=== PATIENT | female | born 1950 | race Caucasian/White ===

== ENCOUNTER 2019-08-20 11:17 | Outpatient (CLI) | payer MEDICARE, SELFPAY ==
[2019-08-20 12:17] LABS: Alanine Aminotransferase 57 U/L (4-35); Albumin Level 4.3 g/dL (3.5-5.1); Alkaline Phosphatase 112 U/L (38-126); Aspartate Amino Transferase 50 U/L (14-36); Bilirubin,Total 0.2 mg/dL (0.2-1.3); Blood Urea Nitrogen 16 mg/dL (7-17); Calcium 9.1 mg/dL (8.4-10.2); Carbon Dioxide 26 mmol/L (22-30); Chloride 104 mmol/L (98-107); Estimated Glomerular Filt Rate > 60; Glucose 124 mg/dL (65-105); Potassium 4.4 mmol/L (3.4-5.0); Rheumatoid Factor < 8.6 IU/ML (<12); Sodium 140 mmol/L (137-145)
== END 2019-08-20 11:18 | disposition home or self-care (01) ==
LOC: ANHLAB 11:20
PROVIDERS: PCP Family Medicine; Visit Provider Internal Medicine Critical Care Medicine
DX: R05 Cough (principal)
CPT/HCPCS: 36415; 80053; 82785; 86003; 86331; 86430; 86606; 86609

== ENCOUNTER 2019-08-25 14:37 | Outpatient (CLI) | payer MEDICARE, SELFPAY ==
--- NOTE | ~2019-08-25 | CT_ITS ---
EXAMINATION:CT chest high resolution wo [place] DATE: 08/25/2019 15:26 INDICATION: Cough. TECHNIQUE: Computed tomography (CT) of the chest was performed without intravenous contrast. Automate d exposure control and iterative reconstruction technique were employed. The dose-length product (DLP ) was 545.75 mGy-cm. COMPARISON: Chest CT 05/19/2011 FINDINGS: Lung volumes are small. There are widespread peripheral reticular opacities in the lungs as sociated with mild groundglass opacities with a lower lung predominance. No bronchiectasis or honeyco mbing. No pleural effusion. The heart size is normal. There are coronary artery calcifications. No pe ricardial effusion. There is diffuse hepatic steatosis. There are changes of cholecystectomy. There i s severe thoracic spondylosis. IMPRESSION: 1. Worsened chronic interstitial lung disease in a pattern of nonspecific interstitial pneumonia (NSI P). Reviewed, dictated and finalized at location A. IMPRESSION: 1. Worsened chronic interstitial lung disease in a pattern of nonspecific inter stitial pneumonia (NSIP).
== END 2019-08-25 14:38 | disposition home or self-care (01) ==
PROVIDERS: PCP Family Medicine; Visit Provider Internal Medicine Critical Care Medicine
DX: R05 Cough (principal); J84.9 Interstitial pulmonary disease, unspecified
CPT/HCPCS: 71250

== ENCOUNTER 2019-09-29 14:24 | Outpatient (CLI) | payer MEDICARE, SELFPAY ==
[2019-09-29 15:19] LABS: Alanine Aminotransferase 63 U/L (4-35); Albumin Level 4.3 g/dL (3.5-5.1); Alkaline Phosphatase 112 U/L (38-126); Aspartate Amino Transferase 46 U/L (14-36); Bilirubin,Total < 0.1 mg/dL (0.2-1.3)
== END 2019-09-29 14:25 | disposition home or self-care (01) ==
PROVIDERS: PCP Family Medicine; Visit Provider Internal Medicine Critical Care Medicine
DX: J84.9 Interstitial pulmonary disease, unspecified (principal)
CPT/HCPCS: 36415; 80076

== ENCOUNTER 2019-11-19 12:25 | Outpatient (CLI) | payer MEDICARE, SELFPAY ==
--- NOTE | 2019-11-26 10:20 | WPDPFTINT ---
PFT Interpretation PFT Interpretation: This PFT met all criteria for ATS standards and reproducibility FEV/FVC post bronchodilator 89% FEV1 100% or 1.92 liters FVC 80% or 2.16 liters TLC 69% or 3.16 liters RV 52% RV/TLC 30% DLCO 54% when adjusted for alveolar volume but not adjusted for hemoglobin Flow volume loops show a restrictive pattern Impression: Restrictive ventilatory defect with moderately decreased diffusion capacity. Compared to September 2018. There have been no significant changes in her lung volumes. This pattern may correspond with ILD or other restrictive lung diseases. Clinical correlation is advised.
--- NOTE | 2019-11-26 10:29 | WPDSIXMINUTE ---
Six Minute Walk Six Minute Walk: The patients O2 sats started at 98% and dropped as low as 93% Total walk distance 304.28 meters conclusion: This patient does not meet criteria for home oxygen therapy.
== END 2019-11-19 12:26 | disposition home or self-care (01) ==
PROVIDERS: PCP Family Medicine; Visit Provider Internal Medicine Critical Care Medicine
DX: J84.9 Interstitial pulmonary disease, unspecified (principal); R94.2 Abnormal results of pulmonary function studies
CPT/HCPCS: 94060; 94618; 94726; 94729

== ENCOUNTER 2019-12-16 14:40 | Outpatient (CLI) | payer MEDICARE, SELFPAY ==
[2019-12-16 15:21] LABS: Alanine Aminotransferase 50 U/L (4-35); Albumin Level 4.2 g/dL (3.5-5.1); Alkaline Phosphatase 102 U/L (38-126); Aspartate Amino Transferase 48 U/L (14-36); Bilirubin,Total 0.2 mg/dL (0.2-1.3)
== END 2019-12-16 14:41 | disposition home or self-care (01) ==
PROVIDERS: PCP Family Medicine; Visit Provider Internal Medicine Critical Care Medicine
DX: J84.112 Idiopathic pulmonary fibrosis (principal)
CPT/HCPCS: 36415; 80076

== ENCOUNTER 2020-01-09 13:41 | Outpatient (CLI) | payer MEDICARE, SELFPAY ==
[2020-01-09 14:29] LABS: Basophils Percent Auto 0.2 % (0.2-1.2); Eosinophils Absolute Auto 0.1 K/mm3 (0-0.3); Eosinophils Percent Auto 1.1 % (0-4.4); Hematocrit 38.2 % (37.0-47.0); Hemoglobin 11.3 g/dL (12.0-15.0); Immature Granulocyte Absolute 0.03 K/mm3 (0.00-0.031); Immature Granulocyte Percent A 0.3 % (0-0.5); Lymphocytes Absolute Auto 1.95 K/mm3 (0.9-3.2); Lymphocytes Percent Auto 22.2 % (18.3-44.2); Mean Corpuscular HGB Conc 29.6 g/dl (32-36); Mean Corpuscular Volume 77.8 fl (80-100); Mean Platelet Volume 10.9 fl (7.4-10.4); Monocytes Absolute Auto 0.5 K/mm3 (0.1-0.6); Monocytes Percent Auto 5.7 % (2.6-8.5); Neutrophils Absolute Auto 6.2 K/mm3 (1.3-6.7); Neutrophils Percent Auto 70.5 % (45.5-73.1); Platelet Count Result 345 k/mm3 (150-375); Red Blood Count 4.91 M/mm3 (4.2-5.4); Red Cell Distribution Width 17.8 % (11.5-14.5); White Blood Count 8.8 K/mm3 (4.5-10.0)
[2020-01-09 14:35] LABS: Alanine Aminotransferase 35 U/L (4-35); Albumin Level 3.9 g/dL (3.5-5.1); Alkaline Phosphatase 123 U/L (38-126); Anion Gap 9 mmol/L (8-16); Aspartate Amino Transferase 40 U/L (14-36); Bilirubin,Total 0.3 mg/dL (0.2-1.3); Blood Urea Nitrogen 16 mg/dL (7-17); Calcium 9.1 mg/dL (8.4-10.2); Carbon Dioxide 30 mmol/L (22-30); Chloride 101 mmol/L (98-107); Estimated Glomerular Filt Rate > 60; Glucose 154 mg/dL (65-105); Potassium 4.1 mmol/L (3.4-5.0); Sodium 140 mmol/L (137-145)
[2020-01-09 15:13] LABS: Hypochromasia 1+ (NORMAL); Platelet Estimate Adequate (Adequate)
== END 2020-01-09 13:42 | disposition home or self-care (01) ==
LOC: ANHLAB 13:42
PROVIDERS: PCP Family Medicine; Visit Provider Internal Medicine Critical Care Medicine
DX: J84.112 Idiopathic pulmonary fibrosis (principal)
CPT/HCPCS: 36415; 80053; 85025

== ENCOUNTER 2020-03-17 15:16 | Outpatient (RCR) | payer MEDICARE, SELFPAY ==
[2020-02-16 14:53] LABS: Alanine Aminotransferase 34 U/L (4-35); Albumin Level 3.8 g/dL (3.5-5.1); Alkaline Phosphatase 100 U/L (38-126); Aspartate Amino Transferase 40 U/L (14-36); Bilirubin,Total 0.3 mg/dL (0.2-1.3)
[2020-03-17 15:57] LABS: Alanine Aminotransferase 30 U/L (4-35); Albumin Level 3.7 g/dL (3.5-5.1); Alkaline Phosphatase 88 U/L (38-126); Aspartate Amino Transferase 36 U/L (14-36); Bilirubin,Total 0.3 mg/dL (0.2-1.3)
== END 2020-05-16 23:59 | disposition home or self-care (01) ==
LOC: ANHLAB 15:16
PROVIDERS: PCP Family Medicine; Visit Provider Internal Medicine Critical Care Medicine
DX: J84.112 Idiopathic pulmonary fibrosis (principal)
CPT/HCPCS: 36415; 80076

== ENCOUNTER 2020-04-13 08:57 | Outpatient (CLI) | payer MEDICARE, SELFPAY | END 2020-04-13 08:58 | disposition home or self-care (01) | LOC: ANHCOVIDVC 08:57 | PROVIDERS: PCP Family Medicine; Visit Provider Internal Medicine Critical Care Medicine | DX: Z23 Encounter for immunization (principal) | CPT/HCPCS: 0001A; 91300 ==

== ENCOUNTER 2020-05-04 08:57 | Outpatient (CLI) | payer MEDICARE, SELFPAY | END 2020-05-04 08:58 | disposition home or self-care (01) | LOC: ANHCOVIDVC 08:57 | PROVIDERS: PCP Family Medicine | DX: Z23 Encounter for immunization (principal) | CPT/HCPCS: 0002A; 91300 ==

== ENCOUNTER 2020-05-17 10:06 | Outpatient (CLI) | payer MEDICARE, SELFPAY ==
--- NOTE | 2020-05-17 16:48 | WPDPFTINT ---
PFT Interpretation This is a pulmonary function test with spirometry, plethysmography and diffusing capacity. The test was performed and results interpreted in accordance with the 2019 and 2005 ATS/ERS Task Force guidelines respectively using the Global Lung Function Initiative-2012 reference equations. Patient demonstrated good effort and cooperation. Reproducibility criteria were met. The quality of the spirometry maneuver was Grade A. Findings: Spirometry: The contour the expiratory flow tracing resembles that of a whitch's hat . The contour of the inspiratory flow tracing is normal. the FVC is 2.23 L, 85% predicted. The FEV1 is 1.95 L, 95% predicted. The FEV1: FVC ratio is 87%. plethysmography: The total lung capacity is 2.90 L, 61% predicted. The functional residual capacity is 1.21 L, 45% predicted. The residual volume is 0.41 L, 20% predicted. Diffusing capacity: The absolute diffusion capacity is 10.4, 53% predicted. The diffusing capacity corrected for alveolar volume is 3.69, 84% predicted. In comparison to previous pulmonary function test on 11/19/2019 the FVC is unchanged from 2.20 L to 2.23 L. The FEV1 is unchanged from 1.93 L to 1.95 L. The total lung capacity is unchanged from 3.16 L to 2.90 L. The functional residual capacity is decreased from 1.53 L to 1.21 L. The residual volume is decreased from 0.96 L to 0.41 L. The absolute diffusing capacity is decreased from 12.5 to 10.4. The diffusing capacity corrected for alveolar volume is decreased from 4.11 to 3.69 Impression: There is a mild restrictive ventilatory abnormality with a normal FEV1. The spirometry is normal without evidence of an obstructive abnormality. The absolute diffusing capacity is moderately decreased and normalizes when corrected for alveolar volume. in comparison to the prior pulmonary function test on 11/19/2019 there has been no significant change in the FVC, FEV1, total lung capacity and a greater than anticipated time dependent decrease in the functional residual capacity, residual volume, absolute diffusing capacity and diffusing capacity corrected for alveolar volume. Clinical correlation is recommended. PFT Procedure Performed PFT Procedure Performed Plethysmography (Lung Vol) Diffusing Cap (DLCO) Spirometry w/o Bronchodil
== END 2020-05-17 10:07 | disposition home or self-care (01) ==
PROVIDERS: PCP Family Medicine; Visit Provider Internal Medicine Critical Care Medicine
DX: J84.112 Idiopathic pulmonary fibrosis (principal)
CPT/HCPCS: 94375; 94726; 94729

== ENCOUNTER → 2020-11-09 03:36 | Outpatient (CLI) | payer MEDICARE, SELFPAY ==
[2020-11-10 01:26] LABS: SARS-CoV-2 RNA PCR Negative
== END ==
PROVIDERS: PCP Family Medicine; Visit Provider Family Medicine
DX: R68.89 Other general symptoms and signs (principal); Z20.822 Contact with and (suspected) exposure to COVID-19
CPT/HCPCS: C9803; U0003; U0005

== ENCOUNTER 2020-11-24 09:18 | Outpatient (CLI) | payer MEDICARE, SELFPAY ==
[2020-11-24 10:04] VITALS: PULSE 78; O2SAT 96
[2020-11-24 10:05] VITALS: PULSE 97; O2SAT 95
[2020-11-24 10:06] VITALS: PULSE 102; O2SAT 92
[2020-11-24 10:07] VITALS: PULSE 97; O2SAT 92
--- NOTE | 2020-11-24 10:27 | HOMEO2EVAL ---
Evaluation was performed at [facility] Home Oxygen Evaluation RC: Home Oxygen (O2) Evaluation Start: 11/24/20 10:24 Freq: Status: Active Protocol: RPE Activity Type Activity Date Activity User E-Sign Co-Sign Detail Recorded Client Recorded Date Recorded By Document 11/24/20 10:04 KRM [id number] 11/24/20 10:27 KRM Document 11/24/20 10:05 KRM [email or web address] 11/24/20 10:27 KRM Document 11/24/20 10:06 KRM [email or web address] 11/24/20 10:27 KRM Document 11/24/20 10:07 KRM [email or web address] 11/24/20 10:27 KRM 11/24/20 11/24/20 11/24/20 10:04 10:05 10:06 Home O2 Evaluation Test Phase Resting Exercise Exercise Oxygen Delivery Room Air Room Air Room Air Pulse Oximetry (90-100 %) 96 95 92 Pulse Rate (60-100 beats/min) 78 97 102 H Activity Tolerance Good Good Ambulation Distance (feet) Treatment Charges O2 Evaluation - Outpatient 11/24/20 10:07 Home O2 Evaluation Test Phase Exercise Oxygen Delivery Room Air Pulse Oximetry (90-100 %) 92 Pulse Rate (60-100 beats/min) 97 Activity Tolerance Good Ambulation Distance (feet) 250 Treatment Charges
--- NOTE | 2020-11-24 11:46 | WPDPFTINT ---
PFT Procedure Performed PFT Procedure Performed Spirometry with Pre/Post Bronchodilator Plethysmography (Lung Vol) Diffusing Cap (DLCO) Flow Vol Loop PFT Interpretation Lung volumes were measured with the body plethysmography method. The diminished lung volumes are indicative of restrictive respiratory disease. Spirometry showed normal expiratory flow rates and a normal FEV1 to FVC ratio of 87%. Following the administration of an inhaled bronchodilator, there was no significant change in the expiratory flow rates. Lung diffusion capacity is moderately reduced at 52% predicted. In comparison to previous study done in November of 2019, the vital capacity and lung diffusion capacity are essentially unchanged. The flow volume loop is consistent with a restrictive respiratory disease. Impression: Moderately severe restrictive respiratory disease. Moderately reduced lung diffusion capacity.
== END 2020-11-24 09:19 | disposition home or self-care (01) ==
PROVIDERS: PCP Family Medicine; Visit Provider Internal Medicine Pulmonary Disease
DX: J84.112 Idiopathic pulmonary fibrosis (principal); R06.00 Dyspnea, unspecified; R94.2 Abnormal results of pulmonary function studies
CPT/HCPCS: 94060; 94618; 94726; 94729

== ENCOUNTER 2021-04-01 15:12 | Outpatient (CLI) | payer MEDICARE, SELFPAY ==
[2021-04-01 15:44] LABS: Albumin Level 3.8 g/dL (3.5-5.1)
[2021-04-01 15:48] LABS: Alanine Aminotransferase 21 U/L (4-35); Alkaline Phosphatase 90 U/L (38-126); Anion Gap 7 mmol/L (8-16); Aspartate Amino Transferase 24 U/L (14-36); Bilirubin,Total 0.2 mg/dL (0.2-1.3); Blood Urea Nitrogen 18 mg/dL (7-17); Carbon Dioxide 29 mmol/L (22-30); Chloride 102 mmol/L (98-107); Estimated Glomerular Filt Rate 49; Glucose 239 mg/dL (65-110); Sodium 138 mmol/L (137-145)
== END 2021-04-01 15:13 | disposition home or self-care (01) ==
PROVIDERS: PCP Family Medicine; Visit Provider Internal Medicine Pulmonary Disease
DX: J84.112 Idiopathic pulmonary fibrosis (principal)
CPT/HCPCS: 36415; 80053

== ENCOUNTER 2021-04-28 10:56 | Emergency (ER) | payer MEDICARE, SELFPAY ==
--- NOTE | ~2021-04-28 | XR_ITS ---
EXAMINATION: XR chest 2V 04/28/2021 11:47 INDICATION: Cough and congestion PROCEDURE: 2 view chest COMPARISON: Comparison to multiple prior studies sequentially, with oldest reviewed study dated 04/07. FINDINGS: There is mild chronic interstitial lung disease of the lower lungs. No acute focal pneumoni a, edema, pleural effusion or pneumothorax. The cardiomediastinal silhouette is within normal limits. There are no pleural effusions. There is no pneumothorax suspected. IMPRESSION: 1: NO ACUTE CARDIOPULMONARY DISEASE. Reviewed, dictated and finalized at location B.
[2021-04-28 11:05] VITALS: BP 147/68; PULSE 94; RESP 18; TEMP 36.3; O2SAT 98
--- NOTE | 2021-04-28 11:47 | ED.GENADULT ---
HPI - General Adult General Chief complaint: Ear Stated complaint: Sore Throat,Rt Ear Irritation Time Seen by Provider: 04/28/21 11:48 Source: patient and RN notes reviewed Mode of arrival: ambulatory Limitations: no limitations History of Present Illness HPI narrative: 70-year-old female with history of IUP lung disease, presented with complaint of sore throat and nasal drainage for 3 days. Also endorses feeling that her ears are itchy. She has chronic shortness of breath and cough due to her lung disease. She has started Mucinex and increase fluids, gargling with warm Listerine without relief in symptoms. She denies sick contact. Endorses feeling more congested since stopping her Flovent and using her rescue inhaler more often. She has boosted for Covid and has had flu vaccine. Denies chest pain, heart racing, nausea, vomiting, diarrhea, fever or chills. Related Data Home Medications Medication Instructions Recorded Confirmed ezetimibe 10 mg tablet 10 mg PO DAILY 08/05/19 03/31/21 sitagliptin 50 mg-metformin 1,000 1 tablet PO BID 08/05/19 03/31/21 mg tablet cholecalciferol (vitamin D3) PO 09/01/19 03/31/21 vitamin B complex 1 tablet PO DAILY 09/01/19 03/31/21 insulin glargine 100 unit/mL (3 16 unit SUBCUT QAM ml 03/31/21 03/31/21 mL) subcutaneous pen insulin lispro 200 unit/mL (3 mL) 8 unit SUB-Q QACBREAK ml 03/31/21 03/31/21 subcutaneous pen Allergies Allergy/AdvReac Type Severity Reaction Status Date / Time amoxicillin Allergy Unknown Unknown Verified 03/31/21 09:38 latex Allergy Unknown unknown Verified 03/31/21 09:38 oxybutynin Allergy Unknown unknown Verified 03/31/21 09:38 clavulanic acid AdvReac Unknown Diarrhea Verified 03/31/21 09:38 OXYBUTYNIN CHLORIDE Allergy Severe HIVES Uncoded 03/31/21 09:38 Review of Systems Review of Systems: CONSTITUTIONAL:denies malaise, chills, sweats, fever EYES: Denies visual changes, redness, or discharge ENT: Reports rhinorrhea, congestion, itching ears, sore throat CARDIOVASCULAR: Denies chest pain, palpitations, edema RESPIRATORY: Reports cough, post nasal drainage. GASTROINTESTINAL: Denies abdominal pain, nausea, vomiting, diarrhea SKIN: Denies rash or itching MUSCULOSKELETAL: denies myalgia NEUROLOGIC: Denies headache [facility] Past Medical History Medical History (Updated 04/28/21 @ 12:00 by Virginia Lei APRN) Allergic rhinitis GERD without esophagitis Hyperlipidemia Hypertension Iron deficiency Moderate persistent asthma with acute exacerbation Other vitamin B12 deficiency anemias Type 2 diabetes mellitus with hyperglycemia Surgical History Surgical History Status post total left knee replacement Family History Family History Mother Diabetes mellitus Hypertension Family history of cardiovascular disease Family history of arthritis Family history of chronic obstructive pulmonary disease Grandparent Diabetes mellitus Family history of cardiovascular disease Cerebrovascular accident Family history of chronic obstructive pulmonary disease Family history of congestive heart failure Sibling Diabetes mellitus Family history of arthritis Family history of seizure disorder Other Asthma Depression Family history of alcoholism Family history of blood dyscrasia Family history of coronary artery disease Family history of glaucoma Family history of obesity Family history of premature coronary heart disease Social History Social History Smoking status: Never smoker Second hand tobacco smoke exposure: No Alcohol intake: never Substance use: never Substance use type: does not use Gender identity (if verbalized by the patient): Female Sexual Orientation (if Verbalized by the Patient): Straight or Heterosexual Spiritual care concerns: No Agree to
== END 2021-04-28 12:25 | disposition home or self-care (01) ==
PROVIDERS: Emergency Provider Nurse Practitioner Family; PCP Family Medicine
DX: J02.9 Acute pharyngitis, unspecified (principal); J30.9 Allergic rhinitis, unspecified; E78.5 Hyperlipidemia, unspecified; I10 Essential (primary) hypertension; E11.9 Type 2 diabetes mellitus without complications; Z79.4 Long term (current) use of insulin; J45.909 Unspecified asthma, uncomplicated; Z96.652 Presence of left artificial knee joint; J84.9 Interstitial pulmonary disease, unspecified
CPT/HCPCS: 71046; 87081; 87880; 99213; G0463

== ENCOUNTER 2021-06-08 09:08 | Outpatient (CLI) | payer MEDICARE, SELFPAY ==
--- NOTE | ~2021-06-08 | CT_ITS ---
EXAMINATION: CT chest high resolution wo nc DATE: 06/08/2021 09:34 INDICATION: Idiopathic pulmonary fibrosis TECHNIQUE: Computed tomography (CT) of the chest was performed without intravenous contrast. The dose -length product (DLP) was 432.66 mGy-cm. Automated exposure control and iterative reconstruction tech nique were employed. COMPARISON: 08/25/2019 FINDINGS: In general widespread subpleural reticular and groundglass opacities with a lower lung zone predominance. No honeycombing is identified. There is mild bronchiectasis in the lower lobes. There is no pleural effusion or pneumothorax. No pathologically enlarged thoracic lymph nodes are identifie d. The heart size is normal. There are scattered stable pulmonary nodules, likely old granulomatous d isease. The gallbladder is surgically absent. There is severe thoracic spondylosis. IMPRESSION: 1. Chronic interstitial lung disease in a pattern of nonspecific interstitial pneumonia (NSIP) with s light interval worsening. Reviewed, dictated and finalized at location F. IMPRESSION: 1. Chronic interstitial lung disease in a pattern of nonspecific interstitial p neumonia (NSIP) with slight interval worsening.
[2021-06-08 11:01] LABS: Basophils Absolute Auto 0.1 K/mm3 (0.0-0.1); Basophils Percent Auto 0.5 % (0.2-1.2); Eosinophils Absolute Auto 0.4 K/mm3 (0-0.3); Hematocrit 37.6 % (37.0-47.0); Hemoglobin 11.8 g/dL (12.0-15.0); Immature Granulocyte Absolute 0.05 K/mm3 (0.00-0.031); Immature Granulocyte Percent A 0.4 % (0-0.5); Lymphocytes Percent Auto 25.6 % (18.3-44.2); Mean Corpuscular HGB Conc 31.4 g/dl (32-36); Mean Corpuscular Hemoglobin 27.2 pg (26-34); Mean Corpuscular Volume 86.6 fl (80-100); Mean Platelet Volume 10.4 fl (7.4-10.4); Monocytes Absolute Auto 0.7 K/mm3 (0.1-0.6); Monocytes Percent Auto 5.3 % (2.6-8.5); Neutrophils Absolute Auto 8.4 K/mm3 (1.3-6.7); Neutrophils Percent Auto 65.2 % (45.5-73.1); Platelet Count Result 284 k/mm3 (150-375); Red Blood Count 4.34 M/mm3 (4.2-5.4); Red Cell Distribution Width 14.8 % (11.5-14.5); White Blood Count 12.9 K/mm3 (4.5-10.0)
[2021-06-08 11:13] LABS: Alanine Aminotransferase 21 U/L (4-35); Albumin Level 4.2 g/dL (3.5-5.1); Alkaline Phosphatase 83 U/L (38-126); Anion Gap 9 mmol/L (8-16); Aspartate Amino Transferase 27 U/L (14-36); Bilirubin,Total 0.2 mg/dL (0.2-1.3); Blood Urea Nitrogen 19 mg/dL (7-17); Carbon Dioxide 30 mmol/L (22-30); Chloride 99 mmol/L (98-107); Cholesterol 150 mg/dL (0-200); Estimated Glomerular Filt Rate > 60; Glucose 152 mg/dL (65-110); HDL Direct 44 mg/dL; Potassium 3.9 mmol/L (3.4-5.0); Sodium 138 mmol/L (137-145); Triglycerides 175 mg/dL (<150)
[2021-06-08 11:24] LABS: LDL Cholesterol Direct 65 mg/dL
[2021-06-08 11:37] LABS: Iron 39 ug/dL (37-170)
[2021-06-08 11:46] LABS: Percent Iron Saturation 10 % (20-50)
[2021-06-08 12:19] LABS: Folic Acid 13.8 ng/mL (2.76->20); Vitamin B12 > 1000.0 pg/mL (239-931)
--- NOTE | 2021-06-09 15:25 | WPDPFTINT ---
PFT Procedure Performed PFT Procedure Performed Spirometry with Pre/Post Bronchodilator Plethysmography (Lung Vol) Diffusing Cap (DLCO) Flow Vol Loop PFT Interpretation DOS: 06/08/2021 REQUESTING: Dr. Thomas Mccann REASON FOR TESTING: ILD PULMONARY FUNCTION TESTS Results are reliable and reproducible. Spirometry: the pre bronchodilator FEV1 is 93%, 1.95 L, normal. The pre bronchodilator FVC is 81%, 2.19 L, normal. The FEV1/FVC ratio is 89% normal. There is an insignificant response to bronchodilator administration, 2% increase in the FEV1 and a 2% decrease in the FVC. Lung volumes: The total lung capacity is decreased at 66% predicted, 3.22 L. This is consistent with mild restriction. The functional residual capacity is 68% predicted, 1.89 L, in the normal range. Residual volume is 46%, 0.99 L, this is below average. The RV/TLC is 31%, below average. Diffusion: DLCO is 53%, moderately decreased. DLCO/A 98%, normal. Flow volume loop: Restrictive pattern. IMPRESSION: This study shows normal spirometry, mild restriction and a moderate diffusion impairment. This is consistent with interstitial lung disease. Compared to a prior study on 11/24/2020, similar values are noted. The total lung capacity is 66%, previously was 61%. Diffusion capacity is 53% previously was 52%. FEV1 is 93%, previously 89%. No significant change in the values. Kendra Bravo MD
== END 2021-06-08 09:09 | disposition home or self-care (01) ==
PROVIDERS: PCP Family Medicine; Visit Provider Internal Medicine Pulmonary Disease
DX: J84.112 Idiopathic pulmonary fibrosis (principal); R06.00 Dyspnea, unspecified; E61.1 Iron deficiency; I10 Essential (primary) hypertension; E87.5 Hyperkalemia; E78.5 Hyperlipidemia, unspecified; D64.9 Anemia, unspecified
CPT/HCPCS: 36415; 71250; 80053; 80061; 82607; 82746; 83540; 83550; 84443; 85025; 94060; 94726; 94729

== ENCOUNTER 2021-10-03 16:40 | Outpatient (CLI) | payer MEDICARE, SELFPAY ==
[2021-10-03 17:20] LABS: Alanine Aminotransferase 22 U/L (6-35); Albumin Level 3.9 g/dL (3.5-5.1); Alkaline Phosphatase 79 U/L (38-126); Anion Gap 12 mmol/L (8-16); Aspartate Amino Transferase 24 U/L (14-36); Bilirubin,Total 0.2 mg/dL (0.2-1.3); Blood Urea Nitrogen 19 mg/dL (7-17); Calcium 8.5 mg/dL (8.4-10.2); Carbon Dioxide 29 mmol/L (22-30); Chloride 99 mmol/L (98-107); Estimated Glomerular Filt Rate 40; Glucose 172 mg/dL (65-110); Potassium 4.3 mmol/L (3.4-5.0); Sodium 140 mmol/L (137-145)
== END 2021-10-03 16:41 | disposition home or self-care (01) ==
LOC: ANHLAB 16:42
PROVIDERS: PCP Family Medicine; Visit Provider Internal Medicine Pulmonary Disease
DX: J84.112 Idiopathic pulmonary fibrosis (principal)
CPT/HCPCS: 36415; 80053

== ENCOUNTER 2021-12-16 10:36 | Emergency (ER) | payer MEDICARE, SELFPAY ==
--- NOTE | ~2021-12-16 | XR_ITS ---
EXAMINATION: XR chest 2V DATE: 12/16/2021 11:09 INDICATION: Shortness of breath, cough and crackles TECHNIQUE: PA and lateral views of the chest were obtained. COMPARISON: Chest radiograph dated 04/28/2021 FINDINGS: Opacities at the bilateral lower lung zones, left greater than right. No pleural effusion or pneumoth orax. The cardiomediastinal silhouette is normal. Cholecystectomy clips in the right upper quadrant. Moderate thoracic spondylosis. IMPRESSION: 1. Bibasilar opacities, left greater than right which could represent atelectasis, mild pulmonary blanca ma or pneumonia. Reviewed, dictated and finalized at location B. IMPRESSION: 1. Bibasilar opacities, left greater than right which could represent atelectas is, mild pulmonary edema or pneumonia.
[2021-12-16 10:52] VITALS: BP 145/76; PULSE 91; RESP 20; TEMP 36.4; O2SAT 98
--- NOTE | 2021-12-16 11:28 | ED.SOB ---
HPI - SOB/Dyspnea General Chief Complaint: Upper Respiratory Infection Stated Complaint: Cough,Sinus,Shortness of Breath Time Seen by Provider: 12/16/21 11:00 Source: patient Mode of arrival: ambulatory Limitations: no limitations History of Present Illness HPI Narrative: Mercedes is a 71-year-old female patient presenting to clinic today with complaints of cough, sinus congestion, and shortness of breath. She reports her symptoms have been going on for approximately 2 days. Has had possible exposure to COVID as her [id number] tested positive on the 05 of December. She reports she has taken 2 COVID test and they have opened negative the last 1 was this morning. She has a productive cough but is unable to spit it out. History of asthma and pulmonary fibrosis. She reports shortness of breath on exertion however when she is sitting she is not short of breath. SpO2 was initially 98% on room air. She denies any fever or chills currently. Related Data Home Medications Medication Instructions Recorded Confirmed ezetimibe 10 mg tablet (Zetia) 10 mg PO DAILY 08/05/19 12/16/21 sitagliptin phosphate 50 1 tablet PO BID 08/05/19 12/16/21 mg-metformin 1,000 mg tablet (Janumet) cholecalciferol (vitamin D3) 1,000 mcg PO DAILY 09/01/19 12/16/21 vitamin B complex (B 1 tablet PO DAILY 09/01/19 12/16/21 Complex-Vitamin B12 tablet) insulin glargine 100 unit/mL (3 16 unit subcut QAM 03/31/21 12/16/21 mL) subcutaneous pen (Lantus Solostar U-100 Insulin) insulin lispro 200 unit/mL (3 mL) 8 unit subcut QACBREAK 03/31/21 12/16/21 subcutaneous pen (Humalog KwikPen U-200 Insulin) albuterol sulfate 90 mcg/actuation See Rx Instructions .Route 04/28/21 12/16/21 aerosol inhaler .COMPLEX PRN Shortness Of Breath Or Wheezing Allergies Allergy/AdvReac Type Severity Reaction Status Date / Time oxybutynin Allergy Intermediate Nausea and Verified 12/16/21 11:18 Vomiting amoxicillin AdvReac Mild Itching Verified 12/16/21 11:18 clavulanic acid AdvReac Mild Itching Verified 12/16/21 11:18 latex AdvReac Mild Itching Verified 12/16/21 11:18 OXYBUTYNIN CHLORIDE Allergy Intermediate Nausea and Uncoded 12/16/21 11:18 Vomiting Review of Systems Review of Systems: Pertinent positives per HPI. Patient denies any fever, chills, rash, headache, visual changes, dizziness, chest pain, palpitations, nausea, vomiting, diarrhea, constipation, abdominal pain, or any urinary issues. [facility] Past Medical History Medical History Allergic rhinitis GERD without esophagitis Hyperlipidemia Hypertension Iron deficiency Moderate persistent asthma with acute exacerbation Other vitamin B12 deficiency anemias Type 2 diabetes mellitus with hyperglycemia Surgical History Surgical History Status post total left knee replacement Family History Family History Mother Diabetes mellitus Hypertension Family history of cardiovascular disease Family history of arthritis Family history of chronic obstructive pulmonary disease Grandparent Diabetes mellitus Family history of cardiovascular disease Cerebrovascular accident Family history of chronic obstructive pulmonary disease Family history of congestive heart failure Sibling Diabetes mellitus Family history of arthritis Family history of seizure disorder Other Asthma Depression Family history of alcoholism Family history of blood dyscrasia Family history of coronary artery disease Family history of glaucoma Family history of obesity Family history of premature coronary heart disease Social History Social History Smoking status: Never smoker Second hand tobacco smoke exposure: No Alcohol intake: never Substance use: never Sub
[2021-12-16 19:54] LABS: SARS-CoV-2 RNA PCR Negative
== END 2021-12-16 11:42 | disposition home or self-care (01) ==
PROVIDERS: Emergency Provider Nurse Practitioner Family; PCP Family Medicine
DX: J22 Unspecified acute lower respiratory infection (principal); J81.0 Acute pulmonary edema; Z20.822 Contact with and (suspected) exposure to COVID-19; K21.9 Gastro-esophageal reflux disease without esophagitis; E78.5 Hyperlipidemia, unspecified; I10 Essential (primary) hypertension; E11.9 Type 2 diabetes mellitus without complications; Z96.652 Presence of left artificial knee joint; D51.9 Vitamin B12 deficiency anemia, unspecified; Z79.4 Long term (current) use of insulin
CPT/HCPCS: 71046; 99213; G0463; U0003; U0005

== ENCOUNTER 2022-02-07 11:46 | Emergency (ER) | payer MEDICARE, SELFPAY ==
--- NOTE | ~2022-02-07 | XR_ITS ---
Clinical Indication: Shortness of breath, Covid 19 positive PA and lateral views of the chest: Comparison: 12/16/2021 Findings: The lungs are clear, without evidence of focal consolidation or pleural effusion. Cardiome diastinal silhouette is within normal limits. Bones and soft tissues are unremarkable. Impression: Normal chest. Reviewed, dictated and finalized at location . UERER Impression: Normal chest.
[2022-02-07 12:29] VITALS: BP 154/50; PULSE 79; RESP 20; TEMP 36; O2SAT 96
--- NOTE | 2022-02-07 13:30 | ED.URI ---
HPI - URI/Sore Throat General Chief Complaint: Shortness of Breath/Dyspnea Stated Complaint: Shortness of Breath Time Seen by Provider: 02/07/22 13:30 Source: patient, RN notes reviewed and old records reviewed Mode of arrival: ambulatory Limitations: no limitations History of Present Illness HPI Narrative: 71-year-old female presents to the [facility] with complaints of shortness of breath. Tested positive for COVID, last , 4 days prior and has been on a Z-Thomas, Lasix and has been using her inhaler. Patient also states that she was prescribed Paxlovid and finished that yesterday. Related Data Home Medications Medication Instructions Recorded Confirmed ezetimibe 10 mg tablet (Zetia) 10 mg PO DAILY 08/05/19 02/07/22 sitagliptin phosphate 50 1 tablet PO BID 08/05/19 02/07/22 mg-metformin 1,000 mg tablet (Janumet) cholecalciferol (vitamin D3) 1,000 mcg PO DAILY 09/01/19 02/07/22 vitamin B complex (B 1 tablet PO DAILY 09/01/19 02/07/22 Complex-Vitamin B12 tablet) insulin glargine 100 unit/mL (3 16 unit subcut QAM 03/31/21 02/07/22 mL) subcutaneous pen (Lantus Solostar U-100 Insulin) insulin lispro 200 unit/mL (3 mL) 8 unit subcut QACBREAK 03/31/21 02/07/22 subcutaneous pen (Humalog KwikPen U-200 Insulin) albuterol sulfate 90 mcg/actuation See Rx Instructions .Route 04/28/21 02/07/22 aerosol inhaler .COMPLEX PRN Shortness Of Breath Or Wheezing furosemide 20 mg tablet 20 mg DAILY 02/07/22 02/07/22 Allergies Allergy/AdvReac Type Severity Reaction Status Date / Time oxybutynin Allergy Intermediate Nausea and Verified 02/07/22 13:38 Vomiting amoxicillin AdvReac Mild Itching Verified 02/07/22 13:38 clavulanic acid AdvReac Mild Itching Verified 02/07/22 13:38 latex AdvReac Mild Itching Verified 02/07/22 13:38 OXYBUTYNIN CHLORIDE Allergy Intermediate Nausea and Uncoded 02/07/22 13:38 Vomiting Review of Systems Review of Systems: All systems reviewed & are unremarkable except as noted in HPI and below Constitutional: Constitutional: Reports no additional constitutional complaints Eyes: Eyes: Reports no additional eye complaints ENT: Reports system reviewed and no additional complaints, except as documented Cardiovascular: Cardiovascular: Reports no additional cardiovascular complaints, Denies chest pain and Denies dyspnea Respiratory: Respiratory: Reports as per HPI, Denies chest congestion, Reports cough and Reports dyspnea Gastrointestinal: Gastrointestinal: Reports no additional gastrointestinal complaints, Denies abdominal pain, Denies nausea and Denies vomiting Musculoskeletal: Musculoskeletal: Reports no additional musculoskeletal complaints Integumentary/Breasts: Skin/Breast: Reports system reviewed and no additional complaints, except as docu Neurologic: Reports system reviewed and no additional complaints, except as documented Psychiatric: Psychiatric: Reports no additional psychiatric complaints Allergic/Immunologic: Allergic/Immunologic: Reports no additional allergic/immunologic complaints PMFSH Past Medical History Medical History Allergic rhinitis Follow-up exam GERD without esophagitis Hyperlipidemia Hypertension Iron deficiency Moderate persistent asthma with acute exacerbation Other vitamin B12 deficiency anemias Pneumonia Type 2 diabetes mellitus with hyperglycemia Surgical History Surgical History Status post total left knee replacement Family History Family History Mother Diabetes mellitus Hypertension Family history of cardiovascular disease Family history of arthritis Family history of chronic obstructive pulmonary disease Grandparent Diabetes mellitus Family history of cardiovascular disease Cerebrovascular accident Family history of chronic obstructive pulmonary disease
== END 2022-02-07 14:00 | disposition home or self-care (01) ==
PROVIDERS: Emergency Provider Nurse Practitioner; PCP Physician Assistant Medical
DX: U07.1 COVID-19 (principal); R06.02 Shortness of breath; K21.9 Gastro-esophageal reflux disease without esophagitis; E78.5 Hyperlipidemia, unspecified; I10 Essential (primary) hypertension; J45.909 Unspecified asthma, uncomplicated; E11.9 Type 2 diabetes mellitus without complications; Z96.652 Presence of left artificial knee joint; Z79.4 Long term (current) use of insulin
CPT/HCPCS: 71046; 99213; G0463

== ENCOUNTER 2022-03-20 09:29 | Outpatient (CLI) | payer MEDICARE, SELFPAY ==
--- NOTE | ~2022-03-20 | CT_ITS ---
EXAMINATION: CT chest high resolution [place] DATE: 03/20/2022 09:49 INDICATION: Pulmonary fibrosis TECHNIQUE: Computed tomography (CT) of the chest was performed without intravenous contrast. The dose -length product (DLP) was 289.73 mGy-cm. Automated exposure control and iterative reconstruction tech nique were employed. COMPARISON: 06/08/2021 FINDINGS: Again seen are widespread subpleural reticular and groundglass opacities with a lower lung zone predominance there has been no significant interval change. Mild bronchiectasis is noted in the lower lobes. No pleural effusion or pneumothorax. Stable bilateral pulmonary nodules are consistent w ith old granulomatous disease. The lungs are free of acute airspace opacities. No pathologically enla rged thoracic lymph nodes are identified. The heart size is normal. There is calcified coronary arter y atherosclerosis. There is severe thoracic spondylosis. IMPRESSION: 1. Chronic interstitial lung disease in a pattern of nonspecific interstitial pneumonia (NSIP) withou t significant change. Reviewed, dictated and finalized at location B. 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 Chronic interstitial lung disease in a pattern of nonspecific interstitial p neumonia (NSIP) without significant change.
== END 2022-03-20 09:30 | disposition home or self-care (01) ==
PROVIDERS: PCP Nurse Practitioner Family; Visit Provider Internal Medicine Pulmonary Disease
DX: J84.112 Idiopathic pulmonary fibrosis (principal)
CPT/HCPCS: 71250

== ENCOUNTER 2022-04-18 08:02 | Outpatient (CLI) | payer MEDICARE, SELFPAY ==
[2022-04-18 08:30] VITALS: PULSE 89; O2SAT 96
[2022-04-18 08:35] VITALS: PULSE 121; O2SAT 93
[2022-04-18 08:45] VITALS: PULSE 93; O2SAT 97
--- NOTE | 2022-04-18 09:27 | HOMEO2EVAL ---
Evaluation was performed at [facility] Home Oxygen Evaluation RC: Home Oxygen (O2) Evaluation Start: 04/18/22 09:24 Freq: Status: Active Protocol: RPE Activity Type Activity Date Activity User E-sign Co-sign Detail Recorded Client Recorded Date Recorded By Document 04/18/22 08:30 ELISE [email or web address] 04/18/22 09:27 ELISE Document 04/18/22 08:35 ELISE [email or web address] 04/18/22 09:27 ELISE Document 04/18/22 08:45 ELISE [email or web address] 04/18/22 09:27 ELISE 04/18/22 04/18/22 04/18/22 08:30 08:35 08:45 Home O2 Evaluation [Oxygen] -Test Phase Resting Exercise Resting -Oxygen Delivery Room Air Room Air Room Air [Pulse Oximetry] -Pulse Oximetry (90-100 %) 96 93 97 [Pulse Rate] -Pulse Rate (60-100 beats/min) 89 121 H 93 [Exercise] -Ambulation Distance (feet) 900 -Ambulation Distance (meters) 274.30 [Charges] -Treatment Charges O2 Evaluation - Outpatient
--- NOTE | 2022-04-18 12:50 | WPDPFTINT ---
PFT Procedure Performed PFT Procedure Performed Spirometry with Pre/Post Bronchodilator Plethysmography (Lung Vol) Diffusing Cap (DLCO) Flow Vol Loop PFT Interpretation This is a pulmonary function test with pre and post-bronchodilator spirometry, plethysmography and diffusing capacity. The test was performed and results interpreted in accordance with the 2019 and 2005 ATS/ERS Task Force guidelines respectively using the Global Lung Function Initiative-2012 reference equations. Patient demonstrated good effort and cooperation. Reproducibility criteria were met. The quality of the pre bronchodilator spirometry maneuver was Grade A and post bronchodilator spirometry maneuver was Grade A. Findings: Spirometry:The contour the inspiratory and expiratory flow tracing are normal. The pre bronchodilator FVC is 2.38 L, 88% predicted. The pre bronchodilator FEV1 is 2.14 L, 103% predicted. The pre bronchodilator FEV1: FVC ratio is 90%. The post bronchodilator FVC is 2.29 L, representing a 4% decrease. The post bronchodilator FEV1 is 2.11 L, representing a 2% decrease. The post broncho dilator FEV1: FVC ratio is 92%. Plethysmography: The total lung capacity is 3.13 L, 64% predicted. The functional residual capacity is 1.23 L, 44% predicted. The residual volume is 0.76 L, 35% predicted. Diffusing capacity: The diffusing capacity unadjusted for hemoglobin and carboxyhemoglobin is 10.7, 54% predicted. The diffusing capacity adjusted for alveolar volume is 3.80, 88% predicted. In comparison to previous pulmonary function test on 06/08/2021 the post bronchodilator FVC is unchanged from 2.15 L to 2.29 L. The post bronchodilator FEV1 is unchanged from 1.99 L to 2.11 L. The total lung capacity is unchanged from 3.22 L to 3.13 L. The functional residual capacity is decreased from 1.89 L to 1.23 L. The residual volume is on decreased from 0.99 L to 0.76 L. The diffusing capacity unadjusted for hemoglobin and carboxyhemoglobin is unchanged at 10.6 to 10.7. The diffusing capacity adjusted for alveolar volume is unchanged from 4.24 to 3.80 Impression: There is a mild restrictive ventilatory abnormality with a normal FEV1. The spirometry is normal without evidence of an obstructive abnormality. There is no significant improvement after inhaling a single dose of albuterol. The diffusing capacity unadjusted for hemoglobin and carboxyhemoglobin is moderately decreased and normalizes when adjusted for alveolar volume. in comparison to the previous pulmonary function test on 06/08/2021 there has been a greater than anticipated time dependent decrease in the functional residual capacity, and residual volume with no significant change in the FVC, FEV1, total lung capacity or diffusing capacity. Clinical correlation is recommended.
== END 2022-04-18 08:03 | disposition home or self-care (01) ==
PROVIDERS: PCP Nurse Practitioner Family; Visit Provider Internal Medicine Pulmonary Disease
DX: J84.112 Idiopathic pulmonary fibrosis (principal); R06.00 Dyspnea, unspecified; R94.2 Abnormal results of pulmonary function studies
CPT/HCPCS: 94060; 94618; 94726; 94729

== ENCOUNTER 2022-09-26 04:21 | Day surgery (SDC) | payer MEDICARE, SELFPAY ==
[2022-09-20 14:25] VITALS: BMI 39.3
[2022-09-26 09:05] VITALS: BP 148/88; PULSE 112; RESP 18; TEMP 36.3; O2SAT 98
[2022-09-26] MEDS: LACTATED RINGERS 1,000 ML 150 ML IV CONT (09:16)
--- NOTE | 2022-09-26 09:19 | SUR.PREOP ---
Blood sugar 198 per pt's implanted glucose monitor
--- NOTE | 2022-09-26 09:21 | PM.HPGS ---
History of Present Illness History of Present Illness Consent: Risks, benefits, and alternatives have been discussed and questions answered. Patient agrees to proceed with procedure. Chief complaint: anemia,hx of colon polyps Narrative: Mercedes Garcia is a 72 year old female Presents for screening colonoscopy. Patient's current weight appetite and bowel movements are normal. Patient denies abdominal pain. She has had no bleeding. Old records reflect prior colonoscopy in [address] Silverio revealed a benign adenomatous polyp that was removed. Patient has currently been treated for idiopathic pulmonary fibrosis. Recent lab studies reveal a normochromic normocytic anemia. Patient denies any evidence of bleeding. Her family history is noncontributory. Patient presents today for screening colonoscopy. Review of Systems Review of Systems: Review of systems noncontributory. [facility] Past Medical History Medical History Allergic rhinitis Follow-up exam GERD without esophagitis Hyperlipidemia Hypertension Iron deficiency Moderate persistent asthma with acute exacerbation Other vitamin B12 deficiency anemias Pneumonia Type 2 diabetes mellitus with hyperglycemia Surgical History Surgical History Status post total left knee replacement Family History Family History Mother Diabetes mellitus Hypertension Family history of cardiovascular disease Family history of arthritis Family history of chronic obstructive pulmonary disease Grandparent Diabetes mellitus Family history of cardiovascular disease Cerebrovascular accident Family history of chronic obstructive pulmonary disease Family history of congestive heart failure Sibling Diabetes mellitus Family history of arthritis Family history of seizure disorder Other Asthma Depression Family history of alcoholism Family history of blood dyscrasia Family history of coronary artery disease Family history of glaucoma Family history of obesity Family history of premature coronary heart disease Social History Social History Smoking status: Never smoker Second hand tobacco smoke exposure: No Alcohol intake: never Substance use: never Substance use type: does not use Lack of Transportation: No Lack of Food: Never True Current Housing: I Have Housing Concerned About Future Housing: No Difficulty Paying Gas/Electric Bills: No Difficulty Paying for Meds: No Currently Unemployed: No Difficulty w/ Childcare or Family Care: No Living arrangements: with family Occupation/Education: retired Gender identity (if verbalized by the patient): Female Sexual Orientation (if Verbalized by the Patient): Straight or Heterosexual Spiritual care concerns: No Agree to blood products: Yes Meds Home Medications and Allergies Home Medications Medication Instructions Recorded Confirmed Type ezetimibe 10 mg tablet (Zetia) 10 mg PO DAILY 08/05/19 09/20/22 History sitagliptin phosphate 50 1 tablet PO BID 08/05/19 09/20/22 History mg-metformin 1,000 mg tablet (Janumet) inhalational spacing device #1 ea 08/20/19 08/30/22 Rx (Aerochamber MV spacer) cholecalciferol (vitamin D3) 1,000 mcg PO DAILY 09/01/19 09/20/22 History vitamin B complex (B 1 tablet PO DAILY 09/01/19 09/20/22 History Complex-Vitamin B12 tablet) blood-glucose meter (Interactive NetworksTouch #1 ea 02/16/20 08/30/22 Rx Ultra2 Meter) insulin glargine 100 unit/mL (3 25 unit subcut HS 03/31/21 09/20/22 History mL) subcutaneous pen (Lantus Solostar U-100 Insulin) albuterol sulfate 90 mcg/actuation See Rx Instructions .Route 04/28/21 09/20/22 History aerosol inhaler .COMPLEX PRN Shortness Of Breath Or Wheezing insuli
--- NOTE | 2022-09-26 09:46 | WPDANESEPPF ---
Anes - Initial Pre Proc Eval Procedure: Operation Date: 09/26/22 10:30 Proposed Procedures p Colonoscopy - Jalil Cordova MD Date/Time: 09/26/22 09:46 Surgeon: Jalil Cordova MD Pre Op Diagnosis: anemia,hx of colon polyps Patient Data Age: 72 Gender: F Height: 1.57 m Weight: 91.4 kg Last Vital Signs Temp 36.3 C L 09/26/22 09:05 Pulse 112 H 09/26/22 09:05 Resp 18 09/26/22 09:05 BP 148/88 H 09/26/22 09:05 Pulse Ox 98 09/26/22 09:05 O2 Del Method Room Air 09/26/22 09:05 Allergies Allergy/AdvReac Type Severity Reaction Status Date / Time oxybutynin Allergy Intermediate Nausea and Verified 09/26/22 09:04 Vomiting amoxicillin AdvReac Mild Itching Verified 09/26/22 09:04 clavulanic acid AdvReac Mild Itching Verified 09/26/22 09:04 latex AdvReac Mild Itching Verified 09/26/22 09:04 Home Medications Medication Instructions Recorded Confirmed Type ezetimibe 10 mg tablet (Zetia) 10 mg PO DAILY 08/05/19 09/20/22 History sitagliptin phosphate 50 1 tablet PO BID 08/05/19 09/20/22 History mg-metformin 1,000 mg tablet (Janumet) inhalational spacing device #1 ea 08/20/19 08/30/22 Rx (Aerochamber MV spacer) cholecalciferol (vitamin D3) 1,000 mcg PO DAILY 09/01/19 09/20/22 History vitamin B complex (B 1 tablet PO DAILY 09/01/19 09/20/22 History Complex-Vitamin B12 tablet) blood-glucose meter (OneTouch #1 ea 02/16/20 08/30/22 Rx Ultra2 Meter) insulin glargine 100 unit/mL (3 25 unit subcut HS 03/31/21 09/20/22 History mL) subcutaneous pen (Lantus Solostar U-100 Insulin) albuterol sulfate 90 mcg/actuation See Rx Instructions .Route 04/28/21 09/20/22 History aerosol inhaler .COMPLEX PRN Shortness Of Breath Or Wheezing insulin lispro 200 unit/mL (3 mL) 10 - 14 unit subcut TIDWM 02/22/22 09/20/22 History subcutaneous pen (Humalog KwikPen U-200 Insulin) ondansetron 4 mg disintegrating 4 mg PO Q8H PRN nausea and 02/22/22 09/20/22 Rx tablet vomiting #30 tabs chlorthalidone 25 mg tablet 25 mg PO DAILY #90 tabs 07/07/22 09/20/22 Rx biotin 1 mg capsule 1 mg PO DAILY 08/29/22 09/20/22 History lorazepam 1 mg tablet 1 mg PO BID PRN anxiety #60 tabs 08/29/22 09/20/22 Rx ferrous sulfate 325 mg (65 mg 325 mg PO DAILY #90 tabs 09/08/22 09/20/22 Rx iron) tablet sodium,potassium,mag sulfates 17.5 See Rx Instructions PO .COMPLEX 09/15/22 Rx gram-3.13 gram-1.6 gram oral soln #354 mL (Suprep Bowel Prep Kit) diltiazem HCl 360 mg 360 mg PO DAILY 09/20/22 09/20/22 History capsule,extended release 24 hr esomeprazole magnesium 40 mg 40 mg PO DAILY 09/20/22 09/20/22 History capsule,delayed release olmesartan 40 mg tablet 40 mg PO DAILY 09/20/22 09/20/22 History rosuvastatin 10 mg tablet 10 mg PO DAILY 09/20/22 09/20/22 History Ofev 150 mg capsule (nintedanib) See Rx Instructions .Route 09/25/22 Rx .COMPLEX #60 caps Patient hx anesthesia problems: none Family hx anesthesia problems: none Results Review: All pre-operative results and documents have been reviewed as part of the pre-operative evaluation. [facility] Past Medical History Medical History Allergic rhinitis Follow-up exam GERD without esophagitis Hyperlipidemia Hypertension Iron deficiency Moderate persistent asthma with acute exacerbation Other vitamin B12 deficiency anemias Pneumonia Type 2 diabetes mellitus with hyperglycemia Surgical History Surgical History Status post total left knee replacement Family History Family History Mother Diabetes mellitus Hypertension Family history of cardiovascular disease Family history of arthritis Family history of chronic obstructive pulmonary disease Grandparent Diabetes mellitus Family history of cardiovascular disease Cerebrovascular accident Family history of
[2022-09-26 10:28] VITALS: BP 102/47; PULSE 92; RESP 20; O2SAT 97
[2022-09-26 10:38] VITALS: BP 115/60; PULSE 85; RESP 16; O2SAT 99
--- NOTE | 2022-09-26 10:40 | SUR.PHASEII ---
per Glucose monitor, pt blood sugar is 154 postoperatively.
[2022-09-26 10:48] VITALS: BP 119/75; PULSE 94; RESP 17; O2SAT 99
== END 2022-09-26 11:05 | disposition home or self-care (01) ==
PROVIDERS: PCP Nurse Practitioner Family; Visit Provider Internal Medicine Gastroenterology
PROC: 0DJD8ZZ Inspection of Lower Intestinal Tract, Via Natural or Artificial Opening Endoscopic (ICD-10-PCS; CPT 45378; principal; 2022-09-26 10:30)
DX: Z12.11 Encounter for screening for malignant neoplasm of colon (principal); K64.8 Other hemorrhoids; K57.30 Diverticulosis of large intestine without perforation or abscess without bleeding; Z86.010 Personal history of colon polyps; D50.9 Iron deficiency anemia, unspecified; E11.9 Type 2 diabetes mellitus without complications; K21.9 Gastro-esophageal reflux disease without esophagitis; I10 Essential (primary) hypertension; J45.40 Moderate persistent asthma, uncomplicated; D51.9 Vitamin B12 deficiency anemia, unspecified; Z79.84 Long term (current) use of oral hypoglycemic drugs; Z79.4 Long term (current) use of insulin; Z79.51 Long term (current) use of inhaled steroids; E66.9 Obesity, unspecified; Z68.36 Body mass index [BMI] 36.0-36.9, adult
CPT/HCPCS: G0105; J2704; J7120

== ENCOUNTER 2023-02-21 12:03 | Outpatient (CLI) | payer MEDICARE, SELFPAY ==
[2023-02-21 12:52] LABS: Basophils Absolute Auto 0.1 K/mm3 (0.0-0.1); Basophils Percent Auto 0.5 % (0.2-1.2); Eosinophils Absolute Auto 0.3 K/mm3 (0-0.3); Eosinophils Percent Auto 2.7 % (0-4.4); Hematocrit 38.5 % (37.0-47.0); Hemoglobin 12.5 g/dL (12.0-15.0); Immature Granulocyte Absolute 0.07 K/mm3 (0.00-0.031); Immature Granulocyte Percent A 0.6 % (0-0.5); Lymphocytes Absolute Auto 3.44 K/mm3 (0.9-3.2); Lymphocytes Percent Auto 27.3 % (18.3-44.2); Mean Corpuscular HGB Conc 32.5 g/dl (32-36); Mean Corpuscular Hemoglobin 29.7 pg (26-34); Mean Corpuscular Volume 91.4 fl (80-100); Mean Platelet Volume 10.9 fl (7.4-10.4); Monocytes Absolute Auto 0.6 K/mm3 (0.1-0.6); Monocytes Percent Auto 5.1 % (2.6-8.5); Neutrophils Absolute Auto 8.1 K/mm3 (1.3-6.7); Neutrophils Percent Auto 63.8 % (45.5-73.1); Platelet Count Result 281 k/mm3 (150-375); Red Blood Count 4.21 M/mm3 (4.2-5.4); Red Cell Distribution Width 13.6 % (11.5-14.5); White Blood Count 12.6 K/mm3 (4.5-10.0)
[2023-02-21 13:09] LABS: Rheumatoid Factor < 12.0 IU/ML (<12)
[2023-02-21 13:11] LABS: Alanine Aminotransferase 23 U/L (6-35); Albumin Level 3.6 g/dL (3.5-5.1); Alkaline Phosphatase 89 U/L (38-126); Anion Gap 8 mmol/L (8-16); Aspartate Amino Transferase 25 U/L (14-36); Bilirubin,Total 0.3 mg/dL (0.2-1.3); Blood Urea Nitrogen 20 mg/dL (7-17); CRP < 0.5 mg/dL (<1.0); Calcium 8.7 mg/dL (8.4-10.2); Carbon Dioxide 27 mmol/L (22-30); Chloride 105 mmol/L (98-107); Creatine Kinase 66 U/L (30-135); Estimated Glomerular Filt Rate 44; Glucose 101 mg/dL (65-110); Potassium 4.2 mmol/L (3.4-5.0); Sodium 140 mmol/L (137-145)
[2023-02-21 13:46] LABS: Atypical Lymphocytes Present; Platelet Estimate Adequate (Adequate); Schistocytes None Seen (NORMAL)
[2023-02-21 15:51] LABS: Erythrocyte Sedimentation Rate 22 mm/hr (0-20)
[2023-02-24 11:16] LABS: ANA Cascade Screen Negative (Negative)
[2023-02-25 10:00] LABS: Anti Cyclic Citrullinated Pept <16 Units (<20)
[2023-02-27 03:46] LABS: Aldolase 4.9 U/L (<=8.1)
[2023-02-27 14:41] LABS: ANCA Screen Negative (Negative)
[2023-03-12 14:05] LABS: Aspergillus fumigatus Negative
== END 2023-02-21 12:04 | disposition home or self-care (01) ==
PROVIDERS: PCP Nurse Practitioner Family; Visit Provider Internal Medicine Pulmonary Disease
DX: J84.112 Idiopathic pulmonary fibrosis (principal); J84.9 Interstitial pulmonary disease, unspecified; J98.4 Other disorders of lung; J44.9 Chronic obstructive pulmonary disease, unspecified; R91.1 Solitary pulmonary nodule
CPT/HCPCS: 36415; 80053; 82085; 82550; 85025; 85652; 86036; 86038; 86140; 86200; 86225; 86235; 86331; 86364; 86430; 86606; 86609

== ENCOUNTER 2023-04-19 08:04 | Outpatient (CLI) | payer MEDICARE, SELFPAY ==
--- NOTE | ~2023-04-19 | CT_ITS ---
EXAMINATION: CT chest high resolution wo nd DATE: 04/19/2023 09:47 INDICATION: Idiopathic pulmonary fibrosis TECHNIQUE: Computed tomography (CT) of the chest was performed without intravenous contrast. The dose -length product (DLP) was 322.80 mGy-cm. Automated exposure control and iterative reconstruction tech nique were employed. COMPARISON: 03/20/2022 FINDINGS: Widespread subpleural reticular and groundglass opacities with a lower lung zone predominan ce are again seen which demonstrate slight interval worsening. Bronchiectasis is again noted in the l ower lobes. No pleural effusion or pneumothorax. No honeycombing is identified. Stable bilateral pulm onary nodules are consistent with old granulomatous disease. No pathologically enlarged thoracic lymp h nodes are identified. The heart size is normal. Calcified coronary artery atherosclerosis is noted. There are changes of cholecystectomy. There is severe thoracic spondylosis. IMPRESSION: 1. Chronic interstitial lung disease in a pattern of nonspecific interstitial pneumonia (NSIP) with i nterval worsening. Reviewed, dictated and finalized at location [facility] [employer] IMPRESSION: 1. Chronic interstitial lung disease in a pattern of nonspecific interstitial p neumonia (NSIP) with interval worsening.
--- NOTE | 2023-04-19 16:12 | P.PCNPFT_ITS ---
PFT Procedure Performed PFT Procedure Performed Spirometry with Pre/Post Bronchodilator Plethysmography (Lung Vol) Diffusing Cap (DLCO) Flow Vol Loop PFT Interpretation This is a pulmonary function test with pre and post-bronchodilator spirometry, plethysmography and diffusing capacity. The test was performed and results interpreted in accordance with the 2019 and 2005 ATS/ERS Task Force guidelines respectively using the Global Lung Function Initiative-2012 reference equations. Patient demonstrated good effort and cooperation. Reproducibility criteria were met. The quality of the pre bronchodilator spirometry maneuver was Grade A and post bronchodilator spirometry maneuver was Grade A. Findings: Spirometry: the contour the inspiratory and expiratory flow tracing are normal. The pre bronchodilator FVC is 2.06 L, 81% predicted. The pre bronchodilator FEV1 is 1.87 L, 95% predicted. The pre bronchodilator FEV1: FVC ratio is 91%. The post bronchodilator FVC is 2.03 L, representing 1% decrease. The post bronchodilator FEV1 is 1.87 L, representing no change. The post bronchodilator FEV1: FVC ratio is 92%. Plethysmography: The total lung capacity is 3.14 L, 66% predicted. The functional residual capacity is 1.32 L, 49% predicted. The residual volume is 1.00 L, 47% predicted. Diffusing capacity: The diffusing capacity unadjusted for hemoglobin and carboxyhemoglobin is 10.1, 52% predicted. The diffusing capacity adjusted for alveolar volume is 3.79, 87% predicted. In comparison to previous pulmonary function testing done on 04/18/2022 the post bronchodilator FVC is is unchanged from 2.29 L to 2.03 L. The post bronchodilator the FEV1 is unchanged from 2.11 L to 1.87 L. The total lung capacity is unchanged from 3.13 L to 3.14 L. The functional residual capacity is unchanged from 1.23 L to 1.32 L. The residual volume is increased from 0.76 L to 1.00 L. The diffusing capacity unadjusted for hemoglobin and carboxyhemoglobin is unchanged from 10.7 to 10.1. The diffusing capacity adjusted for alveolar volume is unchanged from 3.80 to 3.79. Impression: There is a mild restrictive ventilatory abnormality with a normal FEV1. The spirometry is normal without evidence of an obstructive abnormality. There is no significant improvement after inhaling a single dose of albuterol. The diffusing capacity unadjusted for hemoglobin and carboxyhemoglobin is moderately decreased and normalizes when adjusted for alveolar volume. In comparison to previous pulmonary function testing on 04/18/2022 there has been a greater than anticipated time dependent increase in the residual volume with no significant change in the FVC, FEV1, total lung capacity, functional res idual capacity and diffusing capacity.
--- NOTE | 2023-04-19 16:13 | WPDSIXMINUTE ---
Six Minute Walk Procedure Procedure Performed Pulmonary Stress Test (6 min walk) Six Minute Walk Six Minute Walk: 04/19/23: This is a 6 minute walk test. The test was performed and interpreted in accordance with the 2014 ERS/ATS task force guidelines. Findings: The patient's resting room air oxygen saturation measured by pulse oximetry was 91% and heart rate was 81 bpm. Patient ambulated for 335 meters and oxygen saturation remained 89 to 97%. Heart rate at the end of the study was 115 bpm. The patient did not qualify for supplemental oxygen at rest or with ambulation. Compared to 11/19/2019 the patient walking distance has improved from 304 m to 335 m and the patient's josé miguel saturation as decreased from 93% to 89%.
== END 2023-04-19 08:05 | disposition home or self-care (01) ==
PROVIDERS: PCP Nurse Practitioner Family; Visit Provider Internal Medicine Pulmonary Disease
DX: J84.112 Idiopathic pulmonary fibrosis (principal); R94.2 Abnormal results of pulmonary function studies; J84.9 Interstitial pulmonary disease, unspecified
CPT/HCPCS: 71250; 94060; 94618; 94726; 94729

== ENCOUNTER 2023-07-03 10:19 | Outpatient (CLI) | payer MEDICARE, SELFPAY ==
[2023-07-05 13:28] LABS: Angiotensin Converting Enzyme 32 U/L (9-67)
== END 2023-07-03 10:20 | disposition home or self-care (01) ==
PROVIDERS: PCP Nurse Practitioner Family; Visit Provider Internal Medicine
DX: D51.8 Other vitamin B12 deficiency anemias (principal); E11.65 Type 2 diabetes mellitus with hyperglycemia; J84.112 Idiopathic pulmonary fibrosis; K14.1 Geographic tongue; Z71.89 Other specified counseling; Z79.899 Other long term (current) drug therapy; K14.6 Glossodynia
CPT/HCPCS: 36415; 82164; 86481

== ENCOUNTER 2023-08-30 07:33 | Outpatient (CLI) | payer MEDICARE, SELFPAY ==
[2023-08-30 07:53] LABS: Basophils Percent Auto 0.4 % (0.2-1.2); Eosinophils Absolute Auto 0.4 K/mm3 (0-0.3); Eosinophils Percent Auto 4.2 % (0-4.4); Hematocrit 37.8 % (37.0-47.0); Hemoglobin 12.2 g/dL (12.0-15.0); Immature Granulocyte Absolute 0.02 K/mm3 (0.00-0.031); Immature Granulocyte Percent A 0.2 % (0-0.5); Lymphocytes Percent Auto 25.3 % (18.3-44.2); Mean Corpuscular HGB Conc 32.3 g/dl (32-36); Mean Corpuscular Hemoglobin 29.1 pg (26-34); Mean Corpuscular Volume 90.2 fl (80-100); Mean Platelet Volume 10.9 fl (7.4-10.4); Monocytes Absolute Auto 0.6 K/mm3 (0.1-0.6); Monocytes Percent Auto 5.8 % (2.6-8.5); Neutrophils Absolute Auto 6.1 K/mm3 (1.3-6.7); Neutrophils Percent Auto 64.1 % (45.5-73.1); Platelet Count Result 267 k/mm3 (150-375); Red Blood Count 4.19 M/mm3 (4.2-5.4); Red Cell Distribution Width 14.4 % (11.5-14.5); White Blood Count 9.5 K/mm3 (4.5-10.0)
[2023-08-30 08:02] LABS: Alanine Aminotransferase 16 U/L (6-35); Alkaline Phosphatase 77 U/L (38-126); Anion Gap 8 mmol/L (4-12); Aspartate Amino Transferase 20 U/L (14-36); Bilirubin,Total 0.4 mg/dL (0.2-1.3); Blood Urea Nitrogen 17 mg/dL (7-17); Calcium 9.1 mg/dL (8.4-10.2); Carbon Dioxide 29 mmol/L (22-30); Chloride 102 mmol/L (98-107); Cholesterol 126 mg/dL (0-200); Estimated Glomerular Filt Rate 54; Glucose 189 mg/dL (65-110); HDL Direct 40 mg/dL; Potassium 4.4 mmol/L (3.4-5.0); Sodium 139 mmol/L (137-145); Triglycerides 197 mg/dL (<150)
[2023-08-30 08:13] LABS: LDL Cholesterol Direct 65 mg/dL
== END 2023-08-30 07:34 | disposition home or self-care (01) ==
PROVIDERS: PCP Nurse Practitioner Family; Visit Provider Nurse Practitioner Family
DX: E78.2 Mixed hyperlipidemia (principal); E11.65 Type 2 diabetes mellitus with hyperglycemia; I10 Essential (primary) hypertension
CPT/HCPCS: 36415; 80053; 80061; 84443; 85025

== ENCOUNTER 2024-03-04 14:01 | Outpatient (CLI) | payer MEDICARE, SELFPAY ==
[2024-03-04 14:27] LABS: Basophils Absolute Auto 0.1 K/mm3 (0.0-0.1); Basophils Percent Auto 0.4 % (0.2-1.2); Eosinophils Absolute Auto 0.3 K/mm3 (0-0.3); Eosinophils Percent Auto 2.6 % (0-4.4); Hematocrit 38.3 % (37.0-47.0); Hemoglobin 11.9 g/dL (12.0-15.0); Immature Granulocyte Absolute 0.06 K/mm3 (0.00-0.031); Immature Granulocyte Percent A 0.5 % (0-0.5); Lymphocytes Absolute Auto 3.01 K/mm3 (0.9-3.2); Lymphocytes Percent Auto 24.9 % (18.3-44.2); Mean Corpuscular HGB Conc 31.1 g/dl (32-36); Mean Corpuscular Hemoglobin 28.3 pg (26-34); Mean Corpuscular Volume 91.2 fl (80-100); Mean Platelet Volume 10.6 fl (7.4-10.4); Monocytes Absolute Auto 0.8 K/mm3 (0.1-0.6); Monocytes Percent Auto 6.8 % (2.6-8.5); Neutrophils Absolute Auto 7.9 K/mm3 (1.3-6.7); Neutrophils Percent Auto 64.8 % (45.5-73.1); Platelet Count Result 298 k/mm3 (150-375); Red Cell Distribution Width 13.9 % (11.5-14.5); White Blood Count 12.1 K/mm3 (4.5-10.0)
[2024-03-04 14:39] LABS: Alanine Aminotransferase 22 U/L (6-35); Alkaline Phosphatase 79 U/L (38-126); Anion Gap 12 mmol/L (4-12); Aspartate Amino Transferase 24 U/L (14-36); Bilirubin,Total 0.3 mg/dL (0.2-1.3); Blood Urea Nitrogen 17 mg/dL (7-17); Calcium 9.4 mg/dL (8.4-10.2); Carbon Dioxide 26 mmol/L (22-30); Chloride 105 mmol/L (98-107); Estimated Glomerular Filt Rate 54; Glucose 115 mg/dL (65-110); Potassium 4.1 mmol/L (3.4-5.0); Sodium 143 mmol/L (137-145)
== END 2024-03-04 14:02 | disposition home or self-care (01) ==
LOC: ANHLAB 14:03
PROVIDERS: PCP Family Medicine; Visit Provider Internal Medicine Pulmonary Disease
DX: J84.112 Idiopathic pulmonary fibrosis (principal); J44.9 Chronic obstructive pulmonary disease, unspecified
CPT/HCPCS: 36415; 80053; 85025

== ENCOUNTER 2024-03-12 12:53 | Outpatient (CLI) | payer MEDICARE, SELFPAY ==
--- NOTE | ~2024-03-12 | XR_ITS ---
CHEST RADIOGRAPH, PA AND LATERAL CLINICAL HISTORY: R05.9 - Cough, unspecified, H/O PULM FIBROSIS, HTN . COMPARISON: 02/07/2022 TECHNIQUE: PA and lateral views of the chest. FINDINGS Interstitial thickening is identified bilaterally, with trace blunting of the left costophrenic sulcu s suggesting a small left-sided pleural effusion. The cardiomediastinal silhouette is unremarkable. The remainder of the lungs are clear. IMPRESSION: Findings suggesting a small left-sided pleural effusion with interstitial thickening, consistent with patient's known pulmonary fibrosis. Reviewed, dictated and finalized at location A. AL ASSISTANT IMPRESSION: Findings suggesting a small left-sided pleural effusion with interstitial thick ening, consistent with patient's known pulmonary fibrosis.
--- OUTSIDE RECORDS SUMMARY | 2024-03-12 13:52 | XMS_ITS | Referral Summary ---
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 Name Role Phone Salinas Bob MD Unavailable [phone] Frantz Matthews MD Primary Care Provider [phone] Encounters Date Type Department Care Team Description 03/06/2024 Orders Only [facility] Diabetes and Endocrinology [address] [place] [id number] ProviderMylene MD 02/27/2024 2:[address] LIGHT SERVICER SUPERVISOR - 02/27/2024 11:[address] LIGHT SERVICER SUPERVISOR Hospital Encounter [address] [address] Type 2 diabetes mellitus with hyperglycemia, with long-term current use of insulin (HCC) Discharge Disposition: Discharge to home or self care 02/27/2024 2:[address] LIGHT SERVICER SUPERVISOR Lab [facility] Outpatient Lab at [address] [id number] 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) (Primary Dx) 02/27/2024 2:[address] LIGHT SERVICER SUPERVISOR Office Visit [facility] Diabetes and Endocrinology [address] [place] [phone] Stephanie Ruiz, SARAH Type 2 diabetes mellitus with hyperglycemia, with long-term current use of insulin (HCC) (Primary Dx); Hypertension associated with diabetes (HCC); 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); Class 3 severe obesity due to excess calories with serious comorbidity and body mass index (BMI) of 40.0 to 44.9 in adult ([facility]) 01/18/2024 Telephone [facility] Specialists of [address] [address] Stephanie Ruiz, SARAH Medication Problem 01/18/2024 Documentation [facility] Specialists of [address] [address] Beth Molina from Last 3 Months Allergies Active Allergy Reactions Criticality Noted Date Comments Amoxicillin-Pot Clavulanate Diarrhea Low 01/01/2017 Empagliflozin Other (See comments) Low 09/15/2021 vulvovaginitis Latex Shortness of breath,Rash High 01/01/2017 Meperidine Nausea & Vomiting Low Oxybutynin Hives,Urticaria Medium 01/01/2017 Semaglutide Vomiting High 10/30/2019 Nausea and vomiting Medications esomeprazole DR (NexIUM) 40 mg capsule take 1 capsule (40MG) by oral route every day 0 012 Active Additional Information Patient taking differently:40 mgoral Daily before breakfast, Indications: Treatment of Non-Bleeding Gastric Disorder, Reported on 02/27/2024 olmesartan (BENICAR) 40 mg tablet take 1 tablet by oral route every day 0 0 014 Active Additional Information Patient taking differently:40 mgoral Every morning, Indications: hypertension, Reported on 02/27/2024 albuterol HFA (PROVENTIL HFA,VENTOLIN HFA,PROAIR HFA) 90 mcg/actuation inhaler Inhale 2 puffs every 6 (six) hours as needed for wheezing Active lancing device (LANCING DEVICE WITH LANCETS) miscIndications: Type 2 diabetes mellitus with hyperglycemia, with long-term current use of insulin ([facility]) Use device to test glucose as directed (ok to give patient whatever devise fits current lancets) 1 each 019 Active Compact Space Chamber spacer as directed Active LORazepam (ATIVAN) 1 mg tabletIndication s:ibs Take 1 tablet (1 mg total) by mouth as needed Active cholecalciferol (VITAMIN D-3) 25 mcg (1,000 unit) tablet Take 1 tablet (1,000 Units total) by mouth every morning Active Ofev 150 mg capsule Active chlorthalidone 25 mg tablet Take 1 tablet (25 mg total) by mouth daily Active diltiaZEM CD (CARDIZEM CD) 360 mg 24 hr capsule Active rosuvastatin (CRESTOR) 10 mg tablet Active flash glucose sensor (FreeStyle Kaleigh 2 Sensor) kit Change every 14 days 2 kit 11 Active flash glucose scanning reader (FreeStyle Kaleigh 2 [facility] [place] As directed 1 each Active furosemide (LASIX) 40 mg tablet TAKE 1 TABLET BY MOUTH ONCE DAILY FOR 7 DAYS Active ondansetron ODT (ZOFRAN-ODT) 4 mg disintegrating tablet DISSOLVE 1 TABLET IN MOUTH EVERY 8 HOURS NEEDED FOR NAUSEA AND VOMITING Active pen needle, diabetic 32 gauge x 5/32 needle USE 1 PEN NEEDLE THREE TIMES DAILY 300 each 2 Active clindamycin (CLEOCIN) 300 mg capsule Active promethazine (PHENERGAN) 25 mg tablet TAKE 1 TABLET BY MOUTH THREE TIMES DAILY NEEDED FOR NAUSEA AND VOMITING Active HumaLOG 100 unit/mL pen for injection Inject 12-18 Units under the skin 2 (two) times a day before breakfast and dinner Dx: E11.65 15 mL 3 Active vitamin B complex capsule Take 1 capsule by mouth daily Active Janumet 50-1,000 mg per tabletIndication s:Type 2 diabetes mellitus with hyperglycemia, with long-term current use of insulin (HCC) TAKE 1 TABLET BY MOUTH TWICE DAILY WITH MEALS 180 tablet Active ezetimibe (ZETIA) 10 mg tabletIndication s:Type 2 diabetes mellitus with hyperglycemia, with long-term current use of insulin (HCC) Take 1 tablet by mouth once daily 90 tablet Active blood glucose diagnostic ([place] Eedoo TechnologyTouch Ultra Test) stripIndications :Type 2 diabetes mellitus with hyperglycemia, with long-term current use of insulin (HCC) USE STRIP TO CHECK GLUCOSE 3 TIMES DAILY BEFORE MEAL(S) 300 each 3 Active NovoLOG 100 unit/mL (3 mL) pen for injectionIndicat ions:Type 2 diabetes mellitus with hyperglycemia, with long-term current use of insulin ([facility]) INJECT 12 TO 18 UNITS TWICE DAILY BEFORE BREAKFAST AND BEFORE SUPPER 15 mL 025 Active LANTUS 100 unit/mL (3 mL) pen for injectionIndicat ions:Type 2 diabetes mellitus with hyperglycemia, with long-term current use of insulin ([facility]) INJECT 26 UNITS SUBCUTANEOUSLY NIGHTLY 15 mL 025 Active tirzepatide (Mounjaro) 2.5 mg/0.5 mL pen injectorIndicati ons:type 2 diabetes mellitus Inject 0.5 mL (2.5 mg total) under the skin once a week 2 mL 025 2024 Active tirzepatide (Mounjaro) 5 mg/0.5 mL pen injectorIndicati ons:type 2 diabetes mellitus Inject 5 mg under the skin every 7 days 6 mL 3 025 2025 Active cyanocobalamin (Vitamin B-12) 1,000 mcg tabletIndication s:Prevention of Vitamin B12 Deficiency Take 1 tablet (1,000 mcg total) by mouth every morning 2024 Discontinued(A lternate therapy) clonazePAM (KlonoPIN) 0.5 mg tablet TAKE 1/2 (ONE-HALF) TABLET BY MOUTH THREE TIMES DAILY LET 0.25MG DISSOLVE IN YOUR MOUTH WITH SALIVA, SWISH IT AROUND FOR 3 MINUTES, THE SPIT OUT DO NOT SWALLOW, THREE TIMES PER DAY FOR ONE WEEK 023 2024 Discontinued(T herapy completed) methylPREDNISolo ne (MEDROL DOSEPACK) 4 mg Dosepack TAKE BY MOUTH DIRECTED ON INSIDE OF PACKAGE 024 2024 Discontinued(T herapy completed) LANTUS 100 unit/mL (3 mL) pen for injectionIndicat ions:Type 2 diabetes mellitus with hyperglycemia, with long-term current use of insulin ([facility]) INJECT 26 UNITS SUBCUTANEOUSLY NIGHTLY 15 mL 024 2024 Discontinued insulin aspart (NovoLOG) 100 unit/mL (3 mL) pen for injectionIndicat ions:Type 2 diabetes mellitus with hyperglycemia, with long-term current use of insulin ([facility]) INJECT 12 TO 18 UNITS TWICE DAILY BEFORE BREAKFAST AND DINNER 15 mL 024 2024 Discontinued Active Problems Patient Care Coordination No te Formatting of this note migh t be different from the original. Ms. Mercedes Garcia is a 69-year-old referred to us by Dr. Bob with interstitial lung disease. She reports symptoms of a cough and dyspnea on exertion. On 08/25/2019 the patient underwent a chest CT which showed widespread peripheral reticular opacities in the lungs associated with mild ground-glass opacities with a lower lung predominance. This had worsened since her prior CT scan. There was diffuse hepatic steatosis. On 10/10/2018 the patient underwent pulmonary function testing which showed an FEV1 of 95% of predicted and DLCO of 51% of predicted. Patient is a never smoker. Patient has a BMI of 39.5. Patient presents today for further surgical evaluation. Review of systems: General: Positive for night sweats. EENT: Positive for runny nose, postnasal drip, sinus problems and sneezing. Endocrine: Positive for diabetes. Musculoskeletal: Positive for back pain, joint stiffness/swelling, muscle aches and joint aches. Gastrointestinal: Positive for indigestion, stomach pain, nausea/vomiting and hemorrhoids. Cardiovascular: Positive for irregular heartbeat, sleeps with 2 or more pillows, and high blood pressure. Neurologic: Positive for loss of balance. Respiratory: Positive for asthma, dry cough, cough up phlegm, shortness of breath at rest shortness of breath with exertion. All other systems reviewed and are negative. Problem Noted Date Diagnosed Date Class 3 severe obesity due t o excess calories with serious comorbidity and body mass index (BMI) of 40.0 to 44.9 in adult 02/27/2024 Assessment & Plan (02/27/2024 3:[address] LIGHT SERVICER SUPERVISOR): Chronic problem. Limited activity d/t Interstitial Lung Disease. Will send in Mounjaro 2.5mg weeklyx 4 then increase to 5mg weekly to see if able to help with weight loss. Discussed healthy diet and importance of regular physical activity (20- 30min/day, 150min/wk). ILD (interstitial lung disease) (CMS/HCC) 2019 Overview (10/09/2019): Added automatically from request for surgery [id number] Lung nodule 10/09/2019 Overview (10/09/2019): Added automatically from request for surgery [id number] 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 2 diabetes mellitus 0 04/03/2019 Assessment & Plan (02/27/2024 1:[address] LIGHT SERVICER SUPERVISOR): Chronic problem. Controlled on current Rosuvastatin 10mg & zetia 10mg. Last lipid panel: 08/30/23 LDL=65, DX=711. Assessment & Plan (10/25/2023 2:05 PM CDT): Chronic problem. Controlled on current Rosuvastatin 10mg & zetia 10mg. Last lipid panel: 03/08/23 LDL=48, SX=389. Assessment & Plan (06/12/2023 3:56 PM CDT): Chronic, well-controlled. Continue statin therapy with rosuvastatin Assessment & Plan (03/08/2023 4:[address] LIGHT SERVICER SUPERVISOR): Chronic, well-controlled Continue statin therapy with rosuvastatin Assessment & Plan (12/07/2022 2:24 PM CDT): Chronic problem. Controlled on current Rosuvastatin 10mg & zetia 10mg. Last lipid panel: 03/14/22 LDL=52, MB=411. Assessment & Plan (07/05/2022 2:12 PM CDT): Chronic problem. On statin therapy, no changes. Assessment & Plan (03/09/2022 3:[address] LIGHT SERVICER SUPERVISOR): Chronic, well controlled Low fat Low cholesterol diet Exercise Continue statin therapy with Atorvastatin Assessment & Plan (05/05/2021 2:14 PM CDT): Chronic, well controlled Low fat Low cholesterol diet Exercise Continue statin therapy Assessment & Plan (08/19/2020 1:52 PM CDT): Goal of treatment , LDL cholesterol less than 100 ( less than 70 in patients with history of heart attacks and / or strokes ) NonHDL cholesterol ( total cholesterol minus HDL cholesterol ) goal less than 130 ( less than 100 in patients with history of heart attacks and / or strokes ) Low cholesterol, low fat diet was discussed and advised. Daily exercise On statin therapy with Pravachol Assessment & Plan (05/04/2020 2:47 PM CDT): Goal of treatment , LDL cholesterol less than 100 ( less than 70 in patients with history of heart attacks and / or strokes ) NonHDL cholesterol ( total cholesterol minus HDL cholesterol ) goal less than 130 ( less than 100 in patients with history of heart attacks and / or strokes ) Low cholesterol, low fat diet was discussed and advised. Daily exercise On statin therapy with Pravachol Assessment & Plan (12/25/2019 1:[address] LIGHT SERVICER SUPERVISOR): Goal of treatment , LDL cholesterol less than 100 ( less than 70 in patients with history of heart attacks and / or strokes ) NonHDL cholesterol ( total cholesterol minus HDL cholesterol ) goal less than 130 ( less than 100 in patients with history of heart attacks and / or strokes ) Low cholesterol, low fat diet was discussed and advised. Daily exercise On statin therapy with Pravachol Assessment & Plan (10/30/2019 4:30 PM CDT): Continue current medication. Will check FLP NOV Assessment & Plan (08/12/2019 1:15 PM CDT): On Zetia and Pravachol Will get report of lipids done recently Assessment & Plan (04/03/2019 11:[address] LIGHT SERVICER SUPERVISOR): Goal of treatment , LDL cholesterol less than 100 ( less than 70 in patients with history of heart attacks and / or strokes ) NonHDL cholesterol ( total cholesterol minus HDL cholesterol ) goal less than 130 ( less than 100 in patients with history of heart attacks and / or strokes ) Low cholesterol, low fat diet was discussed and advised. Daily exercise On statin therapy Will add Zetia. Morbid obesity 09/19/2018 Assessment & Plan (10/30/2019 4:30 PM CDT): Importance of following diet and exercising discussed. Assessment & Plan (09/19/2018 10:10 AM CDT): Importance of following diet and exercising discussed. Hypertension associated with diabetes 07/16/2018 Assessment & Plan (02/27/2024 1:[address] LIGHT SERVICER SUPERVISOR): Chronic problem. Controlled on current olmesartan 40mg daily, diltiazem CD 360mg daily, chlorthalidone 25mg daily Assessment & Plan (10/25/2023 2:23 PM CDT): Chronic problem. Controlled on current olmesartan 40mg daily, diltiazem CD 360mg daily, chlorthalidone 25mg daily Assessment & Plan (03/08/2023 4:[address] LIGHT SERVICER SUPERVISOR): Chronic, well-controlled Continue current regimen including ARB with olmesartan Will update GFR Assessment & Plan (12/07/2022 2:23 PM CDT): Chronic problem. Controlled on current olmesartan 40mg daily Assessment & Plan (07/05/2022 2:12 PM CDT): Controlled on diltiazem, chlorthalidone, olmesartan. No changes. Assessment & Plan (09/15/2021 4:05 PM CDT): Chronic, well controlled Continue current meds Check MA Assessment & Plan (08/19/2020 1:52 PM CDT): Goal blood pressure is less than 140/85 Low salt diet was discussed andd recommended The importance of daily aerobic exercise was also emphasized. Continue current meds, including PATRIC-I or ARB, e.g. Check microalbumin Assessment & Plan (05/04/2020 2:46 PM CDT): Goal blood pressure is less than 140/85 Low salt diet was discussed andd recommended The importance of daily aerobic exercise was also emphasized. Continue current meds, including PATRIC-I or ARB, e.g. Olmesartan Assessment & Plan (12/25/2019 1:[address] LIGHT SERVICER SUPERVISOR): Goal blood pressure is less than 140/85 Low salt diet was discussed andd recommended The importance of daily aerobic exercise was also emphasized. Continue current meds, including PATRIC-I or ARB, e.g. Olmesartan Assessment & Plan (10/30/2019 4:31 PM CDT): Controlled on current medications. Continue plan. Assessment & Plan (08/12/2019 1:15 PM CDT): Goal blood pressure is less than 140/85 Low salt diet recommended Daily aerobic exercise Continue current meds, including PATRIC-I or ARB with Olmesartan Assessment & Plan (01/28/2019 10:[address] LIGHT SERVICER SUPERVISOR): Controlled on current medications. Continue plan. Assessment & Plan (07/16/2018 3:53 PM CDT): Goal blood pressure is less than 140/85 Low salt diet recommended Daily aerobic exercise Continue current meds, including PATRIC-I or ARB Type 2 diabetes mellitus wit h hyperglycemia, with long-term current use of insulin 05/07/2018 Assessment & Plan (02/27/2024 3:[address] LIGHT SERVICER SUPERVISOR): Chronic problem. A1c worsened from 8.1% 10/25/23 to now 7.0%. PCP wanted her to look into Mounjaro. Reviewed SE & scheduling. Discussed need to monitor BG closely & may need to start decrease amount of Lantus & Novolog. Mounjaro 2.5mg weekly x 4 weeks then increase to 5mg weekly. Reviewed med SE. Current medications: Janumet 1 tab twice daily Mounjaro 2.5mg weekly x 4 weeks then increase to 5mg weekly. Lantus 26 units every evening (if BG less than 100 not taking, maybe 1-2x/wk) Novolog 10 units three times daily with meals For sugars over 160, take 12 units For sugars over 200, take 14 units. Will update CMP/alb. Does not mychart. Verified phone #/address to contact re: results. UTD on DM eye exam (12/2023 [facility]). Letter sent to get copy of report. Strive for regular exercise (30min most days) and diet (get at least 4-5 servings of fruit and veggies daily, avoid processed foods, increase lean protein intake and decrease carb portions as well as fruit juices, regular soda & desserts). Watch carbs and simple sugars. Check the blood sugar Freestyle kaleigh 2. Check the feet daily for skin breakdown and infection. Assessment & Plan (10/25/2023 2:20 PM CDT): Chronic problem. A1c worsened from 7.7% 06/12/23 to now 8.1%. started medrol dose pack 10/12/23 & slowly BG are tapering down. Will not adjust lantus yet (as overnoc is returning to baseline). To ensure that she's adequately dosing with meal time. Current medications: Janumet 1 tab twice daily Lantus 26 units every evening Humalog 10 units three times daily with meals For sugars over 160, take 12 units For sugars over 200, take 14 units. UTD on labs. DM eye exam 09/2022 [facility]. Has appt next week; will send letter to get copy. Strive for regular exercise (30min most days) and diet (get at least 4-5 servings of fruit and veggies daily, avoid processed foods, increase lean protein intake and decrease carb portions as well as fruit juices, regular soda & desserts). Watch carbs and simple sugars. Check the blood sugar Freestyle kaleigh 2. Check the feet daily for skin breakdown and infection. Assessment & Plan (06/12/2023 3:55 PM CDT): Chronic, stable per uncontrolled Importance of diet and exercise discussed Continue current regimen with Janumet twice a day, Lantus 26 units HS and he Humalog 12 to 18 units with breakfast and dinner Assessment & Plan (03/08/2023 4:[address] LIGHT SERVICER SUPERVISOR): Hba1c was Lab Results Component Value Date HGBA1C 7.3 03/08/2023 today, indicating suboptimal DM control Goal Hba1c under 7 and blood glucose level in the 120-160 range was explained Low carb diet and daily aerobic and /or resistant exercise were advised Prevention and treatment of hyypoglcyemia were discussed with the patient Blood glucose monitoring : Continue CGM with freestyle Kaleigh Adjustment to medications: Continue current regimen including Lantus, Janumet and Humalog insulin Assessment & Plan (12/07/2022 2:45 PM CDT): Chronic problem. A1c near goal at 7.2%. having issues w/overnoc lows. Will adjust humalog downward 2 units (see below). Aware to continue to monitor BS. May need to only decrease dinner dose. Current medications: Janumet 2 tabs daily Lantus 26 units every evening HL 10 units three times daily with meals For sugars over 160, take 12 units For sugars over 200, take 14 units. Will update MA/Cr today. Will update labs today. Does not mychart. Verified phone #/address to contact re: results. DM eye exam 09/2022 [facility]. Letter sent to get copy of report. Strive for regular exercise (30min most days) and diet (get at least 4-5 servings of fruit and veggies daily, avoid processed foods, increase lean protein intake and decrease carb portions as well as fruit juices, regular soda & desserts). Watch carbs and simple sugars. Check the blood sugar Freestyle kaleigh. Check the feet daily for skin breakdown and infection. Assessment & Plan (07/05/2022 2:12 PM CDT): Chronic problem, improving but not at goal. Trending low early overnight and she has to eat 3-4x/week at that time. Lower Lantus to 26 units. Continue same HL and Janumet. Assessment & Plan (03/09/2022 3:[address] LIGHT SERVICER SUPERVISOR): Hba1c was Lab Results Component Value Date HGBA1C 8.2 03/09/2022 today, indicating inadequate DM control Goal Hba1c and blood glucose explained Diet and exercise were advised Prevention and treatment of hyypoglcyemia were discussed with the patient Blood glucose monitoring : FSL Adjustment to medications: Lower Lantus, to 30 units at bedtime For sugars under 120 at bedtime , have a 15 gram carb, bedtime snack and take your Lantus Take Humalog, 10 units before meals. For sugars over 160, take 12 units For sugars over 200, take 14 units. Bring your Freestyle Kaleigh for your visits, for us to download the data [facility] Assessment & Plan (09/15/2021 4:05 PM CDT): Hba1c was Lab Results Component Value Date HGBA1C 8.0 09/15/2021 today, indicating inadequat DM control Goal Hba1c and blood glucose explained Diet and exercise were advised Prevention and treatment of hyypoglcyemia were discussed with the patient Blood glucose monitoring : Adjustment to medications: Increase Lantus to 40 units Take Humalog, 12 units before breakfast and dinner For sugars over 180, take 14 units For sugars over 220, take 18 units Continue with [facility] Assessment & Plan (05/05/2021 2:14 PM CDT): Hba1c was Lab Results Component Value Date HGBA1C 8.0 05/05/2021 today, indicating inadequate DM control Goal Hba1c and blood glucose explained Diet and exercise were advised Prevention and treatment of hyypoglcyemia were discussed with the patient Blood glucose monitoring : FSL Adjustment to medications: Take Humalog, 10 in the morning. For sugars over 200, take 12 units Take Humalog, 16 units in the evening. Assessment & Plan (08/19/2020 1:51 PM CDT): Hba1c was Lab Results Component Value Date HGBA1C 7.0 (A) 08/19/2020 today, indicating adequate DM control Goal blood sugars in the 120-150 range , with Hb1c under 7.0 % was explained 1800 calorie, consistent carb diet recommended. No more than 30-45 grams of carbs per meal recommended, as well as avoiding high concentrated sweet drinks . 25-45 min daily exercise, combining both aerobic and resistance exercise recommended. The need to monitor blood glucose before meals and bedtime was discussed. Prevention and treatment of hyypoglcyemia discussed. Continue current insulin regimen Assessment & Plan (05/04/2020 2:45 PM CDT): Hba1c was Lab Results Component Value Date HGBA1C 6.9 05/04/2020 today, indicating adequate DM control Goal blood sugars in the 120-150 range , with Hb1c under 7.0 % was explained 1800 calorie, consistent carb diet recommended. No more than 30-45 grams of carbs per meal recommended, as well as avoiding high concentrated sweet drinks . 25-45 min daily exercise, combining both aerobic and resistance exercise recommended. The need to monitor blood glucose before meals and bedtime was discussed. Prevention and treatment of hyypoglcyemia discussed. Continue current regimen Start Freestyle Kaleigh CGM Assessment & Plan (12/25/2019 1:[address] LIGHT SERVICER SUPERVISOR): Hba1c was Lab Results Component Value Date HGBA1C 7.8 12/25/2019 today, indicating suboptimal DM control Goal blood sugars in the 120-150 range , with Hb1c under 7.0 % was explained 1800 calorie, consistent carb diet recommended. No more than 30-45 grams of carbs per meal recommended, as well as avoiding high concentrated sweet drinks . 25-45 min daily exercise, combining both aerobic and resistance exercise recommended. The need to monitor blood glucose before meals and bedtime was discussed. Prevention and treatment of hyypoglcyemia discussed. Continue Lantus 40 units hs Humalog 12-16 Units bid ac janumet and Jardiance. Assessment & Plan (10/30/2019 4:32 PM CDT): A1c 8.1. Reluctant to increase Lantus back to 80 units based on current report of little change to FBG. Adivsed to increase Lantus by 2-3 units every 3-4 days unitl FBG under 150. We talked about the possibility of getting an Omnipod insulin pump to make taking insulin for variability of appetite and meals and steroids easier. Assessment & Plan (08/12/2019 1:14 PM CDT): Hba1c was Lab Results Component Value Date HGBA1C 7.6 08/12/2019 today, indicating sub-optimal DM control 1800 calorie, consistent carb diet recommended. No more than 30-45 grams of carbs per meal recommended, as well as avoiding high concentrated sweet drinks . 25-45 min daily exercise, combining both aerobic and resistance exercise recommended. The need to monitor blood glucose before meals and bedtime was discussed. Prevention and treatment of hyypoglcyemia discussed. Insulin dose: Continue current Will try Ozempic Samples provided. Assessment & Plan (04/03/2019 11:[address] LIGHT SERVICER SUPERVISOR): Hba1c was Lab Results Component Value Date HGBA1C 7.1 04/03/2019 today, indicating adequate DM control 1800 calorie, consistent carb diet recommended. No more than 30-45 grams of carbs per meal recommended, as well as avoiding high concentrated sweet drinks . 25-45 min daily exercise, combining both aerobic and resistance exercise recommended. The need to monitor blood glucose before meals and bedtime was discussed. Prevention and treatment of hyypoglcyemia discussed. 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 Advised to continue same medications however instructed to reduce Lantus if pattern of BG < 100 developers. BG goals reviewed. Assessment & Plan (09/19/2018 10:09 AM CDT): FBG at goal. Mostly at goal rest of day except hs, which are impacted by dinner and pc eating. Encouraged to monitor diet more closely. Continue regular exercise. Continue current DM medication plan and send in BG q 2-4 weeks. Can consider Ozempic at lower dose if BG pattern worsens after being off Bydureon. 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 Your goal sugars are in the 90-130 range Exercise recommendations: It is recommended that you do daily aerobic ( walking, riding a bike, swimming ) and resistance exercises ( light weight lifting, resistance band stretching ) for at least 30 minutes , most days of the week. If you can not walk, chair exercises for 10-15 min a day would help tremendously. As little as 15-20 minutes exercise , in one or two sessions a day, is still very helpful to improve your diabetes control . Diet recommendations: Eat small portion meals, trying not to consume more than 1800 calories a day . Try to eat not more than than 2 servings of carbs ( starches ) wiith your meals. Avoid soft drinks, including regular sodas , fruit juices and sweetened tea. Drink water instead. Eat plenty of green and leafy vegetables, including salads. Medications: Take your medications regularly. Setting phone alarms can help . Keep your medication on the kitchen dinner table, by the bedside table or by the sink where they are visible to you. If you are taking insulin : the insulin that you are currently using does not need to be refrigerated. Keep it where you can see it . Monitor your sugar levels with finger sticks regularly and keep a log sheet or book. Bring your sugar meter and /or a log book or log sheet to every office visit. Increase Lantus to 75 units at bedtime Increase by 3 units every 3 days until morning sugars are under 150. Start Bydureon, 2 mg once a week . 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 Your goal sugars are in the 90-130 range Daily aerobic ( walking, riding a bike, swimming ) and resistance exercises ( light weight lifting, resistance band stretching ) for at least 30 minutes is recommended If you can not walk, chair exercises for 10-15 min a day would help tremendously. As little as 15-20 minutes exercise , in one or two sessions a day, is still very helpful to improve your diabetes control . Eat small portion meals, trying not to consume no more than 1800 calories a day . Try to eat not more than than 3 servings of carbs ( starches ) wiith your meals. Avoid soft drinks, including regular sodas , fruit juices and sweetened tea. Drink water instead. Eat plenty of green and leafy vegetables, including salads. Take your medications regularly. Setting phone alarms can help . Keep your medication on the kitchen dinner table, by the bedside table or by the sink where they are visible to you. The insulin that you are currently using does not need to be refrigerated. Keep it where you can see it . Monitor your sugar levels with finger sticks regularly and keep a log sheet or book. Bring your sugar meter and /or a log book or log sheet to every office visit. Stay on Lantus, 50 units at bedtime Start Humalog, 6 units before breakfast and lunch. For sugars over 150, take 8 units For sugars over 250, take 10 units Start Farxiga, 5 mg daily Stay on Janumet Stop Glimepiride. Symptomatic PVCs 01/11/2017 Fatigue 05/06/2015 Cephalalgia 05/06/2015 Jaw pain 05/06/2015 Cough 05/06/2015 Heartburn 05/06/2015 Nausea 05/06/2015 Dizziness 05/06/2015 Anxiety 05/06/2015 Muscle pain 05/06/2015 Cervicalgia 04/26/2015 Immunizations Name Administration Dates Next Due Influenza, Trivalent, Preservative Free, Intramu scular 11/12/2014 Social History Tobacco Use Types Packs/Day Years Used Date Smoking Tobacco: Never Smokeless Tobacco: Never Alcohol Use Standard Drinks/Week Comments Yes 0 (1 standard drink = 0.6 oz pur e alcohol) rarely 1-2 drinks per year PHQ-2 Answer Date Recorded PHQ-2 Total Score (If total score is 3 or more points, staff should administer the PHQ-9) 0 09/15/2021 Comments No Sex and Gender Information Value Date Recorded Sex Assigned at Not on file Legal Sex Female 6:[address] LIGHT SERVICER SUPERVISOR Gender Identity Not on file Sexual Orientation Not on file 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 Not on file Not on file Last Filed Vital Signs Vital Sign Reading Time Taken Comments Blood Pressure 126/66 02/27/2024 1:[address] LIGHT SERVICER SUPERVISOR Pulse 71 02/27/2024 1:[address] LIGHT SERVICER SUPERVISOR Temperature 36.6 ??C (97.8 ??F) 10/18/2019 4:00 PM CD T Respiratory Rate 18 02/27/2024 1:[address] LIGHT SERVICER SUPERVISOR Oxygen Saturation 98% 12/10/2023 10:39 AM CDT Inhaled Oxygen Concentration - - Weight 96.2 kg (212 lb) 02/27/2024 1:[address] LIGHT SERVICER SUPERVISOR Height 154.9 cm (5' 0.98 ) 02/27/2024 1:48 PM CS T Body Mass Index 40.08 02/27/2024 1:[address] LIGHT SERVICER SUPERVISOR Plan of Treatment Not on file Procedures Procedure Name Priority Date/Time Associated Diagnosis Comments ALBUMIN CREATININE RATIO, URINE Routine 02/28/2024 8:[address] LIGHT SERVICER SUPERVISOR Type 2 diabetes mellitus with hyperglycemia, with long-term current use of insulin (HCC) EGFR Routine 02/27/2024 2:[address] LIGHT SERVICER SUPERVISOR Type 2 diabetes mellitus with hyperglycemia, with long-term current use of insulin ([facility]) COMPREHENSIVE METABOLIC PANEL Routine 02/27/2024 2:[address] LIGHT SERVICER SUPERVISOR Type 2 diabetes mellitus with hyperglycemia, with long-term current use of insulin ([facility]) POCT GLUCOSE Routine 02/27/2024 2:[address] LIGHT SERVICER SUPERVISOR Type 2 diabetes mellitus with hyperglycemia, with long-term current use of insulin ([facility]) POCT HEMOGLOBIN A1C Routine 02/27/2024 2 :[address] LIGHT SERVICER SUPERVISOR Type 2 diabetes mellitus with hyperglycemia, with long-term current use of insulin ([facility]) DIABETES EYE EXAM Routine 11/13/2023 8:02 AM CDT HM DIABETES FOOT EXAM Routine 11/01/2023 8:39 AM CDT LIPID PANEL Routine 08/30/2023 7:43 AM CDT from Last 3 Months or Most Recently Relevant to Health Maintenance Results * Albumin Creatinine Ratio, Urine (02/28/2024 8:[address] LIGHT SERVICER SUPERVISOR) SCRIBED Creatinine, Urine 195.8 28 - 217 EXTERNAL LAB SCRIBED Microalbumin 1.5 <2.0 - NA EXTERNAL LAB SCRIBED Microalb/Creat Ratio 7.7 <30.0 - NA EXTERNAL LAB Urine 02/28/2024 8:[address] LIGHT SERVICER SUPERVISOR us Stephanie Ruiz NP LAB URINE ORDERABLES Barbara lux Result EXTERNAL LAB * (ABNORMAL) eGFR (02/27/2024 2:[address] LIGHT SERVICER SUPERVISOR) eGFR 55(L) >=60 mL/min/1. 73 m2 Comment: Interpretive Data Reference Interval Normal ?>/= 90 mL/min/1.73m2 Mildly decreased* ? 60 - 89 mL/min/1.73m2 Mildly to moderately decreased ?45 - 59 mL/min/1.73m2 Moderately to severely decreased ??30 - 44 mL/min/1.73m2 Severely decreased ?15 - 29 mL/min/1.73m2 Kidney Failure ?< 15 ??mL/min/1.73m2 *Relative to young adult level Estimated glomerular filtration rate is determined by the 2020 CKD-EPI equation recommended by the National Kidney Foundation (A Unifying Approach to GFR Estimation: Recommendations of the NKF-ASK Task Force on Reassessing the Inclusion of Race in Diagnosing Kidney Disease, JASN 2020). The CKD-EPI equation should not be used for patients with unstable renal function and has not been validated in children and those over 70. Current interpretive data was last reviewed 2020. Blood 02/27/2024 2:[address] LIGHT SERVICER SUPERVISOR 02/27/2024 9:[address] LIGHT SERVICER SUPERVISOR us Stephanie Ruiz [employer] [employer] LAB BLOOD ORDERABLES Barbara l Result [facility] [id number] [address] Department [place] [address] * (ABNORMAL) Comprehensive metabolic panel (02/27/2024 2:[address] LIGHT SERVICER SUPERVISOR) Sodium 143 135 - 145 mmol/L Potassium, pl 4.5 3.3 - 4.9 mmol/L [facility] Chloride 104 97 - 110 mmol/L [facility] CO2 23 22 - 32 mmol/L [facility] Anion gap 16(H) 2 - 15 mmol/L [facility] BUN 17 6 - 25 mg/dL [facility] Creatinine 1.06 0.60 - 1.10 mg/dL [facility] Glucose 110 70 - 199 mg/dL [facility] Comment: Interpretive Data Fasting glucose >/= 126 mg/dl is diagnostic for diabetes. ?? Fasting is defined as no caloric intake for at least 8 hours. Fasting glucose between 100 mg/dl to 125 mg/dl is diagnostic of prediabetes. In a patient with classic symptoms of hyperglycemia or hyperglycemic crisis, a random glucose >/= 200 mg/dl is diagnostic for diabetes. In the absence of unequivocal hyperglycemia, results should be confirmed by repeat testing. The classification and Diagnosis of Diabetes Diabetes Care 202; 46: S19-S40. Current interpretive data was last revised 2022. Calcium 9.7 8.5 - 10.3 mg/dL [facility] Bilirubin, total <0.2 0.1 - 1.2 mg/dL [facility] Protein, pl 7.4 6.5 - 8.5 g/dL [facility] Albumin 4.1 3.5 - 5.0 g/dL [facility] Alk phos 94 40 - 130 Units/L [facility] ALT 22 7 - 45 Units/L [facility] AST 27 10 - 45 Units/L [facility] Blood 02/27/2024 2:[address] LIGHT SERVICER SUPERVISOR 02/27/2024 8:[address] LIGHT SERVICER SUPERVISOR us Stephanie Ruiz NP LAB BLOOD ORDERABLES Barbara l Result [facility] [id number] [address] Department [place] [address] * (ABNORMAL) POCT hemoglobin A1c (02/27/2024 2:[address] LIGHT SERVICER SUPERVISOR) Pathologist [facility] Hemoglobin A1C, POC 7.0 4.0 - 5.6 % Blood 02/27/2024 2:[address] LIGHT SERVICER SUPERVISOR us Stephanie Ruiz NP POINT OF CARE TEST ORDERA BLES Final Result * (ABNORMAL) POCT glucose (02/27/2024 2:[address] LIGHT SERVICER SUPERVISOR) Glucose Blood, POC 131 mg/dL Blood 02/27/2024 2:[address] LIGHT SERVICER SUPERVISOR Stephanie Ruiz [employer] POINT OF CARE TEST ORDERA BLES Final Result * (ABNORMAL) DIABETES EYE EXAM (11/13/2023 8:02 AM CDT) Historical Provider HEALTH MAINTENANCE Final Result * DIABETES FOOT EXAM (11/01/2023 8:39 AM CDT) Historical Provider HEALTH MAINTENANCE Final Result * (ABNORMAL) Lipid panel (08/30/2023 7:43 AM CDT) SCRIBED Cholesterol, Total 126 0 - 200 EXTERNAL LAB SCRIBED HDL 40 40 - 100 EXTERNAL LAB SCRIBED LDL 65 0 - 100 EXTERNAL LAB SCRIBED Triglycerides 197(A) 0 - 150 EXTERNAL LAB Blood 08/30/2023 7:43 AM CDT Result [facility] Historical Provider LAB BLOOD ORDERABLES Barbara l Result EXTERNAL LAB from Last 3 Months or Most Recently Relevant to Health Maintenance [place] [address] [facility] MEDICARE [employer] MEDICARE Advance Directives For more information, please contact: [phone] Documents on File Type Date Recorded 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
--- OUTSIDE RECORDS SUMMARY | 2024-03-12 13:53 | XMS_ITS | Clinical Summary ---
Author Organization [facility] [address] Address [address] [place] [address] Care Team Providers Care Client Advocate Name Role Phone Salinas Bob MD Unavailable [phone] Frantz Matthews MD Primary Care Provider [phone] Allergies Active Allergy Reactions Criticality Noted Date [...] hyperglycemia, with long-term current use of insulin ([facility]) Use device to test glucose as directed (ok to give patient whatever devise fits current lancets) 1 each Active Compact Space Chamber spacer as directed [...] flash glucose scanning reader (FreeStyle Kaleigh 2 [place]) misc As directed 1 each Active furosemide (LASIX) [...] hyperglycemia, with long-term current use of insulin ([facility]) Take 1 tablet by mouth once daily 90 tablet 024 Active blood glucose diagnostic (Change CollectiveTouch Ultra Test) stripIndications :Type 2 diabetes mellitus with hyperglycemia, with long-term current use of insulin ([facility]) USE STRIP TO CHECK GLUCOSE 3 TIMES DAILY BEFORE MEAL(S) 300 each 3 024 Active NovoLOG 100 unit/mL (3 mL) pen for injectionIndicat ions:Type 2 diabetes mellitus with hyperglycemia, with long-term current use of insulin ([facility]) INJECT 12 TO 18 UNITS TWICE DAILY BEFORE BREAKFAST AND BEFORE SUPPER 15 mL 025 Active LANTUS 100 unit/mL (3 mL) pen for injectionIndicat ions:Type 2 diabetes mellitus with hyperglycemia, with long-term current use of insulin ([facility]) INJECT 26 UNITS SUBCUTANEOUSLY NIGHTLY [...] with long-term current use of insulin (HCC) INJECT 26 UNITS SUBCUTANEOUSLY NIGHTLY 15 mL 024 2024 Discontinued insulin aspart (NovoLOG) 100 unit/mL (3 mL) pen for injectionIndicat ions:Type 2 diabetes mellitus with hyperglycemia, with long-term current use of insulin (HCC) INJECT 12 TO 18 UNITS TWICE DAILY [...] 02/27/2024 Assessment & Plan (02/27/2024 3:01 PM INFECTION CONTROL COORDINATOR): Chronic problem. Limited activity d/t Interstitial Lung Disease. Will send in Mounjaro 2.5mg weeklyx 4 then increase to 5mg weekly to see if able to help with weight loss. Discussed healthy diet and importance of regular physical activity (20- 30min/day, 150min/wk). ILD (interstitial lung disease) (CMS/HCC) 2019 Overview (10/09/2019): Added automatically from request for surgery [id number] Lung nodule 10/09/2019 Overview (10/09/2019): Added automatically from request for surgery [id number] 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 2 diabetes mellitus 0 04/03/2019 Assessment & Plan (02/27/2024 1:54 PM INFECTION CONTROL COORDINATOR): Chronic problem. Controlled on current Rosuvastatin 10mg & zetia 10mg. Last lipid panel: 08/30/23 LDL=65, FF=311. Assessment & Plan (10/25/2023 2:05 PM CDT): Chronic problem. Controlled on current Rosuvastatin 10mg & zetia 10mg. Last lipid panel: 03/08/23 LDL=48, EC=661. Assessment & Plan (06/12/2023 3:56 PM CDT): Chronic, well-controlled. Continue statin therapy with rosuvastatin Assessment & Plan (03/08/2023 4:37 PM INFECTION CONTROL COORDINATOR): Chronic, well-controlled Continue statin therapy with rosuvastatin Assessment & Plan (12/07/2022 2:24 PM CDT): Chronic problem. Controlled on current Rosuvastatin 10mg & zetia 10mg. Last lipid panel: 03/14/22 LDL=52, DW=928. Assessment & Plan (07/05/2022 2:12 PM CDT): Chronic problem. On statin therapy, no changes. Assessment & Plan (03/09/2022 3:07 PM INFECTION CONTROL COORDINATOR): Chronic, well controlled Low fat Low cholesterol [...] Pravachol Assessment & Plan (12/25/2019 1:24 PM INFECTION CONTROL COORDINATOR): Goal of treatment , LDL cholesterol less [...] recently Assessment & Plan (04/03/2019 11:15 AM INFECTION CONTROL COORDINATOR): Goal of treatment , LDL cholesterol less [...] 07/16/2018 Assessment & Plan (02/27/2024 1:54 PM INFECTION CONTROL COORDINATOR): Chronic problem. Controlled on current olmesartan 40mg daily, diltiazem CD 360mg daily, chlorthalidone 25mg daily Assessment & Plan (10/25/2023 2:23 PM CDT): Chronic problem. Controlled on current olmesartan 40mg daily, diltiazem CD 360mg daily, chlorthalidone 25mg daily Assessment & Plan (03/08/2023 4:37 PM INFECTION CONTROL COORDINATOR): Chronic, well-controlled Continue current regimen including ARB [...] Olmesartan Assessment & Plan (12/25/2019 1:23 PM INFECTION CONTROL COORDINATOR): Goal blood pressure is less than 140/85 [...] Daily aerobic exercise Continue current meds, including APTRIC-I or ARB with Olmesartan Assessment & Plan (01/28/2019 10:48 AM INFECTION CONTROL COORDINATOR): Controlled on current medications. Continue plan. Assessment & Plan (07/16/2018 3:53 PM CDT): Goal blood pressure is less than 140/85 Low salt diet recommended Daily aerobic exercise Continue current meds, including PATRIC-I or ARB Type 2 diabetes mellitus wit h hyperglycemia, with long-term current use of insulin 05/07/2018 Assessment & Plan (02/27/2024 3:00 PM INFECTION CONTROL COORDINATOR): Chronic problem. A1c worsened from 8.1% 10/25/23 [...] results. UTD on DM eye exam (12/2023 [facility]). Letter sent to get copy of report. [...] UTD on labs. DM eye exam 09/2022 [facility]. Has appt next week; will send letter [...] dinner Assessment & Plan (03/08/2023 4:37 PM INFECTION CONTROL COORDINATOR): Hba1c was Lab Results Component Value Date [...] re: results. DM eye exam 09/2022 [facility]. Letter sent to get copy of report. [...] Janumet. Assessment & Plan (03/09/2022 3:06 PM INFECTION CONTROL COORDINATOR): Hba1c was Lab Results Component Value Date [...] us to download the data [facility] Assessment & Plan (09/15/2021 4:05 PM CDT): [...] over 220, take 18 units Continue with Janumet Assessment & Plan (05/05/2021 2:14 PM CDT): [...] of hyypoglcyemia discussed. Continue current regimen Start FreeNotizzayle Kaleigh CGM Assessment & Plan (12/25/2019 1:23 PM INFECTION CONTROL COORDINATOR): Hba1c was Lab Results Component Value Date [...] provided. Assessment & Plan (04/03/2019 11:15 AM INFECTION CONTROL COORDINATOR): Hba1c was Lab Results Component Value Date [...] current Assessment & Plan (01/28/2019 10:49 AM INFECTION CONTROL COORDINATOR): A1c 6.2 without hypoglycemia. Advised to continue [...] goal hba1c is under 7.0 to prevent alf diabetes complications ( eye , kidney and [...] goal hba1c is under 7.0 to prevent watcher automat long goods diabetes complications ( eye , kidney and [...] Anxiety 05/06/2015 Muscle pain 05/06/2015 Cervicalgia 04/26/2015 Encounters Date Type Department Care Team Description 03/06/[address] [facility] Diabetes and Endocrinology [address] [place] [phone] Provider, MD Mylene 02/27/2024 2:39 PM INFECTION CONTROL COORDINATOR - 02/27/2024 11:59 PM INFECTION CONTROL COORDINATOR Hospital Encounter [address] [address] Type 2 diabetes mellitus with hyperglycemia, with long-term current use of insulin (HCC) Discharge Disposition: Discharge to home or self care 02/27/2024 2:30 PM INFECTION CONTROL COORDINATOR Lab [facility] Outpatient Lab at [address] [address] 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) (Primary Dx) 02/27/2024 2:30 PM INFECTION CONTROL COORDINATOR Office Visit [facility] Diabetes and Endocrinology [address] [place] [phone] Stephanie Ruiz, SARAH Type 2 diabetes mellitus with hyperglycemia, with long-term current use of insulin (HCC) (Primary Dx); Hypertension associated with diabetes (HCC); 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); Class 3 severe obesity due to excess calories with serious comorbidity and body mass index (BMI) of 40.0 to 44.9 in adult (HCC) 01/18/2024 Telephone [facility] of [address] [address] Stephanie Ruiz NP Medication Problem 01/18/2024 Documentation [facility] [address] [address] Beth Molina from Last 3 Months Immunizations Name Administration Dates Next Due Influenza, Trivalent, Preservative Free, Intramu scular 11/12/2014 Surgical History Surgery Date Site/Laterality Comments HYSTERECTOMY CHOLECYSTECTOMY HAND SURGERY KNEE SURGERY Medical History Medical History Date Comments Adiposity Obesity Hx Other Medical DJD Primary fibromyalgia syndrome Fi bromyalgia History of total left knee replacement (TKR) 03/2018 Arthritis Asthma Bronchitis DM (diabetes mellitus) (HCC) HTN (hypertension) HLD (hyperlipidemia) Pneumonia Anemia GERD (gastroesophageal reflux disease) Hiatal hernia Fibromyalgia Family History Medical History Relation Name Comments Valvular heart disease Brother No Known Problems Father Cardiomyopathy Mother Diabetes Mother Valvular heart disease Mother Valvu lar Heart Disease; Relation Name Status Comments Brother Father Mother Social History Tobacco Use Types Packs/Day Years [...] on file Legal Sex Female 6:58 PM INFECTION CONTROL COORDINATOR Gender Identity Not on file Sexual Orientation Not on file 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 Not on file Not on file Obstetrics History Last Filed Vital Signs Vital Sign Reading Time Taken Comments Blood Pressure 126/66 02/27/2024 1:48 PM INFECTION CONTROL COORDINATOR Pulse 71 02/27/2024 1:48 PM INFECTION CONTROL COORDINATOR Temperature 36.6 ??C (97.8 ??F) 10/18/2019 4:00 PM CD T Respiratory Rate 18 02/27/2024 1:48 PM INFECTION CONTROL COORDINATOR Oxygen Saturation 98% 12/10/2023 10:39 AM CDT Inhaled Oxygen Concentration - - Weight 96.2 kg (212 lb) 02/27/2024 1:48 PM INFECTION CONTROL COORDINATOR Height 154.9 cm (5' 0.98 ) 02/27/2024 1:48 PM CS T Body Mass Index 40.08 02/27/2024 1:48 PM INFECTION CONTROL COORDINATOR Plan of Treatment Health Maintenance Due Date Last Done Comments Colon Cancer Screening-Colonoscopy 1950 Hepatitis C Screening 1950 Hepatitis B Screening 09/19/1967 Zoster Vaccine (2 of 3) 01/30/2013 12/05/2012 Well Visit 65+ 2014 Fall Risk Assessment 10/17/2020 10/18/2019 DTaP/Tdap/Td Vaccine (2 - Td or Tdap) 09/03/2022 09/03/2012 Depression Screening 09/15/2022 09/15/2021, 05/05/2021, 05/04/2020, Additional history exists Osteoporosis Screening-Bone Density Scan 09/14/2023 09/13/2021 Influenza Vaccine (#1) 2023 9, 11/19/2017, 11/15/2016, Additional history exists Breast Cancer Screening-Mammogram 10/26/2023 10/25/2022, 10/25/2022, 09/13/2021, Additional history exists Hemoglobin A1C 08/26/2024 02/27/2024, 10/13, 06/12/2023, Additional history exists Lipid Panel 08/29/2024 08/30/2023, 02/13, 03/14/2022, Additional history exists Foot Exam 10/31/2024 11/01/2023, 10/13, 02/19/2023, Additional history exists Dilated Eye Exam 11/12/2024 11/13/2023, 02/2022, 10/07/2021, Additional history exists eGFR 02/26/2025 02/27/2024, 02/13, 02/15/2022, Additional history exists Albumin Creatinine Ratio, Urine 02/27/2025 02/28/2024, 12/07/2022, 09/16/2021, Additional history exists Pneumococcal vaccine 65+ Completed 11/19/2017, 05/2016 Procedures Procedure Name Priority Date/Time Associated Diagnosis Comments ALBUMIN CREATININE RATIO, URINE Routine 02/28/2024 8:00 AM INFECTION CONTROL COORDINATOR Type 2 diabetes mellitus with hyperglycemia, with long-term current use of insulin ([facility]) EGFR Routine 02/27/2024 2:39 PM INFECTION CONTROL COORDINATOR Type 2 diabetes mellitus with hyperglycemia, with long-term current use of insulin ([facility]) COMPREHENSIVE METABOLIC PANEL Routine 02/27/2024 2:39 PM INFECTION CONTROL COORDINATOR Type 2 diabetes mellitus with hyperglycemia, with long-term current use of insulin ([facility]) POCT GLUCOSE Routine 02/27/2024 2:04 PM INFECTION CONTROL COORDINATOR Type 2 diabetes mellitus with hyperglycemia, with long-term current use of insulin ([facility]) POCT HEMOGLOBIN A1C Routine 02/27/2024 2 :04 PM INFECTION CONTROL COORDINATOR Type 2 diabetes mellitus with hyperglycemia, with long-term current use of insulin ([facility]) DIABETES EYE EXAM Routine 11/13/2023 8:02 AM CDT DIABETES FOOT EXAM Routine 11/01/2023 8:39 AM CDT LIPID PANEL Routine 08/30/2023 7:43 AM CDT from Last 3 Months or Most Recently Relevant to Health Maintenance Results * Albumin Creatinine Ratio, Urine (02/28/2024 8:00 AM INFECTION CONTROL COORDINATOR) SCRIBED Creatinine, Urine 195.8 28 - 217 EXTERNAL LAB SCRIBED Microalbumin 1.5 <2.0 - NA EXTERNAL LAB SCRIBED Microalb/Creat Ratio 7.7 <30.0 - NA EXTERNAL LAB Urine 02/28/2024 8:00 AM INFECTION CONTROL COORDINATOR us Stephanierito Ruiz ADDING MACHINE OPERATOR LAB URINE ORDERABLES Barbara l Result EXTERNAL LAB * (ABNORMAL) eGFR (02/27/2024 2:39 PM INFECTION CONTROL COORDINATOR) eGFR 55(L) >=60 mL/min/1. 73 m2 Comment: [...] last reviewed 2020. Blood 02/27/2024 2:39 PM INFECTION CONTROL COORDINATOR 02/27/2024 9:48 PM INFECTION CONTROL COORDINATOR us Stephanie Ruiz ADDING MACHINE OPERATOR LAB BLOOD ORDERABLES Barbara l Result [facility]ISS [id number] Department [place] [address] * (ABNORMAL) Comprehensive metabolic panel (02/27/2024 2:39 PM INFECTION CONTROL COORDINATOR) Sodium 143 135 - 145 mmol/L Potassium, [...] classification and Diagnosis of Diabetes Diabetes Care 2021; 46: S19-S40. Current interpretive data was last revised 2022. Calcium 9.7 8.5 - 10.3 mg/dL [facility] Bilirubin, total <0.2 0.1 - 1.2 mg/dL [facility] Protein, pl 7.4 6.5 - 8.5 g/dL [facility] Albumin 4.1 3.5 - 5.0 g/dL [facility] Alk phos 94 40 - 130 Units/L [facility] ALT 22 7 - 45 Units/L [facility] AST 27 10 - 45 Units/L [facility] Blood 02/27/2024 2:39 PM INFECTION CONTROL COORDINATOR 02/27/2024 8:00 PM INFECTION CONTROL COORDINATOR us Stephanie Ruiz NP LAB BLOOD ORDERABLES Barbara lux Result MELISSA KAHN [id number] Department [place] [address] * (ABNORMAL) POCT hemoglobin A1c (02/27/2024 2:04 PM INFECTION CONTROL COORDINATOR) Pathologist [facility] Hemoglobin A1C, POC 7.0 4.0 - 5.6 % Blood 02/27/2024 2:04 PM INFECTION CONTROL COORDINATOR Result [facility] Stephanie Ruiz ADDING MACHINE OPERATOR POINT OF CARE TEST ORDERA BLES Final Result * (ABNORMAL) POCT glucose (02/27/2024 2:04 PM INFECTION CONTROL COORDINATOR) Glucose Blood, POC 131 mg/dL Blood 02/27/2024 2:04 PM INFECTION CONTROL COORDINATOR Result [facility] Stephanie Ruiz ADDING MACHINE OPERATOR POINT OF CARE TEST ORDERA BLES Final Result * (ABNORMAL) DIABETES EYE EXAM (11/13/2023 8:02 AM CDT) Result [facility] Historical Provider HEALTH MAINTENANCE Final Result * DIABETES FOOT EXAM (11/01/2023 8:39 AM CDT) Result [facility] Historical Provider HEALTH MAINTENANCE Final Result * (ABNORMAL) Lipid panel (08/30/2023 7:43 AM CDT) SCRIBED Cholesterol, Total 126 0 - 200 EXTERNAL LAB SCRIBED HDL 40 40 - 100 EXTERNAL LAB SCRIBED LDL 65 0 - 100 EXTERNAL LAB SCRIBED Triglycerides 197(A) 0 - 150 EXTERNAL LAB Blood 08/30/2023 7:43 AM CDT Result [facility] Historical Provider LAB BLOOD ORDERABLES Barbara l Result EXTERNAL LAB from Last 3 Months or Most Recently Relevant to Health Maintenance Insurance [employer] [facility] Address: [address] [address] [place] [address] [facility] MEDICARE [facility] MEDICARE Advance Directives For more information, please contact: [phone] Documents on File Type Date Recorded Patient Soil Conservation Aide Expl anation ADVANCE DIRECTIVE 10/10/2019 10:36 AM [facility] * Full Code (Latest Code Status on File) Date Activated Date Inactivated Comments 10/17/2019 7:55 PM 10/18/2019 10:54 PM Care Teams Client Advocate Relationship Specialty Start Date End Date Frantz Matthews MD PCP - General Family Practice 12/10/23 Salinas Bob MD Referring Physician Pulmonary Disease 10/06/19
--- OUTSIDE RECORDS SUMMARY | 2024-03-12 13:53 | XMS_ITS | Patient Health Summary ---
Author Organization [facility] Address [address] [place] [address] Care Team Providers Care Woodwind Instrument Repairer Name Role Phone BobottoVanesa Primary Care Provider [phone] Note from [facility],non-owned Affiliates and Associated Physician Practices is amultiple site organization consisting of ambulatory clinics and hospital sitesin [place], [place], [place] and [place]. This disclosure is being madepursuant to the Care Everywhere program and may not contain all information available regarding this patient. Last updated 17.[facility] Allergies * Amoxicillin-Pot Clavulanate(Diarrhea) -Low Criticality * Augmentin(Diarrhea) * Oxybutynin(Urticaria) -Medium Criticality * Latex(Rash) -Medium Criticality * Meperidine(Unknown) Medications * Be aware that medications may not be up to date on this document. Alwaysverify current medications with the patient. * sotalol, AF, 120 MG tablet Take 120 mg by mouth 2 times daily * olmesartan (BENICAR) 40 MG tablet Take 40 mg by mouth once daily * esomeprazole (NEXIUM) 40 MG capsule Take 40 mg by mouth daily before breakfast * KRILL OIL PO * Cholecalciferol (VITAMIN D3) 1000 UNITS * cyanocobalamin (VITAMIN B-12) 1000 MCG tablet Take 1,000 mcg by mouth once daily * pravastatin (PRAVACHOL) 40 MG tablet Take 40 mg by mouth at bedtime * albuterol HFA (PROVENTIL;VENTOLIN;PROAIR) 108 (90 BASE) MCG/ACT inhaler Inhale 2 puffs by mouth every 6 hours as needed * aspirin EC (ECOTRIN) 81 MG tablet Take 81 mg by mouth once daily * LORazepam (ATIVAN) 1 MG tablet Take 1 mg by mouth every 8 hours as needed for Anxiety * empagliflozin (JARDIANCE) 10 MG tablet(Started 12/13/2018) Take 1 tablet by mouth once daily Active Problems Problem Noted Date Diagnosed Date Presence of left artificial knee joint 0 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 2 diabetes mellitus 0 04/03/2019 Morbid obesity 09/19/2018 Hypertension associated with diabetes 07/16/2018 Social History Tobacco Use Types Packs/Day Years Used Date Smoking Tobacco: Never Smokeless Tobacco: Never Alcohol Use Standard Drinks/Week Comments No 0 (1 standard drink = 0.6 oz pur e alcohol) Sex and Gender Information Value Date Recorded Sex Assigned at Not on file Gender Identity Not on file Sexual Orientation Not on file Last Filed Vital Signs Vital Sign Reading Time Taken Comments Blood Pressure - - Pulse - - Temperature - - Respiratory Rate - - Oxygen Saturation - - Inhaled Oxygen Concentration - - Weight 100.7 kg (222 lb) 04/15/2019 2:52 PM ENVIRONMENTAL PERMITTING SPECIALIST Height 157.5 cm (5' 2 ) 04/15/2019 2:52 PM ENVIRONMENTAL PERMITTING SPECIALIST Body Mass Index 40.6 04/15/2019 2:52 PM ENVIRONMENTAL PERMITTING SPECIALIST Procedures * DERMATOPATHOLOGY(Performed 11/14/2023) * DERMATOPATHOLOGY(Performed 11/06/2022) * DERMATOPATHOLOGY(Performed 10/07/2020) * DERMATOPATHOLOGY(Performed 06/26/2018) * ENDOSCOPY DRUG INDUCED SLEEP EVALUATION(Performed 01/01/2017) Performed for Iron deficiency anemia, unspecified iron deficiency anemia type * DERMATOPATHOLOGY(Performed 05/03/2015) Results * DERMATOPATHOLOGY (11/14/2023 9:50 AM CDT) Only the most recent of5 resultswithin the time period is included. Case Report Dermatopathology Report ? Case: [id number] ? Authorizing Provider: ??Virginia Romero, DO ?? Collected: ? 11/14/2023 09:50 AM ? Ordering Location: ? [facility] - ??Received: ?11/14/2023 04:50 PM ? DermPath Lab ? Pathologist: ? Jovanna Green MD ? Specimens: ?? A) - Skin, left upper back ? B) - Skin, right lower back ? 4 1:53 PM CDT DERMATOPATHOLOGY LABORATORY Final Diagnosis Specimen A. SKIN, left upper back: LENTIGINOUS MELANOCYTIC NEVUS, COMPOUND TYPE, IRRITATED (D22.5) APPROXIMATES MARGIN CHRONIC PERIFOLLICULITIS (L73.8) Specimen B. SKIN, right lower back: COMPOUND MELANOCYTIC NEVUS, IRRITATED (D22.5) 4 1:53 PM CDT DERMATOPATHOLOGY LABORATORY Clinical History Nevus r/o atypia 4 1:53 PM CDT DERMATOPATHOLOGY LABORATORY Gross Description Specimen A: Received is one formalin filled container labeled with the patient's name and designated left upper back. The specimen consists of a shave biopsy measuring 6x5x1 mm. Jar 0. Specimen B: Received is one formalin filled container labeled with the patient's name and designated right lower back. The specimen consists of a shave biopsy measuring 8x7x2 mm. Jar 0. 1:53 PM T DERMATOPATHOLOGY LABORATORY Microscopic Description Specimen A. SKIN, left upper back: This is a compound nevus. There is melanin pigment in the stratum corneum. There is a lentiginous proliferation of melanocytes between nevus nests of cells along the dermal epidermal junction. There is underlying fibroplasia of the papillary dermis. The intradermal component is bland in appearance and matures with depth, and there is a perifollicular lymphohistiocytic infiltrate. This lesion approximates the margin of the specimen. Specimen B. SKIN, right lower back: There is melanin pigment in the stratum corneum. There are nests of melanocytes at the dermal-epidermal junction and within the dermis. 1:53 PM T DERMATOPATHOLOGY LABORATORY Disclaimer An external and internal positive and negative controls are appropriate for the histochemical, immunohistochemical and immunofluorescence stain(s) in this case (if any), except where stated explicitly. The performance characteristics of the stain(s) cited in this report were developed and its performance characteristic determined by the Dermatopathology Laboratory at [facility], directed by Dr. Bruce Costa. These tests need not be, and therefore are not, approved by the [place] Food and Drug Administration. The tests are used for clinical purposes. Billing Codes Specimen Charges Stain Charges 07514 99416 1 1 1:53 PM CDT DERMATOPATHOLOGY LABORATORY Embedded Images 1:53 PM CDT DERMATOPATHOLOGY LABORATORY Pathology/Cytology TISSUE SPECIMEN FROM SKIN / Unknown 11/14/2023 9:50 AM CDT 11/14/2023 4:50 PM CDT Miscellaneous samples (specimen) TISSUE SPECIMEN FROM SKIN / Unknown 11/14/2023 9:50 AM CDT 11/14/2023 4:50 PM CDT Virginia Romero DO LAB - PATHOLOGY/C YTOLOGY ORDERABLES DERMATOPATHOLOGY LABORATORY [facility] - Department of Dermatology [facility] Specialized Medicine [address] [place] [address], [address] [phone] Care Teams Woodwind Instrument Repairer Relationship Specialty Start Date End Date Vanesa Horan DO [address] [place] [address] [phone] PCP - General Family Medicine 12/28/16
--- OUTSIDE RECORDS SUMMARY | 2024-03-12 13:53 | XMS_ITS | Clinical Summary ---
Author Organization [facility] Address [address] [place] [address] Care Team Providers Care Music Cataloguer Name Role Phone BobottoVanesa Primary Care Provider [phone] Source Comments [facility] [employer],non-owned Affiliates and Associated Physician Practices is amultiple site organization consisting of ambulatory clinics and hospital sitesin [place], [place], [place] and [place]. This disclosure is being madepursuant to the Care Everywhere program and may not contain all information available regarding this patient. Last updated 17.[facility] Allergies Active Allergy Reactions Criticality Noted Date Comments Amoxicillin-Pot Clavulanate Diarrhea Low 01/02/20 17 Augmentin Diarrhea 01/01/2017 Oxybutynin Urticaria Medium 01/01/2017 Latex Rash Medium 01/01/2017 Meperidine Unknown 04/15/2019 Medications * Be aware that medications may not be up to date on this document. Alwaysverify current medications with the patient. Medication Sig Dispensed Refills Start Date End Date Status sotalol, AF, 120 MG tablet Take 120 mg by mouth 2 times daily Active olmesartan (BENICAR) 40 MG tablet Take 40 mg by mouth once daily Active esomeprazole (NEXIUM) 40 MG capsule Take 40 mg by mouth daily before breakfast Active KRILL OIL PO Active Cholecalciferol (VITAMIN D3) 1000 UNITS Active cyanocobalamin (VITAMIN B-12) 1000 MCG tablet Take 1,000 mcg by mouth once daily Active pravastatin (PRAVACHOL) 40 MG tablet Take 40 mg by mouth at bedtime Active albuterol HFA (PROVENTIL;VENTOLIN;P ROAIR) 108 (90 BASE) MCG/ACT inhaler Inhale 2 puffs by mouth every 6 hours as needed Active aspirin EC (ECOTRIN) 81 MG tablet Take 81 mg by mouth once daily Active LORazepam (ATIVAN) 1 MG tablet Take 1 mg by mouth every 8 hours as needed for Anxiety Active empagliflozin (JARDIANCE) 10 MG tablet Take 1 tablet by mouth once daily 12/13/2018 Active Active Problems Problem Noted Date Diagnosed Date Presence of left artificial knee joint 0 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 2 diabetes mellitus 0 04/03/2019 Overview (04/16/2019): Last Assessment & Plan: Goal of treatment , LDL cholesterol less [...] therapy Will add Zetia. Morbid obesity 09/19/2018 Overview (04/16/2019): Last Assessment & Plan: Importance of following diet and exercising discussed. Hypertension associated with diabetes 07/16/2018 Overview (04/16/2019): Last Assessment & Plan: Controlled on current medications. Continue plan. Family History Medical History Relation Name Comments CVA Maternal Grandfather Arthritis - Osteo Mother CVA Mother Diabetes - Type 1 Mother Hypertension Mother Relation Name Status Comments Maternal Grandfather Mother Social History Tobacco Use Types Packs/Day [...] 100.7 kg (222 lb) 04/15/2019 2:52 PM SALES AND MARKETING REPRESENTATIVE Height 157.5 cm (5' 2 ) 04/15/2019 2:52 PM SALES AND MARKETING REPRESENTATIVE Body Mass Index 40.6 04/15/2019 2:52 PM SALES AND MARKETING REPRESENTATIVE Plan of Treatment Health Maintenance Due Date Last Done Comments BONE DENSITY TESTING 1950 COLOGUARD (AGES 45-75) - COL ON CA SCREENING 1950 COLON MONITORING 1950 COLONOSCOPY - COLON CA SCREENING 1949 CT COLONOGRAPHY - COLON CA SCREENING 1950 Colorectal Cancer Screening 1950 FIT - COLON CA SCREENING 1949 FLEX SIG - COLON CA SCREENING 1950 MAMMOGRAM 1950 HEPATITIS C SCREENING 09/14/1967 DIABETES-SERUM CREATININE 09/19/1967 DTAP/TDAP/TD VACCINES (1 - Tdap) 1968 PNEUMOCOCCAL VACCINE 50+ (1 of 2 - PCV) 1968 ZOSTER VACCINE (1 of 2) 09/19/1999 Respiratory Syncytial Virus (RSV) Vaccine Pt: or over 60 yrs (1 - Risk 60-74 years 1-dose series) 2009 DIABETES RETINOPATHY SCREENING 04/16/2019 DIABETES-FOOT EXAM WITH MONOFILAMENT 04/16/2019 DIABETES-HGB A1C 10/02/2019 04/03/2019 COVID-19 VACCINE ( - 2023-2 5 season) 2023 INFLUENZA VACCINE (#1) 2023 11/12/2014 DEPRESSION SCREENING 02/13/2024 DIABETES - URINE PROTEIN SCREENING 02/13/2024 MEDICARE AWV ? CALENDAR YEAR 2024 HEPATITIS B VACCINE Aged Out No longe r eligible based on patient's age to complete this topic HIB VACCINE Aged Out No longer eligi ble based on patient's age to complete this topic HPV VACCINE Aged Out No longer eligi ble based on patient's age to complete this topic MENINGOCOCCAL (Group B) VACCINE Aged Out No longer eligible based on patient's age to complete this topic MENINGOCOCCAL VACCINE Aged Out No emgan kristina eligible based on patient's age to complete this topic Care Teams Music Cataloguer Relationship Specialty Start Date End Date Vanesa Horan DO [address] [place] [phone] PCP - General Family Medicine 12/28/16
--- OUTSIDE RECORDS SUMMARY | 2024-03-12 13:53 | XMS_ITS | Encounter Summary ---
Author Organization [facility] Address [address] [facility] [place] [address] Care Team Providers Care Title Curator Name Role Phone Vanesa Horan DO Primary Care Provider [phone] Encounter Details Date Type Department Care Team (Late st Contact Info) Description 06/27/2018 Lab Requisition [facility] [address] [place] [address] Chrissy Cobian MD [address] [facility] [address] [place] [address] Social History Tobacco Use Types Packs/Day Years Used Date Smoking Tobacco: Never Smokeless Tobacco: Never Alcohol Use Standard Drinks/Week Comments No 0 (1 standard drink = 0.6 oz pur e alcohol) Sex and Gender Information Value Date Recorded Sex Assigned at Not on file Gender Identity Not on file Sexual Orientation Not on file documented as of this encounter Plan of Treatment Not on file documented as of this encounter Procedures Procedure Name Priority Date/Time Associated Diagnosis Comments DERMATOPATHOLOGY Routine 06/26/2018 12:0 0 AM CDT documented in this encounter Results * DERMATOPATHOLOGY (06/26/2018 12:00 AM CDT) Case Report Dermatopathology Report ? Case: [id number] ? Authorizing Provider: ??Chrissy Cobian MD ?Collected: ? 06/26/2018 12:00 AM ? Pathologist: ? Nelsy Costa MD ? Received: ?06/27/2018 12:07 PM ? Specimen: ?Skin, mid back ? 9 2:39 PM CDT DERMATOPATHOLOGY LABORATORY Final Diagnosis Specimen A. SKIN, mid back: SEBORRHEIC KERATOSIS (L82.1) PRESENT AT MARGIN 9 2:39 PM CDT DERMATOPATHOLOGY LABORATORY Clinical History Crusted black plaque ISK Nevus MM 9 2:39 PM CDT DERMATOPATHOLOGY LABORATORY Gross Description Specimen A: Received is one formalin filled container labeled with the patient's name and designated mid back. The specimen consists of a shave biopsy measuring [id number] mm, inked and bisected. Jar 0. 9 2:39 PM CDT DERMATOPATHOLOGY LABORATORY Microscopic Description Specimen A. SKIN, mid back: Sections show an acanthotic lesion composed of relatively uniform keratinocytes. There is hyperkeratosis and pseudo horn cysts formation. This lesion is present at the margin of the specimen. 9 2:39 PM CDT DERMATOPATHOLOGY LABORATORY Disclaimer An external and internal positive and negative controls are appropriate for the histochemical, immunohistochemical and immunofluorescence stain(s) in this case (if any), except where stated explicitly. The performance characteristics of the stain(s) cited in this report were developed and its performance characteristic determined by the Dermatopathology Laboratory at [facility], directed by Dr. Bruce Costa. These tests need not be, and therefore are not, approved by the [place] Food and Drug Administration. The tests are used for clinical purposes. Billing Codes Specimen Charges Stain Charges 04265 1 9 2:39 PM CDT DERMATOPATHOLOGY LABORATORY Embedded Images 9 2:39 PM CDT DERMATOPATHOLOGY LABORATORY Pathology/Cytolog y TISSUE SPECIMEN FROM SKIN / Unknown 06/26/2018 06/27/2018 12:07 PM CDT Chrissy Cobian MD LAB - PATHOLOGY/CYTO LOGY ORDERABLES DERMATOPATHOLOGY LABORATORY [facility] - Department of Dermatology [address] [place] [address], 5th Floor Lab B [address] [phone] documented in this encounter Visit Diagnoses Not on filedocumented in this encounter Care Teams Title Curator Relationship Specialty Start Date End Date Vanesa Horan DO [address] [place] [phone] PCP - General Family Medicine 12/28/16 documented as of this encounter
--- OUTSIDE RECORDS SUMMARY | 2024-03-12 13:53 | XMS_ITS | Clinical Summary ---
Author Organization [facility] Address [address] [place] [address]. [place] [address] [place] [address] Care Team Providers Care Tinware Lithograph Press Operator Name Role Phone Marco Fabian MD Primary Care Provider [phone] Medications No known medications Active Problems Problem Noted Date Diagnosed Date S/P TKR (total knee replacement), left 9 Encounters Date Type Department Care Team Description 02/28/2024 11:04 AM SUPERVISOR FURNACE ROOM - 02/28/2024 11:59 PM SUPERVISOR FURNACE ROOM Hospital Encounter [facility] [address] [place] [address] Stephanie Ruiz COIN MACHINE SERVICER REPAIRER Discharge Disposition: Home or Self Care (Routine Discharge) 02/28/2024 Orders Only [facility] [address] [place] [address] Stephanie Ruiz COIN MACHINE SERVICER REPAIRER from Last 3 Months Social History Tobacco Use Types Packs/Day Years Used Date Smoking Tobacco: Never Assessed Comments Unknown Sex and Gender Information Value Date Recorded Sex Assigned at Female 02/28/2024 1:10 PM SUPERVISOR FURNACE ROOM Legal Sex Female 7:27 PM CDT Gender Identity Not on file Sexual Orientation Not on file Plan of Treatment Upcoming Encounters Date Type Department Care Team (Late st Contact Info) Description 04/18/2024 12:30 PM SUPERVISOR FURNACE ROOM Appointment [facility] [address] [place] [address] Frantz Matthews MD [address] [place] [address] Health Maintenance Due Date Last Done Comments Colorectal Cancer Screening Colonoscopy (10 Years) 1950 Kidney Health Evaluation 1950 Diabetes: Retinopathy Eye Exam 09/19/1967 Hepatitis C 09/19/1967 DTaP, Tdap and Td Vaccines (1 - Tdap) 1968 Zoster Vaccines (2 of 3) 01/30/2013 12/05/2012 Annual Medicare Wellness Visit 2014 Pneumococcal Vaccine: 65+ Years (2 of 2 - PPSV23 or PCV20) 01/10/2017 11/15/2016 Hemoglobin A1C 03/27/2019 09/24/2018, 08/02/2016 Lipid Panel 03/14/2023 03/14/2022, 10/13, 08/23/2018 COVID-19 Vaccine ( season) 2023 Influenza Adult (#1) 2023 11/19/2017, 11/15/2016, 11/23/2015, Additional history exists RSV Immunization or 60+ Years (1 - 1-dose 75+ series) 2024 Mammogram Screening 10/25/2024 10/25/2022, 09/13/2021, 08/20/2020, Additional history exists Dexa Scan (General) Completed 09/13/2021 Meningococcal B Vaccine Aged Out No l onger eligible based on patient's age to complete this topic Meningococcal Vaccine Aged Out No megan kristina eligible based on patient's age to complete this topic RSV Immunizations Under 20 Months Aged Out No longer eligible based on patient's age to complete this topic Procedures Procedure Name Priority Date/Time Associated Diagnosis Comments ALBUMIN URINE RANDOM W/CREATININE Routine 02/28/2024 8:00 AM SUPERVISOR FURNACE ROOM Inadequately controlled diabetes mellitus (CMS/HCC HHS/HCC) Encounter for long-term (current) use of insulin (CMS/HCC HHS/HCC) MG SCREENING W R[place]AN [place] DIGI Routine 10/25/2022 1:17 PM CDT Encounter for screening mammogram for malignant neoplasm of breast LIPID PANEL Routine 03/14/2022 8:17 AM SUPERVISOR FURNACE ROOM Type II diabetes mellitus with hyperosmolarity, uncontrolled (CMS/HCC HHS/HCC) Encounter for long-term (current) use of insulin ([facility]) BONE DENSITY/DEXA Routine 09/13/2021 1:1 7 PM CDT Postmenopause HEMOGLOBIN, GLYCOSYLATED Routine 09/24/2018 11:12 AM CDT Type 2 diabetes, diet controlled ([facility]) from Last 3 Months or Most Recently Relevant to Health Maintenance Results * MICROALBUMIN CREATININE RATIO (MICROALBUMIN/ALBUMIN) (02/28/2024 8:00 AM SUPERVISOR FURNACE ROOM) CREATININE (U) 195.7 28 - 217 MG/DL 02/28/2024 11:57 AM SUPERVISOR FURNACE ROOM [facility] MICROALBUMIN (U) 1.5 <2.0 mg/dL 02/27/19 11:57 AM SUPERVISOR FURNACE ROOM [facility] ALBUMIN/CREAT RATIO 7.7 <30.0 MG/G 02/28/2024 11:57 AM SUPERVISOR FURNACE ROOM [facility] URINE SPECIMEN / Unknown 02/28/2024 8:00 AM SUPERVISOR FURNACE ROOM us Stephanie Ruiz COIN MACHINE SERVICER REPAIRER URINE ORDERABLES Final Res ult Performing Organization Address City/State/[facility] Co de Phone Number [facility] [address] [place] [address], * MG SCREENING W R[place] DIGI (10/25/2022 1:17 PM CDT) Anatomical Region Laterality Modality Breast Bilateral Mammography 10/25/2022 1:24 PM CDT Narrative 10/25/2022 1:25 PM CDT Examination: Digital bilateral screening mammogram with 3D Tomosynthesis Exam Date/Time: 10/25/2022 1:08 PM Reason For Exam: ??annual ? No prior breast procedures. No personal or family history of breast cancer. No current complaints. Comparison: Mammograms from 09/13/2021 08/20/2020 08/18/2019 Technique: Digital screening mammography of both breasts was performed in addition to 3-D Tomosynthesis technique. This study was read with the assistance of a computer-aided detection system. Tissue density: There are scattered areas of fibroglandular density. Findings: Benign vascular and secretory calcifications again seen bilaterally. Overall parenchymal pattern unchanged from prior studies. There is no new focal asymmetry, dominant mass lesion, area of skin thickening, or cluster of suspicious appearing calcifications in either breast to suggest malignancy. ===== IMPRESSION: ===== 1. ??Stable mammographic appearance with no new findings to suggest malignancy in either breast. Assessment: ACR BI-RADS 2 - BENIGN FINDING(S) Recommendation: 1:Routine Screening Bilateral Comments: The final report for your radiology exam was delayed due to a prolonged systemwide outage of the hospital information technology infrastructure. The necessary components to render a final report utilizing a secure and persistent connection to the hospital information technology infrastructure within the usual parameters as guided by current standards of care were significantly limited or unavailable. These components include but are not limited to: all images for the exam, medical grade display monitor, medical grade display software, image post-processing software, prior examinations, prior reports, access to your medical records, dictation software, and a DICOM signature to ensure validity. Ordered By: MYLA MCLAUGHLIN Interpreted By: Jonathon Berrios MD, 10/25/2022 1:24 PM Myla Mclaughlin DIRECTOR OF ANALYTICAL DEVELOPMENT MAMMO Final Resul t * LIPID PANEL (03/14/2022 8:17 AM SUPERVISOR FURNACE ROOM) CHOLESTEROL 120 <200.0 MG/DL 03/14/2022 8:45 AM SUPERVISOR FURNACE ROOM [facility] TRIGLYCERIDES 130 <150 MG/DL 03/14/2022 8:45 AM SUPERVISOR FURNACE ROOM [facility] HDL 42 >40.0 MG/DL 03/14/2022 8:45 AM [facility] LDL (CALCULATED) 52 <100 MG/DL 03/14/19 8:45 AM [facility] NON HDL CHOLESTEROL 78 <130 MG/DL 03/14 8:45 AM [facility] CHOL/HDL RATIO 2.9 0.0 - 4.5 03/14/2022 8:45 AM [facility] VLDL CALCULATION 26 5 - 55 MG/DL 03/14/2022 8:45 AM [facility] LIPID INTERPRETATION 03/14/2022 8:45 AM [facility] Comment: NIH CONCENSUS REPORT RECOMMENDATIONS: ?ADULT ?CHILD ??LOW RISK: ?CHOLESTEROL ? <200 ? <170 ?TRIGLYCERIDE ?<150 ?--- ?HDL ? >=60 ?--- ?LDL ? <100 ? <110 ??BORDERLINE: ?CHOLESTEROL ? 200-239 ?? 170-199 ?TRIGLYCERIDE ?150-199 ? --- ?HDL ?40-59 ?--- ?LDL ? 100-159 ?? 110-129 ??HIGH RISK: ?CHOLESTEROL ? >=240 ?>=200 ?TRIGLYCERIDE ?>=200 ? --- ?HDL ?<40 ?--- ?LDL ? >=160 ?>=130 03/14/2022 8:17 AM SUPERVISOR FURNACE ROOM us Octavia Paul MD LABORATORY Final Result Performing Organization Address City/State/[facility] Co de Phone Number [facility] [address] [place] [address], * BONE DENSITY/DEXA (09/13/2021 1:17 PM CDT) Anatomical Region Laterality Modality Bone Bone Density 09/13/2021 1:53 PM CDT Impressions 09/13/2021 1:55 PM CDT Impression: BMD measured at AP lumbar spine, both total hips and both femoral necks at WHO category level of normal. Ordered By: ROSHNI HORAN Interpreted By: Fredi Manrique MD, 09/13/2021 1:53 PM Narrative 09/13/2021 1:55 PM CDT Examination: DEXA Bone densitometry EXAM DATE: ??09/13/2021 1:03 PM Clinical history: Postmenopausal. Vitamin D use. Prior hysterectomy. Screening for osteoporosis. Technique: DEXA bone minimal density evaluation was performed in the AP projection over the lumbar spine and over both hips in the AP projection utilizing standard imaging techniques. Assessment: The BMD measured at the AP spine L1-L4 is 1.248 g/cm? with a T-score of 1.8 and a Z-Score of ??4.1. ?? Bone density is up to 10% below young normal. This patient is considered normal according to the World Health Organization (WHO) criteria. Fracture risk is low. The BMD measured at the femur total left is 1.084 g/cm? with a T-score of 1.2 and a Z-Score of 2.8. ?Bone density is up to 10% below young normal. This patient is considered normal according to the World Health Organization (WHO) criteria. Fracture risk is low. The BMD measured at the left femoral neck is 0.781 g/sq cm resulting in a T score of -0.6 and a Z score of 1.3, values at the WHO category level of normal. The BMD measured at the femur total right is 1.152 g/cm? with a T-score of 1.7 and aZ-Score of ??3.3. ?? Bone density is up to 10% below young normal. This patient is considered normal according to the World Health Organization (WHO) criteria. Fracture risk is low. The BMD measured at the right femoral neck is 0.818 g/sq cm resulting in a T score of -0.3 and a Z score of 1.6, values at the WHO category level of normal. Recommendations: All patients should ensure an adequate intake of dietary calcium and vitamin D. The NOF recommend adults under the age of 50 need 1000 mg of calcium and 400-800 IU of vitamin D daily. Effective therapy for the prevention and treatment of osteoporosis include biphosphonates. Follow-up: People with diagnosed cases of osteoporosis or at high risk for fracture should have regular bone mineral density test. For patients eligible for Medicare, routine testing is allowed once every 2 years. Testing frequency can be increased to one year for patients who have rapidly progressing disease, those who are receiving or discontinuing medical therapy to restore bone mass, or have additional risk factors. Based on these results, a followup exam is recommended in no earlier than 2 years. Procedure Note Fredi Manrique MD - 09/13/2021 Examination: DEXA Bone densitometry EXAM DATE: 09/13/2021 1:03 PM Clinical history: Postmenopausal. Vitamin D use. Prior hysterectomy.Screening for osteoporosis. Technique: DEXA bone minimal density evaluation was performed in the APprojection over the lumbar spine and over both hips in the AP projectionutilizing standard imaging techniques. Assessment: The BMD measured at the AP spine L1-L4 is 1.248 g/cm? with a T-score of1.8 and a Z-Score of 4.1. Bone density is up to 10% below young normal.This patient is considered normal according to the World HealthOrganization (WHO) criteria. Fracture risk is low. The BMD measured at the femur total left is 1.084 g/cm? with a T-score of1.2 and a Z-Score of 2.8. Bone density is up to 10% below young normal.This patient is considered normal according to the World HealthOrganization (WHO) criteria. Fracture risk is low. The BMD measured at the left femoral neck is 0.781 g/sq cm resulting in aT score of -0.6 and a Z score of 1.3, values at the WHO category level ofnormal. The BMD measured at the femur total right is 1.152 g/cm? with a T-score of1.7 and aZ-Score of 3.3. Bone density is up to 10% below young normal.This patient is considered normal according to the World HealthOrganization (WHO) criteria. Fracture risk is low. The BMD measured at the right femoral neck is 0.818 g/sq cm resulting in aT score of -0.3 and a Z score of 1.6, values at the WHO category level ofnormal. Recommendations: All patients should ensure an adequate intake of dietary calcium andvitamin D. The NOF recommend adults under the age of 50 need 1000 mg ofcalcium and 400-800 IU of vitamin D daily. Effective therapy for theprevention and treatment of osteoporosis include biphosphonates. Follow-up: People with diagnosed cases of osteoporosis or at high risk for fractureshould have regular bone mineral density test. For patients eligible forMedicare, routine testing is allowed once every 2 years. Testing frequencycan be increased to one year for patients who have rapidly progressingdisease, those who are receiving or discontinuing medical therapy torestore bone mass, or have additional risk factors. Based on these results, a followup exam is recommended in no earlier than2 years. Impression: BMD measured at AP lumbar spine, both total hips and both femoral necks atWHO category level of normal. Ordered By: ROSHNI HORAN Interpreted By: Fredi Manrique MD, 09/13/2021 1:53 PM us Roshni Horan DO DEXA Final Resul t * (ABNORMAL) HEMOGLOBIN, GLYCOSYLATED (09/24/2018 11:12 AM CDT) HGB A1C 7.8(H) <5.7 % 09/24/2018 1:06 PM CDT [facility] Comment: INCREASED RISK OF DIABETES <5.7% ?NON-DIABETES 5.7-6.4% INCREASED RISK FOR FUTURE DIABETES > OR = 6.5 CONSISTENT WITH DIABETES STANDARDS OF MEDICAL CARE IN DIABETES-2010 DIABETES CARE, 33(SUPP 1): S1-S61,2009 09/24/2018 11:1 2 AM CDT us David Greco MD LABORATORY Final Result [facility] [address] [place] [address], from Last 3 Months or Most Recently Relevant to Health Maintenance Insurance [employer] Care Teams Tinware Lithograph Press Operator Relationship Specialty Start Date End Date Marco Fabian MD [address] [place] [address] PCP - General FAMILY PRACTICE 03/14/22
--- OUTSIDE RECORDS SUMMARY | 2024-03-12 13:53 | XMS_ITS | Referral Summary ---
Author Organization [facility] Address [address] [place] [address] Care Team Providers Care Railcar Foreman Name Role Phone BobottoVanesa Primary Care Provider [phone] Source Comments [facility],non-owned Affiliates and Associated Physician Practices is amultiple site organization consisting of ambulatory clinics and hospital sitesin [place], [place], [place] and [place]. This disclosure is being madepursuant to the Care Everywhere program and may not contain all information available regarding this patient. Last updated 17.[facility] Allergies Active Allergy Reactions Criticality Noted Date [...] Plan: Controlled on current medications. Continue plan. Social History Tobacco Use Types Packs/Day Years [...] 100.7 kg (222 lb) 04/15/2019 2:52 PM EDITORIAL ASSISTANT Height 157.5 cm (5' 2 ) 04/15/2019 2:52 PM EDITORIAL ASSISTANT Body Mass Index 40.6 04/15/2019 2:52 PM EDITORIAL ASSISTANT Plan of Treatment Not on file Care Teams Railcar Foreman Relationship Specialty Start Date End Date Vanesa Horan DO [address] [place] [phone] PCP - General Family Medicine 12/28/16
--- OUTSIDE RECORDS SUMMARY | 2024-03-12 13:53 | XMS_ITS | Encounter Summary ---
Author Organization [facility] Address [address] [place] [address] Care Team Providers Care Salon Stylist Name Role Phone Vanesa Horan Primary Care Provider [phone] Encounter Details Date Type Department Care Team (Late st Contact Info) Description 11/14/2023 Lab Requisition [facility] - DermPath Lab [address] [facility], [place] [address] Virginia Romero DO [address] [facility] [address] [place] [address] Social History Tobacco Use Types Packs/Day Years [...] Priority Date/Time Associated Diagnosis Comments DERMATOPATHOLOGY Routine 11/14/2023 9:50 AM CDT documented in this encounter Results * DERMATOPATHOLOGY (11/14/2023 9:50 AM CDT) Case Report Dermatopathology Report ? Case: [id number] ? Authorizing Provider: ??Virginia Romero, DO ?? Collected: ? 11/14/2023 09:50 AM ? Ordering Location: ? [facility] - ??Received: ?11/14/2023 04:50 PM [...] DERMATOPATHOLOGY LABORATORY Clinical History Nevus r/o atypia 1:53 PM T DERMATOPATHOLOGY LABORATORY Gross Description Specimen A: Received [...] characteristic determined by the Dermatopathology Laboratory at [facility], directed by Dr. Bruce Costa. These tests need not be, and therefore are not, approved by the [place] Food and Drug Administration. The tests are used for clinical purposes. Billing Codes Specimen Charges Stain Charges 66147 55960 1 1 1:53 PM CDT DERMATOPATHOLOGY LABORATORY Embedded Images 1:53 PM CDT DERMATOPATHOLOGY LABORATORY Pathology/Cytology TISSUE SPECIMEN FROM SKIN / Unknown 11/14/2023 9:50 AM CDT 11/14/2023 4:50 PM CDT Miscellaneous samples (specimen) TISSUE SPECIMEN FROM SKIN / Unknown 11/14/2023 9:50 AM CDT 11/14/2023 4:50 PM CDT Virginia Romero DO LAB - PATHOLOGY/C YTOLOGY ORDERABLES DERMATOPATHOLOGY LABORATORY [facility] - Department of Dermatology [facility] [address] [place] [address], [address] [phone] documented in this encounter Visit Diagnoses Not on filedocumented in this encounter Care Teams Salon Stylist Relationship Specialty Start Date End Date Vanesa Horan DO [address] [place] [phone] PCP - General Family Medicine 12/28/16 documented as of this encounter
--- OUTSIDE RECORDS SUMMARY | 2024-03-12 13:53 | XMS_ITS | Encounter Summary ---
Author Organization [facility] Address [address] [facility] [place] [address] Care Team Providers Care Tumbler Drier Operator Name Role Phone Vanesa Horan Primary Care Provider [phone] Encounter Details Date Type Department Care Team (Late st Contact Info) Description 11/06/2022 Lab Requisition [facility] - DermPath Lab [address] [facility], [place] [address] Virginia Romero DO [address] [facility] 3 [place] [address] Social History Tobacco Use Types Packs/Day Years [...] Priority Date/Time Associated Diagnosis Comments DERMATOPATHOLOGY Routine 11/06/2022 4:01 PM CDT documented in this encounter Results * DERMATOPATHOLOGY (11/06/2022 4:01 PM CDT) Case Report Dermatopathology Report ? Case: [id number] ? Authorizing Provider: ??Virginia Romero, DO ?? Collected: ? 11/06/2022 04:01 PM ? Ordering Location: ? [facility] DermPath Lab ? Received: ?11/07/2022 02:30 PM ? Pathologist: ? Shama Saleh MD ? Specimens: ?? A) - Skin, left mid back ? B) - Skin, right lower back ? 3 3:12 PM CDT DERMATOPATHOLOGY LABORATORY Final Diagnosis Specimen A. SKIN, left mid back: LENTIGINOUS MELANOCYTIC NEVUS, COMPOUND TYPE, IRRITATED (D22.5) Specimen B. SKIN, right lower back: COMPOUND MELANOCYTIC NEVUS, IRRITATED (D22.5) 3 3:12 PM CDT DERMATOPATHOLOGY LABORATORY Clinical History A-B: R/O Melanoma, Nevus 3 3:12 PM CDT DERMATOPATHOLOGY LABORATORY Gross Description Specimen A: Received is one formalin filled container labeled with the patient's name and designated left mid back. The specimen consists of a shave biopsy measuring 5x5x1 mm. Jar 0. Specimen B: Received is one formalin filled container labeled with the patient's name and designated right lower back. The specimen consists of a shave biopsy measuring 5x4x1 mm. Jar 0. 3 3:12 PM T DERMATOPATHOLOGY LABORATORY Microscopic Description Specimen A. SKIN, left mid back: This is a compound nevus. There is melanin pigment in the stratum corneum. There is a lentiginous proliferation of melanocytes between nevus nests of cells along the dermal epidermal junction. There is underlying fibroplasia of the papillary dermis. The intradermal component is bland in appearance and matures with depth. (Compound Luis Alberto's Nevus) Specimen B. SKIN, right lower back: There is melanin pigment in the stratum corneum. There are nests of melanocytes at the dermal-epidermal junction and within the dermis. 3 3:12 PM CDT DERMATOPATHOLOGY LABORATORY Disclaimer An external and internal positive and negative controls are appropriate for the histochemical, immunohistochemical and immunofluorescence stain(s) in this case (if any), except where stated explicitly. The performance characteristics of the stain(s) cited in this report were developed and its performance characteristic determined by the Dermatopathology Laboratory at [facility], directed by Dr. Bruce Costa. These tests need not be, and therefore are not, approved by the [place] Food and Drug Administration. The tests are used for clinical purposes. Billing Codes Specimen Charges Stain Charges 73481 41112 1 1 3 3:12 PM CDT DERMATOPATHOLOGY LABORATORY Embedded Images 3 3:12 PM CDT DERMATOPATHOLOGY LABORATORY Pathology/Cytology TISSUE SPECIMEN FROM SKIN / Unknown 11/06/2022 4:01 PM CDT 11/07/2022 2:30 PM CDT Miscellaneous samples (specimen) TISSUE SPECIMEN FROM SKIN / Unknown 11/06/2022 4:01 PM CDT 11/07/2022 2:30 PM CDT Virginia Romero DO LAB - PATHOLOGY/C YTOLOGY ORDERABLES DERMATOPATHOLOGY LABORATORY [facility] - Department of Dermatology [address], [address] [phone] documented in this encounter Visit Diagnoses Not on filedocumented in this encounter Care Teams Tumbler Drier Operator Relationship Specialty Start Date End Date Vanesa Horan DO [address] [place] [phone] PCP - General Family Medicine 12/28/16 documented as of this encounter
--- OUTSIDE RECORDS SUMMARY | 2024-03-12 13:53 | XMS_ITS | Encounter Summary ---
Author Organization [facility] Address [address] [place] [address]. [place], [place] [address] [place] [id number] Care Team Providers Care Hybrid Tester Name Role Phone Vanesa Horan DO Primary Care Provider [phone] Marco Fabian MD Primary Care Provider + [phone] Encounter Details Date Type Department Care Team (Late st Contact Info) Description 05/04/2016 Abstract [facility] CONVERSION [address] [place] [address] , Generic ConversionMD Social History Tobacco Use Types Packs/Day Years Used Date Smoking Tobacco: Never Assessed Comments Unknown Sex and Gender Information Value Date Recorded Sex Assigned at Female 02/28/2024 1:10 PM PYTHON CONSULTANT Legal Sex Female 7:27 PM CDT Gender Identity Not on file Sexual Orientation Not on file documented as of this encounter Plan of Treatment Upcoming Encounters Date Type Department Care Team (Late st Contact Info) Description 04/18/2024 12:30 PM PYTHON CONSULTANT Appointment [facility] Mammography [address] [place] [address] Frantz Matthews MD [address] [place] [address] documented as of this encounter Visit Diagnoses Not on filedocumented in this encounter Care Teams Hybrid Tester Relationship Specialty Start Date End Date Vanesa Horan DO PCP - General FAMILY PRACTICE 08/23/18 03/13/22 Marco Fabian MD [address] [place] [phone] PCP - General FAMILY PRACTICE 03/14/22 documented as of this encounter
[2024-03-12 14:55] LABS: Influenza A QL RT-PCR Positive (Negative); Influenza B QL RT-PCR Negative (Negative); RSV RNA, RT-PCR Negative (Negative); SARS-CoV-2 RNA PCR Negative (Negative)
== END 2024-03-12 12:54 | disposition home or self-care (01) ==
PROVIDERS: PCP Nurse Practitioner Family; Visit Provider Nurse Practitioner Family
DX: R05.9 Cough, unspecified (principal); R06.02 Shortness of breath; Z20.822 Contact with and (suspected) exposure to COVID-19
CPT/HCPCS: 71046; 87637

== ENCOUNTER 2024-04-18 08:04 | Outpatient (CLI) | payer MEDICARE, SELFPAY ==
--- NOTE | ~2024-04-18 | CT_ITS ---
EXAMINATION:CT chest high resolution [facility] DATE: 04/18/2024 09:33 INDICATION: Idiopathic pulmonary fibrosis. TECHNIQUE: Computed tomography (CT) of the chest was performed without intravenous contrast. Automate d exposure control and iterative reconstruction technique were employed. The dose-length product (DLP ) was 257.99 mGy-cm. COMPARISON: Chest CT 04/19/2023 FINDINGS: The lung volumes are small. There is widespread septal thickening in the lungs associated w ith groundglass opacities with a peripheral predominance. There is mild bronchiectasis in the inferio r lungs. No honeycombing. There is a 5 mm nodule in left upper lobe without change, likely benign. No pleural effusion. The heart size is normal. There are coronary artery calcifications. No pericardial effusion. There is severe cervical spondylosis. IMPRESSION: 1. Stable chronic interstitial lung disease in a pattern of nonspecific interstitial pneumonia (NSIP) versus usual interstitial pneumonia (UIP). Reviewed, dictated and finalized at location A. REPAIRER HELPER IMPRESSION: 1. Stable chronic interstitial lung disease in a pattern of nonspecific interst itial pneumonia (NSIP) versus usual interstitial pneumonia (UIP).
--- OUTSIDE RECORDS SUMMARY | 2024-04-18 08:11 | XMS_ITS | Clinical Summary ---
Author Organization [facility] [place] [address] Address [address] [place] [address] Care Team Providers Care Toolroom Helper Name Role Phone Frantz Matthews MD Primary Care Provider [phone] Allergies Active Allergy Reactions Criticality Noted Date [...] with long-term current use of insulin (HCC) Use device to test glucose as directed [...] (CARDIZEM CD) 360 mg 24 hr capsule 021 Active rosuvastatin (CRESTOR) 10 mg tablet Active flash glucose sensor (FreeStyle Kaleigh 2 Sensor) kit Change every 14 days 2 kit 11 Active flash glucose scanning reader (FreeStyle Kaleigh 2 Rosebud) misc As directed 1 each Active furosemide (LASIX) 40 mg tablet TAKE 1 TABLET BY MOUTH ONCE DAILY FOR 7 DAYS 022 Active ondansetron ODT (ZOFRAN-ODT) 4 mg disintegrating tablet DISSOLVE 1 TABLET IN MOUTH EVERY 8 HOURS NEEDED FOR NAUSEA AND VOMITING 023 Active clindamycin (CLEOCIN) 300 mg capsule 023 Active promethazine (PHENERGAN) 25 mg tablet TAKE 1 TABLET BY MOUTH THREE TIMES DAILY NEEDED FOR NAUSEA AND VOMITING 024 Active HumaLOG 100 unit/mL pen for injection Inject 12-18 Units under the skin 2 (two) times a day before breakfast and dinner Dx: E11.65 15 mL 3 024 Active vitamin B complex capsule Take 1 capsule by mouth daily Active blood glucose diagnostic (OneTouch Ultra Test) stripIndications :Type 2 diabetes mellitus with hyperglycemia, with long-term current use of insulin ([facility]) USE STRIP TO CHECK GLUCOSE 3 TIMES DAILY BEFORE MEAL(S) 300 each 3 024 Active LANTUS 100 unit/mL (3 mL) pen for injectionIndicat ions:Type 2 diabetes mellitus with hyperglycemia, with long-term current use of insulin ([facility]) INJECT 26 UNITS SUBCUTANEOUSLY NIGHTLY 15 mL 025 Active tirzepatide (Mounjaro) 5 mg/0.5 mL pen injectorIndicati ons:type 2 diabetes mellitus Inject 5 mg under the skin every 7 days 6 mL 3 025 2025 Active pen needle, diabetic 32 gauge x 5/32 needle USE 1 PEN NEEDLE THREE TIMES DAILY Dx.E11.65 300 each 2 025 Active SITagliptin phos-metformin (Janumet) 50-1,000 mg per tabletIndication s:Type 2 diabetes mellitus with hyperglycemia, with long-term current use of insulin ([facility]) Take 1 tablet by mouth 2 (two) times a day with meals 180 tablet 1 025 Active ezetimibe (ZETIA) 10 mg tabletIndication s:Type 2 diabetes mellitus with hyperglycemia, with long-term current use of insulin ([facility]) Take 1 tablet by mouth once daily 90 tablet 025 Active NovoLOG 100 unit/mL (3 mL) pen for injectionIndicat ions:Type 2 diabetes mellitus with hyperglycemia, with long-term current use of insulin ([facility]) INJECT 12 TO 18 UNITS SUBCUTANEOUSLY TWICE DAILY BEFORE BREAKFAST AND BEFORE SUPPER 15 mL 025 Active pen needle, diabetic 32 gauge x 5/32 needle USE 1 PEN NEEDLE THREE TIMES DAILY 300 each 2 024 2024 Discontinued(R eorder) Janumet 50-1,000 mg per tabletIndication s:Type 2 diabetes mellitus with hyperglycemia, with long-term current use of insulin ([facility]) TAKE 1 TABLET BY MOUTH TWICE DAILY WITH MEALS 180 tablet 024 2024 Discontinued ezetimibe (ZETIA) 10 mg tabletIndication s:Type 2 diabetes mellitus with hyperglycemia, with long-term current use of insulin ([facility]) Take 1 tablet by mouth once daily 90 tablet 024 2024 Discontinued NovoLOG 100 unit/mL (3 mL) pen for injectionIndicat ions:Type 2 diabetes mellitus with hyperglycemia, with long-term current use of insulin ([facility]) INJECT 12 TO 18 UNITS TWICE DAILY BEFORE BREAKFAST AND BEFORE SUPPER 15 mL 025 2024 Discontinued tirzepatide (Mounjaro) 2.5 mg/0.5 mL pen injectorIndicati ons:type 2 diabetes mellitus Inject 0.5 mL (2.5 mg total) under the skin once a week 2 mL 025 2024 SITagliptin phos-metformin (Janumet) 50-1,000 mg per tabletIndication s:Type 2 diabetes mellitus with hyperglycemia, with long-term current use of insulin (HCC) TAKE 1 TABLET BY MOUTH TWICE DAILY WITH MEALS 180 tablet 1 025 2024 Discontinued(R eorder) Active Problems Patient Care Coordination No te [...] 02/27/2024 Assessment & Plan (02/27/2024 3:01 PM HAND OUTSIDE CUTTER): Chronic problem. Limited activity d/t Interstitial Lung Disease. Will send in Mounjaro 2.5mg weeklyx 4 then increase to 5mg weekly to see if able to help with weight loss. Discussed healthy diet and importance of regular physical activity (20- 30min/day, 150min/wk). ILD (interstitial lung disease) 10/09/2019 Overview (10/09/2019): Added automatically from request for surgery [id number] Lung nodule 10/09/2019 Overview (10/09/2019): Added automatically from request for surgery [id number] 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 2 diabetes mellitus 0 04/03/2019 Assessment & Plan (02/27/2024 1:54 PM HAND OUTSIDE CUTTER): Chronic problem. Controlled on current Rosuvastatin 10mg & zetia 10mg. Last lipid panel: 08/30/23 LDL=65, CV=151. Assessment & Plan (10/25/2023 2:05 PM CDT): Chronic problem. Controlled on current Rosuvastatin 10mg & zetia 10mg. Last lipid panel: 03/08/23 LDL=48, EI=185. Assessment & Plan (06/12/2023 3:56 PM CDT): Chronic, well-controlled. Continue statin therapy with rosuvastatin Assessment & Plan (03/08/2023 4:37 PM HAND OUTSIDE CUTTER): Chronic, well-controlled Continue statin therapy with rosuvastatin Assessment & Plan (12/07/2022 2:24 PM CDT): Chronic problem. Controlled on current Rosuvastatin 10mg & zetia 10mg. Last lipid panel: 03/14/22 LDL=52, QP=788. Assessment & Plan (07/05/2022 2:12 PM CDT): Chronic problem. On statin therapy, no changes. Assessment & Plan (03/09/2022 3:07 PM HAND OUTSIDE CUTTER): Chronic, well controlled Low fat Low cholesterol [...] Pravachol Assessment & Plan (12/25/2019 1:24 PM HAND OUTSIDE CUTTER): Goal of treatment , LDL cholesterol less [...] recently Assessment & Plan (04/03/2019 11:15 AM HAND OUTSIDE CUTTER): Goal of treatment , LDL cholesterol less [...] 07/16/2018 Assessment & Plan (02/27/2024 1:54 PM HAND OUTSIDE CUTTER): Chronic problem. Controlled on current olmesartan 40mg daily, diltiazem CD 360mg daily, chlorthalidone 25mg daily Assessment & Plan (10/25/2023 2:23 PM CDT): Chronic problem. Controlled on current olmesartan 40mg daily, diltiazem CD 360mg daily, chlorthalidone 25mg daily Assessment & Plan (03/08/2023 4:37 PM HAND OUTSIDE CUTTER): Chronic, well-controlled Continue current regimen including ARB [...] Olmesartan Assessment & Plan (12/25/2019 1:23 PM HAND OUTSIDE CUTTER): Goal blood pressure is less than 140/85 [...] Daily aerobic exercise Continue current meds, including PATRCI-I or ARB with Olmesartan Assessment & Plan (01/28/2019 10:48 AM HAND OUTSIDE CUTTER): Controlled on current medications. Continue plan. Assessment & Plan (07/16/2018 3:53 PM CDT): Goal blood pressure is less than 140/85 Low salt diet recommended Daily aerobic exercise Continue current meds, including PATRIC-I or ARB Type 2 diabetes mellitus wit h hyperglycemia, with long-term current use of insulin 05/07/2018 Assessment & Plan (02/27/2024 3:00 PM HAND OUTSIDE CUTTER): Chronic problem. A1c worsened from 8.1% 10/25/23 [...] results. UTD on DM eye exam (12/2023 [facility]). Letter sent to get copy of report. [...] UTD on labs. DM eye exam 09/2022 [facility]. Has appt next week; will send letter [...] dinner Assessment & Plan (03/08/2023 4:37 PM HAND OUTSIDE CUTTER): Hba1c was Lab Results Component Value Date [...] contact re: results. DM eye exam 09/2022 [facility]. Letter sent to get copy of [...] Janumet. Assessment & Plan (03/09/2022 3:06 PM HAND OUTSIDE CUTTER): Hba1c was Lab Results Component Value Date [...] us to download the data [facility] Assessment & Plan (09/15/2021 4:05 PM [...] over 220, take 18 units Continue with [facility] Assessment & Plan (05/05/2021 2:14 PM CDT): [...] CGM Assessment & Plan (12/25/2019 1:23 PM HAND OUTSIDE CUTTER): Hba1c was Lab Results Component Value Date [...] units hs Humalog 12-16 Units bid ac kemal and Nan. Assessment & Plan (10/30/2019 4:32 PM CDT): [...] provided. Assessment & Plan (04/03/2019 11:15 AM HAND OUTSIDE CUTTER): Hba1c was Lab Results Component Value Date [...] current Assessment & Plan (01/28/2019 10:49 AM HAND OUTSIDE CUTTER): A1c 6.2 without hypoglycemia. Advised to continue [...] goal hba1c is under 7.0 to prevent regional intermodal truck driver diabetes complications ( eye , kidney and [...] goal hba1c is under 7.0 to prevent regional intermodal truck driver diabetes complications ( eye , kidney and [...] Encounters Date Type Department Care Team Description 03/20/[address] [facility] Diabetes and Endocrinology [address] [place] [address] [phone] Stephanie Ruiz NP 03/13/2024 Telephone [facility] Diabetes and Endocrinology [address] [place] [address] [phone] Stephanie Ruiz, HEALTHCARE ECONOMICS CONSULTANT Med Management 03/06/[address] [facility] Diabetes and Endocrinology [address] [place] [phone] Provider, MD Mylene 02/27/2024 2:39 PM HAND OUTSIDE CUTTER - 02/27/2024 11:59 PM HAND OUTSIDE CUTTER Hospital Encounter [address] [address] Type 2 diabetes mellitus with hyperglycemia, with long-term current use of insulin (HCC) Discharge Disposition: Discharge to home or self care 02/27/2024 2:30 PM HAND OUTSIDE CUTTER Lab [facility] Outpatient Lab at [address] [place] [address] 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) (Primary Dx) 02/27/2024 2:30 PM HAND OUTSIDE CUTTER Office Visit [facility] Diabetes and Endocrinology [address] [place], [place] [phone] Stephanie Ruiz, SARAH Type 2 diabetes mellitus with hyperglycemia, with long-term current use of insulin (HCC) (Primary Dx); Hypertension associated with diabetes (HCC); 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); Class 3 severe obesity due to excess calories with serious comorbidity and body mass index (BMI) of 40.0 to 44.9 in adult ([facility]) from Last 3 Months Immunizations Immunization Administration Dates Next Due Influenza, Trivalent, Preservative [...] on file Legal Sex Female 6:58 PM HAND OUTSIDE CUTTER Gender Identity Not on file Sexual Orientation Not on file 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 Not on file Not on file Not on file Obstetrics History Last Filed Vital Signs Vital Sign Reading Time Taken Comments Blood Pressure 126/66 02/27/2024 1:48 PM HAND OUTSIDE CUTTER Pulse 71 02/27/2024 1:48 PM HAND OUTSIDE CUTTER Temperature 36.6 C (97.8 F) 10/18/2019 4:00 PM CDT Respiratory Rate 18 02/27/2024 1:48 PM HAND OUTSIDE CUTTER Oxygen Saturation 98% 12/10/2023 10:39 AM CDT Inhaled Oxygen Concentration - - Weight 96.2 kg (212 lb) 02/27/2024 1:48 PM HAND OUTSIDE CUTTER Height 154.9 cm (5' 0.98 ) 02/27/2024 1:48 PM CS T Body Mass Index 40.08 02/27/2024 1:48 PM HAND OUTSIDE CUTTER Plan of Treatment Health Maintenance Due Date [...] CREATININE RATIO, URINE Routine 02/28/2024 8:00 AM HAND OUTSIDE CUTTER Type 2 diabetes mellitus with hyperglycemia, with long-term current use of insulin (HCC) EGFR Routine 02/27/2024 2:39 PM HAND OUTSIDE CUTTER Type 2 diabetes mellitus with hyperglycemia, with long-term current use of insulin (HCC) COMPREHENSIVE METABOLIC PANEL Routine 02/27/2024 2:39 PM HAND OUTSIDE CUTTER Type 2 diabetes mellitus with hyperglycemia, with long-term current use of insulin (HCC) POCT GLUCOSE Routine 02/27/2024 2:04 PM HAND OUTSIDE CUTTER Type 2 diabetes mellitus with hyperglycemia, with long-term current use of insulin ([facility]) POCT HEMOGLOBIN A1C Routine 02/27/2024 2 :04 PM HAND OUTSIDE CUTTER Type 2 diabetes mellitus with hyperglycemia, with long-term current use of insulin (HCC) DIABETES EYE EXAM Routine 11/13/2023 8:02 AM CDT DIABETES FOOT EXAM Routine 11/01/2023 8:39 AM CDT LIPID PANEL Routine 08/30/2023 7:43 AM CDT from Last 3 Months or Most Recently Relevant to Health Maintenance Results * Albumin Creatinine Ratio, Urine (02/28/2024 8:00 AM HAND OUTSIDE CUTTER) SCRIBED Creatinine, Urine 195.8 28 - 217 EXTERNAL LAB SCRIBED Microalbumin 1.5 <2.0 - NA EXTERNAL LAB SCRIBED Microalb/Creat Ratio 7.7 <30.0 - NA EXTERNAL LAB Urine 02/28/2024 8:00 AM HAND OUTSIDE CUTTER us Stephanie Ruiz HEALTHCARE ECONOMICS CONSULTANT LAB URINE ORDERABLES Barbara l Result EXTERNAL LAB * (ABNORMAL) eGFR (02/27/2024 2:39 PM HAND OUTSIDE CUTTER) eGFR 55(L) >=60 mL/min/1. 73 m2 Comment: Interpretive Data Reference Interval Normal >/= 90 mL/min/1.73m2 Mildly decreased* 60 - 89 mL/min/1.73m2 Mildly to moderately decreased 45 - 59 mL/min/1.73m2 Moderately to severely decreased 30 - 44 mL/min/1.73m2 Severely decreased 15 - 29 mL/min/1.73m2 Kidney Failure < 15 mL/min/1.73m2 *Relative to young adult level Estimated glomerular [...] last reviewed 2020. Blood 02/27/2024 2:39 PM HAND OUTSIDE CUTTER 02/27/2024 9:48 PM HAND OUTSIDE CUTTER us Stephanie Ruiz HEALTHCARE ECONOMICS CONSULTANT LAB BLOOD ORDERABLES Barbara l Result Performing Organization Address [facility] Co de Phone Number [facility] [id number] Department [place] [address] * (ABNORMAL) Comprehensive metabolic panel (02/27/2024 2:39 PM HAND OUTSIDE CUTTER) Sodium 143 135 - 145 mmol/L Potassium, pl 4.5 3.3 - 4.9 mmol/L [facility] Chloride 104 97 - 110 mmol/L [facility] CH CO2 23 22 - 32 mmol/L [facility] Anion gap 16(H) 2 - 15 mmol/L [facility] BUN 17 6 - 25 mg/dL [facility] Creatinine 1.06 0.60 - 1.10 mg/dL [facility] Glucose 110 70 - 199 mg/dL [facility] Comment: Interpretive Data Fasting glucose >/= 126 mg/dl is diagnostic for diabetes. Fasting is defined as no caloric intake [...] Units/L CERNER CH Blood 02/27/2024 2:39 PM HAND OUTSIDE CUTTER 02/27/2024 8:00 PM HAND OUTSIDE CUTTER Stephanie Ruiz NP LAB BLOOD ORDERABLES Barbara l Result MELISSA [id number] Department [place] [address] * (ABNORMAL) POCT hemoglobin A1c (02/27/2024 2:04 PM HAND OUTSIDE CUTTER) Hemoglobin A1C, POC 7.0 4.0 - 5.6 % Blood 02/27/2024 2:04 PM HAND OUTSIDE CUTTER us Stephanie Ruiz NP POINT OF CARE TEST ORDERA BLES Final Result * (ABNORMAL) POCT glucose (02/27/2024 2:04 PM HAND OUTSIDE CUTTER) Glucose Blood, POC 131 mg/dL Blood 02/27/2024 2:04 PM HAND OUTSIDE CUTTER Stephanie Ruiz HEALTHCARE ECONOMICS CONSULTANT POINT OF CARE TEST ORDERA BLES Final [...] EXTERNAL LAB Blood 08/30/2023 7:43 AM CDT Historical Provider LAB BLOOD ORDERABLES Barbara l Result EXTERNAL LAB from Last 3 Months or Most Recently Relevant to Health Maintenance Insurance MEDICARE SOLUTIONS [employer] MEDICARE AET[employer] MEDICARE [facility] Address: [facility] [id number] [place] [phone] Advance Directives For more information, please contact: [phone] Documents on File Type Date Recorded Patient Recovery Rn Expl anation ADVANCE DIRECTIVE 10/10/2019 10:36 AM Pratibha r of [employer]red[employer] Operator-Medical * Full Code (Latest Code Status on File) Date Activated Date Inactivated Comments 10/17/2019 7:55 PM 10/18/2019 10:54 PM Care Teams Toolroom Helper Relationship Specialty Start Date End Date Frantz Matthews MD PCP - General Family Practice 12/10/23
--- OUTSIDE RECORDS SUMMARY | 2024-04-18 08:11 | XMS_ITS | Clinical Summary ---
Author Organization [facility] Address [address] [place] [address] Care Team Providers Care It Security Analyst Name Role Phone BobottoVanesa Primary Care Provider [phone] Source Comments [facility] [employer],non-owned Affiliates and Associated Physician Practices is amultiple site organization consisting of ambulatory clinics and hospital sitesin [place], [place], [place] and [place]. This disclosure is being madepursuant to the Care Everywhere program and may not contain all information available regarding this patient. Last updated 17.[facility] Allergies Active Allergy Reactions Criticality Noted Date [...] 100.7 kg (222 lb) 04/15/2019 2:52 PM BUSINESS MANAGEMENT ANALYST Height 157.5 cm (5' 2 ) 04/15/2019 2:52 PM BUSINESS MANAGEMENT ANALYST Body Mass Index 40.6 04/15/2019 2:52 PM BUSINESS MANAGEMENT ANALYST Plan of Treatment Health Maintenance Due Date [...] - URINE PROTEIN SCREENING 02/13/2024 MEDICARE AWV CALENDAR YEAR 2024 HEPATITIS B VACCINE Aged [...] this topic MENINGOCOCCAL VACCINE Aged Out No meagn kristina eligible based on patient's age to complete this topic Care Teams It Security Analyst Relationship Specialty Start Date End Date Vanesa Horan DO [address] [place] [phone] PCP - General Family Medicine 12/28/16
--- OUTSIDE RECORDS SUMMARY | 2024-04-18 08:11 | XMS_ITS | Referral Summary ---
Author Organization [facility] [address] Address [address] [place] [address] Care Team Providers Care Rn Home Health Name Role Phone Frantz Matthews MD Primary Care Provider [phone] Encounters Date Type Department Care Team Description 03/20/2024 Telephone [facility] Diabetes and Endocrinology [address] [place] [phone] Stephanie Ruiz NP 03/13/2024 Telephone [facility] Diabetes and Endocrinology [address] [place] [phone] Stephanie Ruiz NP Med Management 03/06/2024 Orders Only [facility] Diabetes and Endocrinology [address] [place] [phone] ProviderMylene MD 02/27/2024 2:39 PM DIRECTOR OF ACCOUNTING - 02/27/2024 11:59 PM DIRECTOR OF ACCOUNTING Hospital Encounter [address] [address] Type 2 diabetes mellitus with hyperglycemia, with long-term current use of insulin (HCC) Discharge Disposition: Discharge to home or self care 02/27/2024 2:30 PM DIRECTOR OF ACCOUNTING Lab [facility] Outpatient Lab at [address] [phone] 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) (Primary Dx) 02/27/2024 2:30 PM DIRECTOR OF ACCOUNTING Office Visit [facility] Diabetes and Endocrinology [address] [place] [phone] Stephanie Ruiz NP Type 2 diabetes mellitus with hyperglycemia, with long-term current use of insulin ([facility]) (Primary Dx); Hypertension associated with diabetes ([facility]); 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 2 diabetes mellitus ([facility]); Class 3 severe obesity due to excess calories with serious comorbidity and body mass index (BMI) of 40.0 to 44.9 in adult ([facility]) from Last 3 Months Allergies Active Allergy [...] hyperglycemia, with long-term current use of insulin ([facility]) Use device to test glucose as directed [...] flash glucose scanning reader (FreeStyle [place] [address] [place]) [facility] As directed 1 each Active furosemide (LASIX) 40 mg tablet TAKE 1 TABLET BY MOUTH ONCE DAILY FOR 7 DAYS Active ondansetron ODT (ZOFRAN-ODT) 4 mg disintegrating tablet DISSOLVE 1 TABLET IN MOUTH EVERY 8 HOURS NEEDED FOR NAUSEA AND VOMITING Active clindamycin (CLEOCIN) 300 mg capsule 023 [...] hyperglycemia, with long-term current use of insulin ([facility]) USE STRIP TO CHECK GLUCOSE 3 TIMES DAILY BEFORE MEAL(S) 300 each 3 024 Active LANTUS 100 unit/mL (3 mL) pen for injectionIndicat ions:Type 2 diabetes mellitus with hyperglycemia, with long-term current use of insulin ([facility]) INJECT 26 UNITS SUBCUTANEOUSLY NIGHTLY 15 mL [...] insulin (HCC) Take 1 tablet by mouth 2 (two) [...] insulin (HCC) INJECT 12 TO 18 UNITS SUBCUTANEOUSLY TWICE DAILY BEFORE BREAKFAST AND BEFORE SUPPER 15 mL 025 Active pen needle, diabetic 32 gauge x 5/32 needle USE 1 PEN NEEDLE THREE TIMES DAILY 300 each 2 024 2024 Discontinued(R eorder) Janumet 50-1,000 mg per tabletIndication s:Type 2 diabetes mellitus with hyperglycemia, with long-term current use of insulin ([facility]) TAKE 1 TABLET BY MOUTH TWICE DAILY WITH MEALS 180 tablet 024 2024 Discontinued ezetimibe (ZETIA) 10 mg tabletIndication s:Type 2 diabetes mellitus with hyperglycemia, with long-term current use of insulin ([facility]) Take 1 tablet by mouth once daily 90 tablet 024 2024 Discontinued NovoLOG 100 unit/mL (3 mL) pen for injectionIndicat ions:Type 2 diabetes mellitus with hyperglycemia, with long-term current use of insulin ([facility]) INJECT 12 TO 18 UNITS TWICE DAILY BEFORE BREAKFAST AND BEFORE SUPPER 15 mL 025 2024 Discontinued tirzepatide (Mounjaro) 2.5 mg/0.5 mL pen injectorIndicati ons:type 2 diabetes mellitus Inject 0.5 mL (2.5 mg total) under the skin once a week 2 mL 025 2024 SITagliptin phos-metformin (Janumet) 50-1,000 mg per tabletIndication s:Type 2 diabetes mellitus with hyperglycemia, with long-term current use of insulin ([facility]) TAKE 1 TABLET BY MOUTH TWICE DAILY [...] 02/27/2024 Assessment & Plan (02/27/2024 3:01 PM DIRECTOR OF ACCOUNTING): Chronic problem. Limited activity d/t Interstitial Lung Disease. Will send in Mounjaro 2.5mg weeklyx 4 then increase to 5mg weekly to see if able to help with weight loss. Discussed healthy diet and importance of regular physical activity (20- 30min/day, 150min/wk). ILD (interstitial lung disease) 10/09/2019 Overview (10/09/2019): Added automatically from request for surgery [id number] Lung nodule 10/09/2019 Overview (10/09/2019): Added automatically from request for surgery [id number] 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 2 diabetes mellitus 0 04/03/2019 Assessment & Plan (02/27/2024 1:54 PM DIRECTOR OF ACCOUNTING): Chronic problem. Controlled on current Rosuvastatin 10mg & zetia 10mg. Last lipid panel: 08/30/23 LDL=65, BE=652. Assessment & Plan (10/25/2023 2:05 PM CDT): Chronic problem. Controlled on current Rosuvastatin 10mg & zetia 10mg. Last lipid panel: 03/08/23 LDL=48, DX=735. Assessment & Plan (06/12/2023 3:56 PM CDT): Chronic, well-controlled. Continue statin therapy with rosuvastatin Assessment & Plan (03/08/2023 4:37 PM DIRECTOR OF ACCOUNTING): Chronic, well-controlled Continue statin therapy with rosuvastatin Assessment & Plan (12/07/2022 2:24 PM CDT): Chronic problem. Controlled on current Rosuvastatin 10mg & zetia 10mg. Last lipid panel: 03/14/22 LDL=52, OC=226. Assessment & Plan (07/05/2022 2:12 PM CDT): Chronic problem. On statin therapy, no changes. Assessment & Plan (03/09/2022 3:07 PM DIRECTOR OF ACCOUNTING): Chronic, well controlled Low fat Low cholesterol [...] Pravachol Assessment & Plan (12/25/2019 1:24 PM DIRECTOR OF ACCOUNTING): Goal of treatment , LDL cholesterol less [...] recently Assessment & Plan (04/03/2019 11:15 AM DIRECTOR OF ACCOUNTING): Goal of treatment , LDL cholesterol less [...] 07/16/2018 Assessment & Plan (02/27/2024 1:54 PM DIRECTOR OF ACCOUNTING): Chronic problem. Controlled on current olmesartan 40mg daily, diltiazem CD 360mg daily, chlorthalidone 25mg daily Assessment & Plan (10/25/2023 2:23 PM CDT): Chronic problem. Controlled on current olmesartan 40mg daily, diltiazem CD 360mg daily, chlorthalidone 25mg daily Assessment & Plan (03/08/2023 4:37 PM DIRECTOR OF ACCOUNTING): Chronic, well-controlled Continue current regimen including ARB [...] Olmesartan Assessment & Plan (12/25/2019 1:23 PM DIRECTOR OF ACCOUNTING): Goal blood pressure is less than 140/85 [...] Olmesartan Assessment & Plan (01/28/2019 10:48 AM DIRECTOR OF ACCOUNTING): Controlled on current medications. Continue plan. Assessment & Plan (07/16/2018 3:53 PM CDT): Goal blood pressure is less than 140/85 Low salt diet recommended Daily aerobic exercise Continue current meds, including PATRIC-I or ARB Type 2 diabetes mellitus wit h hyperglycemia, with long-term current use of insulin 05/07/2018 Assessment & Plan (02/27/2024 3:00 PM DIRECTOR OF ACCOUNTING): Chronic problem. A1c worsened from 8.1% 10/25/23 [...] results. UTD on DM eye exam (12/2023 [facility]). Letter sent to get copy of report. [...] on labs. DM eye exam 09/2022 Maciel Torres. Has appt next week; will send letter [...] dinner Assessment & Plan (03/08/2023 4:37 PM DIRECTOR OF ACCOUNTING): Hba1c was Lab Results Component Value Date [...] Janumet. Assessment & Plan (03/09/2022 3:06 PM DIRECTOR OF ACCOUNTING): Hba1c was Lab Results Component Value Date [...] us to download the data [facility] Assessment & Plan (09/15/2021 4:05 [...] over 220, take 18 units [facility] Assessment & Plan (05/05/2021 2:14 PM CDT): [...] CGM Assessment & Plan (12/25/2019 1:23 PM DIRECTOR OF ACCOUNTING): Hba1c was Lab Results Component Value Date [...] provided. Assessment & Plan (04/03/2019 11:15 AM DIRECTOR OF ACCOUNTING): Hba1c was Lab Results Component Value Date [...] current Assessment & Plan (01/28/2019 10:49 AM DIRECTOR OF ACCOUNTING): A1c 6.2 without hypoglycemia. 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 Not on file Not on file Last Filed Vital Signs Vital Sign Reading Time Taken Comments Blood Pressure 126/66 02/27/2024 1:48 PM DIRECTOR OF ACCOUNTING Pulse 71 02/27/2024 1:48 PM DIRECTOR OF ACCOUNTING Temperature 36.6 C (97.8 F) 10/18/2019 4:00 PM CDT Respiratory Rate 18 02/27/2024 1:48 PM DIRECTOR OF ACCOUNTING Oxygen Saturation 98% 12/10/2023 10:39 AM CDT Inhaled Oxygen Concentration - - Weight 96.2 kg (212 lb) 02/27/2024 1:48 PM DIRECTOR OF ACCOUNTING Height 154.9 cm (5' 0.98 ) 02/27/2024 1:48 PM CS T Body Mass Index 40.08 02/27/2024 1:48 PM DIRECTOR OF ACCOUNTING Plan of Treatment Not on file Procedures Procedure Name Priority Date/Time Associated Diagnosis Comments ALBUMIN CREATININE RATIO, URINE Routine 02/28/2024 8:00 AM DIRECTOR OF ACCOUNTING Type 2 diabetes mellitus with hyperglycemia, with long-term current use of insulin ([facility]) EGFR Routine 02/27/2024 2:39 PM DIRECTOR OF ACCOUNTING Type 2 diabetes mellitus with hyperglycemia, with long-term current use of insulin ([facility]) COMPREHENSIVE METABOLIC PANEL Routine 02/27/2024 2:39 PM DIRECTOR OF ACCOUNTING Type 2 diabetes mellitus with hyperglycemia, with long-term current use of insulin ([facility]) POCT GLUCOSE Routine 02/27/2024 2:04 PM DIRECTOR OF ACCOUNTING Type 2 diabetes mellitus with hyperglycemia, with long-term current use of insulin ([facility]) POCT HEMOGLOBIN A1C Routine 02/27/2024 2 :04 PM DIRECTOR OF ACCOUNTING Type 2 diabetes mellitus with hyperglycemia, with long-term current use of insulin ([facility]) DIABETES EYE EXAM Routine 11/13/2023 8:02 AM CDT DIABETES FOOT EXAM Routine 11/01/2023 8:39 AM CDT LIPID PANEL Routine 08/30/2023 7:43 AM CDT from Last 3 Months or Most Recently Relevant to Health Maintenance Results * Albumin Creatinine Ratio, Urine (02/28/2024 8:00 AM DIRECTOR OF ACCOUNTING) SCRIBED Creatinine, Urine 195.8 28 - 217 EXTERNAL LAB SCRIBED Microalbumin 1.5 <2.0 - NA EXTERNAL LAB SCRIBED Microalb/Creat Ratio 7.7 <30.0 - NA EXTERNAL LAB Urine 02/28/2024 8:00 AM DIRECTOR OF ACCOUNTING us Stephanie Ruiz ARTIFICIAL LIMB MAKER LAB URINE ORDERABLES Barbara l Result EXTERNAL LAB * (ABNORMAL) eGFR (02/27/2024 2:39 PM DIRECTOR OF ACCOUNTING) eGFR 55(L) >=60 mL/min/1. 73 m2 Comment: [...] last reviewed 2020. Blood 02/27/2024 2:39 PM DIRECTOR OF ACCOUNTING 02/27/2024 9:48 PM DIRECTOR OF ACCOUNTING us Stephanie Ruiz ARTIFICIAL [employer] LAB BLOOD ORDERABLES Barbara l Result [facility] [address] [place] [address] * (ABNORMAL) Comprehensive metabolic panel (02/27/2024 2:39 PM DIRECTOR OF ACCOUNTING) Sodium 143 135 - 145 mmol/L Potassium, pl 4.5 3.3 - 4.9 mmol/L [facility] Chloride 104 97 - 110 mmol/L [facility] CO2 23 22 - 32 mmol/L [facility] Anion gap 16(H) 2 - 15 mmol/L [facility] BUN 17 6 - 25 mg/dL [facility] Creatinine 1.06 0.60 - 1.10 mg/dL [facility] Glucose 110 70 - 199 mg/dL [facility] Comment: Interpretive Data Fasting glucose >/= 126 [...] Units/L [facility] Blood 02/27/2024 2:39 PM DIRECTOR OF ACCOUNTING 02/27/2024 8:00 PM DIRECTOR OF ACCOUNTING us Stephanie Ruiz NP LAB BLOOD ORDERABLES Barbara l Result [facility] [id number] Department of Laboratories [place] [id number] * (ABNORMAL) POCT hemoglobin A1c (02/27/2024 2:04 PM DIRECTOR OF ACCOUNTING) Hemoglobin A1C, POC 7.0 4.0 - 5.6 % Blood 02/27/2024 2:04 PM DIRECTOR OF ACCOUNTING us Stephanie Ruiz NP POINT OF CARE TEST ORDERA BLES Final Result * (ABNORMAL) POCT glucose (02/27/2024 2:04 PM DIRECTOR OF ACCOUNTING) Glucose Blood, POC 131 mg/dL Blood 02/27/2024 2:04 PM DIRECTOR OF ACCOUNTING us Stephanie Ruiz NP POINT OF CARE TEST ORDERA BLES Final Result * (ABNORMAL) DIABETES EYE EXAM (11/13/2023 8:02 AM CDT) Historical Provider HEALTH MAINTENANCE Final Result * HM DIABETES FOOT EXAM (11/01/2023 8:39 AM CDT) [...] Health Maintenance Insurance [employer] MEDICARE Advance Directives For more information, please contact: [phone] Documents on File Type Date Recorded Patient Sourcing Manager Expl anation ADVANCE DIRECTIVE 10/10/2019 10:36 AM Pratibha r of Demand Inspector-Medical * Full Code (Latest Code Status on File) Date Activated Date Inactivated Comments 10/17/2019 7:55 PM 10/18/2019 10:54 PM Care Teams Rn Home Health Relationship Specialty Start Date End Date Frantz Matthews MD PCP - General Family Practice 12/10/23
--- OUTSIDE RECORDS SUMMARY | 2024-04-18 08:11 | XMS_ITS | Encounter Summary ---
Author Organization [facility] Address [address] [place] [address] Care Team Providers Care Geriatric Physician Name Role Phone Vanesa Horan DO Primary Care Provider [phone] Encounter Details Date Type Department Care Team (Late st Contact Info) Description 11/14/2023 Lab Requisition [facility] - DermPath Lab [address] [facility] [place] [address] [place] Romero DO [address] [facility] [address] [place] [address] Social History Tobacco Use Types Packs/Day Years [...] 9:50 AM CDT) Case Report Dermatopathology Report Case: [id number] Authorizing Provider: [place] Romero DO Collected: 11/14/2023 09:50 AM Ordering Location: [facility] - Received: 11/14/2023 04:50 PM DermPath Lab Pathologist: Jovanna Green MD Specimens: A) - Skin, left upper back B) - Skin, right lower back 1:53 PM T DERMATOPATHOLOGY LABORATORY Final Diagnosis Specimen A. SKIN, left upper back: LENTIGINOUS MELANOCYTIC NEVUS, COMPOUND TYPE, IRRITATED (D22.5) APPROXIMATES MARGIN CHRONIC PERIFOLLICULITIS (L73.8) Specimen B. SKIN, right lower back: COMPOUND MELANOCYTIC NEVUS, IRRITATED (D22.5) 1:53 PM T DERMATOPATHOLOGY LABORATORY Clinical History Nevus r/o atypia [...] measuring 8x7x2 mm. Jar 0. 1:53 PM [facility] DERMATOPATHOLOGY LABORATORY Microscopic Description Specimen A. SKIN, [...] characteristic determined by the Dermatopathology Laboratory at [facility], directed by Dr. Bruce Costa. These tests need not be, and therefore are not, approved by the [place] Food and Drug Administration. The tests are used for clinical purposes. Billing Codes Specimen Charges Stain Charges 55850 70798 1 1 4 1:53 PM CDT DERMATOPATHOLOGY LABORATORY Embedded Images 1:53 PM CDT DERMATOPATHOLOGY LABORATORY Pathology/Cytology TISSUE SPECIMEN FROM SKIN / Unknown 11/14/2023 9:50 AM CDT 11/14/2023 4:50 PM CDT Miscellaneous samples (specimen) TISSUE SPECIMEN FROM SKIN / Unknown 11/14/2023 9:50 AM CDT 11/14/2023 4:50 PM CDT [place] Romero DO LAB - PATHOLOGY/C YTOLOGY ORDERABLES DERMATOPATHOLOGY LABORATORY [facility] - Department of Dermatology [facility] Medicine [address] [place] [address], [address] [phone] documented in this encounter Visit Diagnoses Not on filedocumented in this encounter Care Teams Geriatric Physician Relationship Specialty Start Date End Date Vanesa Horan DO [address] [place] [phone] PCP - General Family Medicine 12/28/16 documented as of this encounter
--- OUTSIDE RECORDS SUMMARY | 2024-04-18 08:11 | XMS_ITS | Patient Health Summary ---
Author Organization [facility] Address [address] [facility] [place] [address] Care Team Providers Care Decorating Kiln Operator Name Role Phone BobottoVanesa Primary Care Provider [phone] Note from [facility],non-owned Affiliates and Associated Physician Practices is amultiple site organization consisting of ambulatory clinics and hospital sitesin [place], [place], [place] and [place]. This disclosure is being madepursuant to the Care Everywhere program and may not contain all information available regarding this patient. Last updated 17.[facility] Allergies * Amoxicillin-Pot Clavulanate(Diarrhea) -Low Criticality * [...] 100.7 kg (222 lb) 04/15/2019 2:52 PM COMMERCIAL GREEN RETROFIT ARCHITECT Height 157.5 cm (5' 2 ) 04/15/2019 2:52 PM COMMERCIAL GREEN RETROFIT ARCHITECT Body Mass Index 40.6 04/15/2019 2:52 PM COMMERCIAL GREEN RETROFIT ARCHITECT Procedures * DERMATOPATHOLOGY(Performed 11/14/2023) * DERMATOPATHOLOGY(Performed 11/06/2022) * DERMATOPATHOLOGY(Performed 10/07/2020) * DERMATOPATHOLOGY(Performed 06/26/2018) * ENDOSCOPY DRUG INDUCED SLEEP EVALUATION(Performed 01/01/2017) Performed for Iron deficiency anemia, unspecified iron deficiency anemia type * DERMATOPATHOLOGY(Performed 05/03/2015) Results * DERMATOPATHOLOGY (11/14/2023 9:50 AM CDT) Only the most recent of5 resultswithin the time period is included. Case Report Dermatopathology Report Case: [id number] Authorizing Provider: [place] Romero DO Collected: 11/14/2023 09:50 AM Ordering Location: [facility] - Received: 11/14/2023 04:50 PM DermPath Lab Pathologist: Jovanna Grene MD Specimens: A) - Skin, left upper back B) - Skin, right lower back 4 1:53 PM CDT DERMATOPATHOLOGY LABORATORY Final Diagnosis Specimen A. SKIN, left upper back: LENTIGINOUS MELANOCYTIC NEVUS, COMPOUND TYPE, IRRITATED (D22.5) APPROXIMATES MARGIN CHRONIC PERIFOLLICULITIS (L73.8) Specimen B. SKIN, right lower back: COMPOUND MELANOCYTIC NEVUS, IRRITATED (D22.5) 1:53 PM [facility] DERMATOPATHOLOGY LABORATORY Clinical History Nevus r/o atypia [...] measuring 8x7x2 mm. Jar 0. 1:53 PM [facility] DERMATOPATHOLOGY LABORATORY Microscopic Description Specimen A. SKIN, [...] characteristic determined by the Dermatopathology Laboratory at [facility], directed by Dr. Bruce Costa. These tests need not be, and therefore are not, approved by the [place] Food and Drug Administration. The tests are used for clinical purposes. Billing Codes Specimen Charges Stain Charges 64846 48085 1 1 1:53 PM T DERMATOPATHOLOGY LABORATORY Embedded Images 1:53 PM CDT DERMATOPATHOLOGY LABORATORY Pathology/Cytology TISSUE SPECIMEN FROM SKIN / Unknown 11/14/2023 9:50 AM CDT 11/14/2023 4:50 PM CDT Miscellaneous samples (specimen) TISSUE SPECIMEN FROM SKIN / Unknown 11/14/2023 9:50 AM CDT 11/14/2023 4:50 PM CDT [place] Romero DO LAB - PATHOLOGY/C YTOLOGY ORDERABLES DERMATOPATHOLOGY LABORATORY [facility] - Department of Dermatology [facility] [address] [place] [address], [address] [phone] Care Teams Decorating Kiln Operator Relationship Specialty Start Date End Date Vanesa Horan DO [address] [place] [phone] PCP - General Family Medicine 12/28/16
--- OUTSIDE RECORDS SUMMARY | 2024-04-18 08:11 | XMS_ITS | Clinical Summary ---
Author Organization [facility] Address [facility] [place] [address] Care Team Providers Care Commercial Credit Lead Name Role Phone Marco Fabian MD Primary Care Provider [phone] Medications No known medications Active Problems Problem Noted Date Diagnosed Date S/P TKR (total knee replacement), left 9 Encounters Date Type Department Care Team Description 02/28/2024 11:04 AM CR[employer]ERS - 02/28/2024 11:59 PM [facility] Hospital Encounter [facility] [address] [place] [address] Stephanie Ruiz BELLOWS ASSEMBLER Discharge Disposition: Home or Self Care (Routine Discharge) 02/28/2024 Orders Only [facility] [address] [place] [address] Stephanie Ruiz BELLOWS ASSEMBLER from Last 3 Months Social History Tobacco Use Types Packs/Day Years Used Date Smoking Tobacco: Never Assessed Comments Unknown Sex and Gender Information Value Date Recorded Sex Assigned at Female 02/28/2024 1:10 PM [employer]ERS Legal Sex Female 7:27 PM CDT Gender Identity Not on file Sexual Orientation Not on file Plan of Treatment Upcoming Encounters Date Type Department Care Team (Late st Contact Info) Description 04/30/2024 7:30 AM CDT Appointment [facility] [address] [place] [address] Frantz Matthews MD [address] [employer] [place] [address] Health Maintenance Due Date Last [...] URINE RANDOM W/CREATININE Routine 02/28/2024 8:00 AM [employer] Inadequately controlled diabetes mellitus ([facility] HHS/HCC) Encounter for long-term (current) use of insulin ([facility] HHS/[facility]) MG SCREENING W R[place] DIGI Routine 10/25/2022 1:17 PM CDT Encounter for screening mammogram for malignant neoplasm of breast LIPID PANEL Routine 03/14/2022 8:17 AM [employer] Type II diabetes mellitus with hyperosmolarity, uncontrolled ([facility] HHS/HCC) Encounter for long-term (current) use of insulin ([facility]) BONE DENSITY/DEXA Routine 09/13/2021 1:1 7 PM CDT Postmenopause HEMOGLOBIN, GLYCOSYLATED Routine 09/24/2018 11:12 AM CDT Type 2 diabetes, diet controlled ([facility]) from Last 3 Months or Most Recently Relevant to Health Maintenance Results * MICROALBUMIN CREATININE RATIO (MICROALBUMIN/ALBUMIN) (02/28/2024 8:00 AM [employer]) CREATININE (U) 195.7 28 - 217 MG/DL 02/28/2024 11:57 AM [employer] [facility] MICROALBUMIN (U) 1.5 <2.0 mg/dL 02/27/19 25 11:57 AM [employer] [facility] ALBUMIN/CREAT RATIO 7.7 <30.0 MG/G 02/28/2024 11:57 AM [employer] [facility] URINE SPECIMEN / Unknown 02/28/2024 8:00 AM [employer] us Stephanie Ruiz BELLOWS ASSEMBLER URINE ORDERABLES Final Res ult [facility] [address] [place] [address], * MG SCREENING W R[place] DIGI (10/25/2022 1:17 PM CDT) Anatomical Region Laterality Modality Breast Bilateral Mammography 10/25/2022 1:24 PM CDT Narrative 10/25/2022 1:25 PM CDT Examination: Digital bilateral screening mammogram with 3D Tomosynthesis Exam Date/Time: 10/25/2022 1:08 PM Reason For Exam: annual No prior breast procedures. No personal or [...] to suggest malignancy. ===== IMPRESSION: ===== 1. Stable mammographic appearance with no new findings to [...] Berrios MD, 10/25/2022 1:24 PM Myla Mclaughlin PATTERN WHEEL MAKER MAMMO Final Resul t * LIPID PANEL (03/14/2022 8:17 AM [employer]) CHOLESTEROL 120 <200.0 MG/DL 03/14/2022 8:45 AM [facility] TRIGLYCERIDES 130 <150 MG/DL 03/14/2022 8:45 AM [facility] HDL 42 >40.0 MG/DL 03/14/2022 8:45 AM [facility] LDL (CALCULATED) 52 <100 MG/DL 03/14/19 8:45 AM [employer] [facility] NON HDL CHOLESTEROL 78 <130 MG/DL 03/14 8:45 AM [facility] CHOL/HDL RATIO 2.9 0.0 - 4.5 03/14/2022 8:45 AM [facility] VLDL CALCULATION 26 5 - 55 MG/DL 03/14/2022 8:45 AM [facility] LIPID INTERPRETATION 03/14/2022 8:45 AM [facility] Comment: NIH CONCENSUS REPORT RECOMMENDATIONS: ADULT CHILD LOW RISK: CHOLESTEROL <200 <170 TRIGLYCERIDE <150 --- HDL >=60 --- LDL <100 <110 BORDERLINE: CHOLESTEROL 200-239 170-199 TRIGLYCERIDE 150-199 --- HDL 40-59 --- LDL 100-159 110-129 HIGH RISK: CHOLESTEROL >=240 >=200 TRIGLYCERIDE >=200 --- HDL <40 --- LDL >=160 >=130 03/14/2022 8:17 AM [employer] us Octavia Paul MD LABORATORY Final Result [facility] [address] [place] [address], * BONE DENSITY/DEXA (09/13/2021 1:17 PM CDT) [...] CDT Examination: DEXA Bone densitometry EXAM DATE: 09/13/2021 [...] T-score of 1.8 and a Z-Score of 4.1. Bone density is up to 10% below young normal. This patient is considered normal according to the World Health Organization (WHO) criteria. Fracture risk is low. The BMD measured at the femur total left is 1.084 g/cm? with a T-score of 1.2 and a Z-Score of 2.8. Bone density [...] a T-score of 1.7 and aZ-Score of 3.3. Bone density is [...] By: Fredi Manrique MD, 09/13/2021 1:53 PM Roshni Horan DO DEXA Final Resul t * (ABNORMAL) HEMOGLOBIN, GLYCOSYLATED (09/24/2018 11:12 AM CDT) HGB A1C 7.8(H) <5.7 % 09/24/2018 1:06 PM CDT [facility] Comment: INCREASED RISK OF DIABETES <5.7% NON-DIABETES 5.7-6.4% INCREASED RISK FOR FUTURE DIABETES > OR = 6.5 CONSISTENT WITH DIABETES STANDARDS OF MEDICAL CARE IN DIABETES-2010 DIABETES CARE, 33(SUPP 1): S1-S61,2009 09/24/2018 11:1 2 AM CDT Dvaid Greco MD LABORATORY Final Result [facility] [address] [place] [id number], from Last 3 Months or Most Recently Relevant to Health Maintenance Insurance [employer] Care Teams Commercial Credit Lead Relationship Specialty Start Date End Date Marco Fabian MD [address] [place] [phone] PCP - General FAMILY PRACTICE 03/14/22
--- OUTSIDE RECORDS SUMMARY | 2024-04-18 08:11 | XMS_ITS | Encounter Summary ---
Author Organization [facility] Address [address] [place] [address] Care Team Providers Care Herb Counselor Name Role Phone Vanesa Hroan Primary Care Provider [phone] Encounter Details Date Type Department Care Team (Late st Contact Info) Description 11/06/2022 Lab Requisition [facility] - DermPath Lab [address] [facility] [place] [address] Virginia Romero DO [address] [facility] 3 [place] [address] Social History Tobacco Use Types Packs/Day Years [...] 4:01 PM CDT) Case Report Dermatopathology Report Case: [id number] Authorizing Provider: Virginia Romero DO Collected: 11/06/2022 04:01 PM Ordering Location: [facility] DermPath Lab Received: 11/07/2022 02:30 PM Pathologist: Shama Saleh MD Specimens: A) - Skin, left mid back B) - Skin, right lower back 3 3:12 PM [facility] DERMATOPATHOLOGY LABORATORY Final Diagnosis Specimen A. SKIN, left mid back: LENTIGINOUS MELANOCYTIC NEVUS, COMPOUND TYPE, IRRITATED (D22.5) Specimen B. SKIN, right lower back: COMPOUND MELANOCYTIC NEVUS, IRRITATED (D22.5) 3 3:12 PM [facility] DERMATOPATHOLOGY LABORATORY Clinical History A-B: R/O Melanoma, Nevus 3 3:12 PM [facility] DERMATOPATHOLOGY LABORATORY Gross Description Specimen A: Received [...] 5x4x1 mm. Jar 0. 3 3:12 PM [facility] DERMATOPATHOLOGY LABORATORY Microscopic Description Specimen A. SKIN, [...] and within the dermis. 3 3:12 PM [facility] DERMATOPATHOLOGY LABORATORY Disclaimer An external and internal positive and negative controls are appropriate for the histochemical, immunohistochemical and immunofluorescence stain(s) in this case (if any), except where stated explicitly. The performance characteristics of the stain(s) cited in this report were developed and its performance characteristic determined by the Dermatopathology Laboratory at [facility], directed by Dr. Bruce Costa. These tests need not be, and therefore are not, approved by the [place] Food and Drug Administration. The tests are used for clinical purposes. Billing Codes Specimen Charges Stain Charges 59173 63705 1 1 3 3:12 PM T DERMATOPATHOLOGY LABORATORY Embedded Images 3:12 PM CDT DERMATOPATHOLOGY LABORATORY Pathology/Cytology TISSUE SPECIMEN FROM SKIN / Unknown 11/06/2022 4:01 PM CDT 11/07/2022 2:30 PM CDT Miscellaneous samples (specimen) TISSUE SPECIMEN FROM SKIN / Unknown 11/06/2022 4:01 PM CDT 11/07/2022 2:30 PM CDT Virginia Romero DO LAB - PATHOLOGY/C YTOLOGY ORDERABLES DERMATOPATHOLOGY LABORATORY [facility] - Department of Dermatology [facility] Specialized Medicine [address] [place] [address], [address] [phone] documented in this encounter Visit Diagnoses Not on filedocumented in this encounter Care Teams Herb Counselor Relationship Specialty Start Date End Date Vanesa Horan DO [address] [place] [phone] PCP - General Family Medicine 12/28/16 documented as of this encounter
--- OUTSIDE RECORDS SUMMARY | 2024-04-18 08:11 | XMS_ITS | Encounter Summary ---
Author Organization [facility] Address [address] [place] [address] Care Team Providers Care Tax Compliance Agent Name Role Phone Vanesa Horan DO Primary Care Provider [phone] Encounter Details Date Type Department Care Team (Late st Contact Info) Description 06/27/2018 Lab Requisition [facility] DermPath Lab [address] [facility] [place] [place] [address] Chrissy Cobian MD [address] [facility] 3 [place] [address] Social History Tobacco Use Types Packs/Day Years [...] 12:00 AM CDT) Case Report Dermatopathology Report Case: [id number] Authorizing Provider: Chrissy Cobian MD Collected: 06/26/2018 12:00 AM Pathologist: Nelsy Costa MD Received: 06/27/2018 12:07 PM Specimen: Skin, mid back 9 2:39 PM CDT DERMATOPATHOLOGY LABORATORY Final [...] specimen consists of a shave biopsy measuring 91u55n2 mm, inked and bisected. Jar 0. 2:39 PM CDT DERMATOPATHOLOGY LABORATORY Microscopic Description Specimen A. SKIN, mid back: Sections show an acanthotic lesion composed of relatively uniform keratinocytes. There is hyperkeratosis and pseudo horn cysts formation. This lesion is present at the margin of the specimen. 2:39 PM CDT DERMATOPATHOLOGY LABORATORY Disclaimer An external and internal positive and negative controls are appropriate for the histochemical, immunohistochemical and immunofluorescence stain(s) in this case (if any), except where stated explicitly. The performance characteristics of the stain(s) cited in this report were developed and its performance characteristic determined by the Dermatopathology Laboratory at [facility], directed by Dr. Bruce Costa. These tests need not be, and therefore are not, approved by the [place] Food and Drug Administration. The tests are used for clinical purposes. Billing Codes Specimen Charges Stain Charges 48355 1 2:39 PM CDT DERMATOPATHOLOGY LABORATORY Embedded Images 2:39 PM CDT DERMATOPATHOLOGY LABORATORY Pathology/Cytolog y TISSUE SPECIMEN FROM SKIN / Unknown 06/26/2018 06/27/2018 12:07 PM CDT Chrissy Cobian MD LAB - PATHOLOGY/CYTO LOGY ORDERABLES DERMATOPATHOLOGY LABORATORY [facility] - Department of Dermatology [address] [facility] [address], [place] 5th Floor Lab [address] [place], [place] [address] [place] [address] documented in this encounter Visit Diagnoses Not on filedocumented in this encounter Care Teams Tax Compliance Agent Relationship Specialty Start Date End Date Vanesa Horan DO [address] [place], [place] [phone] PCP - General Family Medicine 12/28/16 documented as of this encounter
--- OUTSIDE RECORDS SUMMARY | 2024-04-18 08:11 | XMS_ITS | Encounter Summary ---
Author Organization [facility] Address [facility], [address] [place] [address] Care Team Providers Care Laser Print Operator Name Role Phone Vanesa Horan DO Primary Care Provider [phone] Marco Fabian MD Primary Care Provider [phone] Encounter Details Date Type Department Care Team (Late st Contact Info) Description 05/04/2016 Abstract [facility] CONVERSION [address] [place] [address] , Generic MD Zachary Social History Tobacco Use Types Packs/Day Years Used Date Smoking Tobacco: Never Assessed Comments Unknown Sex and Gender Information Value Date Recorded Sex Assigned at Female 02/28/2024 1:10 PM 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 Legal Sex Female 7:27 PM CDT Gender Identity Not on file Sexual Orientation Not on file documented as of this encounter Plan of Treatment Upcoming Encounters Date Type Department Care Team (Late st Contact Info) Description 04/30/2024 7:30 AM CDT Appointment [facility] [address] [place] [address] Frantz Matthews MD [address] [place] [address] documented as of this encounter Visit Diagnoses Not on filedocumented in this encounter Care Teams Laser Print Operator Relationship Specialty Start Date End Date Vanesa Horan DO PCP - General FAMILY PRACTICE 08/23/18 03/13/22 Marco Fabian MD [address] [place] [id number] PCP - General FAMILY PRACTICE 03/14/22 documented as of this encounter
--- OUTSIDE RECORDS SUMMARY | 2024-04-18 08:11 | XMS_ITS | Referral Summary ---
Author Organization [facility] Address [address] [place] [address] Care Team Providers Care Environmental Auditor Name Role Phone BobottoVanesa Primary Care Provider [phone] Source Comments [facility],non-owned Affiliates and Associated Physician Practices is amultiple site organization consisting of ambulatory clinics and hospital sitesin [place], [place], [place] and [place]. This disclosure is being madepursuant to the Care Everywhere program and may not contain all information available regarding this patient. Last updated 17.[facility] Allergies Active Allergy Reactions Criticality Noted [...] 100.7 kg (222 lb) 04/15/2019 2:52 PM FISH CUTTING MACHINE OPERATOR Height 157.5 cm (5' 2 ) 04/15/2019 2:52 PM FISH CUTTING MACHINE OPERATOR Body Mass Index 40.6 04/15/2019 2:52 PM FISH CUTTING MACHINE OPERATOR Plan of Treatment Not on file Care Teams Environmental Auditor Relationship Specialty Start Date End Date Vanesa Horan DO [address] [place] [phone] PCP - General Family Medicine 12/28/16
[2024-04-18 10:46] LABS: Hematocrit 38.7 % (37.0-47.0); Hemoglobin 11.9 g/dL (12.0-15.0); Mean Corpuscular HGB Conc 30.7 g/dl (32-36); Mean Corpuscular Hemoglobin 27.9 pg (26-34); Mean Corpuscular Volume 90.8 fl (80-100); Mean Platelet Volume 11.6 fl (7.4-10.4); Platelet Count Result 318 k/mm3 (150-375); Red Blood Count 4.26 M/mm3 (4.2-5.4); Red Cell Distribution Width 15.1 % (11.5-14.5); White Blood Count 15.1 K/mm3 (4.5-10.0)
[2024-04-18 11:19] LABS: Alanine Aminotransferase 21 U/L (6-35); Albumin Level 4.1 g/dL (3.5-5.1); Alkaline Phosphatase 87 U/L (38-126); Anion Gap 12 mmol/L (4-12); Aspartate Amino Transferase 21 U/L (14-36); Bilirubin,Total 0.3 mg/dL (0.2-1.3); Blood Urea Nitrogen 25 mg/dL (7-17); Calcium 9.2 mg/dL (8.4-10.2); Carbon Dioxide 21 mmol/L (22-30); Chloride 107 mmol/L (98-107); Cholesterol 114 mg/dL (0-200); Estimated Glomerular Filt Rate 40; Glucose 128 mg/dL (65-110); HDL Direct 39 mg/dL; Potassium 4.1 mmol/L (3.4-5.0); Sodium 140 mmol/L (137-145)
[2024-04-18 11:20] LABS: LDL Cholesterol Direct 40 mg/dL
[2024-04-18 11:29] LABS: Triglycerides 198 mg/dL (<150)
--- NOTE | 2024-04-18 14:24 | WPDPFTINT ---
PFT Procedure Performed PFT Procedure Performed Spirometry with Pre/Post Bronchodilator Plethysmography (Lung Vol) Diffusing Cap (DLCO) Flow Vol Loop PFT Interpretation Lung volumes were measured with the body plethysmography method. The diminished lung volumes are indicative of restrictive respiratory disease. Spirometry showed normal expiratory flow rates and a normal FEV1 to FVC ratio of 87%. Following administration of a bronchodilator there was no significant increase in expiratory flow rates. Lung diffusion capacity is severely reduced at 39% predicted. This diminished lung diffusion capacity coupled with a low alveolar volume and a normal DLCO/VA ratio indicates loss of alveolar capillary structure with loss of lung volume as seen in interstitial lung disease. The flow volume loop is consistent with restrictive respiratory disease. In comparison to previous study in 2023, the post bronchodilator FVC and FEV1 and the total lung capacity are little changed. The lung diffusion capacity is further reduced by an approximately 10% of predicted value. Impression: Moderate restrictive respiratory disease. Severely reduced lung diffusion capacity.
--- NOTE | 2024-04-18 14:28 | WPDSIXMINUTE ---
Six Minute Walk Procedure Procedure Performed Pulmonary Stress Test (6 min walk) Six Minute Walk Six Minute Walk: This 6 minute walk test was carried out with the patient breathing ambient air. The pre-walk baseline oxyhemoglobin saturation was 96%. The patient walked 244 meters with 2 stops each lasting about 10 seconds due to shortness of breath and leg pain. During the walk, the oxyhemoglobin saturation remained in the range of 91% to 93%. Of note during the walk the patient used a wheeled walker. Impression: No evidence of oxyhemoglobin desaturation on this testing.
== END 2024-04-18 08:05 | disposition home or self-care (01) ==
PROVIDERS: PCP Family Medicine; Visit Provider Internal Medicine Pulmonary Disease
DX: J84.112 Idiopathic pulmonary fibrosis (principal); J84.9 Interstitial pulmonary disease, unspecified; J45.42 Moderate persistent asthma with status asthmaticus; I10 Essential (primary) hypertension; E78.5 Hyperlipidemia, unspecified; E11.65 Type 2 diabetes mellitus with hyperglycemia; D64.9 Anemia, unspecified; M15.9 Polyosteoarthritis, unspecified; K14.1 Geographic tongue; F41.9 Anxiety disorder, unspecified; G47.30 Sleep apnea, unspecified; E61.1 Iron deficiency; Z79.4 Long term (current) use of insulin; Z78.0 Asymptomatic menopausal state
CPT/HCPCS: 36415; 71250; 80053; 80061; 82607; 85027; 94060; 94618; 94726; 94729

== ENCOUNTER 2024-06-02 08:52 | Outpatient (CLI) | payer MEDICARE, SELFPAY ==
[2024-06-02 09:37] LABS: Basophils Absolute Auto 0.1 K/mm3 (0.0-0.1); Basophils Percent Auto 0.5 % (0.2-1.2); Eosinophils Absolute Auto 0.3 K/mm3 (0-0.3); Eosinophils Percent Auto 2.5 % (0-4.4); Immature Granulocyte Absolute 0.04 K/mm3 (0.00-0.031); Immature Granulocyte Percent A 0.4 % (0-0.5); Lymphocytes Percent Auto 25.6 % (18.3-44.2); Mean Corpuscular HGB Conc 31.6 g/dl (32-36); Mean Corpuscular Hemoglobin 28.8 pg (26-34); Mean Corpuscular Volume 91.1 fl (80-100); Mean Platelet Volume 11.7 fl (7.4-10.4); Monocytes Absolute Auto 0.6 K/mm3 (0.1-0.6); Monocytes Percent Auto 5.8 % (2.6-8.5); Neutrophils Absolute Auto 7.1 K/mm3 (1.3-6.7); Neutrophils Percent Auto 65.2 % (45.5-73.1); Platelet Count Result 285 k/mm3 (150-375); Red Blood Count 4.17 M/mm3 (4.2-5.4); Red Cell Distribution Width 15.1 % (11.5-14.5); White Blood Count 10.9 K/mm3 (4.5-10.0)
--- OUTSIDE RECORDS SUMMARY | 2024-06-02 09:37 | XMS_ITS | Encounter Summary ---
Author Organization [facility] Address [address] [facility] [place] [address] Care Team Providers Care Transformation Analyst Name Role Phone Vanesa Horan DO Primary Care Provider [phone] Encounter Details Date Type Department Care Team (Late st Contact Info) Description 11/06/2022 Lab Requisition [facility] - DermPath Lab [address] [facility] [place] [address] Virginia Romero DO [address] [facility] 3 [place] [address] Social History Tobacco Use Types Packs/Day Years Used Date Smoking Tobacco: Never Smokeless Tobacco: Never Alcohol Use Standard Drinks/Week Comments No 0 (1 standard drink = 0.6 oz pur e alcohol) Comments Unknown Sex and Gender Information Value Date Recorded Sex Assigned at Not on file Legal Sex Female 10:32 AM CDT Gender Identity Not on file Sexual Orientation Not on file documented as of this encounter Plan of Treatment Not on file documented as of this encounter Procedures Procedure Name Priority Date/Time Associated Diagnosis Comments DERMATOPATHOLOGY Routine 11/06/2022 4:01 PM CDT documented in this encounter Results * DERMATOPATHOLOGY (11/06/2022 4:01 PM CDT) Case Report Dermatopathology Report Case: [id number] Authorizing Provider: Virginia Romero DO Collected: 11/06/2022 04:01 PM Ordering Location: [facility] Derm[facility] Lab Received: 11/07/2022 02:30 PM Pathologist: Shama aSleh MD Specimens: A) - Skin, left mid back B) - Skin, right lower back 3 3:[address] [facility] DERMATOPATHOLOGY LABORATORY Final Diagnosis Specimen A. SKIN, left mid back: LENTIGINOUS MELANOCYTIC NEVUS, COMPOUND TYPE, IRRITATED (D22.5) Specimen B. SKIN, right lower back: COMPOUND MELANOCYTIC NEVUS, IRRITATED (D22.5) 3 3:[address] [facility] DERMATOPATHOLOGY LABORATORY Clinical History A-B: R/O Melanoma, Nevus 3 3:[address] [facility] DERMATOPATHOLOGY LABORATORY Gross Description Specimen A: Received [...] 5x4x1 mm. Jar 0. 3 3:[address] [facility] DERMATOPATHOLOGY LABORATORY Microscopic Description Specimen A. SKIN, [...] and within the dermis. 3 3:[address] [facility] DERMATOPATHOLOGY LABORATORY Disclaimer An external and internal positive and negative controls are appropriate for the histochemical, immunohistochemical and immunofluorescence stain(s) in this case (if any), except where stated explicitly. The performance characteristics of the stain(s) cited in this report were developed and its performance characteristic determined by the Dermatopathology Laboratory at [facility], directed by Dr. Bruce Costa. These tests need not be, and therefore are not, approved by the [place] Food and Drug Administration. The tests are used for clinical purposes. Billing Codes Specimen Charges Stain Charges 28423 60982 1 1 3 3:12 PM CDT DERMATOPATHOLOGY LABORATORY Embedded Images 3 3:12 PM CDT DERMATOPATHOLOGY LABORATORY Pathology/Cytology TISSUE SPECIMEN FROM SKIN / Unknown 11/06/2022 4:01 PM CDT 11/07/2022 2:30 PM CDT Miscellaneous samples (specimen) TISSUE SPECIMEN FROM SKIN / Unknown 11/06/2022 4:01 PM CDT 11/07/2022 2:30 PM CDT us Virginia Romero DO LAB - PATHOLOGY/CYTOLOGY ORDERABLES Final Result [facility]OLOGY LAB[facility] Specialized Medicine [address] [place] [address], [address] [phone] documented in this encounter Visit Diagnoses Not on filedocumented in this encounter Care Teams Transformation Analyst Relationship Specialty Start Date End Date Vanesa Horan DO [address] [place] [phone] PCP - General Family Medicine 12/28/16 documented as of this encounter
--- OUTSIDE RECORDS SUMMARY | 2024-06-02 09:37 | XMS_ITS | Clinical Summary ---
Author Organization [facility] Address [address] [facility] [place] [address] Care Team Providers Care Naval Designer Name Role Phone BobottoVanesa Primary Care Provider [phone] Source Comments [facility],non-owned Affiliates and Associated Physician Practices is amultiple site organization consisting of ambulatory clinics and hospital sitesin [place], [place], [place] and [place]. This disclosure is being madepursuant to the Care Everywhere program and may not contain all information available regarding this patient. Last updated 17.[facility] Allergies Active Allergy Reactions Criticality Noted Date Comments Amoxicillin-Pot Clavulanate Diarrhea Low 01/02/20 17 Augmentin Diarrhea 01/01/2017 Oxybutynin Urticaria Medium 01/01/2017 Latex Rash Medium 01/01/2017 Meperidine Unknown 04/15/2019 Medications * Be aware that medications may not be up to date on this document. Alwaysverify current medications with the patient. sotalol, AF, 120 MG tablet Take 120 [...] by mouth at bedtime Active albuterol HFA (PROVENTIL;VENT LISBETH;PROAIR) 108 (90 BASE) MCG/ACT inhaler Inhale 2 puffs by mouth every 6 hours as needed Active aspirin EC (ECOTRIN) 81 MG tablet Take 81 mg by mouth once daily Active LORazepam (ATIVAN) 1 MG tablet Take 1 mg by mouth every 8 hours as needed for Anxiety Active empagliflozin (JARDIANCE) 10 MG tablet Take 1 tablet by mouth once daily 9 Active Active Problems Problem Noted Date Diagnosed [...] 100.7 kg (222 lb) 04/15/2019 2:52 PM HORTICULTURAL SPECIALTY GROWER Height 157.5 cm (5' 2 ) 04/15/2019 2:52 PM [facility] Body Mass Index 40.6 04/15/2019 2:52 PM [facility] Plan of Treatment Health Maintenance Due Date [...] 04/16/2019 DIABETES-HGB A1C 10/02/2019 04/03/2019 COVID-19 VACCINE (1 - 2023-2 5 season) 2023 DEPRESSION SCREENING 02/13/2024 DIABETES - URINE PROTEIN SCREENING 02/13/2024 MEDICARE AWV CALENDAR YEAR 2024 INFLUENZA VACCINE (Season Ended) 2024 11/13/19 15 HEPATITIS B VACCINE Aged Out No longe r eligible based on patient's age to complete this topic HIB VACCINE Aged Out No longer eligi ble based on patient's age to complete this topic HPV VACCINE Aged Out No longer eligi ble based on patient's age to complete this topic MENINGOCOCCAL (Group B) VACC INE SHARED DECISION-MAKING Aged Out No longer eligibl e based on patient's age to complete this topic MENINGOCOCCAL GROUPS A/C/Y/W VACCINE Aged Out No longer eligible b ased on patient's age to complete this topic Insurance [employer] MEDICARE ADV [facility] MANAGED MEDICARE ADV Care Teams Naval Designer Relationship Specialty Start Date End Date Vanesa Horan DO [address] [place] [phone] PCP - General Family Medicine 12/28/16
--- OUTSIDE RECORDS SUMMARY | 2024-06-02 09:37 | XMS_ITS | Encounter Summary ---
Author Organization [facility] Address [facility] access hospital[address] [place] [address] Care Team Providers Care Save All Operator Name Role Phone Vanesa Horan DO Primary Care Provider [phone] Marco Fabian MD Primary Care Provider [phone] Encounter Details Date Type Department Care Team (Late st Contact Info) Description 05/04/2016 Abstract [facility] CONVERSION [address] [place] [address] , Generic Conversion, Social History Tobacco Use Types Packs/Day Years Used Date Smoking Tobacco: Never Assessed Comments Unknown Sex and Gender Information Value Date Recorded Sex Assigned at Female 02/28/2024 1:10 PM MANAGER 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
--- OUTSIDE RECORDS SUMMARY | 2024-06-02 09:37 | XMS_ITS | Encounter Summary ---
Author Organization [facility] Address [address] [facility] [place] [address] Care Team Providers Care Recruitment Consultant Name Role Phone Vanesa Horan DO Primary Care Provider [phone] Encounter Details Date Type Department Care Team (Late st Contact Info) Description 11/14/2023 Lab Requisition [facility] - DermPath Lab [address] [facility] [place] [address] Virginia Romero DO [address] [facility] [address] [place] [address] Social History Tobacco Use Types Packs/Day Years [...] AM CDT) Case Report Dermatopathology Report Case: [id number] Authorizing Provider: Virginia Romero DO Collected: 11/14/2023 09:50 AM Ordering Location: [facility] - Received: 11/14/2023 04:50 PM [...] characteristic determined by the Dermatopathology Laboratory at [facility], directed by Dr. Bruce Costa. These tests need not be, and therefore are not, approved by the [place] Food and Drug Administration. The tests are used for clinical purposes. Billing Codes Specimen Charges Stain Charges 21189 11782 1 1 4 1:53 PM CDT DERMATOPATHOLOGY LABORATORY Embedded Images 1:53 PM CDT DERMATOPATHOLOGY LABORATORY Pathology/Cytology TISSUE SPECIMEN FROM SKIN / Unknown 11/14/2023 9:50 AM CDT 11/14/2023 4:50 PM CDT Miscellaneous samples (specimen) TISSUE SPECIMEN FROM SKIN / Unknown 11/14/2023 9:50 AM CDT 11/14/2023 4:50 PM CDT us Virginia Romero DO LAB - PATHOLOGY/CYTOLOGY ORDERABLES Final Result DERMATOPATHOLOGY LABORATORY [facility] - Department of Dermatology [address], [address] [phone] documented in this encounter Visit Diagnoses Not on filedocumented in this encounter Care Teams Recruitment Consultant Relationship Specialty Start Date End Date Vanesa Horan DO [address] [place] [phone] PCP - General Family Medicine 12/28/16 documented as of this encounter
--- OUTSIDE RECORDS SUMMARY | 2024-06-02 09:37 | XMS_ITS | Encounter Summary ---
Author Organization [facility] Address [address] [place] [address] Care Team Providers Care Metal Fabricator Apprentice Name Role Phone Vanesa Horan DO Primary Care Provider [phone] Encounter Details Date Type Department Care Team (Late st Contact Info) Description 06/27/2018 Lab Requisition [facility] Care DermPath Lab [address] [facility] [place] [phone] Chrissy Cobian MD [address] [facility] [address] [place] [address] Social History Tobacco Use Types Packs/Day Years [...] AM CDT) Case Report Dermatopathology Report Case: [id number] Authorizing Provider: Chrissy Cobian MD Collected: 06/26/2018 [...] specimen consists of a shave biopsy measuring 37t71y0 mm, inked and bisected. Jar 0. 2:39 [...] characteristic determined by the Dermatopathology Laboratory at [facility], directed by Dr. Bruce Costa. These tests need not be, and therefore are not, approved by the [place] Food and Drug Administration. The tests are used for clinical purposes. Billing Codes Specimen Charges Stain Charges 79173 1 9 2:39 PM CDT DERMATOPATHOLOGY LABORATORY Embedded Images 2:39 PM CDT DERMATOPATHOLOGY LABORATORY Pathology/Cytolog y TISSUE SPECIMEN FROM SKIN / Unknown 06/26/2018 06/27/2018 12:07 PM CDT us Chrissy Cobian MD LAB - PATHOLOGY/CYTOLOGY ORD ERABLES Final Result DERMATOPATHOLOGY LABORATORY [facility] - Department of Dermatology [address] [facility], 5th [place] [address], [facility] [phone] documented in this encounter Visit Diagnoses Not on filedocumented in this encounter Care Teams Metal Fabricator Apprentice Relationship Specialty Start Date End Date Vanesa Horan DO [address] [place] [phone] PCP - General Family Medicine 12/28/16 documented as of this encounter
--- OUTSIDE RECORDS SUMMARY | 2024-06-02 09:37 | XMS_ITS | Clinical Summary ---
Author Organization [facility] Address [facility] [place] [address] Care Team Providers Care Wire Web Worker Name Role Phone Marco Fabian MD Primary Care Provider [phone] Medications No known medications Active Problems Problem Noted Date Diagnosed Date S/P TKR (total knee replacement), left 9 Encounters Date Type Department Care Team Description 04/30/2024 7:01 AM CDT - 04/30/2024 11:59 PM CDT Hospital Encounter [facility]ammography [address] [place] [address] Derrick Adair MD Discharge Disposition: Home or Self Care (Routine Discharge) 04/30/2024 Travel from Last 3 Months Social History Tobacco Use Types Packs/Day Years Used Date Smoking Tobacco: Never Assessed Comments Unknown Sex and Gender Information Value Date Recorded Sex Assigned at Female 02/28/2024 1:10 PM 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 Legal Sex Female 7:27 PM CDT Gender Identity Female 04/29/2024 7:44 AM CDT Sexual Orientation Not on file Plan of Treatment Health Maintenance Due Date Last Done Comments Colorectal Cancer Screening Colonoscopy (10 Years) 1950 Kidney Health Evaluation 1950 Diabetes: Retinopathy Eye Exam 09/19/1967 Hepatitis C 09/19/1967 DTaP, Tdap and Td Vaccines (1 - Tdap) 1968 Zoster Vaccines (2 of 3) 01/30/2013 12/05/2012 Annual Medicare Wellness Visit 2014 Pneumococcal Vaccine: 50+ Years (2 of 2 - PPSV23) 01/10/2017 11/15/2016 Hemoglobin A1C 03/27/2019 09/24/2018, 08/02/2016 Lipid Panel 03/14/2023 03/14/2022, 10/13, 08/23/2018 COVID-19 Vaccine ( season) 2023 RSV Immunization or 60+ Years (1 - 1-dose 75+ series) 2024 Mammogram Screening 04/30/2026 04/30/2024, 10/25/2022, 09/13/2021, Additional history exists Dexa Scan (General) Completed [...] Procedure Name Priority Date/Time Associated Diagnosis Comments MG SCREENING W ROWAN MONTSERRAT DIGI Routine 04/30/2024 7:44 AM CDT Encounter for screening mammogram for malignant neoplasm of breast LIPID PANEL Routine 03/14/2022 8:17 AM 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 Type II diabetes mellitus with hyperosmolarity, uncontrolled Encounter for long-term (current) use of insulin BONE DENSITY/DEXA Routine 09/13/2021 1:1 7 PM CDT Postmenopause HEMOGLOBIN, GLYCOSYLATED Routine 09/24/2018 11:12 AM CDT Type 2 diabetes, diet controlled from Last 3 Months or Most Recently Relevant to Health Maintenance Results * MG SCREENING W ROWAN MONTSERRAT DIGI (04/30/2024 7:44 AM CDT) Anatomical Region Laterality Modality Breast Bilateral Mammography 04/30/2024 2:41 PM CDT Impressions 04/30/2024 2:47 PM CDT IMPRESSION: No significant interval change. No mammographic evidence of malignancy. RECOMMENDATION: Routine ScreeningBilateral OVERALL IMAGING ASSESSMENT: ACR BI-RADS 2 - BENIGN FINDING(S). Ordered By: DERRICK ADARI Interpreted By: Miles Shaw, 04/30/2024 2:41 PM Narrative 04/30/2024 2:47 PM CDT [facility] [address] [place] [address] EXAMINATION: MG SCREENING W ROWAN MONTSERRAT DIGI INDICATIONS: Screening TECHNIQUE: Digital full field CC and MLO screening mammography bilaterally to include 3-D Tomosynthesis technique. This study was read with the assistance of a computer-aided detection system. HISTORY: No reported breast complaint. No documented personal or first degree family history of breast cancer. No documented prior breast procedure. COMPARISON: Multiple prior examinations available for comparison dating back to 01/03/2006, the most recent of 10/25/2022, 09/13/2021, and 08/20/2020. TISSUE DENSITY: There are scattered areas of fibroglandular density. FINDINGS: Scattered typically benign round, rodlike, and vascular calcifications bilaterally without suspicious interval change. No suspicious microcalcification or mass. No developing asymmetry or architectural distortion. No axillary adenopathy. us Derrick Adair MD MAMMO Final Result * LIPID PANEL (03/14/2022 8:17 AM 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) CHOLESTEROL 120 <200.0 MG/DL 03/14/2022 8:45 AM [facility] TRIGLYCERIDES 130 <150 MG/DL 03/14/2022 8:45 AM [facility] HDL 42 >40.0 MG/DL 03/14/2022 8:45 AM [facility] LDL (CALCULATED) 52 <100 MG/DL 03/14/19 8:45 AM [facility] NON HDL CHOLESTEROL 78 <130 MG/DL 03/14 8:45 AM [facility] CHOL/HDL RATIO 2.9 0.0 - 4.5 03/14/2022 8:45 AM [facility] VLDL CALCULATION 26 5 - 55 MG/DL 03/14/2022 8:45 AM 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 [facility] LIPID INTERPRETATION 03/14/2022 8:45 AM 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 [facility] Comment: NIH CONCENSUS REPORT RECOMMENDATIONS: ADULT CHILD LOW RISK: CHOLESTEROL <200 <170 TRIGLYCERIDE <150 --- HDL >=60 --- LDL <100 <110 BORDERLINE: CHOLESTEROL 200-239 170-199 TRIGLYCERIDE 150-199 --- HDL 40-59 --- LDL 100-159 110-129 HIGH RISK: CHOLESTEROL >=240 >=200 TRIGLYCERIDE >=200 --- HDL <40 --- LDL >=160 >=130 03/14/2022 8:17 AM 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 us Octavia Paul MD LABORATORY Final Result [facility] [address] [place] [address], * BONE DENSITY/DEXA (09/13/2021 1:17 PM CDT) [...] 7.8(H) <5.7 % 09/24/2018 1:06 PM CDT [facility] Comment: INCREASED RISK OF DIABETES <5.7% NON-DIABETES 5.7-6.4% INCREASED RISK FOR FUTURE DIABETES > OR = 6.5 CONSISTENT WITH DIABETES STANDARDS OF MEDICAL CARE IN DIABETES-2010 DIABETES CARE, 33(SUPP 1): S1-S61,2010 09/24/2018 11:1 2 AM CDT David Greco MD LABORATORY Final Result [facility] [address] [place] [address], from Last 3 Months or Most Recently Relevant to Health Maintenance Insurance [employer] Care Teams Wire Web Worker Relationship Specialty Start Date End Date Marco Fabian MD [address] [place] [address] PCP - General FAMILY PRACTICE 1/31/23
--- OUTSIDE RECORDS SUMMARY | 2024-06-02 09:37 | XMS_ITS | Referral Summary ---
Author Organization [facility] [place], [place] [address] [place] [address] Care Team Providers Care Certified Respiratory Therapist Name Role Phone Frantz Matthews MD Primary Care Provider [phone] Encounters Date Type Department Care Team Description 03/20/[address] [facility] Medical [facility] Diabetes and Endocrinology [address] [place] [phone] Stephanie Ruiz, BENEFIT DIRECTOR 03/13/2024 Telephone [facility] Diabetes and Endocrinology [address] [place] [phone] Stephanie Ruiz, BENEFIT DIRECTOR Med Management 03/06/2024 Orders Only [facility] Diabetes and Endocrinology [address] [place] [phone] Provider, MD Mylene from Last 3 Months Allergies Active Allergy Reactions Criticality Noted Date Comments Amoxicillin-Pot Clavulanate Diarrhea Low 01/01/2017 Empagliflozin Other (See comments) Low 09/15/2021 vulvovaginitis Latex Shortness of breath,Rash High 01/01/2017 Meperidine Nausea & Vomiting Low Oxybutynin Hives,Urticaria Medium 01/01/2017 Semaglutide Vomiting High 10/30/2019 Nausea and vomiting Medications esomeprazole DR (NexIUM) 40 mg capsule take 1 capsule (40MG) by oral route every day 0 01/25/20 12 Active Additional Information Patient taking differently:40 mgoral Daily before breakfast, Indications: Treatment of Non-Bleeding Gastric Disorder, Reported on 02/27/2024 olmesartan (BENICAR) 40 mg tablet take 1 tablet by oral route every day 0 0 12/06/19 14 Active Additional Information Patient taking differently:40 mgoral Every morning, Indications: hypertension, Reported on 02/27/2024 albuterol HFA (PROVENTIL HFA,VENTOLIN HFA,PROAIR HFA) 90 mcg/actuation inhaler Inhale 2 puffs every 6 (six) hours as needed for wheezing Active lancing device (LANCING DEVICE WITH LANCETS) miscIndications:Ty pe 2 diabetes mellitus with hyperglycemia, with long-term current use of insulin (HCC) Use device to test glucose as directed (ok to give patient whatever devise fits current lancets) 1 each 11/13/19 19 Active Compact Space Chamber spacer as directed 08/20/19 20 Active LORazepam (ATIVAN) 1 mg tabletIndications: ibs Take 1 tablet (1 mg total) by mouth as needed 09/01/19 20 Active cholecalciferol (VITAMIN D-3) 25 mcg (1,000 unit) tablet Take 1 tablet (1,000 Units total) by mouth every morning Active Ofev 150 mg capsule 12/16/19 20 Active chlorthalidone 25 mg tablet Take 1 tablet (25 mg total) by mouth daily Active diltiaZEM CD (CARDIZEM CD) 360 mg 24 hr capsule 05/07/19 21 Active rosuvastatin (CRESTOR) 10 mg tablet 04/13/19 22 Active flash glucose sensor (FreeStyle Kaleigh 2 Sensor) kit Change every 14 days 2 kit 11 11/26/19 22 Active flash glucose scanning reader (FreeStyle Kaleigh 2 [place]) misc As directed 1 each 11/26/19 22 Active furosemide (LASIX) 40 mg tablet TAKE 1 TABLET BY MOUTH ONCE DAILY FOR 7 DAYS 12/17/19 22 Active ondansetron ODT (ZOFRAN-ODT) 4 mg disintegrating tablet DISSOLVE 1 TABLET IN MOUTH EVERY 8 HOURS NEEDED FOR NAUSEA AND VOMITING 02/22/19 23 Active clindamycin (CLEOCIN) 300 mg capsule 01/07/20 23 Active promethazine (PHENERGAN) 25 mg tablet TAKE 1 TABLET BY MOUTH THREE TIMES DAILY NEEDED FOR NAUSEA AND VOMITING 02/27/19 24 Active HumaLOG 100 unit/mL pen for injection Inject 12-18 Units under the skin 2 (two) times a day before breakfast and dinner Dx: E11.65 15 mL 3 05/10/19 24 Active vitamin B complex capsule Take 1 capsule by mouth daily Active blood glucose diagnostic (OneTouch Ultra Test) stripIndications:T ype 2 diabetes mellitus with hyperglycemia, with long-term current use of insulin ([facility]) USE STRIP TO CHECK GLUCOSE 3 TIMES DAILY BEFORE MEAL(S) 300 each 3 01/23/20 24 Active LANTUS 100 unit/mL (3 mL) pen for injectionIndicatio ns:Type 2 diabetes mellitus with hyperglycemia, with long-term current use of insulin ([facility]) INJECT 26 UNITS SUBCUTANEOUSLY NIGHTLY 15 mL 02/19/19 25 Active tirzepatide (Mounjaro) 5 mg/0.5 mL pen injectorIndication s:type 2 diabetes mellitus Inject 5 mg under the skin every 7 days 6 mL 3 02/26/19 25 026 Active pen needle, diabetic 32 gauge x 5/32 needle USE 1 PEN NEEDLE THREE TIMES DAILY Dx.E11.65 300 each 2 03/20/19 25 Active SITagliptin phos-metformin (Janumet) 50-1,000 mg per tabletIndications: Type 2 diabetes mellitus with hyperglycemia, with long-term current use of insulin ([facility]) Take 1 tablet by mouth 2 (two) times a day with meals 180 tablet 1 04/02/19 25 Active ezetimibe (ZETIA) 10 mg tabletIndications: Type 2 diabetes mellitus with hyperglycemia, with long-term current use of insulin ([facility]) Take 1 tablet by mouth once daily 90 tablet 04/08/19 25 Active NovoLOG 100 unit/mL (3 mL) pen for injectionIndicatio ns:Type 2 diabetes mellitus with hyperglycemia, with long-term current use of insulin ([facility]) INJECT 12 TO 18 UNITS SUBCUTANEOUSLY TWICE DAILY BEFORE BREAKFAST AND BEFORE SUPPER 15 mL 04/10/19 25 Active Active Problems Patient Care Coordination No te [...] 02/27/2024 Assessment & Plan (02/27/2024 3:01 PM ICING MIXER): Chronic problem. Limited activity d/t Interstitial Lung Disease. Will send in Mounjaro 2.5mg weeklyx 4 then increase to 5mg weekly to see if able to help with weight loss. Discussed healthy diet and importance of regular physical activity (20- 30min/day, 150min/wk). ILD (interstitial lung disease) 10/09/2019 Overview (10/09/2019): Added automatically from request for surgery [id number] Lung nodule 10/09/2019 Overview (10/09/2019): Added automatically from request for surgery [id number] 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 2 diabetes mellitus 0 04/03/2019 Assessment & Plan (02/27/2024 1:54 PM ICING MIXER): Chronic problem. Controlled on current Rosuvastatin 10mg & zetia 10mg. Last lipid panel: 08/30/23 LDL=65, ZF=603. Assessment & Plan (10/25/2023 2:05 PM CDT): Chronic problem. Controlled on current Rosuvastatin 10mg & zetia 10mg. Last lipid panel: 03/08/23 LDL=48, QN=245. Assessment & Plan (06/12/2023 3:56 PM CDT): Chronic, well-controlled. Continue statin therapy with rosuvastatin Assessment & Plan (03/08/2023 4:37 PM ICING MIXER): Chronic, well-controlled Continue statin therapy with rosuvastatin Assessment & Plan (12/07/2022 2:24 PM CDT): Chronic problem. Controlled on current Rosuvastatin 10mg & zetia 10mg. Last lipid panel: 03/14/22 LDL=52, VM=677. Assessment & Plan (07/05/2022 2:12 PM CDT): Chronic problem. On statin therapy, no changes. Assessment & Plan (03/09/2022 3:07 PM ICING MIXER): Chronic, well controlled Low fat Low cholesterol [...] Pravachol Assessment & Plan (12/25/2019 1:24 PM ICING MIXER): Goal of treatment , LDL cholesterol less [...] recently Assessment & Plan (04/03/2019 11:15 AM ICING MIXER): Goal of treatment , LDL cholesterol less [...] 07/16/2018 Assessment & Plan (02/27/2024 1:54 PM ICING MIXER): Chronic problem. Controlled on current olmesartan 40mg daily, diltiazem CD 360mg daily, chlorthalidone 25mg daily Assessment & Plan (10/25/2023 2:23 PM CDT): Chronic problem. Controlled on current olmesartan 40mg daily, diltiazem CD 360mg daily, chlorthalidone 25mg daily Assessment & Plan (03/08/2023 4:37 PM ICING MIXER): Chronic, well-controlled Continue current regimen including ARB [...] Olmesartan Assessment & Plan (12/25/2019 1:23 PM ICING MIXER): Goal blood pressure is less than 140/85 [...] Olmesartan Assessment & Plan (01/28/2019 10:48 AM ICING MIXER): Controlled on current medications. Continue plan. Assessment & Plan (07/16/2018 3:53 PM CDT): Goal blood pressure is less than 140/85 Low salt diet recommended Daily aerobic exercise Continue current meds, including PATRIC-I or ARB Type 2 diabetes mellitus wit h hyperglycemia, with long-term current use of insulin 05/07/2018 Assessment & Plan (02/27/2024 3:00 PM ICING MIXER): Chronic problem. A1c worsened from 8.1% 10/25/23 [...] results. UTD on DM eye exam (12/2023 [facility]). Letter sent to get copy of report. [...] UTD on labs. DM eye exam 09/2022 [facility]. Has appt next week; will send letter [...] dinner Assessment & Plan (03/08/2023 4:37 PM ICING MIXER): Hba1c was Lab Results Component Value Date [...] re: results. DM eye exam 09/2022 [facility]. Letter sent to get copy of report. [...] Janumet. Assessment & Plan (03/09/2022 3:06 PM ICING MIXER): Hba1c was Lab Results Component Value Date [...] us to download the data Stay on Janumet Assessment & Plan (09/15/2021 4:05 PM CDT): [...] CGM Assessment & Plan (12/25/2019 1:23 PM ICING MIXER): Hba1c was Lab Results Component Value Date [...] provided. Assessment & Plan (04/03/2019 11:15 AM ICING MIXER): Hba1c was Lab Results Component Value Date [...] current Assessment & Plan (01/28/2019 10:49 AM ICING MIXER): A1c 6.2 without hypoglycemia. 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 Not on file Not on file Not on file Last Filed Vital Signs Vital Sign Reading Time Taken Comments Blood Pressure 126/66 02/27/2024 1:48 PM ICING MIXER Pulse 71 02/27/2024 1:48 PM ICING MIXER Temperature 36.6 C (97.8 F) 10/18/2019 4:00 PM CDT Respiratory Rate 18 02/27/2024 1:48 PM ICING MIXER Oxygen Saturation 98% 12/10/2023 10:39 AM CDT Inhaled Oxygen Concentration - - Weight 96.2 kg (212 lb) 02/27/2024 1:48 PM ICING MIXER Height 154.9 cm (5' 0.98 ) 02/27/2024 1:48 PM CS T Body Mass Index 40.08 02/27/2024 1:48 PM ICING MIXER Plan of Treatment Not on file Procedures Procedure Name Priority Date/Time Associated Diagnosis Comments ALBUMIN CREATININE RATIO, URINE Routine 02/28/2024 8:00 AM ICING MIXER Type 2 diabetes mellitus with hyperglycemia, with long-term current use of insulin (HCC) EGFR Routine 02/27/2024 2:39 PM ICING MIXER Type 2 diabetes mellitus with hyperglycemia, with long-term current use of insulin (HCC) POCT HEMOGLOBIN A1C Routine 02/27/2024 2 :04 PM ICING MIXER Type 2 diabetes mellitus with hyperglycemia, with long-term current use of insulin (HCC) DIABETES EYE EXAM Routine 11/13/2023 8:02 AM CDT DIABETES FOOT EXAM Routine 11/01/2023 8:39 AM CDT LIPID PANEL Routine 08/30/2023 7:43 AM CDT from Last 3 Months or Most Recently Relevant to Health Maintenance Results * Albumin Creatinine Ratio, Urine (02/28/2024 8:00 AM ICING MIXER) SCRIBED Creatinine, Urine 195.8 28 - 217 EXTERNAL LAB SCRIBED Microalbumin 1.5 <2.0 - NA EXTERNAL LAB SCRIBED Microalb/Creat Ratio 7.7 <30.0 - NA EXTERNAL LAB Urine 02/28/2024 8:00 AM ICING MIXER us Stephanie Ruiz BENEFIT DIRECTOR LAB URINE ORDERABLES Barbara l Result EXTERNAL LAB * (ABNORMAL) eGFR (02/27/2024 2:39 PM ICING MIXER) eGFR 55(L) >=60 mL/min/1. 73 m2 Comment: [...] last reviewed 2020. Blood 02/27/2024 2:39 PM ICING MIXER 02/27/2024 9:48 PM ICING MIXER Stephanie Ruiz BENEFIT DIRECTOR LAB BLOOD ORDERABLES Barbara l Result [id number] Department [place] [address] * (ABNORMAL) POCT hemoglobin A1c (02/27/2024 2:04 PM ICING MIXER) Hemoglobin A1C, POC 7.0 4.0 - 5.6 % Blood 02/27/2024 2:04 PM ICING MIXER Result [facility] Stephanie Ruiz BENEFIT DIRECTOR POINT OF CARE TEST ORDERA BLES Final Result * (ABNORMAL) DIABETES EYE EXAM (11/13/2023 8:02 AM CDT) Result [facility] Historical Provider MD HEALTH MAINTENANCE Final Result * DIABETES FOOT EXAM (11/01/2023 8:39 AM CDT) Result [facility] Historical Provider MD HEALTH MAINTENANCE Final Result * (ABNORMAL) Lipid panel (08/30/2023 7:43 AM CDT) SCRIBED Cholesterol, Total 126 0 - 200 EXTERNAL LAB SCRIBED HDL 40 40 - 100 EXTERNAL LAB SCRIBED LDL 65 0 - 100 EXTERNAL LAB SCRIBED Triglycerides 197(A) 0 - 150 EXTERNAL LAB Blood 08/30/2023 7:43 AM CDT Result [facility] Historical Provider MD LAB BLOOD ORDERABLES Barbara l Result EXTERNAL LAB from Last 3 Months or Most Recently Relevant to Health Maintenance Insurance UHC MEDICARE ADVANTAGE [facility] Address: [address] [address] [place] [address] [facility]LY [facility] MEDICARE Advance Directives For more information, please contact: [phone] Documents on File Type Date Recorded Patient Information Security Director Expl anation ADVANCE DIRECTIVE 10/10/2019 10:36 AM Pratibha francis of Integrity Analyst-Medical * Full Code (Latest Code Status on File) Date Activated Date Inactivated Comments 10/17/2019 7:55 PM 10/18/2019 10:54 PM Care Teams Certified Respiratory Therapist Relationship Specialty Start Date End Date Frantz Matthews MD PCP - General Family Practice 12/10/23
--- OUTSIDE RECORDS SUMMARY | 2024-06-02 09:37 | XMS_ITS | Clinical Summary ---
Author Organization [facility] [place] [address] Address [address] [place] [address] Care Team Providers Care Green Prize Packer Name Role Phone Frantz Matthews MD Primary Care Provider [phone] Allergies Active Allergy Reactions Criticality Noted Date [...] flash glucose scanning reader (FreeStyle Kaleigh 2 [place]) misc As directed 1 each 11/26/19 22 [...] hyperglycemia, with long-term current use of insulin ([facility]) USE STRIP TO CHECK GLUCOSE 3 TIMES DAILY BEFORE MEAL(S) 300 each 3 01/23/20 24 Active LANTUS 100 unit/mL (3 mL) pen for injectionIndicatio ns:Type 2 diabetes mellitus with hyperglycemia, with long-term current use of insulin ([facility]) INJECT 26 UNITS SUBCUTANEOUSLY NIGHTLY 15 mL 02/19/19 25 Active tirzepatide (Mounjaro) 5 mg/0.5 mL pen injectorIndication s:type 2 diabetes mellitus Inject 5 mg under the skin every 7 days 6 mL 3 02/26/19 25 026 Active pen needle, diabetic 32 gauge x needle USE 1 PEN NEEDLE THREE TIMES [...] hyperglycemia, with long-term current use of insulin ([facility]) INJECT 12 TO 18 UNITS SUBCUTANEOUSLY TWICE [...] 02/27/2024 Assessment & Plan (02/27/2024 3:01 PM BAKELITE MOLDER): Chronic problem. Limited activity d/t Interstitial Lung Disease. Will send in Mounjaro 2.5mg weeklyx 4 then increase to 5mg weekly to see if able to help with weight loss. Discussed healthy diet and importance of regular physical activity (20- 30min/day, 150min/wk). ILD (interstitial lung disease) 10/09/2019 Overview (10/09/2019): Added automatically from request for surgery [id number] Lung nodule 10/09/2019 Overview (10/09/2019): Added automatically from request for surgery [id number] 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 2 diabetes mellitus 0 04/03/2019 Assessment & Plan (02/27/2024 1:54 PM BAKELITE MOLDER): Chronic problem. Controlled on current Rosuvastatin 10mg & zetia 10mg. Last lipid panel: 08/30/23 LDL=65, QG=562. Assessment & Plan (10/25/2023 2:05 PM CDT): Chronic problem. Controlled on current Rosuvastatin 10mg & zetia 10mg. Last lipid panel: 03/08/23 LDL=48, PE=587. Assessment & Plan (06/12/2023 3:56 PM CDT): Chronic, well-controlled. Continue statin therapy with rosuvastatin Assessment & Plan (03/08/2023 4:37 PM BAKELITE MOLDER): Chronic, well-controlled Continue statin therapy with rosuvastatin Assessment & Plan (12/07/2022 2:24 PM CDT): Chronic problem. Controlled on current Rosuvastatin 10mg & zetia 10mg. Last lipid panel: 03/14/22 LDL=52, RX=698. Assessment & Plan (07/05/2022 2:12 PM CDT): Chronic problem. On statin therapy, no changes. Assessment & Plan (03/09/2022 3:07 PM BAKELITE MOLDER): Chronic, well controlled Low fat Low cholesterol [...] Pravachol Assessment & Plan (12/25/2019 1:24 PM BAKELITE MOLDER): Goal of treatment , LDL cholesterol less [...] recently Assessment & Plan (04/03/2019 11:15 AM BAKELITE MOLDER): Goal of treatment , LDL cholesterol less [...] 07/16/2018 Assessment & Plan (02/27/2024 1:54 PM BAKELITE MOLDER): Chronic problem. Controlled on current olmesartan 40mg daily, diltiazem CD 360mg daily, chlorthalidone 25mg daily Assessment & Plan (10/25/2023 2:23 PM CDT): Chronic problem. Controlled on current olmesartan 40mg daily, diltiazem CD 360mg daily, chlorthalidone 25mg daily Assessment & Plan (03/08/2023 4:37 PM BAKELITE MOLDER): Chronic, well-controlled Continue current regimen including ARB [...] Olmesartan Assessment & Plan (12/25/2019 1:23 PM BAKELITE MOLDER): Goal blood pressure is less than 140/85 [...] Olmesartan Assessment & Plan (01/28/2019 10:48 AM BAKELITE MOLDER): Controlled on current medications. Continue plan. Assessment & Plan (07/16/2018 3:53 PM CDT): Goal blood pressure is less than 140/85 Low salt diet recommended Daily aerobic exercise Continue current meds, including PATRIC-I or ARB Type 2 diabetes mellitus wit h hyperglycemia, with long-term current use of insulin 05/07/2018 Assessment & Plan (02/27/2024 3:00 PM BAKELITE MOLDER): Chronic problem. A1c worsened from 8.1% 10/25/23 [...] dinner Assessment & Plan (03/08/2023 4:37 PM BAKELITE MOLDER): Hba1c was Lab Results Component Value Date [...] re: results. DM eye exam 09/2022 [facility]. Letter sent to get copy of report. [...] Janumet. Assessment & Plan (03/09/2022 3:06 PM BAKELITE MOLDER): Hba1c was Lab Results Component Value Date [...] us to download the data Stay on Febumet Assessment & Plan (09/15/2021 4:05 PM CDT): [...] CGM Assessment & Plan (12/25/2019 1:23 PM BAKELITE MOLDER): Hba1c was Lab Results Component Value Date [...] provided. Assessment & Plan (04/03/2019 11:15 AM BAKELITE MOLDER): Hba1c was Lab Results Component Value Date [...] current Assessment & Plan (01/28/2019 10:49 AM BAKELITE MOLDER): A1c 6.2 without hypoglycemia. Advised to continue [...] goal hba1c is under 7.0 to prevent fci diabetes complications ( eye , kidney and [...] goal hba1c is under 7.0 to prevent fci diabetes complications ( eye , kidney and [...] Type Department Care Team Description 03/20/2024 Telephone [facility] Diabetes and Endocrinology [address] [place] [phone] Stephanie Ruiz NP 03/13/2024 Telephone [facility] Diabetes and Endocrinology [address] [place] [phone] Stephanie Ruiz, [employer] Med Management 03/06/2024 Orders Only [facility] Diabetes and Endocrinology [address] [place] [phone] Provider, MD Mylene from Last 3 Months Immunizations Immunization Administration [...] on file Legal Sex Female 6:58 PM BAKELITE MOLDER Gender Identity Not on file Sexual Orientation Not on file 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 Not on file Not on file Obstetrics History Last Filed Vital Signs Vital Sign Reading Time Taken Comments Blood Pressure 126/66 02/27/2024 1:48 PM BAKELITE MOLDER Pulse 71 02/27/2024 1:48 PM BAKELITE MOLDER Temperature 36.6 C (97.8 F) 10/18/2019 4:00 PM CDT Respiratory Rate 18 02/27/2024 1:48 PM BAKELITE MOLDER Oxygen Saturation 98% 12/10/2023 10:39 AM CDT Inhaled Oxygen Concentration - - Weight 96.2 kg (212 lb) 02/27/2024 1:48 PM BAKELITE MOLDER Height 154.9 cm (5' 0.98 ) 02/27/2024 1:48 PM CS T Body Mass Index 40.08 02/27/2024 1:48 PM BAKELITE MOLDER Plan of Treatment Health Maintenance Due Date Last Done Comments Colon Cancer Screening-Colonoscopy 1950 Hepatitis C Screening 1950 Hepatitis B Screening 09/19/1967 Zoster Vaccine (2 of 3) 01/30/2013 12/05/2012 Well Visit 65+ 2014 Fall Risk Assessment 10/17/2020 10/18/2019 DTaP/Tdap/Td Vaccine (2 - Td or Tdap) 09/03/2022 09/03/2012 Depression Screening 09/15/2022 09/15/2021, 05/05/2021, 05/04/2020, Additional history exists Osteoporosis Screening-Bone Density Scan 09/14/2023 09/13/2021 Breast Cancer Screening-Mammogram 10/26/2023 10/25/2022, 10/25/2022, 09/13/2021, Additional history exists Hemoglobin A1C 08/26/2024 02/27/2024, 10/13, 06/12/2023, Additional history exists Lipid Panel 08/29/2024 08/30/2023, 02/13, 03/14/2022, Additional history exists Influenza Vaccine (Season Ended) 2024 10/28/2018, 11/19/2017, 11/15/2016, Additional history exists Foot Exam 10/31/2024 11/01/2023, 10/13, 02/19/2023, Additional history exists Dilated Eye Exam 11/12/2024 11/13/2023, 02/2022, 10/07/2021, Additional history exists eGFR 02/26/2025 02/27/2024, 02/13, 02/15/2022, Additional history exists Albumin Creatinine Ratio, Urine 02/27/2025 02/28/2024, 12/07/2022, 09/16/2021, Additional history exists Pneumococcal vaccine 65+ Completed 11/19/2017, 05/2016 Procedures Procedure Name Priority Date/Time Associated Diagnosis Comments ALBUMIN CREATININE RATIO, URINE Routine 02/28/2024 8:00 AM BAKELITE MOLDER Type 2 diabetes mellitus with hyperglycemia, with long-term current use of insulin (HCC) EGFR Routine 02/27/2024 2:39 PM BAKELITE MOLDER Type 2 diabetes mellitus with hyperglycemia, with long-term current use of insulin (HCC) POCT HEMOGLOBIN A1C Routine 02/27/2024 2 :04 PM BAKELITE MOLDER Type 2 diabetes mellitus with hyperglycemia, with long-term current use of insulin (HCC) DIABETES EYE EXAM Routine 11/13/2023 8:02 AM CDT HM DIABETES FOOT EXAM Routine 11/01/2023 8:39 AM CDT LIPID PANEL Routine 08/30/2023 7:43 AM CDT from Last 3 Months or Most Recently Relevant to Health Maintenance Results * Albumin Creatinine Ratio, Urine (02/28/2024 8:00 AM BAKELITE MOLDER) SCRIBED Creatinine, Urine 195.8 28 - 217 EXTERNAL LAB SCRIBED Microalbumin 1.5 <2.0 - NA EXTERNAL LAB SCRIBED Microalb/Creat Ratio 7.7 <30.0 - NA EXTERNAL LAB Urine 02/28/2024 8:00 AM BAKELITE MOLDER us Stephanie Ruiz [employer] LAB URINE ORDERABLES Barbara l Result EXTERNAL LAB * (ABNORMAL) eGFR (02/27/2024 2:39 PM BAKELITE MOLDER) eGFR 55(L) >=60 mL/min/1. 73 m2 Comment: [...] last reviewed 2020. Blood 02/27/2024 2:39 PM BAKELITE MOLDER 02/27/2024 9:48 PM BAKELITE MOLDER Result [facility] Stephanie Ruiz [employer] LAB BLOOD ORDERABLES Barbara l Result [id number] [place] [address] * (ABNORMAL) POCT hemoglobin A1c (02/27/2024 2:04 PM BAKELITE MOLDER) Hemoglobin A1C, POC 7.0 4.0 - 5.6 % Blood 02/27/2024 2:04 PM BAKELITE MOLDER Result [facility] Stephanie Ruiz [employer] POINT OF CARE TEST ORDERA BLES Final Result * (ABNORMAL) DIABETES EYE EXAM (11/13/2023 8:02 AM CDT) Result [facility] Historical Provider HEALTH MAINTENANCE Final Result * DIABETES FOOT EXAM (11/01/2023 8:39 AM CDT) Result [facility] Historical Provider HEALTH MAINTENANCE Final Result * (ABNORMAL) Lipid panel (08/30/2023 7:43 AM CDT) SCRIBED Cholesterol, Total 126 0 - 200 EXTERNAL LAB SCRIBED HDL 40 40 - 100 EXTERNAL LAB SCRIBED LDL 65 0 - 100 EXTERNAL LAB SCRIBED Triglycerides 197(A) 0 - 150 EXTERNAL LAB Blood 08/30/2023 7:43 AM CDT Result [facility] Historical Provider MD LAB BLOOD ORDERABLES Barbara l Result EXTERNAL LAB from Last 3 Months or Most Recently Relevant to Health Maintenance Insurance UHC MEDICARE ADVANTAGE [facility] MEDICARE Address: [facility] [address] [place] [address] [facility] MED[facility] Advance Directives For more information, please contact: [phone] Documents on File Type Date Recorded Patient Flight Kitchen Manager Expl anation ADVANCE DIRECTIVE 10/10/2019 10:36 AM Pratibha r of Clinic Supervisor-Medical * Full Code (Latest Code Status on File) Date Activated Date Inactivated Comments 10/17/2019 7:55 PM 10/18/2019 10:54 PM Care Teams Green Prize Packer Relationship Specialty Start Date End Date Frantz Matthews MD PCP - General Family Practice 12/10/23
[2024-06-02 10:32] LABS: Vitamin D 25 Hydroxy 47.3 ng/mL
== END 2024-06-02 08:53 | disposition home or self-care (01) ==
LOC: ANHLAB 08:53
PROVIDERS: PCP Family Medicine; Visit Provider Family Medicine
DX: D72.829 Elevated white blood cell count, unspecified (principal); E55.9 Vitamin D deficiency, unspecified
CPT/HCPCS: 36415; 82306; 85025

== ENCOUNTER 2024-08-19 11:44 | Outpatient (CLI) | payer MEDICARE, SELFPAY ==
--- OUTSIDE RECORDS SUMMARY | 2024-08-19 11:48 | XMS_ITS | Clinical Summary ---
Author Organization [facility] Address [address] [place] [address] Care Team Providers Care Engine Repair Supervisor Name Role Phone BobottoVanesa Primary Care Provider [phone] Source Comments [facility],non-owned Affiliates and Associated Physician Practices is amultiple site organization consisting of ambulatory clinics and hospital sitesin [place] and [place]. This disclosure is being madepursuant to the Care Everywhere program and may not contain all information available regarding this patient. Last updated 17.[facility] Allergies Active Allergy Reactions Criticality Noted Date [...] 100.7 kg (222 lb) 04/15/2019 2:52 PM PRODUCT SPECIALIST Height 157.5 cm (5' 2) 04/15/2019 2:52 PM PRODUCT SPECIALIST Body Mass Index 40.6 04/15/2019 2:52 PM PRODUCT SPECIALIST Plan of Treatment Health Maintenance Due Date [...] complete this topic Insurance [employer] MEDICARE [facility] MANAGED MEDICARE ADV Care Teams Engine Repair Supervisor Relationship Specialty Start Date End Date Vanesa Horan DO [address] [place] [phone] PCP - General Family Medicine 12/28/16
--- OUTSIDE RECORDS SUMMARY | 2024-08-19 11:48 | XMS_ITS | Encounter Summary ---
Author Organization [facility] Address [address] [place] [address] Care Team Providers Care Direct Support Staff Member Name Role Phone Vanesa Horan DO Primary Care Provider [phone] Encounter Details Date Type Department Care Team (Late st Contact Info) Description 11/14/2023 Lab Requisition [facility] - DermPath Lab [address] [facility] [place] [address] Virginia Romero DO [address] [facility] [place] [address] Social History Tobacco Use Types Packs/Day Years [...] AM CDT) Case Report Dermatopathology Report Case: [id number] Authorizing Provider: Virginia Romero DO Collected: 11/14/2023 09:50 AM Ordering Location: [facility] - Received: 11/14/2023 04:50 PM DermPath Lab Pathologist: Jovanna Green MD Specimens: A) - Skin, left upper back B) - Skin, right lower back 1:53 PM CDT DERMATOPATHOLOGY LABORATORY Final Diagnosis Specimen A. SKIN, left upper back: LENTIGINOUS MELANOCYTIC NEVUS, COMPOUND TYPE, IRRITATED (D22.5) APPROXIMATES MARGIN CHRONIC PERIFOLLICULITIS (L73.8) Specimen B. SKIN, right lower back: COMPOUND MELANOCYTIC NEVUS, IRRITATED (D22.5) 1:53 PM CDT DERMATOPATHOLOGY LABORATORY at 1353 CDT Clinical History Nevus r/o atypia 1:53 PM CDT DERMATOPATHOLOGY LABORATORY Gross Description [...] measuring 8x7x2 mm. Jar 0. 1:53 PM CDT DERMATOPATHOLOGY LABORATORY Microscopic Description Specimen [...] junction and within the dermis. 1:53 PM CDT DERMATOPATHOLOGY LABORATORY Disclaimer An external and internal positive and negative controls are appropriate for the histochemical, immunohistochemical and immunofluorescence stain(s) in this case (if any), except where stated explicitly. The performance characteristics of the stain(s) cited in this report were developed and its performance characteristic determined by the Dermatopathology Laboratory at [facility], directed by Dr. Bruce Costa. These tests need not be, and therefore are not, approved by the [place] Food and Drug Administration. The tests are used for clinical purposes. Billing Codes Specimen Charges Stain Charges 91532 [id number] 1 1 4 1:53 PM CDT DERMATOPATHOLOGY LABORATORY Embedded Images 1:53 PM CDT DERMATOPATHOLOGY LABORATORY Pathology/Cytology TISSUE SPECIMEN FROM SKIN / Unknown 11/14/2023 9:50 AM CDT 11/14/2023 4:50 PM CDT Miscellaneous samples (specimen) TISSUE SPECIMEN FROM SKIN / Unknown 11/14/2023 9:50 AM CDT 11/14/2023 4:50 PM CDT us Virginia Romero DO LAB - PATHOLOGY/CYTOLOGY ORDERABLES Final Result DERMATOPATHOLOGY LABORATORY [facility] - Department of Dermatology [address] [phone] documented in this encounter Visit Diagnoses Not on filedocumented in this encounter Care Teams Direct Support Staff Member Relationship Specialty Start Date End Date Vanesa Horan DO [address] [place] [phone] PCP - General Family Medicine 12/28/16 documented as of this encounter
--- OUTSIDE RECORDS SUMMARY | 2024-08-19 11:48 | XMS_ITS | Clinical Summary ---
Author Organization [facility] [place] [address] Address [address] [place] [address] Care Team Providers Care Staff Field Engineer Name Role Phone Frantz Matthews MD Primary Care Provider [phone] Allergies Active Allergy Reactions Criticality Noted Date Comments Amoxicillin-Pot Clavulanate Diarrhea Low 01/01/2017 Empagliflozin Other (See comments) Low 09/15/2021 vulvovaginitis Latex Shortness of breath,Rash High 01/01/2017 Meperidine Nausea & Vomiting Low Oxybutynin Hives,Urticaria Medium 01/01/2017 Semaglutide Vomiting High 10/30/2019 Nausea and vomiting Medications esomeprazole DR (NexIUM) 40 mg capsule take 1 capsule (40MG) by oral route every day 0 01/25/20 12 Active olmesartan (BENICAR) 40 mg tablet take 1 tablet by oral route every day 0 0 12/06/19 14 Active albuterol HFA (PROVENTIL HFA,VENTOLIN HFA,PROAIR HFA) 90 [...] mg total) by mouth as needed 09/01/19 Active cholecalciferol (VITAMIN D-3) 25 mcg (1,000 unit) tablet Take 1 tablet (1,000 Units total) by mouth every morning Active Ofev 150 mg capsule 12/16/19 Active chlorthalidone 25 mg tablet Take 1 tablet (25 mg total) by mouth daily Active diltiaZEM CD (CARDIZEM CD) 360 mg 24 hr capsule 05/07/19 21 Active rosuvastatin (CRESTOR) 10 mg tablet 04/13/19 22 Active flash glucose sensor (FreeStyle Kaleigh 2 Sensor) kit Change every 14 days 2 kit 11 11/26/19 22 Active flash glucose scanning reader (FreeStyle Kaleigh 2 [place]) [facility] [place] As directed 1 each 11/26/19 22 Active [...] hyperglycemia, with long-term current use of insulin ([facility]) USE STRIP TO CHECK GLUCOSE 3 TIMES DAILY BEFORE MEAL(S) 300 each 3 01/23/20 24 Active pen needle, diabetic 32 gauge x 5/32 needle USE 1 PEN NEEDLE THREE TIMES DAILY Dx.E11.65 300 each 2 03/20/19 25 Active SITagliptin phos-metformin (Janumet) 50-1,000 mg per tabletIndications: Type 2 diabetes mellitus with hyperglycemia, with long-term current use of insulin (HCC) Take 1 tablet by mouth 2 (two) times a day with meals 180 tablet 1 04/02/19 25 Active LANTUS 100 unit/mL (3 mL) pen for injectionIndicatio ns:Type 2 diabetes mellitus with hyperglycemia, with long-term current use of insulin ([facility]) INJECT 26 UNITS SUBCUTANEOUSLY NIGHTLY 15 mL 06/11/19 25 Active Additional Information Patient taking differently: 20 Units subcutaneous Nightly, Reported on 06/27/2024 FreeStyle Kaleigh 3 [place] misc 03/21/19 25 Active albuterol 2.5 mg /3 mL (0.083 %) nebulizer solution USE 2 VIAL IN NEBULIZER EVERY 4 TO 6 HOURS NEEDED FOR SHORTNESS OF BREATH AND FOR WHEEZING 03/12/19 25 Active Ofev 100 mg capsule 05/16/19 25 Active tirzepatide (Mounjaro) 5 mg/0.5 mL pen injector injectionIndicatio ns:type 2 diabetes mellitus Inject 0.5 mL (5 mg total) under the skin every 7 days 6 mL 3 06/20/19 25 026 Active ezetimibe (ZETIA) 10 mg tabletIndications: Type 2 diabetes mellitus with hyperglycemia, with long-term current use of insulin ([facility]) Take 1 tablet by mouth once daily 90 tablet 07/03/19 25 Active NovoLOG 100 unit/mL (3 mL) pen for injectionIndicatio ns:Type 2 diabetes mellitus with hyperglycemia, with long-term current use of insulin ([facility]) INJECT 12 TO 18 UNITS SUBCUTANEOUSLY TWICE DAILY BEFORE BREAKFAST AND BEFORE SUPPER 15 mL 07/18/19 25 Active Active Problems Patient Care Coordination [...] 02/27/2024 Assessment & Plan (02/27/2024 3:01 PM RESIDENTIAL SOLAR CONSULTANT): Chronic problem. Limited activity d/t Interstitial Lung Disease. Will send in Mounjaro 2.5mg weeklyx 4 then increase to 5mg weekly to see if able to help with weight loss. Discussed healthy diet and importance of regular physical activity (20- 30min/day, 150min/wk). ILD (interstitial lung disease) 10/09/2019 Overview (10/09/2019): Added automatically from request for surgery [id number] Lung nodule 10/09/2019 Overview (10/09/2019): Added automatically from request for surgery [id number] 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 2 diabetes mellitus 0 04/03/2019 Assessment & Plan (06/19/2024 2:17 PM CDT): Chronic problem. Controlled on current Rosuvastatin 10mg & zetia 10mg. Last lipid panel: 08/30/23 LDL=65, TV=517. Assessment & Plan (02/27/2024 1:54 PM RESIDENTIAL SOLAR CONSULTANT): Chronic problem. Controlled on current Rosuvastatin 10mg & zetia 10mg. Last lipid panel: 08/30/23 LDL=65, PA=909. Assessment & Plan (10/25/2023 2:05 PM CDT): Chronic problem. Controlled on current Rosuvastatin 10mg & zetia 10mg. Last lipid panel: 03/08/23 LDL=48, GV=989. Assessment & Plan (06/12/2023 3:56 PM CDT): Chronic, well-controlled. Continue statin therapy with rosuvastatin Assessment & Plan (03/08/2023 4:37 PM RESIDENTIAL SOLAR CONSULTANT): Chronic, well-controlled Continue statin therapy with rosuvastatin Assessment & Plan (12/07/2022 2:24 PM CDT): Chronic problem. Controlled on current Rosuvastatin 10mg & zetia 10mg. Last lipid panel: 03/14/22 LDL=52, EK=893. Assessment & Plan (07/05/2022 2:12 PM CDT): Chronic problem. On statin therapy, no changes. Assessment & Plan (03/09/2022 3:07 PM RESIDENTIAL SOLAR CONSULTANT): Chronic, well controlled Low fat Low cholesterol [...] Pravachol Assessment & Plan (12/25/2019 1:24 PM RESIDENTIAL SOLAR CONSULTANT): Goal of treatment , LDL cholesterol less [...] recently Assessment & Plan (04/03/2019 11:15 AM RESIDENTIAL SOLAR CONSULTANT): Goal of treatment , LDL cholesterol less [...] associated with diabetes 07/16/2018 Assessment & Plan (06/19/2024 2:17 PM CDT): Chronic problem. Controlled on current olmesartan 40mg daily, diltiazem CD 360mg daily, chlorthalidone 25mg daily Assessment & Plan (02/27/2024 1:54 PM RESIDENTIAL SOLAR CONSULTANT): Chronic problem. Controlled on current olmesartan 40mg daily, diltiazem CD 360mg daily, chlorthalidone 25mg daily Assessment & Plan (10/25/2023 2:23 PM CDT): Chronic problem. Controlled on current olmesartan 40mg daily, diltiazem CD 360mg daily, chlorthalidone 25mg daily Assessment & Plan (03/08/2023 4:37 PM RESIDENTIAL SOLAR CONSULTANT): Chronic, well-controlled Continue current regimen including ARB [...] Olmesartan Assessment & Plan (12/25/2019 1:23 PM RESIDENTIAL SOLAR CONSULTANT): Goal blood pressure is less than 140/85 [...] Olmesartan Assessment & Plan (01/28/2019 10:48 AM RESIDENTIAL SOLAR CONSULTANT): Controlled on current medications. Continue plan. Assessment & Plan (07/16/2018 3:53 PM CDT): Goal blood pressure is less than 140/85 Low salt diet recommended Daily aerobic exercise Continue current meds, including PATRIC-I or ARB Type 2 diabetes mellitus wit h hyperglycemia, with long-term current use of insulin 05/07/2018 Assessment & Plan (06/19/2024 3:03 PM CDT): Chronic problem. A1c at goal & improved from 7.0% 02/26/23 to now 6.3%. We want to avoid lows at this point. May need to start to lowering the Novolog. If blood sugar less than 100 & not eating much at the meal--hold the Novolog. As weight lowers--may require less & less insulin. May need to start dropping both meal time & long acting insulins. Current medications: Janumet 1 tab twice daily Mounjaro 5mg weekly. Lantus 18 units every evening Novolog 8 units three times daily with meals For sugars over 160, take 10 units For sugars over 200, take 12 unit UTD on labs. UTD on DM eye exam (11/13/23 mild NPDR wo [facility]) Strive for regular exercise (30min most days) and diet (get at least 4-5 servings of fruit and veggies daily, avoid processed foods, increase lean protein intake and decrease carb portions as well as fruit juices, regular soda & desserts). Watch carbs and simple sugars. Check the blood sugar Freestyle kaleigh 2. Check the feet daily for skin breakdown and infection. Assessment & Plan (02/27/2024 3:00 PM RESIDENTIAL SOLAR CONSULTANT): Chronic problem. A1c worsened from 8.1% 10/25/23 [...] results. UTD on DM eye exam (12/2023 [facility]). Letter sent to get copy of [...] UTD on labs. DM eye exam 09/2022 [facility]. Has appt next week; will send letter [...] dinner Assessment & Plan (03/08/2023 4:37 PM RESIDENTIAL SOLAR CONSULTANT): Hba1c was Lab Results Component Value Date [...] Janumet. Assessment & Plan (03/09/2022 3:06 PM RESIDENTIAL SOLAR CONSULTANT): Hba1c was Lab Results Component Value Date [...] CGM Assessment & Plan (12/25/2019 1:23 PM RESIDENTIAL SOLAR CONSULTANT): Hba1c was Lab Results Component Value Date [...] provided. Assessment & Plan (04/03/2019 11:15 AM RESIDENTIAL SOLAR CONSULTANT): Hba1c was Lab Results Component Value Date [...] current Assessment & Plan (01/28/2019 10:49 AM RESIDENTIAL SOLAR CONSULTANT): A1c 6.2 without hypoglycemia. Advised to continue [...] goal hba1c is under 7.0 to prevent mcfp diabetes complications ( eye , kidney and [...] goal hba1c is under 7.0 to prevent press tender long goods diabetes complications ( eye , [...] Encounters Date Type Department Care Team Description 08/07/2024 10:15 AM CDT Ancillary Procedure [facility] Cardiology at [address] [place] [address] Aortic valve sclerosis 08/07/2024 Results Follow-Up [facility] Cardiology [address] [facility] [address] [place] [phone] Jeanna Hines NP Transthoracic Echo (TTE) Complete W Doppler/CF 06/27/2024 1:00 PM CDT Office Visit [facility] Cardiology [address] [place] [phone] Jeanna Hines NP Aortic valve sclerosis (Primary Dx); Mild mitral valve regurgitation 06/19/2024 2:00 PM CDT Office Visit [facility] Diabetes and Endocrinology [address] [place] [phone] Stephanie Ruiz NP Type 2 diabetes mellitus with hyperglycemia, with long-term current use of insulin (HCC) (Primary Dx); Hypertension associated with diabetes (HCC); 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) 06/19/2024 Telephone [facility] Diabetes and Endocrinology [address] [place] [phone] Stephanie Ruiz NP Dexcom from Last 3 Months Immunizations Immunization Administration [...] Date Smoking Tobacco: Never Smokeless Tobacco: Never Tobacco Cessation:Counseling Given: Not Answered Alcohol Use Standard Drinks/Week Comments Yes 0 (1 standard drink = 0.6 oz pur e alcohol) rarely 1-2 drinks per year PHQ-2 Answer Date Recorded PHQ-2 Total Score (If total score is 3 or more points, staff should administer the PHQ-9) 0 09/15/2021 Comments No Sex and Gender Information Value Date Recorded Sex Assigned at Not on file Legal Sex Female 6:58 PM RESIDENTIAL SOLAR CONSULTANT Gender Identity Not on file Sexual Orientation Not on file 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 on file Not on file Not on file Obstetrics History Last Filed Vital Signs Vital Sign Reading Time Taken Comments Blood Pressure 110/54 06/27/2024 1:00 PM CDT Pulse 68 06/27/2024 1:00 PM CDT Temperature 36.6 C (97.8 F) 10/18/2019 4:00 PM CDT Respiratory Rate 18 06/19/2024 1:51 PM CDT Oxygen Saturation 98% 06/27/2024 1:00 PM CDT Inhaled Oxygen Concentration - - Weight 89.8 kg (198 lb) 06/27/2024 1:00 PM CDT Height 154.9 cm (5' 1) 06/27/2024 1:00 PM CDT Body Mass Index 37.41 06/27/2024 1:00 PM CDT Plan of Treatment Health Maintenance Due Date Last Done Comments Colon Cancer Screening-Colonoscopy 1950 Hepatitis C Screening 1950 Hepatitis B Screening 09/19/1967 Zoster Vaccine (2 of 3) 01/30/2013 12/05/2012 Well Visit 65+ 2014 Fall Risk Assessment 10/17/2020 10/18/2019 DTaP/Tdap/Td Vaccine (2 - Td or Tdap) 09/03/2022 09/03/2012 Depression Screening 09/15/2022 09/15/2021, 05/05/2021, 05/04/2020, Additional history exists Osteoporosis Screening-Bone Density Scan 09/14/2023 09/13/2021 Lipid Panel 08/29/2024 08/30/2023, 02/13, 03/14/2022, Additional history exists Influenza Vaccine (#1) 2024 9, 11/19/2017, 11/15/2016, Additional history exists Dilated Eye Exam 11/12/2024 11/13/2023, 02/2022, 10/07/2021, Additional history exists Hemoglobin A1C 12/20/2024 06/19/2024, 02/12, 10/25/2023, Additional history exists eGFR 02/26/2025 02/27/2024, 02/13, 02/15/2022, Additional history exists Albumin Creatinine Ratio, Urine 02/27/2025 02/28/2024, 12/07/2022, 09/16/2021, Additional history exists Breast Cancer Screening-Mammogram 04/30/2025 04/30/2024, 04/30/2024, 10/25/2022, Additional history exists Foot Exam 06/19/2025 06/19/2024, 10/13, 10/25/2023, Additional history exists Pneumococcal vaccine 65+ Completed 11/19/2017, 05/2016 Procedures Procedure Name Priority Date/Time Associated Diagnosis Comments TRANSTHORACIC ECHO (TTE) COMPLETE W DOPPLER/CF WO CONTRAST Routine 08/07/2024 12:13 PM CDT Aortic valve sclerosis POCT GLUCOSE Routine 06/19/2024 2:01 PM CDT Type 2 diabetes mellitus with hyperglycemia, with long-term current use of insulin (HCC) POCT HEMOGLOBIN A1C Routine 06/19/2024 2 :01 PM CDT Type 2 diabetes mellitus with hyperglycemia, with long-term current use of insulin (HCC) ALBUMIN CREATININE RATIO, URINE Routine 02/28/2024 8:00 AM RESIDENTIAL SOLAR CONSULTANT Type 2 diabetes mellitus with hyperglycemia, with long-term current use of insulin (HCC) EGFR Routine 02/27/2024 2:39 PM RESIDENTIAL SOLAR CONSULTANT Type 2 diabetes mellitus with hyperglycemia, with long-term current use of insulin (HCC) DIABETES EYE EXAM Routine 11/13/2023 8:02 AM CDT HM DIABETES FOOT EXAM Routine 11/01/2023 8:39 AM CDT LIPID PANEL Routine 08/30/2023 7:43 AM CDT from Last 3 Months or Most Recently Relevant to Health Maintenance Results * TRANSTHORACIC ECHO (TTE) COMPLETE W DOPPLER/CF WO CONTRAST (08/07/2024 12:13 PM CDT) Estimated EF 65-70 % CONS SCIMAGE EF Mod BP 58 % CONS SCIMAGE Anatomical Region Laterality Modality Ultrasound 08/07/2024 10:1 6 AM CDT Narrative 08/07/2024 12:38 PM CDT [facility] Cardiology [address], [address], [place] [address] P:[phone] P:[phone] Echocardiographic Report Patient Name: MERCEDES GARCIA : 1950 Study Date: 08/07/2024 10:16:04 AM Gender: F Forester Aide: GERMAIN Location: [facility] Ref Provider: JEANNA HINES Height(Cm): 155 BSA: 1.97 Weight(Kg): 89.8 Heart Rate: 64 BP: 110 / 54 Quality: Good Order Provider: JEANNA HINES PROCEDURES: Echocardiographic Report: Transthoracic echocardiogram with complete 2D, M-Mode, and color Doppler examination. With Strain Analysis. INDICATIONS: Aortic Valve Sclerosis. MEASUREMENTS: 2D/MM Value Range Doppler Value Range EF Mod BP 58 % [ 54 - 74 ] NICO Vmax 1.40 cm2 [ 2.00 - 4.00 ] EF Teich MM 60 % [ 54 - 74 ] AV Mean PG 10 mmHg Estimated EF 65-70 % AV Peak Galindo 2.21 m/s [ 1.00 - 1.70 ] LVIDd 2D 4.10 cm [ 3.80 - 5.20 ] AV Peak PG 20 mmHg LVIDd MM 5.31 cm [ 3.80 - 5.20 ] AV VTI 44.82 cm LVIDs 2D 2.76 cm [ 2.20 - 3.50 ] LVOT Diam 2.01 cm [ 1.70 - 2.10 ] LVIDs MM 3.60 cm [ 2.20 - 3.50 ] LVOT Peak Galindo 0.98 m/s [ 0.70 - 1.10 ] LVPWd 2D 1.07 cm [ 0.60 - 0.90 ] LVOT VTI 22.82 cm LVPWd MM 1.15 cm [ 0.60 - 0.90 ] MV E Peak Galindo 0.83 m/s [ 0.60 - 1.30 ] IVSd 2D 1.10 cm [ 0.60 - 0.90 ] MV A Peak Galindo 1.09 m/s [ 1.00 - 1.20 ] IVSd MM 1.21 cm [ 0.60 - 0.90 ] MV Decel Time 224 msec [ 104 - 258 ] LA Dimension MM 4.18 cm [ 2.70 - 3.80 ] PV Peak Galindo 1.09 m/s [ 0.40 - 0.80 ] AoR Diam MM 3.17 cm [ 2.70 - 3.70 ] TR Peak Galindo 2.87 m/s [ 1.00 - 2.80 ] LA Volume Index 22 cc/m2 [ 16 - 34 ] TR Peak PG 33 mmHg ACS MM 1.67 cm RVSP 41.00 mmHg [ 10.00 - 36.00 ] Lateral E` 0.08 m/s [ 0.10 - 0.15 ] E/E` 10 2D/MM Value Range Doppler Value Range - FINDINGS: Interpretation Site: Exam was interpreted at [facility]. Left Ventricle: Normal left ventricular systolic function. No focal wall motion abnormalities. Normal left ventricular size. Mild concentric left ventricular hypertrophy. Impaired diastolic relaxation Grade I. Ejection Fraction is visually estimated to be 65-70 %. Global Longitudinal Strain is -17 %. GLS is borderline. Right Ventricle: Normal right ventricular size. Normal right ventricular systolic function. Left Atrium: There is mild enlargement of left atrium. Right Atrium: The right atrium is normal in size. Atrial Septum: Normal atrial septum. Mitral Valve: Mitral valve leaflets appear mildly thickened and moderate size calcified nodule on the anterior leaflet. Mild mitral valve regurgitation. There is no hemodynamically significant mitral stenosis by Doppler. Aortic Valve: Mild aortic stenosis. Peak Velocity of 2.21 m/s. Peak gradient of 20.0 mmHg. Mean gradient of 10.0 mmHg. Valve area of 1.4 cm2. Aortic cusps appear moderately calcified. Trileaflet aortic valve. Trace aortic valve regurgitation. Tricuspid Valve: Normal appearance of the tricuspid valve. Mild pulmonary hypertension based on right ventricular systolic pressure. Estimated peak RVSP is 41 mmHg. Mild tricuspid regurgitation. Pulmonic Valve: Normal appearance of the pulmonic valve. No pulmonic stenosis. Mild pulmonic regurgitation. Pericardium: Normal pericardium with no significant pericardial effusion. Aorta: No aortic root dilation. IVC: Normal size and normal respiratory collapse consistent with normal right atrial pressure (<5 mmHg). CONCLUSIONS: Normal left ventricular systolic function. No focal wall motion abnormalities. Normal left ventricular size. Mild concentric left ventricular hypertrophy. Impaired diastolic relaxation Grade I. Ejection Fraction is visually estimated to be 65-70 %. Global Longitudinal Strain is -17 %. GLS is borderline. There is mild enlargement of left atrium. Mitral valve leaflets appear mildly thickened and moderate size calcified nodule on the anterior leaflet. Mild mitral valve regurgitation. Mild aortic stenosis. Peak Velocity of 2.21 m/s. Peak gradient of 20.0 mmHg. Mean gradient of 10.0 mmHg. Valve area of 1.4 cm2. Aortic cusps appear moderately calcified. Trileaflet aortic valve. Trace aortic valve regurgitation. Mild pulmonary hypertension based on right ventricular systolic pressure. Estimated peak RVSP is 41 mmHg. Mild tricuspid regurgitation. Mild pulmonic regurgitation. Normal sinus rhythm. Electronically Signed By: Parker Reynaga MD 08/07/2024 12:38:18 PM CDT Procedure Note Parker Reynaga MD - 08/07/2024 [facility] Cardiology [address], [address], [place] [address] P:[phone] P:[phone] Echocardiographic Report Patient Name: MERCEDES GARCIA : 1950 Study Date: 08/07/2024 10:16:04 AM Gender: F Forester Aide: Location: [facility] Ref Provider: JEANNA HINES Height(Cm): 155 BSA: 1.97 Weight(Kg): 89.8 Heart Rate: 64 BP: 110 / 54 Quality: Good Order Provider: JEANNA HINES PROCEDURES: Echocardiographic Report: Transthoracic echocardiogram with complete 2D, M-Mode, and color Dopplerexamination. With Strain Analysis. INDICATIONS: Aortic Valve Sclerosis. MEASUREMENTS: 2D/MM Value Range Doppler ValueRange EF Mod BP 58 % [ 54 - 74 ] NICO Vmax 1.40cm2 [ 2.00 - 4.00 ] EF Teich MM 60 % [ 54 - 74 ] AV Mean PG 10mmHg Estimated EF 65-70 % AV Peak Galindo 2.21m/s [ 1.00 - 1.70 ] LVIDd 2D 4.10 cm [ 3.80 - 5.20 ] AV Peak PG 20mmHg LVIDd MM 5.31 cm [ 3.80 - 5.20 ] AV VTI 44.82cm LVIDs 2D 2.76 cm [ 2.20 - 3.50 ] LVOT Diam 2.01 cm[ 1.70 - 2.10 ] LVIDs MM 3.60 cm [ 2.20 - 3.50 ] LVOT Peak Galindo 0.98m/s [ 0.70 - 1.10 ] LVPWd 2D 1.07 cm [ 0.60 - 0.90 ] LVOT VTI 22.82cm LVPWd MM 1.15 cm [ 0.60 - 0.90 ] MV E Peak Galindo 0.83m/s [ 0.60 - 1.30 ] IVSd 2D 1.10 cm [ 0.60 - 0.90 ] MV A Peak Galindo 1.09m/s [ 1.00 - 1.20 ] IVSd MM 1.21 cm [ 0.60 - 0.90 ] MV Decel Time 224msec [ 104 - 258 ] LA Dimension MM 4.18 cm [ 2.70 - 3.80 ] PV Peak Galindo 1.09m/s [ 0.40 - 0.80 ] AoR Diam MM 3.17 cm [ 2.70 - 3.70 ] TR Peak Galindo 2.87m/s [ 1.00 - 2.80 ] LA Volume Index 22 cc/m2 [ 16 - 34 ] TR Peak PG 33mmHg ACS MM 1.67 cm RVSP 41.00mmHg [ 10.00 - 36.00 ] Lateral E` 0.08 m/s [ 0.10 - 0.15 ] E/E` 10 2D/MM Value Range Doppler ValueRange - FINDINGS: Interpretation Site: Exam was interpreted at [facility]. Left Ventricle: Normal left ventricular systolic function. No focal wall motionabnormalities. Normal left ventricular size. Mild concentric left ventricular hypertrophy.Impaired diastolic relaxation Grade I. Ejection Fraction is visually estimated to be 65-70 %.Global Longitudinal Strain is -17 %. GLS is borderline. Right Ventricle: Normal right ventricular size. Normal right ventricular systolicfunction. Left Atrium: There is mild enlargement of left atrium. Right Atrium: The right atrium is normal in size. Atrial Septum: Normal atrial septum. Mitral Valve: Mitral valve leaflets appear mildly thickened and moderate size calcifiednodule on the anterior leaflet. Mild mitral valve regurgitation. There is nohemodynamically significant mitral stenosis by Doppler. Aortic Valve: Mild aortic stenosis. Peak Velocity of 2.21 m/s. Peak gradient of 20.0mmHg. Mean gradient of 10.0 mmHg. Valve area of 1.4 cm2. Aortic cusps appearmoderately calcified. Trileaflet aortic valve. Trace aortic valve regurgitation. Tricuspid Valve: Normal appearance of the tricuspid valve. Mild pulmonary hypertensionbased on right ventricular systolic pressure. Estimated peak RVSP is 41 mmHg. Mildtricuspid regurgitation. Pulmonic Valve: Normal appearance of the pulmonic valve. No pulmonic stenosis. Mildpulmonic regurgitation. Pericardium: Normal pericardium with no significant pericardial effusion. Aorta: No aortic root dilation. IVC: Normal size and normal respiratory collapse consistent with normal rightatrial pressure (<5 mmHg). CONCLUSIONS: Normal left ventricular systolic function. No focal wall motionabnormalities. Normal left ventricular size. Mild concentric left ventricular hypertrophy.Impaired diastolic relaxation Grade I. Ejection Fraction is visually estimated to be 65-70 %.Global Longitudinal Strain is -17 %. GLS is borderline. There is mild enlargement of left atrium. Mitral valve leaflets appear mildly thickened and moderate size calcifiednodule on the anterior leaflet. Mild mitral valve regurgitation. Mild aortic stenosis. Peak Velocity of 2.21 m/s. Peak gradient of 20.0mmHg. Mean gradient of 10.0 mmHg. Valve area of 1.4 cm2. Aortic cusps appearmoderately calcified. Trileaflet aortic valve. Trace aortic valve regurgitation. Mild pulmonary hypertension based on right ventricular systolic pressure.Estimated peak RVSP is 41 mmHg. Mild tricuspid regurgitation. Mild pulmonic regurgitation. Normal sinus rhythm. Electronically Signed By: Parker Reynaga MD 08/07/2024 12:38:18 PM CDT us Jeanna Hines NP CV ECHO PROCEDURES Final Result * (ABNORMAL) POCT hemoglobin A1c (06/19/2024 2:01 PM CDT) [facility] Hemoglobin A1C, POC 6.3(A) 4.0 - 5.6 % Blood 06/19/2024 2:01 PM CDT us Stephanierito Ruiz NP POINT OF CARE TEST ORDERA BLES Final Result * POCT glucose (06/19/2024 2:01 PM CDT) [facility] Glucose Blood, POC 94 Normal Fasting 70 - 100, Random <200 mg/dL Blood 06/19/2024 2:01 PM CDT us Stephanierito Ruiz NP POINT OF CARE TEST ORDERA BLES Final Result * Albumin Creatinine Ratio, Urine (02/28/2024 8:00 AM RESIDENTIAL SOLAR CONSULTANT) [facility] SCRIBED Creatinine, Urine 195.8 28 - 217 EXTERNAL LAB SCRIBED Microalbumin 1.5 <2.0 - NA EXTERNAL LAB SCRIBED Microalb/Creat Ratio 7.7 <30.0 - NA EXTERNAL LAB Urine 02/28/2024 8:00 AM RESIDENTIAL SOLAR CONSULTANT us Stephanie Ruiz [facility] LAB URINE ORDERABLES Barbara l Result EXTERNAL LAB * (ABNORMAL) eGFR (02/27/2024 2:39 PM RESIDENTIAL SOLAR CONSULTANT) [facility] eGFR 55(L) >=60 mL/min/1. 73 m2 Comment: [...] last reviewed 2020. Blood 02/27/2024 2:39 PM RESIDENTIAL SOLAR CONSULTANT 02/27/2024 9:48 PM RESIDENTIAL SOLAR CONSULTANT Stephanie Ruiz [address] [employer] LAB BLOOD ORDERABLES Barbara l Result [facility] [id number] [place] [address] * (ABNORMAL) DIABETES EYE EXAM (11/13/2023 8:02 [...] EXTERNAL LAB Blood 08/30/2023 7:43 AM CDT us Historical Provider LAB BLOOD ORDERABLES Barbara jose j Result EXTERNAL LAB from Last 3 Months or Most Recently Relevant to Health Maintenance Insurance [facility] MEDICARE ADVANTAGE [facility] MEDICARE [facility] MEDICARE Advance Directives For more information, please contact: [phone] Documents on File Type Date Recorded 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
--- OUTSIDE RECORDS SUMMARY | 2024-08-19 11:48 | XMS_ITS | Encounter Summary ---
Author Organization [facility] Healthcare Address [address] [place] [address] Care Team Providers Care Decision Support Manager Name Role Phone Frantz Matthews MD Primary Care Provider [phone] Encounter Details Date Type Department Care Team (Late st Contact Info) Description 08/07/2024 Results Follow-Up [facility] Medical Group Cardiology [address] [place] [phone] Jeanna Hines NP [address] [place], [place] [id number] Transthoracic Echo (TTE) Complete W Doppler/CF Social History Tobacco Use Types Packs/Day Years [...] on file 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
--- OUTSIDE RECORDS SUMMARY | 2024-08-19 11:48 | XMS_ITS | Referral Summary ---
Author Organization [place] [address] Address [address] [place] [address] [address] [place] [address] Care Team Providers Care Waterfront Director Name Role Phone Frantz Matthews MD Primary Care Provider [phone] Encounters Date Type Department Care Team Description 08/07/2024 Results Follow-Up [facility] Cardiology [address] [place] [address] [address] [place] [address] Jeanna Hidalgo NP Transthoracic Echo (TTE) Complete W Doppler/CF 08/07/2024 10:15 AM CDT [address]illary Procedure [facility] Medical [facility] Cardiology at [address] [place] [address] Aortic valve sclerosis 06/27/2024 1:00 PM CDT Office Visit [facility] Cardiology [address] [place] [address] [address] [place] [address] Jeanna Hidalgo NP Aortic valve sclerosis (Primary Dx); Mild mitral valve regurgitation 06/19/2024 Telephone [facility] Diabetes and Endocrinology [address] [place] [phone] Stephanie Ruiz NP Dexcom 06/19/2024 2:00 PM CDT Office Visit [facility] Diabetes and Endocrinology [address] [place] [phone] Stephanie Ruiz NP Type 2 diabetes mellitus with hyperglycemia, with long-term current use of insulin (HCC) (Primary Dx); Hypertension associated with diabetes (HCC); 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) from Last 3 Months Allergies Active Allergy [...] flash glucose scanning reader (FreeStyle Kaleigh 2 [place]) misc As directed 1 each 11/26/19 22 [...] by mouth daily Active blood glucose diagnostic (Barcheyacht Ultra Test) stripIndications:T ype 2 diabetes mellitus with hyperglycemia, with long-term current use of insulin ([facility]) USE STRIP TO CHECK GLUCOSE 3 TIMES DAILY BEFORE MEAL(S) 300 each 3 01/23/20 24 Active pen needle, diabetic 32 gauge x 5/32 needle USE 1 PEN NEEDLE THREE TIMES DAILY Dx.E11.65 300 each 2 03/20/19 25 Active SITagliptin phos-metformin (Janumet) 50-1,000 mg per tabletIndications: Type 2 diabetes mellitus with hyperglycemia, with long-term current use of insulin ([facility]) Take 1 tablet by mouth 2 (two) times a day with meals 180 tablet 1 04/02/19 25 Active LANTUS 100 unit/mL (3 mL) pen for injectionIndicatio ns:Type 2 diabetes mellitus with hyperglycemia, with long-term current use of insulin ([facility]) INJECT 26 UNITS SUBCUTANEOUSLY NIGHTLY 15 mL 06/11/19 25 Active Additional Information Patient taking differently: 20 Units subcutaneous Nightly, Reported on 06/27/2024 FreeStyle Kaleigh 3 [place] misc 03/21/19 25 Active albuterol 2.5 mg [...] long-term current use of insulin ([facility]) INJECT 12 TO 18 UNITS SUBCUTANEOUSLY TWICE [...] 02/27/2024 Assessment & Plan (02/27/2024 3:01 PM EDUCATION AND TRAINING COORDINATOR): Chronic problem. Limited activity d/t Interstitial Lung Disease. Will send in Mounjaro 2.5mg weeklyx 4 then increase to 5mg weekly to see if able to help with weight loss. Discussed healthy diet and importance of regular physical activity (20- 30min/day, 150min/wk). ILD (interstitial lung disease) 10/09/2019 Overview (10/09/2019): Added automatically from request for surgery [id number] Lung nodule 10/09/2019 Overview (10/09/2019): Added automatically from request for surgery [id number] 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 2 diabetes mellitus 0 04/03/2019 Assessment & Plan (06/19/2024 2:17 PM CDT): Chronic problem. Controlled on current Rosuvastatin 10mg & zetia 10mg. Last lipid panel: 08/30/23 LDL=65, RZ=110. Assessment & Plan (02/27/2024 1:54 PM EDUCATION AND TRAINING COORDINATOR): Chronic problem. Controlled on current Rosuvastatin 10mg & zetia 10mg. Last lipid panel: 08/30/23 LDL=65, JM=774. Assessment & Plan (10/25/2023 2:05 PM CDT): Chronic problem. Controlled on current Rosuvastatin 10mg & zetia 10mg. Last lipid panel: 03/08/23 LDL=48, EO=647. Assessment & Plan (06/12/2023 3:56 PM CDT): Chronic, well-controlled. Continue statin therapy with rosuvastatin Assessment & Plan (03/08/2023 4:37 PM EDUCATION AND TRAINING COORDINATOR): Chronic, well-controlled Continue statin therapy with rosuvastatin Assessment & Plan (12/07/2022 2:24 PM CDT): Chronic problem. Controlled on current Rosuvastatin 10mg & zetia 10mg. Last lipid panel: 03/14/22 LDL=52, [place]=265. Assessment & Plan (07/05/2022 2:12 PM CDT): Chronic problem. On statin therapy, no changes. Assessment & Plan (03/09/2022 3:07 PM EDUCATION AND TRAINING COORDINATOR): Chronic, well controlled Low fat Low [...] Pravachol Assessment & Plan (12/25/2019 1:24 PM EDUCATION AND TRAINING COORDINATOR): Goal of treatment , LDL cholesterol [...] recently Assessment & Plan (04/03/2019 11:15 AM EDUCATION AND TRAINING COORDINATOR): Goal of treatment , LDL cholesterol [...] daily Assessment & Plan (02/27/2024 1:54 PM EDUCATION AND TRAINING COORDINATOR): Chronic problem. Controlled on current olmesartan 40mg daily, diltiazem CD 360mg daily, chlorthalidone 25mg daily Assessment & Plan (10/25/2023 2:23 PM CDT): Chronic problem. Controlled on current olmesartan 40mg daily, diltiazem CD 360mg daily, chlorthalidone 25mg daily Assessment & Plan (03/08/2023 4:37 PM EDUCATION AND TRAINING COORDINATOR): Chronic, well-controlled Continue current regimen including [...] Olmesartan Assessment & Plan (12/25/2019 1:23 PM EDUCATION AND TRAINING COORDINATOR): Goal blood pressure is less than [...] Olmesartan Assessment & Plan (01/28/2019 10:48 AM EDUCATION AND TRAINING COORDINATOR): Controlled on current medications. Continue plan. [...] eye exam (11/13/23 mild NPDR wo DME [facility]) Strive for regular exercise (30min most [...] infection. Assessment & Plan (02/27/2024 3:00 PM EDUCATION AND TRAINING COORDINATOR): Chronic problem. A1c worsened from 8.1% [...] results. UTD on DM eye exam (12/2023 [facility]). Letter sent to get copy of report. Strive for regular exercise (30min most days) and diet (get at least 4-5 servings of fruit and veggies daily, avoid processed foods, increase lean protein intake and decrease carb portions as well as fruit juices, regular soda & desserts). Watch carbs and simple sugars. Check the blood sugar Freestyle kaliegh 2. Check the feet daily for skin [...] UTD on labs. DM eye exam 09/2022 [facility]. Has appt next week; will send [...] dinner Assessment & Plan (03/08/2023 4:37 PM EDUCATION AND TRAINING COORDINATOR): Hba1c was Lab Results Component Value [...] re: results. DM eye exam 09/2022 [facility]. Letter sent to get copy of report. [...] Janumet. Assessment & Plan (03/09/2022 3:06 PM EDUCATION AND TRAINING COORDINATOR): Hba1c was Lab Results Component Value [...] us to download the data Stay on [facility] Assessment & Plan (09/15/2021 4:05 PM CDT): [...] over 220, take 18 units Continue with [facility] Assessment & Plan (05/05/2021 2:14 PM CDT): [...] CGM Assessment & Plan (12/25/2019 1:23 PM EDUCATION AND TRAINING COORDINATOR): Hba1c was Lab Results Component Value [...] provided. Assessment & Plan (04/03/2019 11:15 AM EDUCATION AND TRAINING COORDINATOR): Hba1c was Lab Results Component Value [...] current Assessment & Plan (01/28/2019 10:49 AM EDUCATION AND TRAINING COORDINATOR): A1c 6.2 without hypoglycemia. 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 Medical Group Cardiology [address], [address], [place] [address] P:[phone] P:[phone] Echocardiographic Report Patient Name: MERCEDES GARCIA : 1950 Study Date: 08/07/2024 10:16:04 AM Gender: F Monitor Tech: GERMAIN Location: [facility] Ref Provider: JEANNA HIDALGO Height(Cm): 155 BSA: 1.97 Weight(Kg): 89.8 Heart Rate: 64 BP: 110 / 54 Quality: Good Order Provider: JEANNA HIDALGO PROCEDURES: Echocardiographic Report: Transthoracic echocardiogram with complete [...] FINDINGS: Interpretation Site: Exam was interpreted at [facility]. Left Ventricle: Normal left ventricular systolic function. [...] Procedure Note Parker Reynaga MD - 08/07/2024 [facility] Medical Group Cardiology [address], [address], [place] [address] P:[phone] P:[phone] Echocardiographic Report Patient Name: MERCEDES GARCIA : 1950 Study Date: 08/07/2024 10:16:04 AM Gender: F Monitor Tech: Location: [facility] Ref Provider: JEANNA HIDALGO Height(Cm): 155 BSA: 1.97 Weight(Kg): 89.8 Heart Rate: 64 BP: 110 / 54 Quality: Good Order Provider: JEANNA HIDALGO PROCEDURES: Echocardiographic Report: Transthoracic echocardiogram with complete [...] FINDINGS: Interpretation Site: Exam was interpreted at [facility]. Left Ventricle: Normal left ventricular systolic function. [...] Parker Reynaga MD 08/07/2024 12:38:18 PM CDT Jeanna Hidalgo NP CV ECHO PROCEDURES Final Result * (ABNORMAL) POCT hemoglobin A1c (06/19/2024 2:01 PM CDT) [facility] Hemoglobin A1C, POC 6.3(A) 4.0 - 5.6 % Blood 06/19/2024 2:01 PM CDT Stephanie Ruiz NP POINT OF CARE TEST ORDERA BLES Final Result * POCT glucose (06/19/2024 2:01 PM CDT) [facility] Glucose Blood, POC 94 Normal Fasting 70 - 100, Random <200 mg/dL Blood 06/19/2024 2:01 PM CDT Stephanie Ruiz NP POINT OF CARE TEST ORDERA BLES Final Result * Albumin Creatinine Ratio, Urine (02/28/2024 8:00 AM EDUCATION AND TRAINING COORDINATOR) [facility] SCRIBED Creatinine, Urine 195.8 28 - 217 EXTERNAL LAB SCRIBED Microalbumin 1.5 <2.0 - NA EXTERNAL LAB SCRIBED Microalb/Creat Ratio 7.7 <30.0 - NA EXTERNAL LAB Urine 02/28/2024 8:00 AM EDUCATION AND TRAINING COORDINATOR Stephanie Ruiz NP LAB URINE ORDERABLES Barbara l Result EXTERNAL LAB * (ABNORMAL) eGFR (02/27/2024 2:39 PM EDUCATION AND TRAINING COORDINATOR) [facility] eGFR 55(L) >=60 mL/min/1. 73 m2 Comment: [...] last reviewed 2020. Blood 02/27/2024 2:39 PM EDUCATION AND TRAINING COORDINATOR 02/27/2024 9:48 PM EDUCATION AND TRAINING COORDINATOR Stephanie Ruiz BUTTON DECORATING MACHINE OPERATOR LAB BLOOD ORDERABLES Barbara l Result Performing Organization Address City/[facility] Co de Phone Number MELISSA [phone] [address] Department [place] [address] * (ABNORMAL) DIABETES EYE EXAM (11/13/2023 8:02 [...] Most Recently Relevant to Health Maintenance Insurance [facility] MEDICARE ADVANTAGE [facility] MEDICARE [facility] MEDICARE Advance Directives For more information, please contact: [phone] Documents on File Type Date Recorded Patient Special 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
--- OUTSIDE RECORDS SUMMARY | 2024-08-19 11:48 | XMS_ITS | Encounter Summary ---
Author Organization [facility] Address [address] [place] [address] Care Team Providers Care Continuity Reader Name Role Phone Vanesa Horan DO Primary Care Provider [phone] Encounter Details Date Type Department Care Team (Late st Contact Info) Description 06/27/2018 Lab Requisition [facility] Care DermPath Lab [address] [place] [address] Chrissy Cobian MD [address] [facility] [address] [place] [address] Social History Tobacco Use Types Packs/Day Years [...] AM CDT) Case Report Dermatopathology Report Case: [id number] Authorizing Provider: Chrissy Cobian MD Collected: 06/26/2018 12:00 AM Pathologist: Nelsy Costa MD Received: 06/27/2018 12:07 PM Specimen: Skin, mid back 9 2:39 PM CDT DERMATOPATHOLOGY LABORATORY Final Diagnosis Specimen A. SKIN, mid back: SEBORRHEIC KERATOSIS (L82.1) PRESENT AT MARGIN 9 2:39 PM CDT DERMATOPATHOLOGY LABORATORY at 1439 CDT Clinical History Crusted black plaque ISK Nevus MM 9 2:39 PM CDT DERMATOPATHOLOGY LABORATORY Gross Description Specimen A: Received is one formalin filled container labeled with the patient's name and designated mid back. The specimen consists of a shave biopsy measuring 40r64m5 mm, inked and bisected. Jar 0. 2:39 [...] characteristic determined by the Dermatopathology Laboratory at [facility], directed by Dr. Bruce Costa. These tests need not be, and therefore are not, approved by the [place] Food and Drug Administration. The tests are used for clinical purposes. Billing Codes Specimen Charges Stain Charges 65700 1 9 2:39 PM CDT DERMATOPATHOLOGY LABORATORY Embedded Images 9 2:39 PM CDT DERMATOPATHOLOGY LABORATORY Pathology/Cytolog y TISSUE SPECIMEN FROM SKIN / Unknown 06/26/2018 06/27/2018 12:07 PM CDT us Chrissy Cobian MD LAB - PATHOLOGY/CYTOLOGY ORD ERABLES Final Result DERMATOPATHOLOGY LABORATORY [facility] - Department of Dermatology [address] [place] [address], [facility] [phone] documented in this encounter Visit Diagnoses Not on filedocumented in this encounter Care Teams Continuity Reader Relationship Specialty Start Date End Date Vanesa Horan DO [address] [place] [phone] PCP - General Family Medicine 12/28/16 documented as of this encounter
--- OUTSIDE RECORDS SUMMARY | 2024-08-19 11:48 | XMS_ITS | Encounter Summary ---
Author Organization [facility] Address [address] [place] [address] Care Team Providers Care Bookkeeping Teacher Name Role Phone Vanesa Horan DO Primary Care Provider [phone] Encounter Details Date Type Department Care Team (Late st Contact Info) Description 11/06/2022 Lab Requisition [facility] - DermPath Lab [address] [facility] [place] [address] Virginia Romero DO [address] [facility] [address] [place] [address] Social History Tobacco Use Types Packs/Day Years [...] PM CDT) Case Report Dermatopathology Report Case: [id number] Authorizing Provider: Virginia Romero DO Collected: 11/06/2022 04:01 PM Ordering Location: [facility] DermPath Lab Received: 11/07/2022 02:30 PM Pathologist: Shama Saleh MD Specimens: A) - Skin, left mid back B) - Skin, right lower back 3 3:12 PM CDT DERMATOPATHOLOGY LABORATORY Final Diagnosis Specimen A. SKIN, left mid back: LENTIGINOUS MELANOCYTIC NEVUS, COMPOUND TYPE, IRRITATED (D22.5) Specimen B. SKIN, right lower back: COMPOUND MELANOCYTIC NEVUS, IRRITATED (D22.5) 3 3:12 PM CDT DERMATOPATHOLOGY LABORATORY at 1512 CDT Clinical History A-B: R/O Melanoma, Nevus 3 [...] 5x4x1 mm. Jar 0. 3 3:12 PM CDT DERMATOPATHOLOGY LABORATORY Microscopic Description Specimen [...] characteristic determined by the Dermatopathology Laboratory at [facility], directed by Dr. Bruce Costa. These tests need not be, and therefore are not, approved by the [place] Food and Drug Administration. The tests are used for clinical purposes. Billing Codes Specimen Charges Stain Charges 56555 66251 1 1 3 3:12 PM CDT DERMATOPATHOLOGY LABORATORY Embedded Images 3 3:12 PM CDT DERMATOPATHOLOGY LABORATORY Pathology/Cytology TISSUE SPECIMEN FROM SKIN / Unknown 11/06/2022 4:01 PM CDT 11/07/2022 2:30 PM CDT Miscellaneous samples (specimen) TISSUE SPECIMEN FROM SKIN / Unknown 11/06/2022 4:01 PM CDT 11/07/2022 2:30 PM CDT us Virginia Romero DO LAB - PATHOLOGY/CYTOLOGY ORDERABLES Final Result [facility]Y LABORATORY [facility] Derm[facility] Specialized Medicine [address] [place] [address], [address] [phone] documented in this encounter Visit Diagnoses Not on filedocumented in this encounter Care Teams Bookkeeping Teacher Relationship Specialty Start Date End Date Vanesa Horan DO [address] [place] [phone] PCP - General Family Medicine 12/28/16 documented as of this encounter
[2024-08-19 12:51] LABS: Alanine Aminotransferase 20 U/L (6-35); Albumin Level 4.3 g/dL (3.5-5.1); Alkaline Phosphatase 70 U/L (38-126); Anion Gap 13 mmol/L (4-12); Aspartate Amino Transferase 27 U/L (14-36); Bilirubin,Total 0.2 mg/dL (0.2-1.3); Blood Urea Nitrogen 20 mg/dL (7-17); Calcium 9.5 mg/dL (8.4-10.2); Carbon Dioxide 24 mmol/L (22-30); Chloride 106 mmol/L (98-107); Estimated Glomerular Filt Rate 48; Glucose 119 mg/dL (65-110); Potassium 4.2 mmol/L (3.4-5.0); Sodium 143 mmol/L (137-145); Total Protein 7.9 g/dL (6.3-8.2)
== END 2024-08-19 11:45 | disposition home or self-care (01) ==
LOC: ANHLAB 11:45
PROVIDERS: PCP Family Medicine; Referring Provider Internal Medicine Pulmonary Disease; Visit Provider Family Medicine
DX: N18.9 Chronic kidney disease, unspecified (principal)
CPT/HCPCS: 36415; 80053

== ENCOUNTER 2024-11-11 12:37 | Outpatient (CLI) | payer MEDICARE, SELFPAY ==
--- NOTE | ~2024-11-11 | MR_ITS ---
EXAMINATION: MR brain/brain stem wo con DATE: 11/11/2024 13:08 INDICATION: Other abnormalities of gait and immobility. Migraine headache. TECHNIQUE: Magnetic resonance imaging (MRI) of the brain and brainstem was performed without intravenous contrast. COMPARISON: Brain MRI 10/11/2009 FINDINGS: There are scattered areas of nonspecific increased T2-weighted signal intensity in the cerebral white matter. There is no intracranial hemorrhage, acute infarction, or abnormal intracranial mass lesion. The ventricles are normal in size. The orbits are normal. The paranasal sinuses are clear. There is a trace left mastoid effusion. IMPRESSION: 1. Worsened moderate nonspecific cerebral white matter disease, which likely represents chronic small vessel ischemic disease. Reviewed, dictated and finalized at location E. IMPRESSION: 1. Worsened moderate nonspecific cerebral white matter disease, which likely re presents chronic small vessel ischemic disease.
== END 2024-11-11 12:38 | disposition home or self-care (01) ==
LOC: MICIMG 12:38
PROVIDERS: PCP Family Medicine; Visit Provider Family Medicine
DX: R26.89 Other abnormalities of gait and mobility (principal); R29.6 Repeated falls
CPT/HCPCS: 70551

== ENCOUNTER 2024-11-12 14:01 | Outpatient (CLI) | payer MEDICARE, SELFPAY ==
--- OUTSIDE RECORDS SUMMARY | 2024-11-12 14:12 | XMS_ITS | Clinical Summary ---
Author Organization [facility] [address] Address [address] [place] [address] Care Team Providers Care Immersion Metalcleaner Name Role Phone Frantz Matthews MD Primary Care Provider [phone] Allergies Active Allergy Reactions Criticality Noted Date Comments Amoxicillin-Pot Clavulanate Diarrhea Low 01/01/2017 Clavulanic Acid Itching Low 08/30/2022 Empagliflozin Other (See comments) Low 09/15/2021 vulvovaginitis Latex Shortness of breath,Rash High 01/01/2017 Meperidine Nausea & Vomiting Low Oxybutynin Hives,Urticaria Medium 01/01/2017 Semaglutide Vomiting High 10/30/2019 Nausea and vomiting Medications esomeprazole DR (NexIUM) 40 mg capsule take 1 capsule (40MG) by oral route every day 0 012 Active olmesartan (BENICAR) 40 mg tablet take 1 tablet by oral route every day 0 0 014 Active albuterol HFA (PROVENTIL HFA,VENTOLIN HFA,PROAIR HFA) 90 mcg/actuation inhaler Inhale 2 puffs every 6 (six) hours as needed for wheezing Active lancing device (LANCING DEVICE WITH LANCETS) miscIndications:T ype 2 diabetes mellitus with hyperglycemia, with long-term current use of insulin (HCC) Use device to test glucose as directed (ok to give patient whatever devise fits current lancets) 1 each 019 Active Compact Space Chamber spacer as directed 020 Active LORazepam (ATIVAN) 1 mg tabletIndications :ibs Take 1 tablet (1 mg total) by [...] Active rosuvastatin (CRESTOR) 10 mg tablet Active furosemide (LASIX) 40 mg tablet TAKE 1 TABLET BY MOUTH ONCE DAILY FOR 7 DAYS Active ondansetron ODT (ZOFRAN-ODT) 4 mg disintegrating tablet DISSOLVE 1 TABLET IN MOUTH EVERY 8 HOURS NEEDED FOR NAUSEA AND VOMITING Active clindamycin (CLEOCIN) 300 mg capsule Active promethazine (PHENERGAN) 25 mg tablet TAKE 1 TABLET BY MOUTH THREE TIMES DAILY NEEDED FOR NAUSEA AND VOMITING Active vitamin B complex capsule Take 1 capsule by mouth daily Active blood glucose diagnostic (Daylight Studiosuch Ultra Test) stripIndications: Type 2 diabetes mellitus with hyperglycemia, with long-term current use of insulin ([facility]) USE STRIP TO CHECK GLUCOSE 3 TIMES DAILY BEFORE MEAL(S) 300 each 3 024 Active pen needle, diabetic 32 gauge x /32 needle USE 1 PEN NEEDLE THREE TIMES DAILY Dx.E11.65 300 each 2 025 Active LANTUS 100 unit/mL (3 mL) pen for injectionIndicati ons:Type 2 diabetes mellitus with hyperglycemia, with long-term current use of insulin ([facility]) INJECT 26 UNITS SUBCUTANEOUSLY NIGHTLY 15 mL 025 Active Additional Information Patient taking differently: 18 Units subcutaneous Nightly, Reported on 11/06/2024 albuterol 2.5 mg /3 mL (0.083 %) nebulizer solution USE 2 VIAL IN NEBULIZER EVERY 4 TO 6 HOURS NEEDED FOR SHORTNESS OF BREATH AND FOR WHEEZING Active SITagliptin phos-metformin (Janumet) 50-1,000 mg per tabletIndications :Type 2 diabetes mellitus with hyperglycemia, with long-term current use of insulin (HCC) TAKE 1 TABLET BY MOUTH TWICE DAILY WITH MEALS 180 tablet 1 025 Active ezetimibe (ZETIA) 10 mg tabletIndications :Type 2 diabetes mellitus with hyperglycemia, with long-term current use of insulin (HCC) Take 1 tablet by mouth once daily 90 tablet 025 Active NovoLOG 100 unit/mL (3 mL) pen for injectionIndicati ons:Type 2 diabetes mellitus with hyperglycemia, with long-term current use of insulin ([facility]) INJECT 12 TO 18 UNITS SUBCUTANEOUSLY TWICE DAILY BEFORE BREAKFAST AND BEFORE SUPPER 15 mL 025 Active folic acid-vitamin B6-vit B12 1,000 mcg-10 mg -400 mcg tablet daily 020 Active olmesartan-amLODI Pin-hcthiazid 20-5-12.5 mg tablet .COMPLEX 023 Active bunk-FQ-iqr-epa-F SN-WAKB-sv-mv 1.5 mg iron- 8.73 mg capsule,IR & delay rel,biphase .COMPLEX 023 Active blood-glucose meter [facility] .MEDSUPPLY 021 Active blood-glucose sensor (Dexcom G7 Sensor) device Activ e tirzepatide (MOUNJARO) 7.5 mg/0.5 mL pen injector injectionIndicati ons:Type 2 diabetes mellitus with hyperglycemia, with long-term current use of insulin ([facility]) Inject 0.5 mL (7.5 mg total) under the skin every 7 days 6 mL 3 025 2025 Active flash glucose sensor (FreeStyle Kaleigh 2 Sensor) kit Change every 14 days 2 kit 11 022 2024 Discontinued( No longer taking - Do not display on AVS) flash glucose scanning reader (FreeStyle [place] 2 [place]) [facility] As directed 1 each 022 2024 Discontinued( No longer taking - Do not display on AVS) HumaLOG 100 unit/mL pen for injection Inject 12-18 Units under the skin 2 (two) times a day before breakfast and dinner Dx: E11.65 15 mL 3 024 2024 Discontinued( Alternate therapy) FreeStyle [place]aleigh 3 [place] [facility] 025 2024 Discontinued( No longer taking - Do not display on AVS) Ofev 100 mg capsule 025 2024 Discontinued( Patient Reported) tirzepatide (Mounjaro) 5 mg/0.5 mL pen injector injectionIndicati ons:type 2 diabetes mellitus Inject 0.5 mL (5 mg total) under the skin every 7 days 6 mL 3 025 2024 Discontinued NovoLOG 100 unit/mL (3 mL) pen for injectionIndicati ons:Type 2 diabetes mellitus with hyperglycemia, with long-term current use of insulin (HCC) INJECT 12 TO 18 UNITS SUBCUTANEOUSLY TWICE DAILY BEFORE BREAKFAST AND BEFORE SUPPER 15 mL 2024 Discontinued doxepin (SINEquan) 25 mg capsule TAKE 1 CAPSULE BY MOUTH EVERY DAY AT BEDTIME 2024 Discontinued( No longer taking - Do not display on AVS) sodium, potassium & mag sulfates (SUPREP BOWEL KIT) 17.5-3.13-1.6 gram recon soln .COMPLEX 023 2024 Discontinued( No longer taking - Do not display on AVS) ondansetron in dextrose 5% solution 4 mL (4 mg total) 023 2024 Discontinued( No longer taking - Do not display on AVS) al mag oxide-diphenhydra mine-nystatin (MAGIC MOUTHWASH) suspension .COMPLEX 023 2024 Discontinued( No longer taking - Do not display on AVS) sodium chloride 0.9% parenteral solution 42 mL with LORazepam 2 mg/mL solution 8 mg, diphenhydrAMINE 50 mg/mL solution 200 mg 2 (two) times a day 023 2024 Discontinued( No longer taking - Do not display on AVS) biotin 1 mg capsule daily 023 2024 Discontinued( No longer taking - Do not display on AVS) dexAMETHasone 0.4 mg insert daily 022 2024 Discontinued( No longer taking - Do not display on AVS) ferrous sulfate 3.75 mg iron/0.25 mL syringe daily 023 2024 Discontinued( No longer taking - Do not display on AVS) Active Problems Patient Care Coordination No te [...] 02/27/2024 Assessment & Plan (02/27/2024 3:01 PM JAVA DEVELOPER): Chronic problem. Limited activity d/t Interstitial Lung Disease. Will send in Mounjaro 2.5mg weeklyx 4 then increase to 5mg weekly to see if able to help with weight loss. Discussed healthy diet and importance of regular physical activity (20- 30min/day, 150min/wk). ILD (interstitial lung disease) 10/09/2019 Overview (10/09/2019): Added automatically from request for surgery [id number] Lung nodule 10/09/2019 Overview (10/09/2019): Added automatically from request for surgery [id number] 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 2 diabetes mellitus 0 04/03/2019 Assessment & Plan (11/06/2024 12:32 PM CDT): Chronic problem. Controlled on current Rosuvastatin 10mg & zetia 10mg. Last lipid panel: 08/30/23 LDL=65, LK=650. Will update lipid panel. Verified that she uses [employer]. Aware to check results/results letter in [employer]. Will contact by phone if needed. Assessment & Plan (06/19/2024 2:17 PM CDT): Chronic problem. Controlled on current Rosuvastatin 10mg & zetia 10mg. Last lipid panel: 08/30/23 LDL=65, HW=875. Assessment & Plan (02/27/2024 1:54 PM JAVA DEVELOPER): Chronic problem. Controlled on current Rosuvastatin 10mg & zetia 10mg. Last lipid panel: 08/30/23 LDL=65, AQ=094. Assessment & Plan (10/25/2023 2:05 PM CDT): Chronic problem. Controlled on current Rosuvastatin 10mg & zetia 10mg. Last lipid panel: 03/08/23 LDL=48, KN=439. Assessment & Plan (06/12/2023 3:56 PM CDT): Chronic, well-controlled. Continue statin therapy with rosuvastatin Assessment & Plan (03/08/2023 4:37 PM JAVA DEVELOPER): Chronic, well-controlled Continue statin therapy with rosuvastatin Assessment & Plan (12/07/2022 2:24 PM CDT): Chronic problem. Controlled on current Rosuvastatin 10mg & zetia 10mg. Last lipid panel: 03/14/22 LDL=52, SX=067. Assessment & Plan (07/05/2022 2:12 PM CDT): Chronic problem. On statin therapy, no changes. Assessment & Plan (03/09/2022 3:07 PM JAVA DEVELOPER): Chronic, well controlled Low fat Low cholesterol [...] Pravachol Assessment & Plan (12/25/2019 1:24 PM JAVA DEVELOPER): Goal of treatment , LDL cholesterol less [...] recently Assessment & Plan (04/03/2019 11:15 AM JAVA DEVELOPER): Goal of treatment , LDL cholesterol less [...] associated with diabetes 07/16/2018 Assessment & Plan (11/06/2024 12:33 PM CDT): Chronic problem. Controlled on current olmesartan 40mg daily, diltiazem CD 360mg daily, chlorthalidone 25mg daily Assessment & Plan (06/19/2024 2:17 PM CDT): Chronic problem. Controlled on current olmesartan 40mg daily, diltiazem CD 360mg daily, chlorthalidone 25mg daily Assessment & Plan (02/27/2024 1:54 PM JAVA DEVELOPER): Chronic problem. Controlled on current olmesartan 40mg daily, diltiazem CD 360mg daily, chlorthalidone 25mg daily Assessment & Plan (10/25/2023 2:23 PM CDT): Chronic problem. Controlled on current olmesartan 40mg daily, diltiazem CD 360mg daily, chlorthalidone 25mg daily Assessment & Plan (03/08/2023 4:37 PM JAVA DEVELOPER): Chronic, well-controlled Continue current regimen including ARB [...] Olmesartan Assessment & Plan (12/25/2019 1:23 PM JAVA DEVELOPER): Goal blood pressure is less than 140/85 [...] Olmesartan Assessment & Plan (01/28/2019 10:48 AM JAVA DEVELOPER): Controlled on current medications. Continue plan. Assessment & Plan (07/16/2018 3:53 PM CDT): Goal blood pressure is less than 140/85 Low salt diet recommended Daily aerobic exercise Continue current meds, including PATRIC-I or ARB Type 2 diabetes mellitus wit h hyperglycemia, with long-term current use of insulin 05/07/2018 Assessment & Plan (11/06/2024 1:22 PM CDT): Chronic problem. A1c at goal & stable at 6.3%. We will increase your Mounjaro from 5mg to 7.5mg weekly. -pay attention to sugars; will most likely need to again decrease Lantus & Novolog doses. Current medications: Janumet 1 tab twice daily Mounjaro 7.5 mg weekly. Lantus 14-16 units every evening Novolog 4 units three times daily with meals For sugars over 160, take 6 units For sugars over 200, take 8 unit Will update lipid. Verified that she uses [employer]. Aware to check results/results letter in [employer]. Will contact by phone if needed. UTD on DM eye exam (11/13/23 mild NPDR wo DME [facility]) Strive for regular exercise (30min most days) and diet (get at least 4-5 servings of fruit and veggies daily, avoid processed foods, increase lean protein intake and decrease carb portions as well as fruit juices, regular soda & desserts). Watch carbs and simple sugars. Check the blood sugar: Dexcom G7. Check the feet daily for skin breakdown and infection. 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) Strive for regular exercise (30min most [...] infection. Assessment & Plan (02/27/2024 3:00 PM JAVA DEVELOPER): Chronic problem. A1c worsened from 8.1% 10/25/23 [...] results. UTD on DM eye exam (12/2023 [facility]). Letter sent to get copy of [...] dinner Assessment & Plan (03/08/2023 4:37 PM JAVA DEVELOPER): Hba1c was Lab Results Component Value Date [...] Janumet. Assessment & Plan (03/09/2022 3:06 PM JAVA DEVELOPER): Hba1c was Lab Results Component Value Date [...] CGM Assessment & Plan (12/25/2019 1:23 PM JAVA DEVELOPER): Hba1c was Lab Results Component Value Date [...] provided. Assessment & Plan (04/03/2019 11:15 AM JAVA DEVELOPER): Hba1c was Lab Results Component Value Date [...] current Assessment & Plan (01/28/2019 10:49 AM JAVA DEVELOPER): A1c 6.2 without hypoglycemia. 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) 11/06/2024 1:00 PM CDT Office Visit [facility]ocr[facility] [address] [place] [address] [phone] Stephanie Ruiz NP Type 2 diabetes mellitus with hyperglycemia, with long-term current use of insulin (HCC) (Primary Dx); Hypertension associated with diabetes (HCC); 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) 09/23/2024 Telephone [facility] [address] [address] Stephanie Ruiz NP Med Refill from Last 3 Months Immunizations Immunization Administration Dates Next Due Influenza, Trivalent, Preservative Free, Intramu scular 11/12/2014 Surgical History Surgery Date Site/Laterality Comments HYSTERECTOMY CHOLECYSTECTOMY HAND SURGERY KNEE SURGERY Medical History Medical History Date Comments Adiposity Obesity Hx Other Medical DJD Primary fibromyalgia syndrome Fi bromyalgia History of total left knee replacement (TKR) 03/2018 Arthritis Asthma Bronchitis DM (diabetes mellitus) HTN (hypertension) HLD (hyperlipidemia) Pneumonia Anemia GERD [...] on file Legal Sex Female 6:58 PM JAVA DEVELOPER Gender Identity Not on file Sexual Orientation Not on file 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 Not on file Not on file Not on file Obstetrics History Last Filed Vital Signs Vital Sign Reading Time Taken Comments Blood Pressure 112/56 11/06/2024 12:38 PM CDT Pulse 63 11/06/2024 12:38 PM CDT Temperature 36.6 C (97.8 F) 10/18/2019 4:00 PM CDT Respiratory Rate 18 11/06/2024 12:38 PM CDT Oxygen Saturation 98% 06/27/2024 1:00 PM CDT Inhaled Oxygen Concentration - - Weight 85.4 kg (188 lb 4.8 oz) 11/06/2024 12:38 PM CDT Height 154.9 cm (5' 0.98) 11/06/2024 12:38 PM C DT Body Mass Index 35.6 11/06/2024 12:38 PM CDT Plan of Treatment Health Maintenance [...] exists Osteoporosis Screening-Bone Density Scan 09/14/2023 09/13/2021 Covid-19 Vaccine ( - 2024-2 6 season) 2024 07/18/2021, 11/18/2020, 05/04/2020, Additional history exists Influenza Vaccine (#1) 2024 , 11/15/2019, 11/14/2019, Additional history exists Dilated Eye Exam 11/12/2024 11/13/2023, 02/2022, 10/07/2021, Additional history exists eGFR 02/26/2025 02/27/2024, 02/13, 02/15/2022, Additional history exists Albumin Creatinine Ratio, Urine 02/27/2025 02/28/2024, 12/07/2022, 09/16/2021, Additional history exists Hemoglobin A1C 05/06/2025 11/06/2024, 05/0 09/2024, 02/27/2024, Additional history exists Foot Exam 06/19/2025 06/19/2024, 10/13, 10/25/2023, Additional history exists Lipid Panel 11/06/2025 11/06/2024, 08/12, 03/08/2023, Additional history exists Pneumococcal vaccine 65+ Completed 018, 11/19/2017, 11/15/2016 Breast Cancer Screening-Mammogram Discontinued 04/30/2024, 04/30/2024, 10/25/2022, Additional history exists Procedures Procedure Name Priority Date/Time Associated Diagnosis Comments LIPID PANEL Routine 11/06/2024 1:49 PM CDT Type 2 diabetes mellitus with hyperglycemia, with long-term current use of insulin (HCC) 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) POCT HEMOGLOBIN A1C Routine 11/06/2024 1 2:58 PM CDT Type 2 diabetes mellitus with hyperglycemia, with long-term current use of insulin (HCC) POCT GLUCOSE Routine 11/06/2024 12:47 PM CDT Type 2 diabetes mellitus with hyperglycemia, with long-term current use of insulin (HCC) ALBUMIN CREATININE RATIO, URINE Routine 02/28/2024 8:00 AM JAVA DEVELOPER Type 2 diabetes mellitus with hyperglycemia, with long-term current use of insulin (HCC) EGFR Routine 02/27/2024 2:39 PM JAVA DEVELOPER Type 2 diabetes mellitus with hyperglycemia, with long-term current use of insulin (HCC) HM DIABETES EYE EXAM Routine 11/13/2023 DIABETES FOOT EXAM Routine 11/01/2023 8:39 AM CDT from Last 3 Months or Most Recently Relevant to Health Maintenance Results * Lipid panel (11/06/2024 1:49 PM CDT) Cholesterol 128 30 - 199 mg/dL Comment: Interpretive Data Ages < or = 19 years Acceptable: <170 mg/dL Borderline high: 170-199 mg/dL High: >or= 200 mg/dL Ages > or = 20 years Desirable: <200 mg/dL Borderline high: 200-239 mg/dL High: >or= 240 mg/dL Literature References: 1. Expert Panel on Integrated Guidelines for Cardiovascular Health and Risk Reduction in Children and Adolescents. Pediatrics 2011;128:S213 2. NCEP Expert Panel. Circulation 2004;110:227 Current Interpretive Data was last revised on 2017. Triglycerides 100 <=149 mg/dL MELISSA Comment: Interpretive Data Ages < or = 9 years Acceptable: <75 mg/dL Borderline high: 75-99 mg/dL High: >or= 100 mg/dL Ages 10 to 20 years Acceptable: <90 mg/dL Borderline high: 90-129 mg/dL High: >or= 130 mg/dL Ages > or = 20 years Desirable: <150 mg/dL Borderline high: 150-199 mg/dL High: 200-499 mg/dL Very high: >or= 499 mg/dL Literature References: 1. Expert Panel on Integrated Guidelines for Cardiovascular Health and Risk Reduction in Children and Adolescents. Pediatrics 2011;128:S213 2. NCEP Expert Panel. Circulation 2004;110:227 Current Interpretive Data was last revised on 2017. HDL 50 >=40 mg/dL MELISSA Comment: Interpretive Data Ages < or = 19 years Acceptable: >45 mg/dL Borderline low: 40-45 mg/dL Low: <40 mg/dL Ages > or = 20 years Desirable: >or= 60 mg/dL Low: <40 mg/dL Literature References: 1. Expert Panel on Integrated Guidelines for Cardiovascular Health and Risk Reduction in Children and Adolescents. Pediatrics 2011;128:S213 2. NCEP Expert Panel. Circulation 2004;110:227 Current Interpretive Data was last revised on 2017. LDL, calculated 59 <=129 mg/dL MELISSA Comment: Interpretive Data Ages < or = 19 years Acceptable: <110 mg/dL Borderline high: 110-129 mg/dL High: >or= 130 mg/dL Ages > or = 20 years Optimal: <100 mg/dL Near optimal: 100-129 mg/dL Borderline high: 130-159 mg/dL High: >160 mg/dL Calculated using the Baljinder LDL-C estimating equation. This equation was implemented on 2023. Prior to this date LDL-C was estimated using the Friedewald equation. Literature References: 1. Expert Panel on Integrated Guidelines for Cardiovascular Health and Risk Reduction in Children and Adolescents. Pediatrics 2011;128:S213 2. NCEP Expert Panel. Circulation 2004;110:227 3. Baljinder Whittington et al. ANTWAN Cardiol. 2019June 12;5(5):540-548. doi: 10.1001/jamacardio.2020.0013 Current Interpretive Data was last revised on 2023. Non-HDL Cholesterol 78 mg/dL MELISSA Comment: Interpretive Data Ages < or = 19 years Acceptable: <120 mg/dL Borderline high: 120-144 mg/dL High: >145 mg/dL Ages > or = 20 years When triglycerides are >200 mg/dL, Non-HDL cholesterol is a secondary target of therapy with treatment goals that are 30 mg/dL greater than the LDL cholesterol target. Literature References: 1. Expert Panel on Integrated Guidelines for Cardiovascular Health and Risk Reduction in Children and Adolescents. Pediatrics 2011;128:S213 2. NCEP Expert Panel. Circulation 2004;110:227 Current Interpretive Data was last revised on 2017. Chol/HDL ratio 3 MELISSA Blood 11/06/2024 1:49 PM CDT 11/06/2024 6:17 PM CDT us Stephanie Ruiz NP LAB BLOOD ORDERABLES Barbara lux Result MELISSA [address] [facility] Department of Laboratories [place], [place] [id number] * (ABNORMAL) POCT hemoglobin A1c (11/06/2024 12:58 PM CDT) Hemoglobin A1C, POC 6.3(A) 4.0 - 5.6 % Blood 11/06/2024 12:5 8 PM CDT us Stephanierito Ruiz NP POINT OF CARE TEST ORDERA BLES Final Result * (ABNORMAL) POCT glucose (11/06/2024 12:47 PM CDT) [facility] Glucose Blood, POC 136 Normal Fasting 70 - 100, Random <200 mg/dL Blood 11/06/2024 12:4 7 PM CDT us Stephanie Ruiz NP POINT OF CARE TEST ORDERA BLES Final Result * Albumin Creatinine Ratio, Urine (02/28/2024 8:00 AM JAVA DEVELOPER) [facility] SCRIBED Creatinine, Urine 195.8 28 - 217 EXTERNAL LAB SCRIBED Microalbumin 1.5 <2.0 - NA EXTERNAL LAB SCRIBED Microalb/Creat Ratio 7.7 <30.0 - NA EXTERNAL LAB Urine 02/28/2024 8:00 AM JAVA DEVELOPER us Stephanie Ruiz CARE CENTER MANAGER LAB URINE ORDERABLES Barbara l Result EXTERNAL LAB * (ABNORMAL) eGFR (02/27/2024 2:39 PM JAVA DEVELOPER) Pathologist [facility] eGFR 55(L) >=60 mL/min/1. 73 m2 Comment: [...] last reviewed 2020. Blood 02/27/2024 2:39 PM JAVA DEVELOPER 02/27/2024 9:48 PM JAVA DEVELOPER Stephanie Ruiz NP LAB BLOOD ORDERABLES Barbara l Result MELISSA [id number] Department [place] [address] * (ABNORMAL) DIABETES EYE EXAM (11/13/2023) SCRIBED DIABETIC DILATED EYE EXAM Abnormal 11/13/2023 Historical Provider HEALTH MAINTENANCE Edited Result - Final * DIABETES FOOT EXAM (11/01/2023 8:39 AM CDT) Historical Provider MD HEALTH MAINTENANCE Final Result from Last 3 Months or Most Recently Relevant to Health Maintenance Insurance 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
--- OUTSIDE RECORDS SUMMARY | 2024-11-12 14:12 | XMS_ITS | Clinical Summary ---
Author Organization [facility] Address [facility] [place] [address] Care Team Providers Care Document Control Supervisor Name Role Phone Frantz Matthews MD Primary Care Provider [phone] Allergies Active Allergy Reactions Criticality Noted Date Comments Amoxicillin Itching Low 08/30/2022 Amoxicillin-Pot Clavulanate Diarrhea Low 01/01/2017 Clavulanic Acid Itching Low 08/30/2022 Empagliflozin Other (see comment) Low 09/15/2021 vulvovaginitis Latex Itching,Rash,Shortne ss of Breath High 01/01/2017 Meperidine Nausea and Vomiting,Unknown Low 04/15/2019 Oxybutynin Hives,Nausea and Vomiting High 01/01/2017 Semaglutide Vomiting High 10/30/2019 Nausea and vomiting Medications No known medications Active Problems Problem Noted Date Diagnosed Date S/P TKR (total knee replacement), left 9 Encounters Date Type Department Care Team Description 10/11/2024 2:03 PM CDT - 10/11/2024 4:24 PM CDT Emergency [facility] Emergency Room [id number] [place] [address] Cherelle Purcell MD Fall Discharge Disposition: Home or Self Care (Routine Discharge) 10/11/2024 Travel from Last 3 Months Social History Tobacco Use Types Packs/Day Years Used Date Smoking Tobacco: Never Assessed Comments Unknown Sex and Gender Information Value Date Recorded Sex Assigned at Female 02/28/2024 1:10 PM WEBMETHODS CONSULTANT Legal Sex Female 7:27 PM CDT Gender Identity Female 04/29/2024 7:44 AM CDT Sexual Orientation Not on file Last Filed Vital Signs Vital Sign Reading Time Taken Comments Blood Pressure 155/77 10/11/2024 4:00 PM CDT Pulse 76 10/11/2024 2:03 PM CDT Temperature 36.5 C (97.7 F) 10/11/2024 2:03 PM CDT Respiratory Rate 18 10/11/2024 4:00 PM CDT Oxygen Saturation 96% 10/11/2024 4:00 PM CDT Inhaled Oxygen Concentration - - Weight 84.8 kg (187 lb) 10/11/2024 2:03 PM CDT Height 157.5 cm (5' 2) 10/11/2024 2:03 PM CDT Body Mass Index 34.2 10/11/2024 2:03 PM CDT Plan of Treatment Health Maintenance Due Date Last Done Comments Colorectal Cancer Screening Colonoscopy (10 Years) 1950 Kidney Health Evaluation 1950 Diabetes: Retinopathy Eye Exam 09/19/1967 Hepatitis C 09/19/1967 Zoster Vaccines (2 of 3) 01/30/2013 12/05/2012 Annual Medicare Wellness Visit 2014 Hemoglobin A1C 03/27/2019 09/24/2018, 08/02/2016 DTaP, Tdap and Td Vaccines (2 - Td or Tdap) 09/03/2022 09/03/2012 Lipid Panel 03/14/2023 03/14/2022, 10/13, 08/23/2018 RSV Immunization or 60+ Years (1 - 1-dose 75+ series) 2024 COVID-19 Vaccine ( season) 2024 07/18/2021, 11/18/2020, 05/04/2020, Additional history exists Pneumococcal Vaccine: 50+ Years Completed 11/19/2017, 11/15/2016 Dexa Scan (General) Completed 09/13/2021 Meningococcal B [...] Procedure Name Priority Date/Time Associated Diagnosis Comments XR HIP LT 2V STAT 10/11/2024 2:24 PM CDT LIPID PANEL Routine 03/14/2022 8:17 AM WEBMETHODS CONSULTANT Type II diabetes mellitus with hyperosmolarity, uncontrolled Encounter for long-term (current) use of insulin BONE DENSITY/DEXA Routine 09/13/2021 1:1 7 PM CDT Postmenopause HEMOGLOBIN, GLYCOSYLATED Routine 09/24/2018 11:12 AM CDT Type 2 diabetes, diet controlled from Last 3 Months or Most Recently Relevant to Health Maintenance Results * XR HIP LT 2V (10/11/2024 2:24 PM CDT) Anatomical Region Laterality Modality Hip Radiographic Lily ging 10/11/2024 2:47 PM CDT Impressions 10/11/2024 2:51 PM CDT IMPRESSION: No acute bone findings. Referred By: Interpreted By: Charlie Britt MD, 10/11/2024 2:47 PM Narrative 10/11/2024 2:51 PM CDT [facility] [address] [place] [address] EXAM: XR HIP LT 2V DATE: 10/11/2024 1418 hours No comparison INDICATION: Fell, left hip pain. TECHNIQUE: 2 views and 3 images of the left hip. FINDINGS: Lateral view attempts are compromised by positioning and superimposed soft tissue. On the AP view, no fracture or malalignment. If symptoms persist or patient becomes nonweightbearing, recommend CT or MRI. 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 Procedure Note Charlie Britt MD - 10/11/2024 [facility] [address] [place] [id number] EXAM: XR HIP LT 2V DATE: 10/11/2024 1418 hours No comparison INDICATION: Fell, left hip pain. TECHNIQUE: 2 views and 3 images of the left hip. FINDINGS: Lateral view attempts are compromised by positioning andsuperimposed soft tissue. On the AP view, no fracture or malalignment.If symptoms persist or patient becomes nonweightbearing, recommend CT orMRI. 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 IMPRESSION: No acute bone findings. Referred By: Interpreted By: Cahrlie Britt MD, 10/11/2024 2:47 PM us Cherelle Purcell MD GENERAL IMAGING Final Resul t * LIPID PANEL (03/14/2022 8:17 AM WEBMETHODS CONSULTANT) CHOLESTEROL 120 <200.0 MG/DL 03/14/2022 8:45 AM [...] 5 - 55 MG/DL 03/14/2022 8:45 AM [facility] LIPID INTERPRETATION 03/14/2022 8:45 AM [facility] Comment: NIH CONCENSUS REPORT RECOMMENDATIONS: ADULT CHILD LOW RISK: CHOLESTEROL <200 <170 TRIGLYCERIDE <150 --- HDL >=60 --- LDL <100 <110 BORDERLINE: CHOLESTEROL 200-239 170-199 TRIGLYCERIDE 150-199 --- HDL 40-59 --- LDL 100-159 110-129 HIGH RISK: CHOLESTEROL >=240 >=200 TRIGLYCERIDE >=200 --- HDL <40 --- LDL >=160 >=130 03/14/2022 8:17 AM WEBMETHODS CONSULTANT us Octavia Paul MD LABORATORY Final Result Performing Organization Address City/State/[facility] de Phone Number [facility] [address] [place] [address], * BONE DENSITY/DEXA (09/13/2021 1:17 PM CDT) [...] 7.8(H) <5.7 % 09/24/2018 1:06 PM CDT [facility] Comment: INCREASED RISK OF DIABETES <5.7% NON-DIABETES 5.7-6.4% INCREASED RISK FOR FUTURE DIABETES > OR = 6.5 CONSISTENT WITH DIABETES STANDARDS OF MEDICAL CARE IN DIABETES-2010 DIABETES CARE, 33(SUPP 1): S1-S61,2009 09/24/2018 11:1 2 AM CDT us David Greco MD LABORATORY Final Result [facility] [address] [place] [address], from Last 3 Months or Most Recently Relevant to Health Maintenance Insurance [employer] MEDICARE Care Teams Document Control Supervisor Relationship Specialty Start Date End Date Frantz Matthews MD [address] [place] [address] PCP - General FAMILY PRACTICE 10/11/24
--- OUTSIDE RECORDS SUMMARY | 2024-11-12 14:12 | XMS_ITS | Encounter Summary ---
Author Organization [facility] Address [facility] [place] [address] Care Team Providers Care Cma Or Lpn Name Role Phone Vanesa Horan DO Primary Care Provider [phone] Marco Fabian MD Primary Care Provider [phone] Frantz Matthews MD Primary Care Provider [phone] Encounter Details Date Type Department Care Team (Late st Contact Info) Description 05/04/2016 Abstract [facility] CONVERSION [address] [place] [address] , Ta Sharma MD Social History Tobacco Use Types Packs/Day Years Used Date Smoking Tobacco: Never Assessed Comments Unknown Sex and Gender Information Value Date Recorded Sex Assigned at Female 02/28/2024 1:10 PM WORKFORCE ADVISOR Legal Sex Female 7:27 PM CDT Gender Identity Female 04/29/2024 7:44 AM CDT Sexual Orientation Not on file documented as of this encounter Plan of Treatment Not on file documented as of this encounter Visit Diagnoses Not on filedocumented in this encounter Care Teams Cma Or Lpn Relationship Specialty Start Date End Date Vanesa Horan DO PCP - General FAMILY PRACTICE 08/23/18 03/13/22 Marco Fabian MD [address] [place] [phone] PCP - General FAMILY PRACTICE 03/14/22 10/10/24 Frantz Matthews MD [address] [place] [phone] PCP - General FAMILY PRACTICE 10/11/24 documented as of this encounter
--- NOTE | 2024-11-27 07:45 | WPDHOLTEREM ---
Holter/Event Monitor Holter/Event Monitor Date of procedure: 11/12/24 Holter/Event Procedure: 3-7 Day Holter Monitor Indications: Cardiac murmur Conclusion: 1. 7 days holter monitor on 11/12/24. 2. Predominant rhythm is sinus rhythm. HR range 46-158 bpm; average HR 71 bpm. HR at 46 bpm was on 11/14/24 at 8:44 pm. 3. There are rare premature supraventricular complexes and rare supraventricular couplets. There is 1 episode of supraventricular tachycardia at 158 bpm lasting 5 beats. 4. There are rare premature ventricular complexes and rare ventricular couplets, longest ventricular trigeminy was 6.4 seconds. No ventricular tachycardia. 5. No significant pauses greater than 3 seconds. 6. No symptoms available for correlation.
== END 2024-11-12 14:02 | disposition home or self-care (01) ==
PROVIDERS: PCP Family Medicine; Visit Provider Family Medicine
DX: R01.1 Cardiac murmur, unspecified (principal)
CPT/HCPCS: 93242

== ENCOUNTER 2024-11-25 15:10 | Outpatient (CLI) | payer MEDICARE, SELFPAY ==
--- NOTE | ~2024-11-25 | XR_ITS ---
XR lumbar spine 2-3V Indication: M54.50 - Low back pain, unspecified Comparison: None Findings: Grade 1 anterolisthesis L4 on L5. Moderate to severe loss of disc height throughout with severe loss of disc height at L3-4. Soft tissues unremarkable Impression: No acute abnormality. Reviewed, dictated and finalized at location P. Impression: No acute abnormality.
[2024-11-25 16:31] LABS: Hematocrit 39.9 % (37.0-47.0); Hemoglobin 13.1 g/dL (12.0-15.0); Immature Granulocyte Percent A 0.7 % (0-0.5); Lymphocytes Absolute Auto 3.53 K/mm3 (0.9-3.2); Mean Corpuscular HGB Conc 32.8 g/dl (32-36); Mean Corpuscular Hemoglobin 30.3 pg (26-34); Mean Corpuscular Volume 92.1 fl (80-100); Nucleated Red Blood Cells Absolute Auto 0.000 K/mm3 (0.0-0.012); Nucleated Red Blood Cells Perc 0.0 % (0.0-0.2); Platelet Count Result 325 k/mm3 (150-375); Red Blood Count 4.33 M/mm3 (4.2-5.4); White Blood Count 16.2 K/mm3 (4.5-10.0)
[2024-11-25 16:34] LABS: MALB Creatinine Ratio 10.5 mg/g (0-30)
[2024-11-25 16:47] LABS: Alanine Aminotransferase 27 U/L (6-35); Albumin Level 4.0 g/dL (3.5-5.1); Alkaline Phosphatase 74 U/L (38-126); Anion Gap 10 mmol/L (4-12); Aspartate Amino Transferase 27 U/L (14-36); Bilirubin,Total 0.3 mg/dL (0.2-1.3); Blood Urea Nitrogen 19 mg/dL (7-17); Calcium 9.2 mg/dL (8.4-10.2); Carbon Dioxide 24 mmol/L (22-30); Chloride 106 mmol/L (98-107); Estimated Glomerular Filt Rate 52; Glucose 109 mg/dL (65-110); Potassium 4.5 mmol/L (3.4-5.0); Sodium 140 mmol/L (137-145); Total Protein 7.2 g/dL (6.3-8.2)
--- OUTSIDE RECORDS SUMMARY | 2024-11-25 16:58 | XMS_ITS | Encounter Summary ---
Author Organization [facility] Address [address] [facility] [place] [address] Care Team Providers Care Tool Designer Apprentice Name Role Phone Vanesa Horan DO Primary Care Provider [phone] Encounter Details Date Type Department Care Team (Late st Contact Info) Description 11/06/2022 Lab Requisition [facility] - DermPath Lab [address] [facility], [place] [address] [place] Romero DO [address] [facility] [address] [place] [address] Social History Tobacco Use Types Packs/Day Years [...] PM CDT) Case Report Dermatopathology Report Case: [id number] Authorizing Provider: [place] Romero DO Collected: 11/06/2022 04:01 PM Ordering Location: [facility] Received: 11/07/2022 02:30 PM Pathologist: [...] characteristic determined by the Dermatopathology Laboratory at [facility], directed by Dr. Bruce Costa. These tests need not be, and therefore are not, approved by the [place] Food and Drug Administration. The tests are used for clinical purposes. Billing Codes Specimen Charges Stain Charges [id number] [id number] 1 1 3 3:12 PM CDT DERMATOPATHOLOGY LABORATORY Embedded Images 3 3:12 PM CDT DERMATOPATHOLOGY LABORATORY Pathology/Cytology TISSUE SPECIMEN FROM SKIN / Unknown 11/06/2022 4:01 PM CDT 11/07/2022 2:30 PM CDT Miscellaneous samples (specimen) TISSUE SPECIMEN FROM SKIN / Unknown 11/06/2022 4:01 PM CDT 11/07/2022 2:30 PM CDT us [place] Romero DO LAB - PATHOLOGY/CYTOLOGY ORDERABLES Final Result [facility]erm[facility] Specialized Medicine [address] [place] [address], [address] [phone] documented in this encounter Visit Diagnoses Not on filedocumented in this encounter Care Teams Tool Designer Apprentice Relationship Specialty Start Date End Date Vanesa Horan DO [address] [place] [phone] PCP - General Family Medicine 12/28/16 documented as of this encounter
--- OUTSIDE RECORDS SUMMARY | 2024-11-25 16:58 | XMS_ITS | Encounter Summary ---
Author Organization [facility] Address [address] [facility] [place] [address] Care Team Providers Care Amusement Or Recreation Card Checker Name Role Phone Vanesa Horan DO Primary Care Provider [phone] Encounter Details Date Type Department Care Team (Late st Contact Info) Description 06/27/2018 Lab Requisition [facility] Care DermPath Lab [address] [facility], [place] [phone] Chrissy Cobian MD [address] [facility] 3 [place] [address] Social History Tobacco Use Types Packs/Day Years [...] AM CDT) Case Report Dermatopathology Report Case: [id number] Authorizing Provider: Chrissy Cobian MD Collected: 06/26/2018 [...] specimen consists of a shave biopsy measuring 88x19j1 mm, inked and bisected. Jar 0. 2:39 [...] characteristic determined by the Dermatopathology Laboratory at [facility], directed by Dr. Bruce Costa. These tests need not be, and therefore are not, approved by the [place] Food and Drug Administration. The tests are used for clinical purposes. Billing Codes Specimen Charges Stain Charges [id number] 1 9 2:39 PM CDT DERMATOPATHOLOGY LABORATORY Embedded Images 9 2:39 PM CDT DERMATOPATHOLOGY LABORATORY Pathology/Cytolog y TISSUE SPECIMEN FROM SKIN / Unknown 06/26/2018 06/27/2018 12:07 PM CDT us Chrissy Cobian MD LAB - PATHOLOGY/CYTOLOGY ORD ERABLES Final Result DERMATOPATHOLOGY LABORATORY [facility] - Department of Dermatology [address] [facility], [address]th [place] [address], [facility] [phone] documented in this encounter Visit Diagnoses Not on filedocumented in this encounter Care Teams Amusement Or Recreation Card Checker Relationship Specialty Start Date End Date Vanesa Horan DO [address] [place] [phone] PCP - General Family Medicine 12/28/16 documented as of this encounter
--- OUTSIDE RECORDS SUMMARY | 2024-11-25 16:58 | XMS_ITS | Encounter Summary ---
Author Organization [facility] Address [address] [place] [address] Care Team Providers Care Network Field Engineer Name Role Phone Vanesa Horan DO Primary Care Provider [phone] Encounter Details Date Type Department Care Team (Late st Contact Info) Description 11/14/2023 Lab Requisition [facility] - DermPath Lab [address] [facility], [place] [address] [place] Romero DO [address] [facility] 3 [place] [address] Social History Tobacco Use Types Packs/Day Years [...] AM CDT) Case Report Dermatopathology Report Case: [id number] Authorizing Provider: [place] Romero DO Collected: 11/14/2023 09:50 AM Ordering Location: [facility] - Received: 11/14/2023 04:50 [...] characteristic determined by the Dermatopathology Laboratory at [facility], directed by Dr. Bruce Costa. These tests need not be, and therefore are not, approved by the [place] Food and Drug Administration. The tests are used for clinical purposes. Billing Codes Specimen Charges Stain Charges [id number] [id number] 1 1 4 1:53 PM CDT DERMATOPATHOLOGY LABORATORY Embedded Images 1:53 PM CDT DERMATOPATHOLOGY LABORATORY Pathology/Cytology TISSUE SPECIMEN FROM SKIN / Unknown 11/14/2023 9:50 AM CDT 11/14/2023 4:50 PM CDT Miscellaneous samples (specimen) TISSUE SPECIMEN FROM SKIN / Unknown 11/14/2023 9:50 AM CDT 11/14/2023 4:50 PM CDT us [place] Romero DO LAB - PATHOLOGY/CYTOLOGY ORDERABLES Final Result DERMATOPATHOLOGY LABORATORY [facility] - Department of Dermatology [address], [address] [phone] documented in this encounter Visit Diagnoses Not on filedocumented in this encounter Care Teams Network Field Engineer Relationship Specialty Start Date End Date Vanesa Horan DO [address] [place] [phone] PCP - General Family Medicine 12/28/16 documented as of this encounter
--- OUTSIDE RECORDS SUMMARY | 2024-11-25 16:58 | XMS_ITS | Clinical Summary ---
Author Organization [facility] Address [address] [facility] [place] [address] Care Team Providers Care Clerical Support Name Role Phone BobottoVanesa Primary Care Provider [phone] Source Comments [facility] [employer],non-owned Affiliates and Associated Physician Practices is amultiple site organization consisting of ambulatory clinics and hospital sitesin [place], [place] and [place]. This disclosure is being madepursuant to the Care Everywhere program and may not contain all information available regarding this patient. Last updated 17.[facility] Allergies Active Allergy Reactions Criticality [...] 100.7 kg (222 lb) 04/15/2019 2:52 PM RN CLINICIAN Height 157.5 cm (5' 2) 04/15/2019 2:52 PM RN CLINICIAN Body Mass Index 40.6 04/15/2019 2:52 PM RN CLINICIAN Plan of Treatment Health Maintenance Due Date [...] 1968 ZOSTER VACCINE (1 of 2) 09/19/1999 DIABETES RETINOPATHY SCREENING 04/16/2019 DIABETES-FOOT EXAM WITH MONOFILAMENT 04/16/2019 DIABETES-HGB A1C 10/02/2019 04/03/2019 DEPRESSION SCREENING 02/13/2024 DIABETES - URINE PROTEIN SCREENING 02/13/2024 MEDICARE AWV CALENDAR YEAR 2024 Respiratory Syncytial Virus (RSV) Vaccine Pt: or over 60 yrs (1 - 1-dose 75+ series) 2024 COVID-19 VACCINE ( - 2023-2 5 season) 2024 INFLUENZA VACCINE (#1) 2024 11/12/2014 HEPATITIS B VACCINE Aged Out No longe [...] complete this topic Insurance A[employer] MEDICARE ADV Care Teams Clerical Support Relationship Specialty Start Date End Date Vanesa Horan DO [address] [place] [phone] PCP - General Family Medicine 12/28/16
--- OUTSIDE RECORDS SUMMARY | 2024-11-25 16:58 | XMS_ITS | Encounter Summary ---
Author Organization [facility] Address [facility] [place] [address] Care Team Providers Care Sand And Gravel Plant Operator Name Role Phone Vanesa Horan DO Primary Care Provider [phone] Marco Fabian MD Primary Care Provider [phone] Frantz Matthews MD Primary Care Provider [phone] Encounter Details Date Type Department Care Team (Late st Contact Info) Description 05/04/2016 Abstract [facility] CONVERSION [address] [place] [address] , Ta Sharma MD Social History Tobacco Use Types Packs/Day Years Used Date Smoking Tobacco: Never Assessed Comments Unknown Sex and Gender Information Value Date Recorded Sex Assigned at Female 02/28/2024 1:10 PM BUFFER NICKEL Legal Sex Female 7:27 PM CDT Gender Identity Female 04/29/2024 7:44 AM CDT Sexual Orientation Not on file documented as of this encounter Plan of Treatment Not on file documented as of this encounter Visit Diagnoses Not on filedocumented in this encounter Care Teams Sand And Gravel Plant Operator Relationship Specialty Start Date End Date Vanesa Horan DO PCP - General FAMILY PRACTICE 08/23/18 03/13/22 Marco Fabian MD [address] [place] [id number] PCP - General FAMILY PRACTICE 03/14/22 10/10/24 Frantz Matthews MD [address] [place] [phone] PCP - General FAMILY PRACTICE 10/11/24 documented as of this encounter
--- OUTSIDE RECORDS SUMMARY | 2024-11-25 16:58 | XMS_ITS | Clinical Summary ---
Author Organization [facility] [address] Address [address] [place] [address] Care Team Providers Care Pony Worker Name Role Phone Frantz Matthews MD Primary Care Provider [phone] Allergies Active Allergy Reactions Criticality Noted Date [...] by mouth daily Active blood glucose diagnostic (Veysoftuch Ultra Test) stripIndications: Type 2 diabetes mellitus with hyperglycemia, with long-term current use of insulin ([facility]) USE STRIP TO CHECK GLUCOSE 3 TIMES DAILY BEFORE MEAL(S) 300 each 3 024 Active pen needle, diabetic 32 gauge x /32 needle USE 1 PEN NEEDLE THREE TIMES DAILY Dx.E11.65 300 each 2 025 Active LANTUS 100 unit/mL (3 mL) pen for injectionIndicati ons:Type 2 diabetes mellitus with hyperglycemia, with long-term current use of insulin ([facility]) INJECT 26 UNITS SUBCUTANEOUSLY NIGHTLY 15 mL [...] hyperglycemia, with long-term current use of insulin ([facility]) INJECT 12 TO 18 UNITS SUBCUTANEOUSLY TWICE DAILY BEFORE BREAKFAST AND BEFORE SUPPER 15 mL 025 Active folic acid-vitamin B6-vit B12 1,000 mcg-10 mg -400 mcg tablet daily 020 Active olmesartan-amLODI Pin-hcthiazid 20-5-12.5 mg tablet .COMPLEX 023 Active ogti-DJ-ito-epa-F RD-FJFG-kf-mv 1.5 mg iron- 8.73 mg capsule,IR & delay rel,biphase .COMPLEX 023 Active blood-glucose meter [facility] [place] [place] .MEDSUPPLY 021 Active blood-glucose sensor (Dexcom G7 Sensor) device Activ e tirzepatide (MOUNJARO) 7.5 mg/0.5 mL pen injector injectionIndicati ons:Type 2 diabetes mellitus with hyperglycemia, with long-term current use of insulin ([facility]) Inject 0.5 mL (7.5 mg total) under the skin every 7 days 6 mL 3 025 2025 Active flash glucose sensor (FreeStyle Kaleigh 2 Sensor) kit Change every 14 days 2 kit 11 022 2024 Discontinued( No longer taking - Do not display on AVS) flash glucose scanning reader (FreeStyle [place]aleigh [address] [place]) [facility] [place] [place] As directed 1 each 022 2024 Discontinued( No longer taking - Do not display on AVS) HumaLOG 100 unit/mL pen for injection Inject 12-18 Units under the skin 2 (two) times a day before breakfast and dinner Dx: E11.65 15 mL 3 024 2024 Discontinued( Alternate therapy) FreeStyle Kaleigh [address] [place] [facility] [place] [place] 025 2024 Discontinued( No longer taking - Do not display on AVS) Ofev 100 mg capsule 025 2024 Discontinued( Patient Reported) tirzepatide (Mounjaro) 5 mg/0.5 mL pen injector injectionIndicati ons:type 2 diabetes mellitus Inject 0.5 mL (5 mg total) under the skin every 7 days 6 mL 3 025 2024 Discontinued doxepin (SINEquan) 25 mg capsule TAKE 1 CAPSULE BY MOUTH EVERY DAY AT BEDTIME 025 2024 Discontinued( No longer taking - [...] a 69-year-old referred to us by Dr. Al-Janabi with interstitial lung disease. She reports symptoms [...] 02/27/2024 Assessment & Plan (02/27/2024 3:01 PM DRY CELL BATTERY ASSEMBLER): Chronic problem. Limited activity d/t Interstitial Lung Disease. Will send in Mounjaro 2.5mg weeklyx 4 then increase to 5mg weekly to see if able to help with weight loss. Discussed healthy diet and importance of regular physical activity (20- 30min/day, 150min/wk). ILD (interstitial lung disease) 10/09/2019 Overview (10/09/2019): Added automatically from request for surgery [id number] Lung nodule 10/09/2019 Overview (10/09/2019): Added automatically from request for surgery [id number] 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 2 diabetes mellitus 0 04/03/2019 Assessment & Plan (11/06/2024 12:32 PM CDT): Chronic problem. Controlled on current Rosuvastatin 10mg & zetia 10mg. Last lipid panel: 08/30/23 LDL=65, EO=542. Will update lipid panel. Verified that she uses [employer]. Aware to check results/results letter in [employer]. Will contact by phone if needed. Assessment & Plan (06/19/2024 2:17 PM CDT): Chronic problem. Controlled on current Rosuvastatin 10mg & zetia 10mg. Last lipid panel: 08/30/23 LDL=65, OT=390. Assessment & Plan (02/27/2024 1:54 PM DRY CELL BATTERY ASSEMBLER): Chronic problem. Controlled on current Rosuvastatin 10mg & zetia 10mg. Last lipid panel: 08/30/23 LDL=65, AA=447. Assessment & Plan (10/25/2023 2:05 PM CDT): Chronic problem. Controlled on current Rosuvastatin 10mg & zetia 10mg. Last lipid panel: 03/08/23 LDL=48, EG=977. Assessment & Plan (06/12/2023 3:56 PM CDT): Chronic, well-controlled. Continue statin therapy with rosuvastatin Assessment & Plan (03/08/2023 4:37 PM DRY CELL BATTERY ASSEMBLER): Chronic, well-controlled Continue statin therapy with rosuvastatin Assessment & Plan (12/07/2022 2:24 PM CDT): Chronic problem. Controlled on current Rosuvastatin 10mg & zetia 10mg. Last lipid panel: 03/14/22 LDL=52, WD=267. Assessment & Plan (07/05/2022 2:12 PM CDT): Chronic problem. On statin therapy, no changes. Assessment & Plan (03/09/2022 3:07 PM DRY CELL BATTERY ASSEMBLER): Chronic, well controlled Low fat Low cholesterol [...] Pravachol Assessment & Plan (12/25/2019 1:24 PM DRY CELL BATTERY ASSEMBLER): Goal of treatment , LDL cholesterol less [...] recently Assessment & Plan (04/03/2019 11:15 AM DRY CELL BATTERY ASSEMBLER): Goal of treatment , LDL cholesterol less [...] daily Assessment & Plan (02/27/2024 1:54 PM DRY CELL BATTERY ASSEMBLER): Chronic problem. Controlled on current olmesartan 40mg daily, diltiazem CD 360mg daily, chlorthalidone 25mg daily Assessment & Plan (10/25/2023 2:23 PM CDT): Chronic problem. Controlled on current olmesartan 40mg daily, diltiazem CD 360mg daily, chlorthalidone 25mg daily Assessment & Plan (03/08/2023 4:37 PM DRY CELL BATTERY ASSEMBLER): Chronic, well-controlled Continue current regimen including ARB [...] Olmesartan Assessment & Plan (12/25/2019 1:23 PM DRY CELL BATTERY ASSEMBLER): Goal blood pressure is less than 140/85 [...] Olmesartan Assessment & Plan (01/28/2019 10:48 AM DRY CELL BATTERY ASSEMBLER): Controlled on current medications. Continue plan. Assessment [...] Will update lipid. Verified that she uses [employer]. Aware to check results/results letter in [employer]. Will contact by phone if needed. 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 Assessment & Plan (02/27/2024 3:00 PM DRY CELL BATTERY ASSEMBLER): Chronic problem. A1c worsened from 8.1% 10/25/23 [...] results. UTD on DM eye exam (12/2023 [facility]). Letter sent to get copy of [...] on labs. DM eye exam 09/2022 [facility] [place]. Has appt next week; will send letter [...] dinner Assessment & Plan (03/08/2023 4:37 PM DRY CELL BATTERY ASSEMBLER): Hba1c was Lab Results Component Value Date HGBA1C 7.3 03/08/2023 today, indicating suboptimal DM control Goal Hba1c under 7 and blood glucose level in the 120-160 range was explained Low carb diet and daily aerobic and /or resistant exercise were advised Prevention and treatment of hyypoglcyemia were discussed with the patient Blood glucose monitoring : Continue CGM with freestyle Kal[place]ih Adjustment to medications: Continue current regimen including [...] contact re: results. DM eye exam 09/2022 [facility]. Letter sent to get copy of report. [...] Janumet. Assessment & Plan (03/09/2022 3:06 PM DRY CELL BATTERY ASSEMBLER): Hba1c was Lab Results Component Value Date [...] CGM Assessment & Plan (12/25/2019 1:23 PM DRY CELL BATTERY ASSEMBLER): Hba1c was Lab Results Component Value Date [...] provided. Assessment & Plan (04/03/2019 11:15 AM DRY CELL BATTERY ASSEMBLER): Hba1c was Lab Results Component Value Date [...] current Assessment & Plan (01/28/2019 10:49 AM DRY CELL BATTERY ASSEMBLER): A1c 6.2 without hypoglycemia. Advised to continue [...] goal hba1c is under 7.0 to prevent terminal clerk diabetes complications ( eye , kidney and [...] goal hba1c is under 7.0 to prevent terminal clerk diabetes complications ( eye , kidney and [...] Department Care Team Description 11/07/2024 Results Follow-Up [facility] [address] [place] [phone] Stephanie Ruiz NP Lipid panel 11/06/2024 1:45 PM CDT Lab [address] [address] Type 2 diabetes mellitus with hyperglycemia, with long-term current use of insulin (HCC); 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) 11/06/2024 1:00 PM CDT Office Visit [facility] [address] [place] [phone] Stephanie Ruiz NP Type 2 diabetes mellitus with hyperglycemia, with long-term current use of insulin (HCC) (Primary Dx); Hypertension associated with diabetes (HCC); 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) 09/23/2024 Telephone [facility] [address] [address] Stephanie Ruiz NP Med Refill [...] on file Legal Sex Female 6:58 PM DRY CELL BATTERY ASSEMBLER Gender Identity Not on file Sexual Orientation Not on file 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 Not on file Not on file [...] Screening-Bone Density Scan 09/14/2023 09/13/2021 Covid-19 Vaccine (5 - 2024-2 6 season) 2024 07/18/2021, 11/18/2020, [...] CREATININE RATIO, URINE Routine 02/28/2024 8:00 AM DRY CELL BATTERY ASSEMBLER Type 2 diabetes mellitus with hyperglycemia, with long-term current use of insulin (HCC) EGFR Routine 02/27/2024 2:39 PM DRY CELL BATTERY ASSEMBLER Type 2 diabetes mellitus with hyperglycemia, with long-term current use of insulin (HCC) DIABETES EYE EXAM Routine 11/13/2023 DIABETES FOOT [...] LAB BLOOD ORDERABLES Barbara l Result MELISSA [address] [facility] Department [place] [address] * (ABNORMAL) POCT hemoglobin A1c (11/06/2024 12:58 PM CDT) Hemoglobin A1C, POC 6.3(A) 4.0 - 5.6 % Blood 11/06/2024 12:5 8 PM CDT us Stephanie R. Schleeper HEAD OF ADVERTISING POINT OF CARE TEST ORDERA BLES Final Result * (ABNORMAL) POCT glucose (11/06/2024 12:47 PM CDT) Glucose Blood, POC 136 Normal Fasting 70 - 100, Random <200 mg/dL Blood 11/06/2024 12:4 7 PM CDT us Stephanie Ruiz NP POINT OF CARE TEST ORDERA BLES Final Result * Albumin Creatinine Ratio, Urine (02/28/2024 8:00 AM DRY CELL BATTERY ASSEMBLER) SCRIBED Creatinine, Urine 195.8 28 - 217 EXTERNAL LAB SCRIBED Microalbumin 1.5 <2.0 - NA EXTERNAL LAB SCRIBED Microalb/Creat Ratio 7.7 <30.0 - NA EXTERNAL LAB Urine 02/28/2024 8:00 AM DRY CELL BATTERY ASSEMBLER us Stephanie Ruiz HEAD OF ADVERTISING LAB URINE ORDERABLES Barbara l Result EXTERNAL LAB * (ABNORMAL) eGFR (02/27/2024 2:39 PM DRY CELL BATTERY ASSEMBLER) eGFR 55(L) >=60 mL/min/1. 73 m2 Comment: [...] last reviewed 2020. Blood 02/27/2024 2:39 PM DRY CELL BATTERY ASSEMBLER 02/27/2024 9:48 PM DRY CELL BATTERY ASSEMBLER Stephanie Ruiz NP LAB BLOOD ORDERABLES Barbara l Result MELISSA KAHN [address] Department [place] [address] * (ABNORMAL) DIABETES EYE EXAM (11/13/2023) SCRIBED DIABETIC DILATED EYE EXAM Abnormal 11/13/2023 Result [facility] Historical Provider HEALTH MAINTENANCE Edited Result - Final * DIABETES FOOT EXAM (11/01/2023 8:39 AM CDT) Historical Provider HEALTH MAINTENANCE Final Result from Last 3 Months or Most Recently Relevant to Health Maintenance Insurance UHC MEDICARE ADVANTAGE AETNA MEDICARE [facility] MEDICARE Advance Directives For more information, please contact: [phone] Documents on File Type Date Recorded Patient Sales Record Clerk Expl anation ADVANCE DIRECTIVE 10/10/2019 10:36 AM Pratibha r of [employer] * Full Code (Latest Code Status on File) Date Activated Date Inactivated Comments 10/17/2019 7:55 PM 10/18/2019 10:54 PM Care Teams Pony Worker Relationship Specialty Start Date End Date Frantz Matthews MD [address] [place], [place] [phone] PCP - General Family Practice 06/27/24
--- OUTSIDE RECORDS SUMMARY | 2024-11-25 16:58 | XMS_ITS | Clinical Summary ---
Author Organization [facility] Address [facility] [place] [address] Care Team Providers Care Ob/Gyn Doctor Name Role Phone Frantz Matthews MD Primary Care Provider [phone] Allergies Active Allergy Reactions Criticality Noted Date [...] CDT - 10/11/2024 4:24 PM CDT Emergency [facility] Emergency Room [id number] [place] [address] Cherelel Purcell MD Fall Discharge Disposition: Home or Self Care (Routine Discharge) 10/11/2024 Travel from Last 3 Months Social History Tobacco Use Types Packs/Day Years Used Date Smoking Tobacco: Never Assessed Comments Unknown Sex and Gender Information Value Date Recorded Sex Assigned at Female 02/28/2024 1:10 PM GROCERY STORE COURTESY CLERK Legal Sex Female 7:27 PM CDT Gender [...] 07/18/2021, 11/18/2020, 05/04/2020, Additional history exists Influenza Adult (#1) 2024 11/30/2020, 11/15/2019, 11/14/2019, Additional history exists Pneumococcal Vaccine: 50+ Years [...] CDT LIPID PANEL Routine 03/14/2022 8:17 AM GROCERY STORE COURTESY CLERK Type II diabetes mellitus with hyperosmolarity, uncontrolled [...] 2:47 PM Narrative 10/11/2024 2:51 PM CDT [place] [address] [address] [facility]. [place] [id number] EXAM: XR HIP LT 2V DATE: 10/11/2024 [...] Procedure Note Charlie Britt MD - 10/11/2024 [facility] [address] [address] [facility] [place]. [place] [id number] EXAM: XR HIP LT 2V DATE: 10/11/2024 [...] By: Charlie Britt MD, 10/11/2024 2:47 PM us Cherelle Purcell MD GENERAL IMAGING Final Resul t * LIPID PANEL (03/14/2022 8:17 AM GROCERY STORE COURTESY CLERK) CHOLESTEROL 120 <200.0 MG/DL 03/14/2022 8:45 AM [facility] TRIGLYCERIDES 130 <150 MG/DL 03/14/2022 8:45 AM [facility] HDL 42 >40.0 MG/DL 03/14/2022 8:45 AM [facility] LDL (CALCULATED) 52 <100 MG/DL 03/14/19 8:45 AM [facility] NON HDL CHOLESTEROL 78 <130 MG/DL 03/14 8:45 AM [facility] CHOL/HDL RATIO 2.9 0.0 - 4.5 03/14/2022 8:45 AM [facility] VLDL CALCULATION 26 5 - 55 MG/DL 03/14/2022 8:45 AM [facility] LIPID INTERPRETATION 03/14/2022 8:45 AM [facility] Comment: NIH CONCENSUS REPORT RECOMMENDATIONS: ADULT CHILD LOW RISK: CHOLESTEROL <200 <170 TRIGLYCERIDE <150 --- HDL >=60 --- LDL <100 <110 BORDERLINE: CHOLESTEROL 200-239 170-199 TRIGLYCERIDE 150-199 --- HDL 40-59 --- LDL 100-159 110-129 HIGH RISK: CHOLESTEROL >=240 >=200 TRIGLYCERIDE >=200 --- HDL <40 --- LDL >=160 >=130 03/14/2022 8:17 AM GROCERY STORE COURTESY CLERK Octavia Paul MD LABORATORY Final Result [facility] [address] [place] [address], * BONE DENSITY/DEXA (09/13/2021 1:17 PM CDT) [...] 7.8(H) <5.7 % 09/24/2018 1:06 PM CDT [facility] () [facility] Comment: INCREASED RISK OF DIABETES <5.7% NON-DIABETES 5.7-6.4% INCREASED RISK FOR FUTURE DIABETES > OR = 6.5 CONSISTENT WITH DIABETES STANDARDS OF MEDICAL CARE IN DIABETES-2010 DIABETES CARE, 33(SUPP 1): S1-S61,2009 09/24/2018 11:1 2 AM CDT us David Greco MD LABORATORY Final Result [facility] ([facility] [address] [facility] [place] [address], from Last 3 Months or Most Recently Relevant to Health Maintenance Insurance AETNA MEDICARE Care Teams Ob/Gyn Doctor Relationship Specialty Start Date End Date Frantz Matthews MD [address] [place] [address] PCP - General FAMILY PRACTICE 10/11/24
[2024-11-25 17:40] LABS: Vitamin B12 261.0 pg/mL (239-931)
[2024-11-25 18:31] LABS: Hemoglobin A1C 6.3 % (<5.7)
== END 2024-11-25 15:11 | disposition home or self-care (01) ==
PROVIDERS: PCP Family Medicine; Visit Provider Family Medicine
DX: M54.50 Low back pain, unspecified (principal); E78.5 Hyperlipidemia, unspecified; D64.9 Anemia, unspecified; E11.65 Type 2 diabetes mellitus with hyperglycemia; E11.22 Type 2 diabetes mellitus with diabetic chronic kidney disease; I12.9 Hypertensive chronic kidney disease with stage 1 through stage 4 chronic kidney disease, or unspecified chronic kidney disease; N18.9 Chronic kidney disease, unspecified; R53.83 Other fatigue; Z79.4 Long term (current) use of insulin
CPT/HCPCS: 36415; 72100; 80053; 82043; 82172; 82306; 82607; 83036; 85025

== ENCOUNTER 2024-12-03 11:30 | Outpatient (CLI) | payer MEDICARE, SELFPAY ==
--- NOTE | ~2024-12-03 | XR_ITS ---
XR hip LT 2V w AP pelvis 12/03/2024 11:53 INDICATION: Left hip pain PROCEDURE: 3 views left hip COMPARISON: No prior studies for comparison. FINDINGS: Fracture, dislocation or subluxation is not identified. There is atherosclerosis. The soft tissues appear within normal limits. No foreign bodies are identified. Pelvic rings intact. Sacral foramen are symmetric. IMPRESSION: 1: NO ACUTE BONE OR JOINT ABNORMALITY IDENTIFIED. Reviewed, dictated and finalized at location O.
== END 2024-12-03 11:31 | disposition home or self-care (01) ==
PROVIDERS: PCP Family Medicine; Visit Provider Family Medicine
DX: M25.552 Pain in left hip (principal)
CPT/HCPCS: 73502

== ENCOUNTER 2024-12-26 08:26 | Outpatient (CLI) | payer MEDICARE, SELFPAY ==
--- NOTE | ~2024-12-26 | US_ITS ---
EXAM/PROCEDURE: US arterial ankle brachial ind HISTORY: I73.9 - Peripheral vascular disease, unspecified COMPARISON: None available. TECHNIQUE: JUICE FINDINGS: Right and left brachial pressure readings are 121 and 128 Right and left posterior tibial and right and left dorsalis pedis pressure readings could not be obtained. Right and left toe measurements are 101 05 Right and left TBI's are 0.78 and 0.82 Plethysmography in the ankle regions appear somewhat widened. IMPRESSION: Nondiagnostic examination with no pressures available to calculate ABIs. Consider correlation with duplex interrogation of the lower extremity renal arteries for further evaluation. Reviewed, dictated and finalized at location A. AREA NETWORK ENGINEER IMPRESSION: Nondiagnostic examination with no pressures available to calculate ABIs. Consid er correlation with duplex interrogation of the lower extremity renal arteries for further evaluation.
--- NOTE | ~2024-12-26 | MR_ITS ---
EXAM/PROCEDURE: MR lumbar spine wo con HISTORY: M54.9 - Dorsalgia, unspecified COMPARISON: None available. TECHNIQUE: Multiplanar noncontrast enhanced lumbar spine MRI FINDINGS: Small Schmorl's node in the inferior endplate of L4 noted with focal hyperintense T2-weighted signal within the disc extending into the lower L4 vertebral body. See image 12 series 4. No acute or aggressive bony or soft tissue process seen. Degenerative changes present throughout the lumbar spine involving disc spaces and posterior elements. The conus tapers normally at L2. Partially visualized bilateral cysts which are large on the left side measuring at least 5.6 cm. Level specific findings as follows: T12-L1: Mild degenerative changes L1-2: Mild degenerative changes L2-3: Moderate degenerative disc and facet changes with borderline stenosis in the right lateral recess. No spinal canal stenosis or discrete disc protrusion. Moderate right and mild to moderate left-sided neural foraminal narrowing. L3-4: Advanced disc space narrowing, and posterior spondylosis with thickened ligamentum flavum and facet hyperostosis. No spinal canal stenosis or discrete disc protrusion. Moderate right and mild to moderate left-sided neural foraminal narrowing. The lateral recesses are narrowed but do not appear grossly stenosis. L4-5: Approximately 3 mm anterolisthesis L4 and L5 with more severe hyperostosis of the facet joints and thickening of ligamentum flavum resulting in mild to moderate spinal canal stenosis. Moderate left and mild to moderate right-sided neural foraminal narrowing. L5-S1: No spinal canal stenosis or discrete disc protrusion. Mild bilateral neural foraminal narrowing. IMPRESSION: 1. Multilevel degenerative changes as detailed above. 2. Possible subacute or acute Schmorl's node development involving inferior endplate of L4. 3. Partially visualized prominent cyst formation in the left kidney. Consider correlation with dedicated abdominal or renal imaging. Reviewed, dictated and finalized at location A. INSTALLER IMPRESSION: 1. Multilevel degenerative changes as detailed above. 2. Possible subacute or acute Schmorl's node development involving inferior end plate of L4. 3. Partially visualized prominent cyst formation in the left kidney. Consider c orrelation with dedicated abdominal or renal imaging.
--- OUTSIDE RECORDS SUMMARY | 2024-12-26 08:41 | XMS_ITS | Encounter Summary ---
Author Organization [facility] Address [facility] [place] [address] Care Team Providers Care Clinical Coder Name Role Phone BobVanesa menjivar Primary Care Provider [phone] Marco Fabian MD Primary Care Provider [phone] Frantz Matthews MD Primary Care Provider [phone] Encounter Details Date Type Department Care Team (Late st Contact Info) Description 05/04/2016 Abstract [facility] [address] [place] [address] , Ta Sharma MD Social History Tobacco Use Types Packs/Day Years Used Date Smoking Tobacco: Never Assessed Comments Unknown Sex and Gender Information Value Date Recorded Sex Assigned at Female 02/28/2024 1:10 PM TABLE CUT OFF SAW OPERATOR Legal Sex Female 7:27 PM CDT Gender Identity Female 04/29/2024 7:44 AM CDT Sexual Orientation Not on file documented as of this encounter Plan of Treatment Upcoming Encounters Date Type Department Care Team (Late st Contact Info) Description 12/26/2024 3:30 PM TABLE CUT OFF SAW OPERATOR Appointment [facility] [address] [place], [place] [phone] Frantz Matthews MD [address] [place] [address] Zoe Wild PTA 12/29/2024 4:30 PM TABLE CUT OFF SAW OPERATOR Appointment [facility] [address] [place] [address] Frantz Matthews MD [address] [place] [address] Lizet Gentile PTA 01/01/2025 3:30 PM TABLE CUT OFF SAW OPERATOR Appointment [facility] [address] [place] [address] Frantz Matthews MD [address] [place] [address] Lizet Gentile PTA documented as of this encounter Visit Diagnoses Not on filedocumented in this encounter Care Teams Clinical Coder Relationship Specialty Start Date End Date Vanesa Horan DO PCP - General FAMILY PRACTICE 08/23/18 03/13/22 Marco Fabian MD [address] [place] [address] PCP - General FAMILY PRACTICE 03/14/22 10/10/24 Frantz Matthews MD [address] [place] [address] PCP - General FAMILY PRACTICE 10/11/24 documented as of this encounter
--- OUTSIDE RECORDS SUMMARY | 2024-12-26 08:41 | XMS_ITS | Clinical Summary ---
Author Organization [facility] Address [facility] [place] [address] Care Team Providers Care Bag Machine Operator Name Role Phone Frantz Matthews MD Primary Care Provider [phone] Allergies Active Allergy Reactions Criticality Noted Date [...] Active Problems Problem Noted Date Diagnosed Date Lumbago with sciatica 12/09/2024 S/P TKR (total knee replacement), left 9 Encounters Date Type Department Care Team Description 12/23/2024 2:43 PM SYSTEMS LEAD - 12/23/2024 11:59 PM [facility] Hospital Encounter [facility] [address] [place], [place] [id number] Denis Ballard, PT Frantz Matthews MD Low Back Pain Discharge Disposition: Home or Self Care (Routine Discharge) 12/23/2024 Travel 12/19/2024 12:47 PM SYSTEMS LEAD - 12/19/2024 11:59 PM [facility] Hospital Encounter [facility] [address] [place] [address] Frantz Matthews MD Gerling, Savannah L, PTA Low Back Pain Discharge Disposition: Home or Self Care (Routine Discharge) 12/19/2024 Travel 12/09/2024 12:45 PM CDT - 12/09/2024 11:59 PM CDT Hospital Encounter [facility] [address] [place] [address] Denis Ballard, PT Frantz Matthews MD Back Pain (PT Eval ) Discharge Disposition: Home or Self Care (Routine Discharge) 12/09/2024 Travel 10/11/2024 2:03 PM CDT - 10/11/2024 4:24 PM CDT Emergency [facility] Emergency Room [id number] [place] [id number] Cherelle Purcell MD Fall Discharge Disposition: Home or Self Care (Routine Discharge) 10/11/2024 Travel from Last 3 Months Social History Tobacco Use Types Packs/Day Years Used Date Smoking Tobacco: Never Assessed Comments Unknown Sex and Gender Information Value Date Recorded Sex Assigned at Female 02/28/2024 1:10 PM SYSTEMS LEAD Legal Sex Female 7:27 PM CDT Gender [...] 10/11/2024 2:03 PM CDT Plan of Treatment Upcoming Encounters Date Type Department Care Team (Late st Contact Info) Description 12/26/2024 3:30 PM SYSTEMS LEAD Appointment [facility] [address] [place] [address] Frantz Matthews MD [address] [place] [address] TorriZoe, STRANDING MACHINE OPERATOR HELPER 12/29/2024 4:30 PM SYSTEMS LEAD Appointment [facility] [address] [place] [address] Frantz Matthews MD [address] [place] [address] Lizet Gentile PTA 01/01/2025 3:30 PM SYSTEMS LEAD Appointment [facility] [address] [place] [address] Frantz Matthews MD [address] [place] [address] Lizet Gentile, STRANDING MACHINE OPERATOR HELPER Health Maintenance Due Date Last Done Comments Colorectal Cancer Screening Colonoscopy (10 Years) 1950 Kidney Health Evaluation 1950 Diabetes: Retinopathy Eye Exam 09/19/1967 Hepatitis C 09/19/1967 Annual Medicare Wellness Visit 2014 Hemoglobin A1C [...] 11/19/2017, 11/15/2016 Dexa Scan (General) Completed 09/13/2021 Zoster Vaccines Completed 11/25/2024, 04/0 09/2024, 12/05/2012 Hepatitis A Vaccines Aged Out No long er eligible based on patient's age to complete this topic Meningococcal B Vaccine Aged Out No l [...] CDT LIPID PANEL Routine 03/14/2022 8:17 AM SYSTEMS LEAD Type II diabetes mellitus with hyperosmolarity, uncontrolled [...] 2:47 PM Narrative 10/11/2024 2:51 PM CDT [facility] [address] [place] [address] EXAM: XR HIP LT 2V DATE: 10/11/2024 [...] Procedure Note Charlie Britt MD - 10/11/2024 [facility] [address] [place] [address] EXAM: XR HIP LT 2V DATE: 10/11/2024 [...] t * LIPID PANEL (03/14/2022 8:17 AM SYSTEMS LEAD) CHOLESTEROL 120 <200.0 MG/DL 03/14/2022 8:45 AM [facility] TRIGLYCERIDES 130 <150 MG/DL 03/14/2022 8:45 AM [facility] HDL 42 >40.0 MG/DL 03/14/2022 8:45 AM [facility] LDL (CALCULATED) 52 <100 MG/DL 03/14/19 8:45 AM [facility] NON HDL CHOLESTEROL 78 <130 MG/DL 03/14 8:45 AM [facility] CHOL/HDL RATIO 2.9 0.0 - 4.5 03/14/2022 8:45 AM [facility] VLDL CALCULATION 26 5 - 55 MG/DL 03/14/2022 8:45 AM [facility] LIPID INTERPRETATION 03/14/2022 8:45 AM [facility] Comment: NIH CONCENSUS REPORT RECOMMENDATIONS: ADULT CHILD LOW RISK: CHOLESTEROL <200 <170 TRIGLYCERIDE <150 --- HDL >=60 --- LDL <100 <110 BORDERLINE: CHOLESTEROL 200-239 170-199 TRIGLYCERIDE 150-199 --- HDL 40-59 --- LDL 100-159 110-129 HIGH RISK: CHOLESTEROL >=240 >=200 TRIGLYCERIDE >=200 --- HDL <40 --- LDL >=160 >=130 03/14/2022 8:17 AM SYSTEMS LEAD Octavia Paul MD LABORATORY Final Result Performing Organization Address City/State/[facility] Co de Phone Number [facility] [address] [place] [address], * BONE DENSITY/DEXA (09/13/2021 1:17 PM CDT) Anatomical Region Laterality Modality Bone Bone Density 09/13/2021 1:53 PM CDT Impressions 09/13/2021 1:55 PM CDT Impression: BMD measured at AP lumbar spine, both total hips and both femoral necks at WHO category level of normal. Ordered By: VANESA HORAN Interpreted By: Fredi Manrique MD, 09/13/2021 [...] atWHO category level of normal. Ordered By: VANESA HORAN Interpreted By: Fredi Manrique MD, 09/13/2021 1:53 PM Vanesa Horan DO DEXA Final Resul t * (ABNORMAL) HEMOGLOBIN, GLYCOSYLATED (09/24/2018 11:12 AM CDT) HGB A1C 7.8(H) <5.7 % 09/24/2018 1:06 PM CDT [facility] Comment: INCREASED RISK OF DIABETES <5.7% NON-DIABETES 5.7-6.4% INCREASED RISK FOR FUTURE DIABETES > OR = 6.5 CONSISTENT WITH DIABETES STANDARDS OF MEDICAL CARE IN DIABETES-2010 DIABETES CARE, 33(SUPP 1): S1-S61,2009 09/24/2018 11:1 2 AM CDT David Greco MD LABORATORY Final Result [facility] [address] [place] [address], from Last 3 Months or Most Recently Relevant to Health Maintenance Insurance [employer] MEDICARE Care Teams Bag Machine Operator Relationship Specialty Start Date End Date Frantz Matthews MD [address] [place] [address] PCP - General FAMILY PRACTICE 10/11/24
--- OUTSIDE RECORDS SUMMARY | 2024-12-26 08:41 | XMS_ITS | Encounter Summary ---
Author Organization [facility] Address [address] [facility] [place] [address] Care Team Providers Care Wind Project Manager Name Role Phone Vanesa Horan DO Primary Care Provider [phone] Encounter Details Date Type Department Care Team (Late st Contact Info) Description 11/06/2022 Lab Requisition [facility] - DermPath Lab [address] [facility], [place] [address] Virginia Romero DO [address] [facility] 3 [place] [address] Social History Tobacco Use Types Packs/Day Years [...] PM CDT) Case Report Dermatopathology Report Case: [id number] Authorizing Provider: Virginia Roemro DO Collected: 11/06/2022 04:01 PM Ordering Location: [facility] DermPath Lab Received: 11/07/2022 02:30 PM [...] characteristic determined by the Dermatopathology Laboratory at [facility], directed by Dr. rBuce Costa. These tests need not be, and therefore are not, approved by the [place] Food and Drug Administration. The tests are used for clinical purposes. Billing Codes Specimen Charges Stain Charges 26207 [address] 1 1 3 3:12 PM CDT DERMATOPATHOLOGY LABORATORY Embedded Images 3 3:12 PM CDT DERMATOPATHOLOGY LABORATORY Pathology/Cytology TISSUE SPECIMEN FROM SKIN / Unknown 11/06/2022 4:01 PM CDT 11/07/2022 2:30 PM CDT Miscellaneous samples (specimen) TISSUE SPECIMEN FROM SKIN / Unknown 11/06/2022 4:01 PM CDT 11/07/2022 2:30 PM CDT us Virginia Romreo DO LAB - PATHOLOGY/CYTOLOGY ORDERABLES Final Result DERMATOPATHOLOGY LABORATORY [facility] - Department of Dermatology [facility] [address] [place] [address], [address] [phone] documented in this encounter Visit Diagnoses Not on filedocumented in this encounter Care Teams Wind Project Manager Relationship Specialty Start Date End Date Vanesa Horan DO [address] [place] [phone] PCP - General Family Medicine 12/28/16 documented as of this encounter
--- OUTSIDE RECORDS SUMMARY | 2024-12-26 08:41 | XMS_ITS | Clinical Summary ---
Author Organization [facility] [address] Address [address] [place] [address] Care Team Providers Care General Road Foreman Name Role Phone Frantz Matthews MD Primary Care Provider [phone] Allergies Active Allergy Reactions Criticality Noted Date [...] (CRESTOR) 10 mg tablet 04/13/19 22 Active furosemide (LASIX) 40 mg tablet [...] FOR NAUSEA AND VOMITING 02/27/19 24 Active vitamin B complex capsule Take 1 capsule by mouth daily Active blood glucose diagnostic (Cash Check CardTouch Ultra Test) stripIndications:T ype 2 diabetes mellitus with hyperglycemia, with long-term current use of insulin ([facility]) USE STRIP TO CHECK GLUCOSE 3 TIMES DAILY BEFORE MEAL(S) 300 each 3 01/23/20 24 Active pen needle, diabetic 32 gauge x 32 needle USE 1 PEN NEEDLE THREE TIMES DAILY Dx.E11.65 300 each 2 03/20/19 25 Active LANTUS 100 unit/mL (3 mL) pen for injectionIndicatio ns:Type 2 diabetes mellitus with hyperglycemia, with long-term current use of insulin ([facility]) INJECT 26 UNITS SUBCUTANEOUSLY NIGHTLY 15 mL 06/11/19 25 Active Additional Information Patient taking differently: 18 Units subcutaneous Nightly, Reported on 11/06/2024 albuterol 2.5 mg /3 mL (0.083 %) nebulizer solution USE 2 VIAL IN NEBULIZER EVERY 4 TO 6 HOURS NEEDED FOR SHORTNESS OF BREATH AND FOR WHEEZING 03/12/19 25 Active SITagliptin phos-metformin (Janumet) 50-1,000 mg per tabletIndications: Type 2 diabetes mellitus with hyperglycemia, with long-term current use of insulin ([facility]) TAKE 1 TABLET BY MOUTH TWICE DAILY WITH MEALS 180 tablet 1 09/30/19 25 Active ezetimibe (ZETIA) 10 mg tabletIndications: Type 2 diabetes mellitus with hyperglycemia, with long-term current use of insulin (HCC) Take 1 tablet by mouth once daily 90 tablet 09/30/19 25 Active NovoLOG 100 unit/mL (3 mL) pen for injectionIndicatio ns:Type 2 diabetes mellitus with hyperglycemia, with long-term current use of insulin (HCC) INJECT 12 TO 18 UNITS SUBCUTANEOUSLY TWICE DAILY BEFORE BREAKFAST AND BEFORE SUPPER 15 mL 10/16/19 25 Active folic acid-vitamin B6-vit B12 1,000 mcg-10 mg -400 mcg tablet daily 09/01/19 20 Active olmesartan-amLODIP in-hcthiazid 20-5-12.5 mg tablet .COMPLEX 07/08/19 23 Active enla-BH-pjr-epa-FA Z-DZJO-gi-mv 1.5 mg iron- 8.73 mg capsule,IR & delay rel,biphase .COMPLEX 09/09/19 23 Active blood-glucose meter misc .MEDSUPPLY 02/15/19 21 Active blood-glucose sensor (Dexcom G7 Sensor) device Activ e tirzepatide (MOUNJARO) 7.5 mg/0.5 mL pen injector injectionIndicatio ns:Type 2 diabetes mellitus with hyperglycemia, with long-term current use of insulin (HCC) Inject 0.5 mL (7.5 mg total) under the skin every 7 days 6 mL 3 11/07/19 25 026 Active Active Problems Patient Care Coordination No [...] 02/27/2024 Assessment & Plan (02/27/2024 3:01 PM ENGRAVING SUPERVISOR): Chronic problem. Limited activity d/t Interstitial Lung Disease. Will send in Mounjaro 2.5mg weeklyx 4 then increase to 5mg weekly to see if able to help with weight loss. Discussed healthy diet and importance of regular physical activity (20- 30min/day, 150min/wk). ILD (interstitial lung disease) 10/09/2019 Overview (10/09/2019): Added automatically from request for surgery [id number] Lung nodule 10/09/2019 Overview (10/09/2019): Added automatically from request for surgery [id number] 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 2 diabetes mellitus 0 04/03/2019 Assessment & Plan (11/06/2024 12:32 PM CDT): Chronic problem. Controlled on current Rosuvastatin 10mg & zetia 10mg. Last lipid panel: 08/30/23 LDL=65, NF=760. Will update lipid panel. Verified that she uses mychart. Aware to check results/results letter in [email or web address] / [employer]. Will contact by phone if needed. Assessment & Plan (06/19/2024 2:17 PM CDT): Chronic problem. Controlled on current Rosuvastatin 10mg & zetia 10mg. Last lipid panel: 08/30/23 LDL=65, VO=449. Assessment & Plan (02/27/2024 1:54 PM ENGRAVING SUPERVISOR): Chronic problem. Controlled on current Rosuvastatin 10mg & zetia 10mg. Last lipid panel: 08/30/23 LDL=65, FC=254. Assessment & Plan (10/25/2023 2:05 PM CDT): Chronic problem. Controlled on current Rosuvastatin 10mg & zetia 10mg. Last lipid panel: 03/08/23 LDL=48, AN=953. Assessment & Plan (06/12/2023 3:56 PM CDT): Chronic, well-controlled. Continue statin therapy with rosuvastatin Assessment & Plan (03/08/2023 4:37 PM ENGRAVING SUPERVISOR): Chronic, well-controlled Continue statin therapy with rosuvastatin Assessment & Plan (12/07/2022 2:24 PM CDT): Chronic problem. Controlled on current Rosuvastatin 10mg & zetia 10mg. Last lipid panel: 03/14/22 LDL=52, SJ=902. Assessment & Plan (07/05/2022 2:12 PM CDT): Chronic problem. On statin therapy, no changes. Assessment & Plan (03/09/2022 3:07 PM ENGRAVING SUPERVISOR): Chronic, well controlled Low fat Low [...] Pravachol Assessment & Plan (12/25/2019 1:24 PM ENGRAVING SUPERVISOR): Goal of treatment , LDL cholesterol [...] recently Assessment & Plan (04/03/2019 11:15 AM ENGRAVING SUPERVISOR): Goal of treatment , LDL cholesterol [...] daily Assessment & Plan (02/27/2024 1:54 PM ENGRAVING SUPERVISOR): Chronic problem. Controlled on current olmesartan 40mg daily, diltiazem CD 360mg daily, chlorthalidone 25mg daily Assessment & Plan (10/25/2023 2:23 PM CDT): Chronic problem. Controlled on current olmesartan 40mg daily, diltiazem CD 360mg daily, chlorthalidone 25mg daily Assessment & Plan (03/08/2023 4:37 PM ENGRAVING SUPERVISOR): Chronic, well-controlled Continue current regimen including [...] Olmesartan Assessment & Plan (12/25/2019 1:23 PM ENGRAVING SUPERVISOR): Goal blood pressure is less than [...] Olmesartan Assessment & Plan (01/28/2019 10:48 AM ENGRAVING SUPERVISOR): Controlled on current medications. Continue plan. [...] Will update lipid. Verified that she uses [employer]. Aware to check results/results letter in [employer]. Will contact by phone if needed. UTD on DM eye exam (11/13/23 mild NPDR wo [facility]) Strive for regular exercise (30min most days) [...] eye exam (11/13/23 mild NPDR wo [facility]) Strive for regular exercise (30min most days) [...] infection. Assessment & Plan (02/27/2024 3:00 PM ENGRAVING SUPERVISOR): Chronic problem. A1c worsened from 8.1% [...] on DM eye exam (12/2023 [facility]). Letter sent to get copy of [...] UTD on labs. DM eye exam 09/2022 [facility]. Has appt next week; will send [...] dinner Assessment & Plan (03/08/2023 4:37 PM ENGRAVING SUPERVISOR): Hba1c was Lab Results Component Value [...] contact re: results. DM eye exam 09/2022 [facility]. Letter sent to get copy of [...] Janumet. Assessment & Plan (03/09/2022 3:06 PM ENGRAVING SUPERVISOR): Hba1c was Lab Results Component Value [...] CGM Assessment & Plan (12/25/2019 1:23 PM ENGRAVING SUPERVISOR): Hba1c was Lab Results Component Value [...] units hs Humalog 12-16 Units bid ac janenedeliat and Jardiance. Assessment & Plan (10/30/2019 4:32 [...] provided. Assessment & Plan (04/03/2019 11:15 AM ENGRAVING SUPERVISOR): Hba1c was Lab Results Component Value [...] current Assessment & Plan (01/28/2019 10:49 AM ENGRAVING SUPERVISOR): A1c 6.2 without hypoglycemia. Advised to [...] goal hba1c is under 7.0 to prevent watermelon inspector diabetes complications ( eye , kidney and [...] goal hba1c is under 7.0 to prevent watermelon inspector diabetes complications ( eye , kidney and [...] [facility] [address] [place] [phone] Stephanie Ruiz NP Lipid panel 11/06/2024 1:45 PM CDT Lab [address] [address] Type 2 diabetes mellitus with hyperglycemia, with long-term current use of insulin (HCC); 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) 11/06/2024 1:00 PM CDT Office Visit [facility] [address] [place] [phone] Stephanie Ruiz, SARAH Type 2 diabetes mellitus with hyperglycemia, with long-term current use of insulin (HCC) (Primary Dx); Hypertension associated with diabetes (HCC); 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) from Last 3 Months Immunizations Immunization Administration [...] on file Legal Sex Female 6:58 PM ENGRAVING SUPERVISOR Gender Identity Not on file Sexual Orientation Not on file 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 Cholesterol 128 30 - 199 mg/dL Comment: [...] on 2017. Triglycerides 100 <=149 mg/dL MELISSA LOPEZ Comment: Interpretive Data Ages < or = [...] NCEP Expert Panel. Circulation 2004;110:227 3. Baljinder Carter. ANTWAN Cardiol. 2020 June 12;5(5):540-548. doi: 10.1001/jamacardio.2020.0013 Current Interpretive Data was [...] LAB BLOOD ORDERABLES Barbara l Result MELISSA [address] [facility] Department [place] [address] * (ABNORMAL) POCT hemoglobin A1c (11/06/2024 12:58 PM CDT) Hemoglobin A1C, POC 6.3(A) 4.0 - 5.6 % Blood 11/06/2024 12:5 8 PM CDT us Stephanie Ruiz NP POINT OF CARE TEST ORDERA BLES Final Result * (ABNORMAL) POCT glucose (11/06/2024 12:47 PM CDT) Glucose Blood, POC 136 Normal Fasting 70 - 100, Random <200 mg/dL Blood 11/06/2024 12:4 7 PM CDT us Stephanie Ruiz NP POINT OF CARE TEST ORDERA BLES Final Result * Albumin Creatinine Ratio, Urine (02/28/2024 8:00 AM ENGRAVING SUPERVISOR) SCRIBED Creatinine, Urine 195.8 28 - 217 EXTERNAL LAB SCRIBED Microalbumin 1.5 <2.0 - NA EXTERNAL LAB SCRIBED Microalb/Creat Ratio 7.7 <30.0 - NA EXTERNAL LAB Urine 02/28/2024 8:00 AM ENGRAVING SUPERVISOR us Stephanie Ruiz RN PRIOR AUTHORIZATION LAB URINE ORDERABLES Barbara l Result EXTERNAL LAB * (ABNORMAL) eGFR (02/27/2024 2:39 PM ENGRAVING SUPERVISOR) eGFR 55(L) >=60 mL/min/1. 73 m2 [...] last reviewed 2020. Blood 02/27/2024 2:39 PM ENGRAVING SUPERVISOR 02/27/2024 9:48 PM ENGRAVING SUPERVISOR us Stephanie Ruiz NP LAB BLOOD ORDERABLES Barbara l Result MELISSA KAHN [address] Department [place] [address] * (ABNORMAL) DIABETES EYE EXAM (11/13/2023) SCRIBED HM DIABETIC DILATED EYE EXAM Abnormal 11/13/2023 us Historical Provider HEALTH MAINTENANCE Edited Result - Final * DIABETES FOOT EXAM (11/01/2023 8:39 AM CDT) us Historical Provider HEALTH MAINTENANCE Final Result from Last 3 Months or Most Recently Relevant to Health Maintenance Insurance [facility] MEDICARE ADVANTAGE [facility] Address: [address] [place] [address] [facility] MEDICARE Advance Directives For more information, please contact: [phone] Documents on File Type Date Recorded Patient Upholsterer Outside Expl anation ADVANCE DIRECTIVE 10/10/2019 10:36 AM Pratibha r of Corporate Secretary-Medical * Full Code (Latest Code Status on File) Date Activated Date Inactivated Comments 10/17/2019 7:55 PM 10/18/2019 10:[address] Foreman Relationship Specialty Start Date End Date Frantz Matthews MD [address] [place], [place] [phone] PCP - General Family Practice 06/27/24
--- OUTSIDE RECORDS SUMMARY | 2024-12-26 08:41 | XMS_ITS | Encounter Summary ---
Author Organization [facility] Address [address] [facility] [address] Care Team Providers Care Interior Decorator Painting Name Role Phone Vanesa Horan DO Primary Care Provider [phone] Encounter Details Date Type Department Care Team (Late st Contact Info) Description 11/14/2023 Lab Requisition [facility] - DermPath Lab [address] [facility], [place] [address] Virginia Romero DO [address] [facility] 3 [place] [address] Social History Tobacco Use Types Packs/Day Years [...] AM CDT) Case Report Dermatopathology Report Case: [id number] Authorizing Provider: Virginia Romero DO Collected: 11/14/2023 09:50 AM Ordering Location: [facility] - Received: 11/14/2023 04:50 [...] characteristic determined by the Dermatopathology Laboratory at [facility], directed by Dr. Bruce Costa. These tests need not be, and therefore are not, approved by the [place] Food and Drug Administration. The tests are used for clinical purposes. Billing Codes Specimen Charges Stain Charges 17924 [id number] 1 1 4 1:53 PM CDT DERMATOPATHOLOGY LABORATORY Embedded Images 1:53 PM CDT DERMATOPATHOLOGY LABORATORY Pathology/Cytology TISSUE SPECIMEN FROM SKIN / Unknown 11/14/2023 9:50 AM CDT 11/14/2023 4:50 PM CDT Miscellaneous samples (specimen) TISSUE SPECIMEN FROM SKIN / Unknown 11/14/2023 9:50 AM CDT 11/14/2023 4:50 PM CDT us Virginia Romero DO LAB - PATHOLOGY/CYTOLOGY ORDERABLES Final Result DERMATOPATHOLOGY LABORATORY [facility] - Department of Dermatology [address], [address] [phone] documented in this encounter Visit Diagnoses Not on filedocumented in this encounter Care Teams Interior Decorator Painting Relationship Specialty Start Date End Date Vanesa Horan DO [address] [place] [phone] PCP - General Family Medicine 12/28/16 documented as of this encounter
--- OUTSIDE RECORDS SUMMARY | 2024-12-26 08:41 | XMS_ITS | Encounter Summary ---
Author Organization [facility] Address [address] [facility] [place] [address] Care Team Providers Care Doubling Machine Operator Name Role Phone Vanesa Horan DO Primary Care Provider [phone] Encounter Details Date Type Department Care Team (Late st Contact Info) Description 06/27/2018 Lab Requisition [facility] Care DermPath Lab [address] [facility], [place] [phone] Chrissy Cobian MD [address] [facility] 3 [place] [address] Social History Tobacco Use Types Packs/Day Years [...] AM CDT) Case Report Dermatopathology Report Case: [id number] Authorizing Provider: Chrissy Cobian MD Collected: 06/26/2018 [...] specimen consists of a shave biopsy measuring 29d54n0 mm, inked and bisected. Jar 0. 2:39 [...] characteristic determined by the Dermatopathology Laboratory at [facility], directed by Dr. Bruce Costa. These tests need not be, and therefore are not, approved by the [place] Food and Drug Administration. The tests are used for clinical purposes. Billing Codes Specimen Charges Stain Charges 06117 1 9 2:39 PM CDT DERMATOPATHOLOGY LABORATORY Embedded Images 9 2:39 PM CDT DERMATOPATHOLOGY LABORATORY Pathology/Cytolog y TISSUE SPECIMEN FROM SKIN / Unknown 06/26/2018 06/27/2018 12:07 PM CDT us Chrissy Cobian MD LAB - PATHOLOGY/CYTOLOGY ORD ERABLES Final Result DERMATOPATHOLOGY LABORATORY [facility] - Department of Dermatology [address] [facility], 5th [place] [address], [facility] [phone] documented in this encounter Visit Diagnoses Not on filedocumented in this encounter Care Teams Doubling Machine Operator Relationship Specialty Start Date End Date Vanesa Horan DO [address] [place] [phone] PCP - General Family Medicine 12/28/16 documented as of this encounter
--- OUTSIDE RECORDS SUMMARY | 2024-12-26 08:41 | XMS_ITS | Clinical Summary ---
Author Organization [facility] Address [address] [place] [address] Care Team Providers Care Rag Baler Name Role Phone BobottoVanesa Primary Care Provider [phone] Source Comments [facility] [employer],non-owned Affiliates and Associated Physician Practices is amultiple site organization consisting of ambulatory clinics and hospital sitesin [place], [place], [place] and [place]. This disclosure is being madepursuant to the Care Everywhere program and may not contain all information available regarding this patient. Last updated 17.[facility] Allergies Active Allergy Reactions Criticality [...] 100.7 kg (222 lb) 04/15/2019 2:52 PM GOAT HERDER Height 157.5 cm (5' 2) 04/15/2019 2:52 PM GOAT HERDER Body Mass Index 40.6 04/15/2019 2:52 PM GOAT HERDER Plan of Treatment Health Maintenance Due Date [...] DIABETES-FOOT EXAM WITH MONOFILAMENT 04/16/2019 DIABETES-HGB A1C 04/16/2019 DEPRESSION SCREENING 02/13/2024 DIABETES - URINE PROTEIN SCREENING 02/13/2024 MEDICARE AWV CALENDAR YEAR 2024 Respiratory Syncytial Virus (RSV) Vaccine Pt: or over 60 yrs (1 - 1-dose 75+ series) 2024 COVID-19 VACCINE (1 - 2024-2 6 season) 2024 INFLUENZA VACCINE (#1) 2024 11/12/2014 [...] topic Insurance AETNA MEDICARE ADV Care Teams Rag Baler Relationship Specialty Start Date End Date Vanesa Horan DO [address] [place] [phone] PCP - General Family Medicine 12/28/16
== END 2024-12-26 08:27 | disposition home or self-care (01) ==
PROVIDERS: PCP Family Medicine; Visit Provider Family Medicine
DX: I73.9 Peripheral vascular disease, unspecified (principal); M48.061 Spinal stenosis, lumbar region without neurogenic claudication; M47.26 Other spondylosis with radiculopathy, lumbar region; M51.369 Other intervertebral disc degeneration, lumbar region without mention of lumbar back pain or lower extremity pain
CPT/HCPCS: 72148; 93922

== ENCOUNTER 2025-01-27 08:19 | Outpatient (CLI) | payer MEDICARE, SELFPAY ==
--- NOTE | ~2025-01-27 | US_ITS ---
EXAM/PROCEDURE: US renal BI HISTORY: R68.89 - Other general symptoms and signs COMPARISON: None available. TECHNIQUE: Renal ultrasound FINDINGS: Left kidney: 12.0 x 7.0 x 6.3 cm Multiple left-sided renal cysts noted with the largest measuring 4.6 cm. No hydronephrosis or large solid masses seen. Right kidney: 9.7 x 4.0 x 5.3 cm. No large masses or hydronephrosis. The bladder is incompletely distended. No obvious urinary bladder mass. Bilateral ureteral jets demonstrated. IMPRESSION: Prominent cysts in the left kidney; no large suspicious masses seen. Limited evaluation of the urinary bladder. Reviewed, dictated and finalized at location A. HOME HEALTH IMPRESSION: Prominent cysts in the left kidney; no large suspicious masses seen. Limited ev aluation of the urinary bladder.
--- NOTE | ~2025-01-27 | US_ITS ---
EXAM/PROCEDURE: US arterial duplex LE BI HISTORY: I73.9 - Peripheral vascular disease, unspecified COMPARISON: None available. TECHNIQUE: Bilateral duplex arterial interrogation FINDINGS: Peak systolic velocities for the right and left lower extremities, respectively, all in centimeters per second as follows: Common femoral: 87 and 87, respectively Deep femoral: 46 and 58 Proximal mid and distal SFA: 82, 81 and 56 on the right. 74, 81 and 72 on the left Popliteal: 55 and 71 Anterior tibial: 64 and 28 Posterior tibial: 106 and 83 Peroneal: 44 and 58 Dorsalis pedis: 66 and 86 Biphasic and triphasic flow present throughout. On grayscale and color flow images, no critical stenosis or occlusion seen. Slightly thickened arterial romero noted. IMPRESSION: Mild diffuse bilateral peripheral artery disease but no critical stenosis or occlusion. Reviewed, dictated and finalized at location A. ANICAL SPREADER OPERATOR IMPRESSION: Mild diffuse bilateral peripheral artery disease but no critical stenosis or oc clusion.
--- OUTSIDE RECORDS SUMMARY | 2025-01-27 08:40 | XMS_ITS | Encounter Summary ---
Author Organization [facility] Address [facility] [place] [address] Care Team Providers Care Retail Salesworker Name Role Phone BobVanesa menjivar Primary Care Provider [phone] Marco Fabian MD Primary Care Provider [phone] Frantz Matthews MD Primary Care Provider [phone] Encounter Details Date Type Department Care Team (Late st Contact Info) Description 05/04/2016 Abstract [facility] CONVERSION [address] [place] [address] , Ta Sharma MD Social History Tobacco Use Types Packs/Day Years Used Date Smoking Tobacco: Never Assessed Comments Unknown Sex and Gender Information Value Date Recorded Sex Assigned at Female 02/28/2024 1:10 PM DESKTOP OPERATOR Legal Sex Female 7:27 PM CDT Gender Identity Female 04/29/2024 7:44 AM CDT Sexual Orientation Not on file documented as of this encounter Plan of Treatment Upcoming Encounters Date Type Department Care Team (Late st Contact Info) Description 01/27/2025 1:00 PM DESKTOP OPERATOR Appointment [facility] [address] [place], [place] [phone] [place] [address] [place] [address] Frantz Matthews MD [address] [place] [address] 01/29/2025 1:00 PM DESKTOP OPERATOR Appointment [facility] [address] [place] [address] Frantz Matthews MD [address] [place] [address] Lizet Gentile, SUSTAINABILITY DIRECTOR 02/03/2025 1:00 PM DESKTOP OPERATOR Appointment [facility] [address] [place] [address] Frantz Matthews MD [address] [place] [address] Viola Elder, SUSTAINABILITY DIRECTOR 02/09/2025 1:00 PM DESKTOP OPERATOR Appointment [facility] [address] [place] [address] [place] [address] [place] [address] Frantz Matthews MD [address] [place] [address] 02/11/2025 10:30 AM DESKTOP OPERATOR Appointment [facility] [address] [place] [address] Frantz Matthews MD [address] [place] [address] Ada German, SUSTAINABILITY DIRECTOR documented as of this encounter Visit Diagnoses Not on filedocumented in this encounter Care Teams Retail Salesworker Relationship Specialty Start Date End Date Vanesa Horan DO PCP - General FAMILY PRACTICE 08/23/18 03/13/22 Marco Fabian MD [address] [place] [address] PCP - General FAMILY PRACTICE 03/14/22 10/10/24 Frantz Matthews MD [address] [place] [address] PCP - General FAMILY PRACTICE 10/11/24 documented as of this encounter
--- OUTSIDE RECORDS SUMMARY | 2025-01-27 08:40 | XMS_ITS | Encounter Summary ---
Author Organization [facility] Address [address] [facility] [place] [address] Care Team Providers Care Director Of Business Operations Name Role Phone Vanesa Horan DO Primary Care Provider [phone] Encounter Details Date Type Department Care Team (Late st Contact Info) Description 11/14/2023 Lab Requisition [facility] - DermPath Lab [address] [facility] [place] [address] Virginia Romero DO [address] [facility] [address] [place] [address] Social History Tobacco Use Types Packs/Day Years [...] AM CDT) Case Report Dermatopathology Report Case: [id number] Authorizing Provider: Virginia Romero DO Collected: 11/14/2023 09:50 AM Ordering Location: [facility] - Received: 11/14/2023 04:50 PM [...] characteristic determined by the Dermatopathology Laboratory at [facility], directed by Dr. Bruce Costa. These tests need not be, and therefore are not, approved by the [place] Food and Drug Administration. The tests are used for clinical purposes. Billing Codes Specimen Charges Stain Charges 65935 [id number] 1 1 4 1:53 PM CDT DERMATOPATHOLOGY LABORATORY Embedded Images 1:53 PM CDT DERMATOPATHOLOGY LABORATORY Pathology/Cytology TISSUE SPECIMEN FROM SKIN / Unknown 11/14/2023 9:50 AM CDT 11/14/2023 4:50 PM CDT Miscellaneous samples (specimen) TISSUE SPECIMEN FROM SKIN / Unknown 11/14/2023 9:50 AM CDT 11/14/2023 4:50 PM CDT us Virginia Romero DO LAB - PATHOLOGY/CYTOLOGY ORDERABLES Final Result DERMATOPATHOLOGY LABORATORY [facility] - Department of Dermatology [address] [phone] documented in this encounter Visit Diagnoses Not on filedocumented in this encounter Care Teams Director Of Business Operations Relationship Specialty Start Date End Date Vanesa Horan DO [address] [place] [phone] PCP - General Family Medicine 12/28/16 documented as of this encounter
--- OUTSIDE RECORDS SUMMARY | 2025-01-27 08:40 | XMS_ITS | Clinical Summary ---
Author Organization [facility] Address [address] [place] [place] [address] Care Team Providers Care Repairer Resistance Welding Machines Name Role Phone BobottoVanesa Primary Care Provider [phone] Source Comments [facility] [employer],non-owned Affiliates and Associated Physician Practices is amultiple site organization consisting of ambulatory clinics and hospital sitesin [place], [place], [place] and [place]. This disclosure is being madepursuant to the Care Everywhere program and may not contain all information available regarding this patient. Last updated 17.[facility] Allergies Active Allergy Reactions Criticality Noted [...] 100.7 kg (222 lb) 04/15/2019 2:52 PM EMBOSSING MACHINE OPERATOR Height 157.5 cm (5' 2) 04/15/2019 2:52 PM EMBOSSING MACHINE OPERATOR Body Mass Index 40.6 04/15/2019 2:52 PM EMBOSSING MACHINE OPERATOR Plan of Treatment Health Maintenance Due Date [...] topic Insurance AETNA MEDICARE ADV Care Teams Repairer Resistance Welding Machines Relationship Specialty Start Date End Date Vanesa Horan DO [address] [place] [phone] PCP - General Family Medicine 12/28/16
--- OUTSIDE RECORDS SUMMARY | 2025-01-27 08:40 | XMS_ITS | Clinical Summary ---
Author Organization [facility] [address] Address [address] [place] [address] Care Team Providers Care Judicial Registrar Name Role Phone Frantz Matthews MD Primary Care Provider [phone] Allergies Active Allergy Reactions Criticality Noted Date [...] by mouth daily Active blood glucose diagnostic (Credit Coachuch Ultra Test) stripIndications: Type 2 diabetes mellitus with hyperglycemia, with long-term current use of insulin ([facility]) USE STRIP TO CHECK GLUCOSE 3 TIMES DAILY BEFORE MEAL(S) 300 each 3 024 Active pen needle, diabetic 32 gauge x /32 needle USE 1 PEN NEEDLE THREE TIMES DAILY Dx.E11.65 300 each 2 Active LANTUS 100 unit/mL (3 mL) pen for injectionIndicati ons:Type 2 diabetes mellitus with hyperglycemia, with long-term current use of insulin ([facility]) INJECT 26 UNITS SUBCUTANEOUSLY NIGHTLY 15 mL 025 Active Additional Information Patient taking differently: 18 Units subcutaneous Nightly, Reported on 01/13/2025 albuterol 2.5 mg /3 mL (0.083 %) nebulizer solution USE 2 VIAL IN NEBULIZER EVERY 4 TO 6 HOURS NEEDED FOR SHORTNESS OF BREATH AND FOR WHEEZING Active SITagliptin phos-metformin (Janumet) 50-1,000 mg per tabletIndications :Type 2 diabetes mellitus with hyperglycemia, with long-term current use of insulin (HCC) TAKE 1 TABLET BY MOUTH TWICE DAILY WITH MEALS 180 tablet 1 025 Active folic acid-vitamin B6-vit B12 1,000 mcg-10 mg -400 mcg tablet daily 020 Active olmesartan-amLODI Pin-hcthiazid 20-5-12.5 mg tablet .COMPLEX 023 Active sljp-RY-dho-epa-F AG-BOHA-as-mv 1.5 mg iron- 8.73 mg capsule,IR & delay rel,biphase .COMPLEX 023 Active blood-glucose meter misc .MEDSUPPLY 021 Active blood-glucose sensor (Dexcom G7 Sensor) device Activ e tirzepatide (MOUNJARO) 7.5 mg/0.5 mL pen injector injectionIndicati ons:Type 2 diabetes mellitus with hyperglycemia, with long-term current use of insulin ([facility]) Inject 0.5 mL (7.5 mg total) under the skin every 7 days 6 mL 3 025 2025 Active ezetimibe (ZETIA) 10 mg tabletIndications :Type 2 diabetes mellitus with hyperglycemia, with long-term current use of insulin ([facility]) Take 1 tablet by mouth once daily 90 tablet 025 Active NovoLOG 100 unit/mL (3 mL) pen for injectionIndicati ons:Type 2 diabetes mellitus with hyperglycemia, with long-term current use of insulin ([facility]) INJECT 12 TO 18 UNITS TWICE DAILY BEFORE BREAKFAST AND BEFORE SUPPER 15 mL 025 Active ezetimibe (ZETIA) 10 mg tabletIndications :Type 2 diabetes mellitus with hyperglycemia, with long-term current use of insulin ([facility]) Take 1 tablet by mouth once daily 90 tablet 025 2024 Discontinued NovoLOG 100 unit/mL (3 mL) pen for injectionIndicati ons:Type 2 diabetes mellitus with hyperglycemia, with long-term current use of insulin ([facility]) INJECT 12 TO 18 UNITS SUBCUTANEOUSLY TWICE DAILY BEFORE BREAKFAST AND BEFORE SUPPER 15 mL 025 2024 Discontinued Active Problems Patient Care Coordination [...] 02/27/2024 Assessment & Plan (02/27/2024 3:01 PM PLC TECHNICIAN): Chronic problem. Limited activity d/t Interstitial Lung Disease. Will send in Mounjaro 2.5mg weeklyx 4 then increase to 5mg weekly to see if able to help with weight loss. Discussed healthy diet and importance of regular physical activity (20- 30min/day, 150min/wk). ILD (interstitial lung disease) 10/09/2019 Overview (10/09/2019): Added automatically from request for surgery [id number] Lung nodule 10/09/2019 Overview (10/09/2019): Added automatically from request for surgery [id number] 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 2 diabetes mellitus 0 04/03/2019 Assessment & Plan (11/06/2024 12:32 PM CDT): Chronic problem. Controlled on current Rosuvastatin 10mg & zetia 10mg. Last lipid panel: 08/30/23 LDL=65, CT=756. Will update lipid panel. Verified that she uses [facility]. Aware to check results/results letter in [employer]. Will contact by phone if needed. Assessment & Plan (06/19/2024 2:17 PM CDT): Chronic problem. Controlled on current Rosuvastatin 10mg & zetia 10mg. Last lipid panel: 08/30/23 LDL=65, NE=168. Assessment & Plan (02/27/2024 1:54 PM PLC TECHNICIAN): Chronic problem. Controlled on current Rosuvastatin 10mg & zetia 10mg. Last lipid panel: 08/30/23 LDL=65, YO=588. Assessment & Plan (10/25/2023 2:05 PM CDT): Chronic problem. Controlled on current Rosuvastatin 10mg & zetia 10mg. Last lipid panel: 03/08/23 LDL=48, ID=112. Assessment & Plan (06/12/2023 3:56 PM CDT): Chronic, well-controlled. Continue statin therapy with rosuvastatin Assessment & Plan (03/08/2023 4:37 PM PLC TECHNICIAN): Chronic, well-controlled Continue statin therapy with rosuvastatin Assessment & Plan (12/07/2022 2:24 PM CDT): Chronic problem. Controlled on current Rosuvastatin 10mg & zetia 10mg. Last lipid panel: 03/14/22 LDL=52, BC=663. Assessment & Plan (07/05/2022 2:12 PM CDT): Chronic problem. On statin therapy, no changes. Assessment & Plan (03/09/2022 3:07 PM PLC TECHNICIAN): Chronic, well controlled Low fat Low cholesterol [...] Pravachol Assessment & Plan (12/25/2019 1:24 PM PLC TECHNICIAN): Goal of treatment , LDL cholesterol less [...] recently Assessment & Plan (04/03/2019 11:15 AM PLC TECHNICIAN): Goal of treatment , LDL cholesterol less [...] daily Assessment & Plan (02/27/2024 1:54 PM PLC TECHNICIAN): Chronic problem. Controlled on current olmesartan 40mg daily, diltiazem CD 360mg daily, chlorthalidone 25mg daily Assessment & Plan (10/25/2023 2:23 PM CDT): Chronic problem. Controlled on current olmesartan 40mg daily, diltiazem CD 360mg daily, chlorthalidone 25mg daily Assessment & Plan (03/08/2023 4:37 PM PLC TECHNICIAN): Chronic, well-controlled Continue current regimen including ARB [...] Olmesartan Assessment & Plan (12/25/2019 1:23 PM PLC TECHNICIAN): Goal blood pressure is less than 140/85 [...] Olmesartan Assessment & Plan (01/28/2019 10:48 AM PLC TECHNICIAN): Controlled on current medications. Continue plan. Assessment [...] Will update lipid. Verified that she uses [employer]. Aware to check results/results letter in [employer]. Will contact by phone if needed. UTD on DM eye exam (11/13/23 mild NPDR wo DME [facility]) Strive for regular exercise (30min most days) [...] exam (11/13/23 mild NPDR wo DME Maciel [facility]) Strive for regular exercise (30min most days) [...] infection. Assessment & Plan (02/27/2024 3:00 PM PLC TECHNICIAN): Chronic problem. A1c worsened from 8.1% 10/25/23 [...] results. UTD on DM eye exam (12/2023 [facility]). Letter sent to get copy of [...] UTD on labs. DM eye exam 09/2022 [facility]. Has appt next week; will send letter [...] dinner Assessment & Plan (03/08/2023 4:37 PM PLC TECHNICIAN): Hba1c was Lab Results Component Value Date [...] contact re: results. DM eye exam 09/2022 [facility]. Letter sent to get copy of [...] Janumet. Assessment & Plan (03/09/2022 3:06 PM PLC TECHNICIAN): Hba1c was Lab Results Component Value Date [...] CGM Assessment & Plan (12/25/2019 1:23 PM PLC TECHNICIAN): Hba1c was Lab Results Component Value Date [...] units hs Humalog 12-16 Units bid ac Jeb. Assessment & Plan (10/30/2019 4:32 PM CDT): [...] provided. Assessment & Plan (04/03/2019 11:15 AM PLC TECHNICIAN): Hba1c was Lab Results Component Value Date [...] current Assessment & Plan (01/28/2019 10:49 AM PLC TECHNICIAN): A1c 6.2 without hypoglycemia. Advised to continue [...] goal hba1c is under 7.0 to prevent group home diabetes complications ( eye , kidney and [...] goal hba1c is under 7.0 to prevent bed bug exterminator diabetes complications ( eye , kidney and [...] Encounters Date Type Department Care Team Description 01/13/2025 11:30 AM PLC TECHNICIAN Office Visit [facility] Cardiology at [address] [place] [address] Thomas Thornton MD Symptomatic PVCs (Primary Dx) 11/07/2024 Results Follow-Up [facility] Diabetes and Endocrinology [address] [place] [phone] Stephanie Ruiz NP Lipid panel 11/06/2024 1:45 PM CDT Lab [place] [id number] Type 2 diabetes mellitus with hyperglycemia, with long-term current use of insulin (HCC); 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) 11/06/2024 1:00 PM CDT Office Visit [facility] Diabetes and Endocrinology [address] [place] [phone] Stephanie Ruiz NP Type 2 diabetes mellitus [...] on file Legal Sex Female 6:58 PM PLC TECHNICIAN Gender Identity Not on file Sexual Orientation Not on file 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 Not on file Not on file Not on file Last Filed Vital Signs Vital Sign Reading Time Taken Comments Blood Pressure 112/62 01/13/2025 11:04 AM PLC TECHNICIAN Pulse 81 01/13/2025 11:04 AM PLC TECHNICIAN Temperature 36.6 C (97.8 F) 10/18/2019 4:00 PM CDT Respiratory Rate 18 11/06/2024 12:38 PM CDT Oxygen Saturation 98% 01/13/2025 11:04 AM PLC TECHNICIAN Inhaled Oxygen Concentration - - Weight 84.4 kg (186 lb) 01/13/2025 11:04 AM PLC TECHNICIAN Height 154.9 cm (5' 1) 01/13/2025 11:04 AM PLC TECHNICIAN Body Mass Index 35.14 01/13/2025 11:04 AM PLC TECHNICIAN Plan of Treatment Health Maintenance Due Date Last Done Comments Colon Cancer Screening-Colonoscopy 1950 Hepatitis C Screening 1950 Hepatitis B Screening 09/19[birth year]1967 Well Visit 65+ 2014 Fall Risk Assessment [...] Discontinued 04/30/2024, 04/30/2024, 10/25/2022, Additional history exists Zoster Vaccine Completed 11/25/2024, 040 09/2024, 12/05/2012 Procedures Procedure Name Priority Date/Time Associated Diagnosis [...] CREATININE RATIO, URINE Routine 02/28/2024 8:00 AM PLC TECHNICIAN Type 2 diabetes mellitus with hyperglycemia, with long-term current use of insulin (HCC) EGFR Routine 02/27/2024 2:39 PM PLC TECHNICIAN Type 2 diabetes mellitus with hyperglycemia, with [...] on 2023. Non-HDL Cholesterol 78 mg/dL MELISSA LOPEZ Comment: Interpretive Data Ages [...] LAB BLOOD ORDERABLES Barbara l Result MELISSA [address] [facility] Department of Laboratories [place], [place] [id number] * (ABNORMAL) POCT hemoglobin A1c (11/06/2024 12:58 PM CDT) Hemoglobin A1C, POC 6.3(A) 4.0 - 5.6 % Blood 11/06/2024 12:5 8 PM CDT us Stephanie Ruiz NP POINT OF CARE TEST ORDERA BLES Final Result * (ABNORMAL) POCT glucose (11/06/2024 12:47 PM CDT) Glucose Blood, POC 136 Normal Fasting 70 - 100, Random <200 mg/dL Blood 11/06/2024 12:4 7 PM CDT us Stephanierito Ruiz NP POINT OF CARE TEST ORDERA BLES Final Result * Albumin Creatinine Ratio, Urine (02/28/2024 8:00 AM PLC TECHNICIAN) SCRIBED Creatinine, Urine 195.8 28 - 217 EXTERNAL LAB SCRIBED Microalbumin 1.5 <2.0 - NA EXTERNAL LAB SCRIBED Microalb/Creat Ratio 7.7 <30.0 - NA EXTERNAL LAB Urine 02/28/2024 8:00 AM PLC TECHNICIAN us Stephanie Ruiz ALTERNATIVE DISPUTE RESOLUTION MEDIATOR LAB URINE ORDERABLES Barbara l Result EXTERNAL LAB * (ABNORMAL) eGFR (02/27/2024 2:39 PM PLC TECHNICIAN) eGFR 55(L) >=60 mL/min/1. 73 m2 Comment: [...] last reviewed 2020. Blood 02/27/2024 2:39 PM PLC TECHNICIAN 02/27/2024 9:48 PM PLC TECHNICIAN Stephanie Ruiz NP LAB BLOOD ORDERABLES Barbara l Result MELISSA [address] Department [place] [address] * (ABNORMAL) DIABETES EYE EXAM (11/13/2023) SCRIBED DIABETIC DILATED EYE EXAM Abnormal 11/13/2023 Historical Provider HEALTH MAINTENANCE Edited Result - Final * DIABETES FOOT EXAM (11/01/2023 8:39 AM CDT) Historical Provider HEALTH MAINTENANCE Final Result from Last 3 Months or Most Recently Relevant to Health Maintenance Insurance UHC MEDICARE [facility] Address: [facility] [address] [place] [address] AETNA MEDICARE [facility] MEDICARE Advance Directives For more information, please contact: [phone] Documents on File Type Date Recorded Patient Installation Superintendent Expl anation ADVANCE DIRECTIVE 10/10/2019 10:36 AM Pratibha r of [employer]in[employer] * Full Code (Latest Code Status on File) Date Activated Date Inactivated Comments 10/17/2019 7:55 PM 10/18/2019 10:54 PM Care Teams Judicial Registrar Relationship Specialty Start Date End Date Frantz Matthews MD [address] [place], [place] [phone] PCP - General Family Practice 06/27/24
--- OUTSIDE RECORDS SUMMARY | 2025-01-27 08:40 | XMS_ITS | Encounter Summary ---
Author Organization [facility] Address [address] [facility] [place] [address] Care Team Providers Care Weld Fitter Name Role Phone Vanesa Horan DO Primary Care Provider [phone] Encounter Details Date Type Department Care Team (Late st Contact Info) Description 11/06/2022 Lab Requisition [facility] - DermPath Lab [address] [facility], [place]), [place] [address] Virginia Romero DO [address] [facility] [address] [place] [address] Social History Tobacco Use Types Packs/Day Years [...] PM CDT) Case Report Dermatopathology Report Case: [id number] Authorizing Provider: Virginia Romero DO Collected: 11/06/2022 [...] by the Dermatopathology Laboratory at [facility], directed by Dr. Bruce Costa. These tests need not be, and therefore are not, approved by the [place] Food and Drug Administration. The tests are used for clinical purposes. Billing Codes Specimen Charges Stain Charges 03910 17473 1 1 3 3:12 PM CDT DERMATOPATHOLOGY LABORATORY Embedded Images 3 3:12 PM CDT DERMATOPATHOLOGY LABORATORY Pathology/Cytology TISSUE SPECIMEN FROM SKIN / Unknown 11/06/2022 4:01 PM CDT 11/07/2022 2:30 PM CDT Miscellaneous samples (specimen) TISSUE SPECIMEN FROM SKIN / Unknown 11/06/2022 4:01 PM CDT 11/07/2022 2:30 PM CDT us Virginia Romero DO LAB - PATHOLOGY/CYTOLOGY ORDERABLES Final Result DERMATOPATHOLOGY LABORATORY [facility] Department of Dermatology [facility] Special[facility] [address] [place] [address], [address] [phone] documented in this encounter Visit Diagnoses Not on filedocumented in this encounter Care Teams Weld Fitter Relationship Specialty Start Date End Date Vanesa Horan DO [address] [place] [phone] PCP - General Family Medicine 12/28/16 documented as of this encounter
--- OUTSIDE RECORDS SUMMARY | 2025-01-27 08:40 | XMS_ITS | Encounter Summary ---
Author Organization [facility] Address [address] [facility] [place] [address] Care Team Providers Care Hand Ornament Maker Name Role Phone Vanesa Horan DO Primary Care Provider [phone] Encounter Details Date Type Department Care Team (Late st Contact Info) Description 06/27/2018 Lab Requisition [facility] Care DermPath Lab [address] [facility], [place] [phone] Chrissy Cobian MD [address] [facility] [address] [place] [address] Social History Tobacco Use Types Packs/Day Years [...] AM CDT) Case Report Dermatopathology Report Case: [id number] Authorizing Provider: Chrissy Cobian MD Collected: 06/26/2018 [...] specimen consists of a shave biopsy measuring 76b89x2 mm, inked and bisected. Jar 0. 2:39 [...] characteristic determined by the Dermatopathology Laboratory at [facility], directed by Dr. Bruce Costa. These tests need not be, and therefore are not, approved by the [place] Food and Drug Administration. The tests are used for clinical purposes. Billing Codes Specimen Charges Stain Charges 97781 1 9 2:39 PM CDT DERMATOPATHOLOGY LABORATORY Embedded Images 9 2:39 PM CDT DERMATOPATHOLOGY LABORATORY Pathology/Cytolog y TISSUE SPECIMEN FROM SKIN / Unknown 06/26/2018 06/27/2018 12:07 PM CDT us Chrissy Cobian MD LAB - PATHOLOGY/CYTOLOGY ORD ERABLES Final Result DERMATOPATHOLOGY LABORATORY [facility] - Department of Dermatology [address] [facility], 5th [place] [address], [facility] [phone] documented in this encounter Visit Diagnoses Not on filedocumented in this encounter Care Teams Hand Ornament Maker Relationship Specialty Start Date End Date Vanesa Horan DO [address] [place] [phone] PCP - General Family Medicine 12/28/16 documented as of this encounter
--- OUTSIDE RECORDS SUMMARY | 2025-01-27 08:40 | XMS_ITS | Clinical Summary ---
Author Organization [facility] Address [facility]ly [facility] [place] [address] Care Team Providers Care Hammer Repairer Name Role Phone Frantz Matthews MD Primary Care Provider [phone] Allergies Active Allergy Reactions Criticality Noted Date [...] Encounters Date Type Department Care Team Description 01/22/2025 1:42 PM EQUAL OPPORTUNITY SPECIALIST - 01/22/2025 11:59 PM EQUAL OPPORTUNITY SPECIALIST Hospital Encounter [facility] [address] [place] [address] Frantz Matthews MD Ammann, Aryn K, PT Back Pain Discharge Disposition: Home or Self Care (Routine Discharge) 01/22/2025 Travel 01/20/2025 1:59 PM EQUAL OPPORTUNITY SPECIALIST - 01/20/2025 11:59 PM EQUAL OPPORTUNITY SPECIALIST Hospital Encounter [facility] [address] [place] [address] Denis Ballard, PT Frantz Matthews MD Low Back Pain Discharge Disposition: Home or Self Care (Routine Discharge) 01/20/2025 Travel 01/16/2025 8:51 AM EQUAL OPPORTUNITY SPECIALIST - 01/16/2025 11:59 PM EQUAL OPPORTUNITY SPECIALIST Hospital Encounter [facility] [id number] [place] [address] Frantz Matthews MD Musenbrock, Daniel A, PT Low Back Pain Discharge Disposition: Home or Self Care (Routine Discharge) 01/16/2025 Travel 01/14/2025 1:28 PM EQUAL OPPORTUNITY SPECIALIST - 01/14/2025 11:59 PM EQUAL OPPORTUNITY SPECIALIST Hospital Encounter [facility] [address] [place] [id number] Denis Ballard, PT Frantz Matthews MD Low Back Pain Discharge Disposition: Home or Self Care (Routine Discharge) 01/14/2025 Travel 01/07/2025 4:12 PM EQUAL OPPORTUNITY SPECIALIST - 01/07/2025 11:59 PM EQUAL OPPORTUNITY SPECIALIST Hospital Encounter [facility] [address] [place] [address] Frantz Matthews MD Gerling, Savannah L, BUILDING INSULATION INSTALLER Low Back Pain Discharge Disposition: Home or Self Care (Routine Discharge) 01/07/2025 Travel 12/26/2024 2:30 PM EQUAL OPPORTUNITY SPECIALIST - 12/26/2024 11:59 PM EQUAL OPPORTUNITY SPECIALIST Hospital Encounter [facility] [address] [place] [address] Frantz Matthews MD Sackett, Kim, CLARA Low Back Pain Discharge Disposition: Home or Self Care (Routine Discharge) 12/26/2024 Travel 12/23/2024 2:43 PM EQUAL OPPORTUNITY SPECIALIST - 12/23/2024 11:59 PM EQUAL OPPORTUNITY SPECIALIST Hospital Encounter [facility] [address] [place] [address] Denis Ballard, PT Frantz Matthews MD Low Back Pain Discharge Disposition: Home or Self Care (Routine Discharge) 12/23/2024 Travel 12/19/2024 12:47 PM EQUAL OPPORTUNITY SPECIALIST - 12/19/2024 11:59 PM EQUAL OPPORTUNITY SPECIALIST Hospital Encounter [facility] [address] [place] [address] Frantz Matthews MD Gerling, Savannah L, BUILDING INSULATION INSTALLER Low Back Pain Discharge Disposition: Home or Self Care (Routine Discharge) 12/19/2024 Travel 12/09/2024 12:45 PM CDT - 12/09/2024 11:59 PM CDT Hospital Encounter [facility] [address] [place] [address] Denis Ballard, PT Frantz Matthews MD Back Pain (PT Eval ) Discharge Disposition: Home or Self Care (Routine Discharge) 12/09/2024 Travel from Last 3 Months Social History Tobacco Use Types Packs/Day Years Used Date Smoking Tobacco: Never Assessed Comments Unknown Sex and Gender Information Value Date Recorded Sex Assigned at Female 02/28/2024 1:10 PM EQUAL OPPORTUNITY SPECIALIST Legal Sex Female 7:27 PM CDT Gender [...] st Contact Info) Description 01/27/2025 1:00 PM EQUAL OPPORTUNITY SPECIALIST Appointment [facility] [address] [place] [address] [place] [address] [place] [address] Frantz Matthews MD [address] [place] [address] 01/29/2025 1:00 PM EQUAL OPPORTUNITY SPECIALIST Appointment [facility] [address] [place] [address] Frantz Matthews MD [address] [place] [address] Lizet Gentile, BUILDING INSULATION INSTALLER 02/03/2025 1:00 PM EQUAL OPPORTUNITY SPECIALIST Appointment [facility] [address] [place] [address] Frantz Matthews MD [address] [place] [address] Viola Elder, BUILDING INSULATION INSTALLER 02/09/2025 1:00 PM EQUAL OPPORTUNITY SPECIALIST Appointment [facility] [address] [place] [address] [place] [address] [place] [address] Frantz Matthews MD [address] [place] [address] 02/11/2025 10:30 AM EQUAL OPPORTUNITY SPECIALIST Appointment [facility] [address] [place] [address] Frantz Matthews MD [address] [place] [address] dAa German A, BUILDING INSULATION INSTALLER Health Maintenance Due Date Last Done Comments [...] (General) Completed 09/13/2021 Zoster Vaccines Completed 11/25/2024, 09/2024, 12/05/2012 Hepatitis A Vaccines Aged Out [...] Date/Time Associated Diagnosis Comments LIPID PANEL Routine 03/14/2022 8:17 AM EQUAL OPPORTUNITY SPECIALIST Type II diabetes mellitus with hyperosmolarity, uncontrolled Encounter for long-term (current) use of insulin BONE DENSITY/DEXA Routine 09/13/2021 1:1 7 PM CDT Postmenopause HEMOGLOBIN, GLYCOSYLATED Routine 09/24/2018 11:12 AM CDT Type 2 diabetes, diet controlled from Last 3 Months or Most Recently Relevant to Health Maintenance Results * LIPID PANEL (03/14/2022 8:17 AM EQUAL OPPORTUNITY SPECIALIST) [facility] Signature CHOLESTEROL 120 <200.0 MG/DL 03/14/2022 8:45 AM [facility] TRIGLYCERIDES 130 <150 MG/DL 03/14/2022 8:45 AM [facility] HDL 42 >40.0 MG/DL 03/14/2022 8:45 AM [facility] LDL (CALCULATED) 52 <100 MG/DL 03/14/19 8:45 AM [facility] NON HDL CHOLESTEROL 78 <130 MG/DL 03/14 8:45 AM [facility] CHOL/HDL RATIO 2.9 0.0 - 4.5 03/14/2022 8:45 AM [facility] VLDL CALCULATION 26 5 - 55 MG/DL 03/14/2022 8:45 AM [facility] LIPID INTERPRETATION 03/14/2022 8:45 AM [facility] Comment: [facility] CONCENSUS REPORT RECOMMENDATIONS: ADULT CHILD LOW RISK: CHOLESTEROL <200 <170 TRIGLYCERIDE <150 --- HDL >=60 --- LDL <100 <110 BORDERLINE: CHOLESTEROL 200-239 170-199 TRIGLYCERIDE 150-199 --- HDL 40-59 --- LDL 100-159 110-129 HIGH RISK: CHOLESTEROL >=240 >=200 TRIGLYCERIDE >=200 --- HDL <40 --- LDL >=160 >=130 03/14/2022 8:17 AM EQUAL OPPORTUNITY SPECIALIST us Octavia Paul MD LABORATORY Final Result [facility] [address] [place] [address], * BONE DENSITY/DEXA (09/13/2021 1:17 PM CDT) [...] 7.8(H) <5.7 % 09/24/2018 1:06 PM CDT [facility] Comment: INCREASED RISK OF DIABETES <5.7% NON-DIABETES 5.7-6.4% INCREASED RISK FOR FUTURE DIABETES > OR = 6.5 CONSISTENT WITH DIABETES STANDARDS OF MEDICAL CARE IN DIABETES-2010 DIABETES CARE, 33(SUPP 1): S1-S61,2009 09/24/2018 11:1 2 AM CDT David Greco MD LABORATORY Final Result [facility] [address] [place] [address], [place] [phone] from Last 3 Months or Most Recently Relevant to Health Maintenance Insurance [employer] MEDICARE Care Teams Hammer Repairer Relationship Specialty Start Date End Date Frantz Matthews MD [address] [place] [address] PCP - General FAMILY PRACTICE 10/11/24
== END 2025-01-27 08:20 | disposition home or self-care (01) ==
PROVIDERS: PCP Family Medicine; Visit Provider Family Medicine
DX: R68.89 Other general symptoms and signs (principal); I73.9 Peripheral vascular disease, unspecified; N28.1 Cyst of kidney, acquired
CPT/HCPCS: 76770; 93925

== ENCOUNTER 2025-02-03 08:05 | Day surgery (SDC) | payer MEDICARE, SELFPAY ==
--- NOTE | ~2025-02-03 | XR_ITS ---
XR fluoroscopy no charge Indication:bilateral L3-4 transforaminal epidural steroid injection TECHNIQUE: Fluoroscopy used during bilateral L3-4 transforaminal epidural steroid injection performed by [Bentley Toney MD] on 02/03/2025. 57 seconds of fluoroscopy with 5 fluoroscopic images captured. FINDINGS: Correlate with procedure note. IMPRESSION: Fluoroscopy used during bilateral L3-4 transforaminal epidural steroid injection. Reviewed, dictated and finalized at location O. ERNMAKER HAND IMPRESSION: Fluoroscopy used during bilateral L3-4 transforaminal epidural ster oid injection.
--- OUTSIDE RECORDS SUMMARY | 2025-02-03 08:33 | XMS_ITS | Encounter Summary ---
Author Organization [facility] Address [facility] [place] [address] Care Team Providers Care Trade Recruiter Name Role Phone BobVanesa menjivar Primary Care Provider [phone] Marco Fabian MD Primary Care Provider [phone] Frantz Matthews MD Primary Care Provider [phone] Encounter Details Date Type Department Care Team (Late st Contact Info) Description 05/04/2016 Abstract [facility] [address] [place] [address] , Ta Sharma MD Social History Tobacco Use Types Packs/Day Years Used Date Smoking Tobacco: Never Assessed Comments Unknown Sex and Gender Information Value Date Recorded Sex Assigned at Female 02/28/2024 1:10 PM RIGGING LOFT MECHANIC Legal Sex Female 7:27 PM CDT Gender Identity Female 04/29/2024 7:44 AM CDT Sexual Orientation Not on file documented as of this encounter Plan of Treatment Upcoming Encounters Date Type Department Care Team (Late st Contact Info) Description 02/09/2025 1:00 PM RIGGING LOFT MECHANIC Appointment [facility] [address] [place], [place] [phone] [place] [address] [place] [address] Frantz Matthews MD [address] [place] [address] 02/11/2025 10:30 AM RIGGING LOFT MECHANIC Appointment [facility] [address] [place], [place] [phone] Frantz Matthews MD [address] [place] [address] Ada German PTA documented as of this encounter Visit Diagnoses Not on filedocumented in this encounter Care Teams Trade Recruiter Relationship Specialty Start Date End Date Vanesa Horan DO PCP - General FAMILY PRACTICE 08/23/18 03/13/22 Marco Fabian MD [address] [place] [id number] PCP - General FAMILY PRACTICE 03/14/22 10/10/24 Frantz Matthews MD [address] [place] [address] PCP - General FAMILY PRACTICE 10/11/24 documented as of this encounter
--- OUTSIDE RECORDS SUMMARY | 2025-02-03 08:33 | XMS_ITS | Clinical Summary ---
Author Organization [facility] [place] [address] Address [address] [place] [address] Care Team Providers Care Filler Operator Name Role Phone Frantz Matthews MD Primary Care Provider [phone] [phone] Allergies Active Allergy Reactions Criticality Noted Date [...] by mouth daily Active blood glucose diagnostic (Advanced Liquid Logicuch Ultra Test) stripIndications: Type 2 diabetes mellitus with hyperglycemia, with long-term current use of insulin ([facility]) USE STRIP TO CHECK GLUCOSE 3 TIMES DAILY BEFORE MEAL(S) 300 each 3 024 Active pen needle, diabetic 32 gauge x /32 needle USE 1 PEN NEEDLE THREE TIMES DAILY Dx.E11.65 300 each 2 Active LANTUS 100 unit/mL (3 mL) pen for injectionIndicati ons:Type 2 diabetes mellitus with hyperglycemia, with long-term current use of insulin ([facility]) INJECT 26 UNITS SUBCUTANEOUSLY NIGHTLY [...] Pin-hcthiazid 20-5-12.5 mg tablet .COMPLEX 023 Active cbfn-XK-xon-epa-F PS-RLMI-ta-mv 1.5 mg iron- 8.73 mg capsule,IR & delay rel,biphase .COMPLEX 023 Active blood-glucose meter misc .MEDSUPPLY 021 Active blood-glucose sensor (Dexcom G7 Sensor) device Activ e tirzepatide (MOUNJARO) 7.5 mg/0.5 mL pen injector injectionIndicati ons:Type 2 diabetes mellitus with hyperglycemia, with long-term current use of insulin ([facility]) Inject 0.5 mL (7.5 mg total) under the skin every 7 days 6 mL 3 025 2025 Active ezetimibe (ZETIA) 10 mg tabletIndications :Type 2 diabetes mellitus with hyperglycemia, with long-term current use of insulin ([facility]) Take 1 tablet by mouth once daily 90 tablet 025 Active NovoLOG 100 unit/mL (3 mL) pen for injectionIndicati ons:Type 2 diabetes mellitus with hyperglycemia, with long-term current use of insulin ([facility]) INJECT 12 TO 18 UNITS TWICE DAILY BEFORE BREAKFAST AND BEFORE SUPPER 15 mL 025 Active NovoLOG 100 unit/mL (3 mL) pen for injectionIndicati ons:Type 2 diabetes mellitus with hyperglycemia, with long-term current use of insulin ([facility]) INJECT 12 TO 18 UNITS [...] 02/27/2024 Assessment & Plan (02/27/2024 3:01 PM CALENDER WIND UP TENDER): Chronic problem. Limited activity d/t Interstitial Lung Disease. Will send in Mounjaro 2.5mg weeklyx 4 then increase to 5mg weekly to see if able to help with weight loss. Discussed healthy diet and importance of regular physical activity (20- 30min/day, 150min/wk). ILD (interstitial lung disease) 10/09/2019 Overview (10/09/2019): Added automatically from request for surgery [id number] Lung nodule 10/09/2019 Overview (10/09/2019): Added automatically from request for surgery [id number] 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 2 diabetes mellitus 0 04/03/2019 Assessment & Plan (11/06/2024 12:32 PM CDT): Chronic problem. Controlled on current Rosuvastatin 10mg & zetia 10mg. Last lipid panel: 08/30/23 LDL=65, PM=276. Will update lipid panel. Verified that she uses [employer]. Aware to check results/results letter in [employer]. Will contact by phone if needed. Assessment & Plan (06/19/2024 2:17 PM CDT): Chronic problem. Controlled on current Rosuvastatin 10mg & zetia 10mg. Last lipid panel: 08/30/23 LDL=65, LG=327. Assessment & Plan (02/27/2024 1:54 PM CALENDER WIND UP TENDER): Chronic problem. Controlled on current Rosuvastatin 10mg & zetia 10mg. Last lipid panel: 08/30/23 LDL=65, II=877. Assessment & Plan (10/25/2023 2:05 PM CDT): Chronic problem. Controlled on current Rosuvastatin 10mg & zetia 10mg. Last lipid panel: 03/08/23 LDL=48, HB=261. Assessment & Plan (06/12/2023 3:56 PM CDT): Chronic, well-controlled. Continue statin therapy with rosuvastatin Assessment & Plan (03/08/2023 4:37 PM CALENDER WIND UP TENDER): Chronic, well-controlled Continue statin therapy with rosuvastatin Assessment & Plan (12/07/2022 2:24 PM CDT): Chronic problem. Controlled on current Rosuvastatin 10mg & zetia 10mg. Last lipid panel: 03/14/22 LDL=52, KF=548. Assessment & Plan (07/05/2022 2:12 PM CDT): Chronic problem. On statin therapy, no changes. Assessment & Plan (03/09/2022 3:07 PM CALENDER WIND UP TENDER): Chronic, well controlled Low fat Low cholesterol [...] Pravachol Assessment & Plan (12/25/2019 1:24 PM CALENDER WIND UP TENDER): Goal of treatment , LDL cholesterol less [...] recently Assessment & Plan (04/03/2019 11:15 AM CALENDER WIND UP TENDER): Goal of treatment , LDL cholesterol less [...] daily Assessment & Plan (02/27/2024 1:54 PM CALENDER WIND UP TENDER): Chronic problem. Controlled on current olmesartan 40mg daily, diltiazem CD 360mg daily, chlorthalidone 25mg daily Assessment & Plan (10/25/2023 2:23 PM CDT): Chronic problem. Controlled on current olmesartan 40mg daily, diltiazem CD 360mg daily, chlorthalidone 25mg daily Assessment & Plan (03/08/2023 4:37 PM CALENDER WIND UP TENDER): Chronic, well-controlled Continue current regimen including ARB [...] Olmesartan Assessment & Plan (12/25/2019 1:23 PM CALENDER WIND UP TENDER): Goal blood pressure is less than 140/85 [...] Olmesartan Assessment & Plan (01/28/2019 10:48 AM CALENDER WIND UP TENDER): Controlled on current medications. Continue plan. Assessment [...] mychart. Aware to check results/results letter in [employer]. Will contact by phone if needed. UTD on DM eye exam (11/13/23 mild NPDR wo DME [facility]) Strive for regular exercise (30min most [...] exam (11/13/23 mild NPDR wo [facility]) Strive for regular exercise (30min most days) [...] infection. Assessment & Plan (02/27/2024 3:00 PM CALENDER WIND UP TENDER): Chronic problem. A1c worsened from 8.1% 10/25/23 [...] results. UTD on DM eye exam (12/2023 [facility]). Letter sent to get copy of [...] UTD on labs. DM eye exam 09/2022 [facility]. Has appt next week; will send [...] dinner Assessment & Plan (03/08/2023 4:37 PM CALENDER WIND UP TENDER): Hba1c was Lab Results Component Value Date [...] Janumet. Assessment & Plan (03/09/2022 3:06 PM CALENDER WIND UP TENDER): Hba1c was Lab Results Component Value Date [...] CGM Assessment & Plan (12/25/2019 1:23 PM CALENDER WIND UP TENDER): Hba1c was Lab Results Component Value Date [...] units hs Humalog 12-16 Units bid ac nidat and Staceydiance. Assessment & Plan (10/30/2019 4:32 PM CDT): [...] provided. Assessment & Plan (04/03/2019 11:15 AM CALENDER WIND UP TENDER): Hba1c was Lab Results Component Value Date [...] current Assessment & Plan (01/28/2019 10:49 AM CALENDER WIND UP TENDER): A1c 6.2 without hypoglycemia. Advised to continue [...] goal hba1c is under 7.0 to prevent returner diabetes complications ( eye , kidney and [...] Department Care Team Description 01/13/2025 11:30 AM CALENDER WIND UP TENDER Office Visit [facility] Cardiology at [address] [place] [address] Thomas Thornton MD Symptomatic PVCs (Primary Dx) 11/07/2024 Results Follow-Up [facility] Diabetes and Endocrinology [address] [place] [phone] Stephanie Ruiz NP Lipid panel 11/06/2024 1:45 PM CDT Lab [address] [address] Type 2 diabetes mellitus with hyperglycemia, with long-term current use of insulin (HCC); 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) 11/06/2024 1:00 PM CDT Office Visit [facility] Diabetes and Endocrinology [address] [place] [phone] Stephanie Ruiz NP Type 2 diabetes mellitus [...] on file Legal Sex Female 6:58 PM CALENDER WIND UP TENDER Gender Identity Not on file Sexual Orientation Not on file 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 Not on file Not on file Not on file Last Filed Vital Signs Vital Sign Reading Time Taken Comments Blood Pressure 112/62 01/13/2025 11:04 AM CALENDER WIND UP TENDER Pulse 81 01/13/2025 11:04 AM CALENDER WIND UP TENDER Temperature 36.6 C (97.8 F) 10/18/2019 4:00 PM CDT Respiratory Rate 18 11/06/2024 12:38 PM CDT Oxygen Saturation 98% 01/13/2025 11:04 AM CALENDER WIND UP TENDER Inhaled Oxygen Concentration - - Weight 84.4 kg (186 lb) 01/13/2025 11:04 AM CALENDER WIND UP TENDER Height 154.9 cm (5' 1) 01/13/2025 11:04 AM CALENDER WIND UP TENDER Body Mass Index 35.14 01/13/2025 11:04 AM CALENDER WIND UP TENDER Plan of Treatment Health Maintenance Due Date Last Done Comments Colon Cancer Screening-Colonoscopy 1950 Hepatitis C Screening 1950 Hepatitis B Screening 09/19[birth year]1967 Well Visit 65+ 2014 Fall Risk Assessment 10/17/2020 10/18/2019 DTaP/Tdap/Td Vaccine (2 - Td or Tdap) 09/03/2022 09/03/2012 Depression Screening 09/15/2022 09/15/2021, 05/05/2021, 05/04/2020, Additional history exists Osteoporosis Screening-Bone Density Scan 09/14/2023 09/13/2021 Covid-19 Vaccine (2024-2 6 season) 2024 07/18/2021, 11/18/2020, 05/04/2020, Additional [...] Additional history exists Lipid Panel 11/06/2025 11/06/2024, 07/1 09/2023, 03/08/2023, Additional history exists Pneumococcal vaccine 65+ Completed 018, 11/19/2017, 11/15/2016 Breast Cancer Screening-Mammogram Discontinued 04/30/2024, 04/30/2024, 10/25/2022, Additional history exists Zoster Vaccine Completed 11/25/2024, 04/0 09/2024, 12/05/2012 Procedures Procedure Name Priority Date/Time [...] CREATININE RATIO, URINE Routine 02/28/2024 8:00 AM CALENDER WIND UP TENDER Type 2 diabetes mellitus with hyperglycemia, with long-term current use of insulin (HCC) EGFR Routine 02/27/2024 2:39 PM CALENDER WIND UP TENDER Type 2 diabetes mellitus with hyperglycemia, with [...] Pediatrics 2011;128:S213 2. NCEP Expert Panel. Circulation 2003;110:227 Current Interpretive Data was last revised on 2017. LDL, calculated 59 <=129 mg/dL MELISSA Comment: Interpretive Data Ages < or = 19 years Acceptable: <110 mg/dL Borderline high: 110-129 mg/dL High: >or= 130 mg/dL Ages > or = 20 years Optimal: <100 mg/dL Near optimal: 100-129 mg/dL Borderline high: 130-159 mg/dL High: >160 mg/dL Calculated using the Gale LDL-C estimating equation. This equation was implemented on 2023. Prior to this date LDL-C was estimated using the Friedewald equation. Literature References: 1. Expert Panel on Integrated Guidelines for Cardiovascular Health and Risk Reduction in Children and Adolescents. Pediatrics 2011;128:S213 2. NCEP Expert Panel. Circulation 2004;110:227 3. Baljinder M et al. ANTWAN Cardiol. 2020 June 12;5(5):540-548. doi: 10.1001/jamacardio.2020.0013 [...] last revised on 2017. Chol/HDL ratio 3 [facility] Blood 11/06/2024 1:49 PM CDT 11/06/2024 6:17 PM CDT us Stephanie Ruiz NP LAB BLOOD ORDERABLES Barbara l Result MELISSA [address] [facility] Department [place] [address] * (ABNORMAL) POCT hemoglobin A1c (11/06/2024 12:58 [...] 12:4 7 PM CDT us Stephanierito Ruiz PROFESSOR OF HISTORICAL THEOLOGY POINT OF CARE TEST ORDERA BLES Final Result * Albumin Creatinine Ratio, Urine (02/28/2024 8:00 AM CALENDER WIND UP TENDER) SCRIBED Creatinine, Urine 195.8 28 - 217 EXTERNAL LAB SCRIBED Microalbumin 1.5 <2.0 - NA EXTERNAL LAB SCRIBED Microalb/Creat Ratio 7.7 <30.0 - NA EXTERNAL LAB Urine 02/28/2024 8:00 AM CALENDER WIND UP TENDER us Stephanie Ruiz PROFESSOR OF HISTORICAL THEOLOGY LAB URINE ORDERABLES Barbara l Result EXTERNAL LAB * (ABNORMAL) eGFR (02/27/2024 2:39 PM CALENDER WIND UP TENDER) eGFR 55(L) >=60 mL/min/1. 73 m2 Comment: [...] last reviewed 2020. Blood 02/27/2024 2:39 PM CALENDER WIND UP TENDER 02/27/2024 9:48 PM CALENDER WIND UP TENDER Stephanie Ruiz PROFESSOR OF HISTORICAL THEOLOGY LAB BLOOD ORDERABLES Barbara l Result MELISSA KAHN [address] Department [place] [address] * (ABNORMAL) DIABETES EYE EXAM (11/13/2023) SCRIBED DIABETIC DILATED EYE EXAM Abnormal 11/13/2023 Historical Provider HEALTH MAINTENANCE Edited Result - Final * DIABETES FOOT EXAM (11/01/2023 8:39 AM CDT) Historical Provider HEALTH MAINTENANCE Final Result from Last 3 Months or Most Recently Relevant to Health Maintenance Insurance UHC MEDICARE ADVANTAGE AETNA MEDICARE AETNA MEDICARE Advance Directives For more information, please contact: [phone] Documents on File Type Date Recorded Patient Dean Of Graduate Studies Expl anation ADVANCE DIRECTIVE 10/10/2019 10:36 AM Pratibha r of Denture Finisher-Medical * Full Code (Latest Code Status on File) Date Activated Date Inactivated Comments 10/17/2019 7:55 PM 10/18/2019 10:54 PM Care Teams Filler Operator Relationship Specialty Start Date End Date Frantz Matthews MD [address] [place] [address] PCP - General Family Practice 06/27/24
--- OUTSIDE RECORDS SUMMARY | 2025-02-03 08:33 | XMS_ITS | Encounter Summary ---
Author Organization [facility] Address [address] [place] [address] Care Team Providers Care It Security Consultant Name Role Phone Vanesa Horan DO Primary Care Provider [phone] Encounter Details Date Type Department Care Team (Late st Contact Info) Description 11/06/2022 Lab Requisition [facility] - DermPath Lab [address] [facility], [place] [address] Virginia Romero DO [address] [facility] 3 [place] [address] Social History Tobacco Use Types Packs/Day Years [...] PM CDT) Case Report Dermatopathology Report Case: [id number] Authorizing Provider: Virginia Romero DO Collected: 11/06/2022 04:01 PM Ordering Location: [facility] DermPath Lab Received: 11/07/2022 02:30 [...] characteristic determined by the Dermatopathology Laboratory at [facility], directed by Dr. Bruce Costa. These tests need not be, and therefore are not, approved by the [place] Food and Drug Administration. The tests are used for clinical purposes. Billing Codes Specimen Charges Stain Charges 92681 61132 1 1 3 3:12 PM CDT DERMATOPATHOLOGY LABORATORY Embedded Images 3 3:12 PM CDT DERMATOPATHOLOGY LABORATORY Pathology/Cytology TISSUE SPECIMEN FROM SKIN / Unknown 11/06/2022 4:01 PM CDT 11/07/2022 2:30 PM CDT Miscellaneous samples (specimen) TISSUE SPECIMEN FROM SKIN / Unknown 11/06/2022 4:01 PM CDT 11/07/2022 2:30 PM CDT us Virginia Romero DO LAB - PATHOLOGY/CYTOLOGY ORDERABLES Final Result DERMATOPATHOLOGY LABORATORY [facility] - Department of Dermatology Specialized Medicine [address] [place] [address], [address] [phone] documented in this encounter Visit Diagnoses Not on filedocumented in this encounter Care Teams It Security Consultant Relationship Specialty Start Date End Date Vanesa Horan DO [address] [place] [phone] PCP - General Family Medicine 12/28/16 documented as of this encounter
--- OUTSIDE RECORDS SUMMARY | 2025-02-03 08:33 | XMS_ITS | Encounter Summary ---
Author Organization [facility] Address [address] [facility] [place] [address] Care Team Providers Care Cryptographic Technician Name Role Phone Vanesa Horan DO Primary Care Provider [phone] Encounter Details Date Type Department Care Team (Late st Contact Info) Description 11/14/2023 Lab Requisition [facility] - DermPath Lab [address] [facility], [place] [address] Virginia Romero DO [address] [facility] 3 [place] [address] Social History Tobacco Use Types Packs/Day Years [...] AM CDT) Case Report Dermatopathology Report Case: [id number] Authorizing Provider: Virginia Romero DO Collected: 11/14/2023 09:50 AM Ordering Location: [facility] - Received: 11/14/2023 04:50 [...] characteristic determined by the Dermatopathology Laboratory at [facility], directed by Dr. Bruce Costa. These tests need not be, and therefore are not, approved by the [place] Food and Drug Administration. The tests are used for clinical purposes. Billing Codes Specimen Charges Stain Charges 22077 08631 1 1 4 1:53 PM CDT DERMATOPATHOLOGY LABORATORY Embedded Images 1:53 PM CDT DERMATOPATHOLOGY LABORATORY Pathology/Cytology TISSUE SPECIMEN FROM SKIN / Unknown 11/14/2023 9:50 AM CDT 11/14/2023 4:50 PM CDT Miscellaneous samples (specimen) TISSUE SPECIMEN FROM SKIN / Unknown 11/14/2023 9:50 AM CDT 11/14/2023 4:50 PM CDT us Virginia Romero DO LAB - PATHOLOGY/CYTOLOGY ORDERABLES Final Result DERMATOPATHOLOGY LABORATORY [facility] - Department of Dermatology [address], [address] [phone] documented in this encounter Visit Diagnoses Not on filedocumented in this encounter Care Teams Cryptographic Technician Relationship Specialty Start Date End Date Vanesa Horan DO [address] [place] [phone] PCP - General Family Medicine 12/28/16 documented as of this encounter
--- OUTSIDE RECORDS SUMMARY | 2025-02-03 08:33 | XMS_ITS | Encounter Summary ---
Author Organization [facility] Address [address] [facility] [place] [address] Care Team Providers Care Gold And Silver Assayer Name Role Phone Vanesa Horan DO Primary Care Provider [phone] Encounter Details Date Type Department Care Team (Late st Contact Info) Description 06/27/2018 Lab Requisition [facility] Care DermPath Lab [address] [facility], [place] [address] Chrissy Cobian MD [address] [facility] 3 [place] [address] Social History Tobacco Use Types Packs/Day Years [...] AM CDT) Case Report Dermatopathology Report Case: [id number] Authorizing Provider: Chrissy Cboian MD Collected: 06/26/2018 12:00 AM Pathologist: Nelsy [...] specimen consists of a shave biopsy measuring 28w08a9 mm, inked and bisected. Jar 0. 2:39 [...] characteristic determined by the Dermatopathology Laboratory at [facility], directed by Dr. Bruce Costa. These tests need not be, and therefore are not, approved by the [place] Food and Drug Administration. The tests are used for clinical purposes. Billing Codes Specimen Charges Stain Charges 80351 1 9 2:39 PM CDT DERMATOPATHOLOGY LABORATORY Embedded Images 9 2:39 PM CDT DERMATOPATHOLOGY LABORATORY Pathology/Cytolog y TISSUE SPECIMEN FROM SKIN / Unknown 06/26/2018 06/27/2018 12:07 PM CDT us Chrissy Cobian MD LAB - PATHOLOGY/CYTOLOGY ORD ERABLES Final Result DERMATOPATHOLOGY LABORATORY [facility] - Department of Dermatology [address] [facility], [address]th [place] [address], [facility] [phone] documented in this encounter Visit Diagnoses Not on filedocumented in this encounter Care Teams Gold And Silver Assayer Relationship Specialty Start Date End Date Vanesa Horan DO [address] [place] [phone] PCP - General Family Medicine 12/28/16 documented as of this encounter
--- OUTSIDE RECORDS SUMMARY | 2025-02-03 08:33 | XMS_ITS | Clinical Summary ---
Author Organization [facility] Address [facility] [place] [address] Care Team Providers Care Att[facility] Name Role Phone Frantz Matthews MD Primary Care Provider Allergies Active Allergy Reactions Criticality Noted Date [...] Encounters Date Type Department Care Team Description 01/29/2025 1:00 PM RENTAL SALESPERSON - 01/29/2025 11:59 PM RENTAL SALESPERSON Hospital Encounter [facility] [address] [place], [place] [id number] Frantz Matthews MD Gerling, Savannah L, PR[employer]ED [employer] BO[employer] ASSEMBLY REPAIRER Back Pain Discharge Disposition: Home or Self Care (Routine Discharge) 01/29/2025 Travel 01/27/2025 12:59 PM RENTAL SALESPERSON - 01/27/2025 11:59 PM RENTAL SALESPERSON Hospital Encounter [facility] [address] [place], [place] [phone] Denis Ballard, PT Frantz Matthews MD Low Back Pain Discharge Disposition: Home or Self Care (Routine Discharge) 01/27/2025 Travel 01/22/2025 1:42 PM RENTAL SALESPERSON - 01/22/2025 11:59 PM RENTAL SALESPERSON Hospital Encounter [facility] [address] [place] [address] Frantz Matthews MD Ammann, Aryn K, PT Back Pain Discharge Disposition: Home or Self Care (Routine Discharge) 01/22/2025 Travel 01/20/2025 1:59 PM RENTAL SALESPERSON - 01/20/2025 11:59 PM RENTAL SALESPERSON Hospital Encounter [facility] [address] [place] [address] Denis Ballard, PT Frantz Matthews MD Low Back Pain Discharge Disposition: Home or Self Care (Routine Discharge) 01/20/2025 Travel 01/16/2025 8:51 AM RENTAL SALESPERSON - 01/16/2025 11:59 PM RENTAL SALESPERSON Hospital Encounter [facility] [address] [place] [address] Frantz Matthews MD Musenbrock, Daniel A, PT Low Back Pain Discharge Disposition: Home or Self Care (Routine Discharge) 01/16/2025 Travel 01/14/2025 1:28 PM RENTAL SALESPERSON - 01/14/2025 11:59 PM RENTAL SALESPERSON Hospital Encounter [facility] [address] [place] [address] Denis Ballard, PT Frantz Matthews MD Low Back Pain Discharge Disposition: Home or Self Care (Routine Discharge) 01/14/2025 Travel 01/07/2025 4:12 PM RENTAL SALESPERSON - 01/07/2025 11:59 PM RENTAL SALESPERSON Hospital Encounter [facility] [address] [place] [address] Frantz Matthews, Lizet Augustin, PRINTED CIRCUIT BOARD ASSEMBLY REPAIRER Low Back Pain Discharge Disposition: Home or Self Care (Routine Discharge) 01/07/2025 Travel 12/26/2024 2:30 PM RENTAL SALESPERSON - 12/26/2024 11:59 PM RENTAL SALESPERSON Hospital Encounter [facility] [address] [place] [address] Frantz Matthews MD Sackett, Kim, CLARA Low Back Pain Discharge Disposition: Home or Self Care (Routine Discharge) 12/26/2024 Travel 12/23/2024 2:43 PM RENTAL SALESPERSON - 12/23/2024 11:59 PM RENTAL SALESPERSON Hospital Encounter [facility] [address] [place] [phone] Denis Ballard, PT Frantz Matthews MD Low Back Pain Discharge Disposition: Home or Self Care (Routine Discharge) 12/23/2024 Travel 12/19/2024 12:47 PM RENTAL SALESPERSON - 12/19/2024 11:59 PM RENTAL SALESPERSON Hospital Encounter [facility] [address] [place] [address] Frantz Matthews, Lizet Augustin, PRINTED CIRCUIT BOARD ASSEMBLY REPAIRER Low Back Pain Discharge Disposition: Home or Self Care (Routine Discharge) 12/19/2024 Travel 12/09/2024 12:45 PM CDT - 12/09/2024 11:59 PM CDT Hospital Encounter [facility] [address] [place] [address] Denis Ballard, PT Frantz Matthews MD Back Pain (PT Eval ) Discharge Disposition: Home or Self Care (Routine Discharge) 12/09/2024 Travel from Last 3 Months Social History Tobacco Use Types Packs/Day Years Used Date Smoking Tobacco: Never Assessed Comments Unknown Sex and Gender Information Value Date Recorded Sex Assigned at Female 02/28/2024 1:10 PM RENTAL SALESPERSON Legal Sex Female 7:27 PM CDT [...] st Contact Info) Description 02/09/2025 1:00 PM RENTAL SALESPERSON Appointment [facility] [address] [place], [place] [phone] [place] [address] [place] [address] Frantz Matthews MD [address] [place] [address] 02/11/2025 10:30 AM RENTAL SALESPERSON Appointment [facility] [address] [place], [place] [phone] Frantz Matthews MD [address] [place] [address] Ada German, PR[employer]ED [employer] BOARD ASSEMBLY REPAIRER Health Maintenance Due Date Last Done Comments [...] Comments LIPID PANEL Routine 03/14/2022 8:17 AM RENTAL SALESPERSON Type II diabetes mellitus with hyperosmolarity, uncontrolled Encounter for long-term (current) use of insulin BONE DENSITY/DEXA Routine 09/13/2021 1:1 7 PM CDT Postmenopause HEMOGLOBIN, GLYCOSYLATED Routine 09/24/2018 11:12 AM CDT Type 2 diabetes, diet controlled from Last 3 Months or Most Recently Relevant to Health Maintenance Results * LIPID PANEL (03/14/2022 8:17 AM RENTAL SALESPERSON) CHOLESTEROL 120 <200.0 MG/DL 03/14/2022 8:45 AM [facility] TRIGLYCERIDES 130 <150 MG/DL 03/14/2022 8:45 AM [facility] HDL 42 >40.0 MG/DL 03/14/2022 8:45 AM [facility] LDL (CALCULATED) 52 <100 MG/DL 03/14/19 8:45 AM [facility] NON HDL CHOLESTEROL 78 <130 MG/DL 03/14 8:45 AM [facility] CHOL/HDL RATIO 2.9 0.0 - 4.5 03/14/2022 8:45 AM [facility] VLDL CALCULATION 26 5 - 55 MG/DL 03/14/2022 8:45 AM [facility] LIPID INTERPRETATION 03/14/2022 8:45 AM [facility] Comment: [facility] CONCENSUS REPORT RECOMMENDATIONS: ADULT CHILD LOW RISK: CHOLESTEROL <200 <170 TRIGLYCERIDE <150 --- HDL >=60 --- LDL <100 <110 BORDERLINE: CHOLESTEROL 200-239 170-199 TRIGLYCERIDE 150-199 --- HDL 40-59 --- LDL 100-159 110-129 HIGH RISK: CHOLESTEROL >=240 >=200 TRIGLYCERIDE >=200 --- HDL <40 --- LDL >=160 >=130 03/14/2022 8:17 AM RENTAL SALESPERSON us Octavia Paul MD LABORATORY Final Result [facility] [address] [place] [address], * BONE DENSITY/DEXA (09/13/2021 1:17 PM CDT) [...] 7.8(H) <5.7 % 09/24/2018 1:06 PM CDT [facility] Comment: INCREASED RISK OF DIABETES <5.7% NON-DIABETES 5.7-6.4% INCREASED RISK FOR FUTURE DIABETES > OR = 6.5 CONSISTENT WITH DIABETES STANDARDS OF MEDICAL CARE IN DIABETES-2010 DIABETES CARE, 33(SUPP 1): S1-S61,2009 09/24/2018 11:1 2 AM CDT David Greco MD LABORATORY Final Result [facility] [address] [place] [address], from Last 3 Months or Most Recently Relevant to Health Maintenance Insurance [employer] MED[employer]ARE Care Teams [facility] Relationship Specialty [place] [address] [place], [place] [id number] PCP - General FAMILY PRACTICE 10/11/24
--- OUTSIDE RECORDS SUMMARY | 2025-02-03 08:33 | XMS_ITS | Clinical Summary ---
Author Organization [facility] Address [address] [facility] [place] [address] Care Team Providers Care Elementary Math Tutor Name Role Phone BobottoVanesa Primary Care Provider [phone] Source Comments [facility],non-owned Affiliates and Associated Physician Practices is amultiple site organization consisting of ambulatory clinics and hospital sitesin [place], [place], [place] and [place]. This disclosure is being madepursuant to the Care Everywhere program and may not contain all information available regarding this patient. Last updated 17.[facility] Allergies Active Allergy Reactions Criticality Noted [...] 100.7 kg (222 lb) 04/15/2019 2:52 PM [facility] Height 157.5 cm (5' 2) 04/15/2019 2:52 PM [facility] Body Mass Index 40.6 04/15/2019 2:52 PM [facility] Plan of Treatment Health Maintenance Due Date [...] topic Insurance [employer] MEDICARE ADV Care Teams Elementary Math Tutor Relationship Specialty Start Date End Date Vanesa Horan DO [address] [place] [id number] PCP - General Family Medicine 12/28/16
--- NOTE | 2025-02-03 08:41 | WPDHPUPDATE1 ---
History and Physical Update Update Date/Time: 02/03/25 08:41 History and Physical has been reviewed, including an updated exam of the patient. There are NO changes in the patient's condition. Risks, benefits, and alternatives have been discussed and questions answered. Patient agrees to proceed with procedure.
--- NOTE | 2025-02-03 08:42 | W.PM.PROC2 ---
Procedure Note - Detailed Date of Procedure 02/03/25 Pre-op Diagnosis Lumbar radiculopathy Post-op Diagnosis Same Procedure Performed Bilateral Lumbar Transforaminal Epidural Steroid Injection under Fluoroscopic Guidance and with Contrast Control at L3-4. Surgeon Bentley Toney MD Anesthesia Local Description of Procedure INFORMED CONSENT: Risks, benefits and alternatives to the procedure were discussed in detail with the patient who expressed explicit understanding and consent to proceed. Patient was informed verbally and in written form regarding the risks associated with the procedure including the low risk of serious infection, bleeding/bruising, allergic reaction, nerve or organ injury, paralysis, procedural site pain or discomfort, worsening pain and/or mobility, failure to treat and/or disfigurement. The patient expressed explicit understanding and consent to proceed. All materials required for the procedure were available prior to procedure start. Site and side was marked prior to procedure and confirmed in the presence of the patient. PROCEDURE IN DETAIL: The patient was brought to the procedural suite and placed in the prone position. Patient was made comfortable with use of pillows under the head/chest, hips and ankles. Skin overlying the injection site was prepared broadly with ChloraPrep applicator and draped in a sterile manner. Aseptic technique was employed throughout. The endplates of the vertebral body at the site of interest were aligned in the AP view. Ipsilateral oblique angulation was utilized to better visualize the neuroforamen of interest. Local anesthesia was established by infiltration with approximately 5 mL of 0.5% PF lidocaine via a 1-1/2 inch 27-gauge needle. A 22-gauge 5.0 inch Maria Luisa (pencil point) spinal needle was advanced until the needle approached the 6 o'clock position on the pedicle just superior to the exiting nerve root. on the right at L3-4. Lateral view was utilized to confirm appropriate position of the needle tip within the superior and posterior portion of the respective foramen. In an AP view, 1 mL of Omnipaque 300 contrast medium was injected after negative aspiration for CSF, blood or other bodily fluid, showing appropriate neurogram without evidence of intravascular or intrathecal spread of contrast. Digital subtraction imaging was used with an additional 1ml of the same contrast medium to confirm absence of intravascular contrast spread. A 1mL solution containing 5 mg of dexamethasone was injected after negative repeat aspiration. Appropriate spread of the injectate was confirmed with washout of previously injected contrast. No parasthesias were elicited. Needle was removed completely intact without difficulty. The same exact procedure was repeated for all remaining levels on the contralateral side, left L3-4 neuroforamen, modified as necessary to accommodate for the new target location with identical findings and results and no evidence of complication. Images were saved and documented in the patient chart. Patient's skin was cleaned and sterile bandage applied. The patient tolerated the procedure well. The patient was transported to the recovery area in stable condition where they were observed for an appropriate amount of time prior to discharge, without evidence of complication. The patient was instructed to avoid excessive activity for the next 48 hours, including climbing and frequent use of stairs. Showers only for 48 hours. They were instructed not to drive or operate heavy machinery for 24 hours. They are to monitor for severe headaches, fevers, chills, night sweats, erythema/swelling at the site or any other signs of infection, bleeding/bruising, bowel or bladder changes as well as new pain, weakness or numbness in the upper or lower extremity. Should they notice these changes, they are instructed to call our office immediately or report directly to the nearest Emergency Department if no answer or if after posted office hours. COMPLICATIONS: None COMMENTS: None CONTRAST WASTED: 26 mL Omnipaque 300. STEROID WASTED: 0 mg of dexamethasone. Complications No immediate complications Condition Stable Disposition Same day [facility] Billing Surgery - Charge Forward: Surgery Billing
[2025-02-03 09:07] VITALS: BP 135/88; PULSE 83; RESP 16; TEMP 36.6; O2SAT 100; BMI 35.2
[2025-02-03 09:25] VITALS: BP 150/68; PULSE 103; RESP 24; O2SAT 99
[2025-02-03 09:30] VITALS: BP 155/76; PULSE 99; RESP 19; O2SAT 99
[2025-02-03] MEDS: LIDOCAINE 1% PF INJ 5 ML VIAL INFILTRATE (09:30)
[2025-02-03] MEDS: LIDOCAINE 2% PF LOCAL INJ 5 ML VIAL INFILTRATE (09:31)
[2025-02-03] MEDS: DEXAMETHASONE SODIUM PHOSP/PF 10 MG/ML 1 ML VIAL (09:31)
[2025-02-03 09:32] VITALS: BP 156/75; PULSE 100; RESP 17; O2SAT 99
[2025-02-03 09:35] VITALS: BP 133/59; PULSE 92; RESP 16; O2SAT 100
== END 2025-02-03 09:47 | disposition home or self-care (01) ==
PROVIDERS: PCP Family Medicine; Visit Provider Anesthesiology Pain Medicine
PROC: (CPT 64483; principal; 2025-02-03 09:35)
DX: M54.16 Radiculopathy, lumbar region (principal)
CPT/HCPCS: 64483 ×2; 99199